=== PATIENT | female | born 1990 | race African-American/Black ===

== ENCOUNTER 2018-06-07 09:53 | Emergency (ER) | payer SELFPAY ==
--- OUTSIDE RECORDS SUMMARY | 2018-06-07 10:01 | XMS REPORT ---
:1990 [facility] [address] [place] [address] Dr. Glass [address] [place] [id number] Care Team Providers Name Role Phone Unavailable Unavailable Unavailable Problems This patient has no known problems. Allergies, Adverse Reactions, Alerts This patient has no known allergies or adverse reactions. Medications This patient has no known medications. Results Test Description Test Time Test Comments Text Results Atomic Results Result Comments CT C-SPINE W/O CONT 2017-04-07 21:20:[address] [id number] IMAGING REPORTPatient Name: Carl WHITEte of Service: [id number]: 26 Sex: F Order #: [id number] Room: QERDOB: 1990 X-Ray Number: [id number] Record Number: [id number] Hospital Number: [id number] Physician: Gwen PRADO Physician: Artis DE JESUS CT exam was performed using one or more of the following dosereduction techniques: Automated exposure control, adjustment of the mAand/or kV according to patient size, or use of iterative reconstructiontechnique.CT head, CT cervical spineHistory: Headache. Neck pain.CT head: There is a moderate-sized mucus retention cyst in the rightmaxillary paranasal sinus. Otherwise, normal.CT cervical spine: There is reversed cervical lordosis. No fracture orsubluxation identified. Alignment, position, vertebral body heights, andintervertebral disc spaces are maintained. No soft tissue abnormalityidentified. There are dental caries.Impression:1. Findings as discussed.Electronically Signed By: Michael Milian M.D., 04/07/2017 9:17 PMLegally authenticated by MAVIS HALL 2017-04-07 21:17:48 CT HEAD W/O CONT 2017-04-07 21:20:00 [address] [place], [place] [id number] IMAGING REPORTPatient Name: Gianluca WHITE of Service: [id number]: 26 Sex: F Order #: [id number] [facility] 1990 X-Ray Number: [id number] Record Number: [id number] Hospital Number: [id number] Physician: Gwen PRADO Physician: Artis DE JESUS CT exam was performed using one or more of the following dosereduction techniques: Automated exposure control, adjustment of the mAand/or kV according to patient size, or use of iterative reconstructiontechnique.CT head, CT cervical spineHistory: Headache. Neck pain.CT head: There is a moderate-sized mucus retention cyst in the rightmaxillary paranasal sinus. Otherwise, normal.CT cervical spine: There is reversed cervical lordosis. No fracture orsubluxation identified. Alignment, position, vertebral body heights, andintervertebral disc spaces are maintained. No soft tissue abnormalityidentified. There are dental caries.Impression:1. Findings as discussed.Electronically Signed By: Michael Milian M.D., 04/07/2017 9:17 PMLegally authenticated by MAVIS HALL 2017-04-07 21:17:48
[2018-06-07] MEDS ORDERED: NA CHLORIDE 0.9% 1,000 ML ONE ×2 (10:16→11:18)
[2018-06-07] MEDS ORDERED: ONDANSETRON 4 MG/2 ML VIAL ONE (10:16)
--- NOTE | 2018-06-07 10:26 | RAD REPORT ---
EXAM DESCRIPTION: CT - Head Brain Wo Cont - 06/07/2018 10:21 am CLINICAL HISTORY: Headache, hypertension COMPARISON: November 2016 TECHNIQUE: Axial 5 mm thick images of the head were obtained without IV contrast. All CT scans are performed using dose optimization technique as appropriate and may include automated exposure control or mA/KV adjustment according to patient size. FINDINGS: No intracranial hemorrhage, mass, edema or shift of mid-line structures. No acute infarcti on changes seen. No abnormal extra-axial fluid collections. Ventricles are normal. Mastoid air cells and visualized portions of the paranasal sinuses are clear. No acute bony findings. No significant change from comparison. IMPRESSION: Negative non-contrast CT head examination.
[2018-06-07 10:33] LABS: Absolute Lymphocytes (CBC) 2.4 K/uL (0.7-4.9); Absolute Monocytes 0.6 K/uL (0.1-1.3); Absolute Neutrophil 5.1 K/uL (1.8-8.0); Basophils % 0.3 % (0-1.3); Eosinophils % 0.1 % (0-4.4); Hematocrit 45.6 % (36.0-45.0); Lymphocytes % 29.1 % (15.3-44.8); MCH 29.8 pg (27.0-35.0); MCV 86.8 fL (80-100); MPV 6.8 fL (7.6-11.3); Monocytes % 7.8 % (3.3-12.3); RBC Red Blood Cell Count 5.26 M/uL (3.86-4.86)
[2018-06-07 10:35] LABS: Urine Blood 2+ (NEG); Urine Glucose NEGATIVE (NEG); Urine Protein 1+ (NEG); Urine Specific Gravity 1.025 (1.005-1.030)
--- NOTE | 2018-06-07 12:47 | ER ---
Nurse's Notes [facility] Name: Lexi Velazquez Age: 27 yrs Sex: Female : 1990 Arrival Date: 06/07/2018 Time: 09:55 Bed 6 Private MD: None, None Diagnosis: Headache;Volume depletion Presentation: 06/07 10:01 Presenting complaint: Patient states: N/V and fatigue that began last night, sharp pain ss to back of head that began when patient woke up this morning. Transition of care: patient was not received from another setting of care. Onset of symptoms was June 06, 2018. Risk Assessment: Do you want to hurt yourself or someone else? Patient reports no desire to harm self or others. Initial Sepsis Screen: Does the patient meet any 2 criteria? No. Patient's initial sepsis screen is negative. Does the patient have a suspected source of infection? No. Patient's initial sepsis screen is negative. Care prior to arrival: None. 10:01 Method Of Arrival: Ambulatory ss 10:01 Acuity: KATHY 3 ss Triage Assessment: 13:03 Pain: Also complains of nausea. iw 13:03 Headache History: The patient has had previous headaches. 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 - Social history:: Smoking status: Patient/guardian denies using tobacco. - Ebola Screening: : Patient denies exposure to infectious person Patient denies travel to an Ebola-affected area in the 21 days before illness onset. Screenin:10 Abuse screen: Denies threats or abuse. Denies injuries from another. Nutritional ss screening: No deficits noted. Tuberculosis screening: Never had TB. Fall Risk None identified. Assessment: 10:05 General: Appears uncomfortable, Behavior is calm, cooperative, Reports feeling ill for ss 12-24 hours, fatigue for 12-24 hours, Denies fever, chills. Pain: Complains of pain in "back of head" Pain currently is 6 out of 10 on a pain scale. Quality of pain is described as sharp, Pain began "when I woke up this morning." Is continuous. Neuro: Level of Consciousness is awake, alert, obeys commands, Oriented to person, place, time, situation, Greenhouse Assistant are equal bilaterally Moves all extremities. Full function Gait is steady, Speech is normal, Facial symmetry appears normal, Pupils are PERRLA, Intact Denies blurred vision dizziness, paresthesias numbness photophobia. Cardiovascular: Capillary refill < 3 seconds is brisk in bilateral fingers. Respiratory: Airway is patent Respiratory effort is even, unlabored, Respiratory pattern is regular, symmetrical, Breath sounds are clear bilaterally. Denies cough, shortness of breath pain with respiration, pain with cough, pain with movement. GI: Reports nausea, vomiting, began last night Patient currently denies abdominal pain, constipation, diarrhea. GI: Abdomen is non-distended, Bowel sounds present X 4 quads. : Denies burning with urination, urinary frequency. EENT: Oral mucosa is moist. Throat is clear. Derm: Skin is intact, is healthy with good turgor, Skin is pink, warm \\T\\ dry. normal. Musculoskeletal: Circulation, motion, and sensation intact. Range of motion: intact in all extremities. 10:19 Reassessment: Pt to CT VIA wheelchair, NS infusing. ss 10:23 Reassessment: Pt back from CT, awaiting results from labs and CT. ss 11:17 Reassessment: Patient appears in no apparent distress at this time. Patient and/or iw family updated on plan of care and expected duration. Pain level reassessed. 2nd liter NS started. 11:39 Reassessment: Patient appears in no apparent distress at this time. Patient and/or ss family updated on plan of care and expected duration. Pain level reassessed. Pt reports headache 2/110 "almost gone". Nausea has reportedly improved as well. Awaiting for NS to finish infusing. Patient states feeling better. Patient states symptoms have improved. 12:19 Reassessment: Patient appears in no apparent distress at this time. Patient and/or ss family updated on plan of care and expected duration. Pain level reassessed. Patient is alert, oriented x 3, equal unlabored respirations, skin warm/dry/pink. Patient denies pain at this time. Vital Signs: 10:03 BP 136 / 71; Pulse 114; Resp 14; Temp 97.4(TE); Pulse Ox 100% on R/A; Weight 89.81 kg; ss Height 5 ft. 9 in. (175.26 cm); Pain 6/10; 10:27 Pulse 103; Resp 17; Pulse Ox 99% on R/A; ss 11:20 BP 119 / 86; Pulse 80; Resp 16; Pulse Ox 98% on R/A; iw 12:18 BP 131 / 86; Pulse 77; Resp 15; Pulse Ox 98% ; Pain 0/10; ss 10:03 Body Mass Index 29.24 (89.81 kg, 175.26 cm) ss Olga Coma Score: 11:16 Eye Response: spontaneous(4). Verbal Response: oriented(5). Motor Response: obeys kb commands(6). Total: 15. ED Course: 09:55 Patient arrived in ED. mr 09:56 None, None is Private Physician. mr 09:57 Francia Plunkett, CARLOS A [facility]. kb 09:57 Marcelo Richards MD is Attending Physician. kb 10:02 Triage completed. ss 10:03 Arm band placed on right wrist. ss 10:10 Patient has correct armband on for positive identification. Bed in low position. Call ss light in reach. 10:10 satellite project site monitor on. Pulse ox on. NIBP on. ss 10:10 Patient maintains SpO2 saturation greater than 95% on room air. ss 10:17 Inserted saline lock: 20 gauge in left antecubital area, using aseptic technique. Blood ss collected. 10:19 CT completed. Patient tolerated procedure well. Patient moved to CT via wheelchair. vr Patient moved back from CT. 10:21 CT Head Brain wo Cont In Process Unspecified. EDMS 10:23 Basic Metabolic Panel Sent. ss 10:23 CBC with Diff Sent. ss 10:27 Keren Chaney, ESTRADA is Primary Nurse. ss 13:02 No provider procedures requiring assistance completed. IV discontinued, intact, iw bleeding controlled, No redness/swelling at site. Pressure dressing applied. Administered Medications: 10:17 Drug: Zofran 4 mg Route: IVP; Site: left antecubital; ss 10:36 Follow up: Response: No adverse reaction; Nausea is decreased ss 10:19 Drug: NS 0.9% 1000 ml Route: IV; Rate: 1000 ml; Site: left antecubital; ss 12:19 Follow up: IV Status: Completed infusion; IV Intake: 1000ml ss 10:41 Drug: TORadol 30 mg Route: IVP; Site: left antecubital; ss 12:19 Follow up: Response: No adverse reaction; Pain is decreased ss 11:16 Drug: NS 0.9% 1000 ml Route: IV; Rate: 1000 ml; Site: left antecubital; iw 13:03 Follow up: IV Status: Completed infusion iw Intake: 12:19 IV: 1000ml; Total: 1000ml. ss Outcome: 12:47 Discharge ordered by . kb 13:02 Discharged to home ambulatory. iw 13:02 Condition: good 13:02 Discharge instructions given to patient, Instructed on discharge instructions, follow up and referral plans. Demonstrated understanding of instructions, follow-up care. 13:03 Patient left the ED. iw Signatures: Dispatcher [employer] EDMS Francia Plunkett, ROBBIEC CAR PACKER-Sara Pierre mr Deepa Guerrero RN RN iw Keren Chaney RN RN ss Davis, Victoria vr Corrections: (The following items were deleted from the chart) 10:23 10:17 Inserted saline lock: 20 gauge in right antecubital area, using aseptic ss technique. Blood collected. ss
--- NOTE | 2018-06-07 12:47 | EDPHYS ---
Physician Documentation [facility] Name: Lexi Velazquez Age: 27 yrs Sex: Female : 1990 Arrival Date: 06/07/2018 Time: 09:55 Bed 6 Private MD: None, None ED Physician Marcelo Richards HPI: 06/07 11:17 This 27 yrs old Black Female presents to ER via Ambulatory with complaints of Headache. kb 11:17 The patient complains of pain to the right side of the back of head. The patient kb describes the headache as constant. Onset: The symptoms/episode began/occurred yesterday. Associated signs and symptoms: Pertinent positives: nausea, vomiting. Severity of symptoms: At its worst the pain was mild, moderate, in the emergency department the pain is unchanged. Headache History: Denies prior headaches. The symptoms are alleviated by nothing. the symptoms are aggravated by nothing. The patient has not experienced similar symptoms in the past. The patient has not recently seen a physician. 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 - Social history:: Smoking status: Patient/guardian denies using tobacco. - Ebola Screening: : Patient denies exposure to infectious person Patient denies travel to an Ebola-affected area in the 21 days before illness onset. ROS: 11:17 Constitutional: Negative for fever, chills, and weight loss, Eyes: Negative for injury, kb pain, redness, and discharge, ENT: Negative for injury, pain, and discharge, Neck: Negative for injury, pain, and swelling, Cardiovascular: Negative for chest pain, palpitations, and edema, Respiratory: Negative for shortness of breath, cough, wheezing, and pleuritic chest pain, : Negative for injury, bleeding, discharge, and swelling, MS/Extremity: Negative for injury and deformity, Skin: Negative for injury, rash, and discoloration. 11:17 Abdomen/GI: Positive for nausea and vomiting, Negative for abdominal pain, diarrhea, constipation, abdominal cramps, abdominal distension, anorexia. 11:17 Neuro: Positive for headache, Negative for altered mental status, dizziness, gait disturbance, hearing loss, loss of consciousness, numbness, seizure activity, speech changes, syncope, near syncope, tingling, tinnitus, tremor, visual changes, weakness. Exam: 11:17 Constitutional: This is a well developed, well nourished patient who is awake, alert, kb and in no acute distress. Head/Face: Normocephalic, atraumatic. Eyes: Pupils equal round and reactive to light, extra-ocular motions intact. Lids and lashes normal. Conjunctiva and sclera are non-icteric and not injected. Cornea within normal limits. Periorbital areas with no swelling, redness, or edema. ENT: Nares patent. No nasal discharge, no septal abnormalities noted. Tympanic membranes are normal and external auditory canals are clear. Oropharynx with no redness, swelling, or masses, exudates, or evidence of obstruction, uvula midline. Mucous membranes moist. Neck: Trachea midline, no thyromegaly or masses palpated, and no cervical lymphadenopathy. Supple, full range of motion without nuchal rigidity, or vertebral point tenderness. No Meningismus. Chest/axilla: Normal chest wall appearance and motion. Nontender with no deformity. No lesions are appreciated. Cardiovascular: Regular rate and rhythm with a normal S1 and S2. No gallops, murmurs, or rubs. Normal PMI, no JVD. No pulse deficits. Respiratory: Lungs have equal breath sounds bilaterally, clear to auscultation and percussion. No rales, rhonchi or wheezes noted. No increased work of breathing, no retractions or nasal flaring. Abdomen/GI: Soft, non-tender, with normal bowel sounds. No distension or tympany. No guarding or rebound. No evidence of tenderness throughout. Skin: Warm, dry with normal turgor. Normal color with no rashes, no lesions, and no evidence of cellulitis. MS/ Extremity: Pulses equal, no cyanosis. Neurovascular intact. Full, normal range of motion. Neuro: Awake and alert, GCS 15, oriented to person, place, time, and situation. Cranial nerves II-XII grossly intact. Motor strength 5/5 in all extremities. Sensory grossly intact. Cerebellar exam normal. Normal gait. Vital Signs: 10:03 BP 136 / 71; Pulse 114; Resp 14; Temp 97.4(TE); Pulse Ox 100% on R/A; Weight 89.81 kg; ss Height 5 ft. 9 in. (175.26 cm); Pain 6/10; 10:27 Pulse 103; Resp 17; Pulse Ox 99% on R/A; ss 11:20 BP 119 / 86; Pulse 80; Resp 16; Pulse Ox 98% on R/A; iw 12:18 BP 131 / 86; Pulse 77; Resp 15; Pulse Ox 98% ; Pain 0/10; ss 10:03 Body Mass Index 29.24 (89.81 kg, 175.26 cm) ss Olga Coma Score: 11:16 Eye Response: spontaneous(4). Verbal Response: oriented(5). Motor Response: obeys kb commands(6). Total: 15. MDM: 09:57 Patient medically screened. kb 11:16 Data reviewed: vital signs, nurses notes. Data interpreted: Pulse oximetry: on room air kb is 99 %. Interpretation: normal. ED course: Pt reports pain is decreased and she is feeling better. 12:46 Counseling: I had a detailed discussion with the patient and/or guardian regarding: the kb historical points, exam findings, and any diagnostic results supporting the discharge/admit diagnosis, lab results, the need for outpatient follow up, a family practitioner, to return to the emergency department if symptoms worsen or persist or if there are any questions or concerns that arise at home. 06/07 10:10 Order name: Basic Metabolic Panel; Complete Time: 11:09 kb 06/07 10:10 Order name: CBC with Diff; Complete Time: 10:41 kb 06/07 10:10 Order name: CT Head Brain wo Cont; Complete Time: 10:29 kb 06/07 10:18 Order name: Urine Dipstick--Ancillary (enter results); Complete Time: 10:41 bd 06/07 10:18 Order name: Urine --Ancillary (enter results); Complete Time: 10:41 bd 06/07 10:10 Order name: Urine Test (obtain specimen); Complete Time: 10:22 kb 06/07 10:10 Order name: IV Saline Lock; Complete Time: 10:22 kb 06/07 10:10 Order name: Labs collected and sent; Complete Time: 10: kb 06/07 10:10 Order name: Urine Dipstick-Ancillary (obtain specimen); Complete Time: 10:22 kb Administered Medications: 10:17 Drug: Zofran 4 mg Route: IVP; Site: left antecubital; ss 10:36 Follow up: Response: No adverse reaction; Nausea is decreased ss 10:19 Drug: NS 0.9% 1000 ml Route: IV; Rate: 1000 ml; Site: left antecubital; ss 12:19 Follow up: IV Status: Completed infusion; IV Intake: 1000ml ss 10:41 Drug: TORadol 30 mg Route: IVP; Site: left antecubital; ss 12:19 Follow up: Response: No adverse reaction; Pain is decreased ss 11:16 Drug: NS 0.9% 1000 ml Route: IV; Rate: 1000 ml; Site: left antecubital; iw 13:03 Follow up: IV Status: Completed infusion iw Disposition: 06/08 06:55 Co-signature as Attending Physician, Marcelo Richards MD I agree with the assessment and tomi plan of care. Disposition: 06/07/18 12:47 Discharged to Home. Impression: Headache, Volume depletion. - Condition is Stable. - Discharge Instructions: Dehydration, Adult, Mrhm-go-Lmdd, General Headache Without Cause, Ubet-zh-Mroa. - Medication Reconciliation Form, Thank You Letter, Antibiotic Education, Prescription Opioid Use, Work release form form. - Follow up: Emergency Department; When: As needed; Reason: Worsening of condition. Follow up: Private Physician; When: 2 - 3 days; Reason: Recheck today's complaints, Continuance of care, Re-evaluation by your physician. Signatures: Dispatcher [employer] Francia Mayorga, NATHAN-Emma EVANS-Marcelo Daniel MD MD cha Williams, Irene, Keren Galindo RN, RN RN ss Corrections: (The following items were deleted from the chart) 06/07 13:03 12:47 06/07/2018 12:47 Discharged to Home. Impression: Headache; Volume depletion. iw Condition is Stable. Forms are Medication Reconciliation Form, Thank You Letter, Antibiotic Education, Prescription Opioid Use. Follow up: Emergency Department; When: As needed; Reason: Worsening of condition. Follow up: Private Physician; When: 2 - 3 days; Reason: Recheck today's complaints, Continuance of care, Re-evaluation by your physician. kb
[2018-06-07 13:20] VITALS: TEMP 97.4
[2018-06-07 13:22] VITALS: O2SAT 98
[2018-06-07 13:23] VITALS: BP 131/86
== END 2018-06-07 13:03 | disposition home or self-care (01) ==
LOC: ER 09:53
DX: E86.9 Volume depletion, unspecified (principal); I10 Essential (primary) hypertension
CPT/HCPCS: 36415; 70450; 80048; 81003; 81025; 85025; 96361; 96374; 96375; 99285; J2405; J7030

== ENCOUNTER 2018-11-16 11:36 | Emergency (ER) | payer SELFPAY ==
--- OUTSIDE RECORDS SUMMARY | 2018-11-16 11:38 | XMS REPORT ---
:1990 [facility] Address [address] [place] [address] Dr. Glass [address] [place] [address] Care Team Providers Name Role Phone Unavailable Unavailable Unavailable Problems This patient has no known problems. Allergies, Adverse Reactions, Alerts This patient has no known allergies or adverse reactions. Medications This patient has no known medications. Results Test Description Test Time Test Comments Text Results Atomic Results Result Comments CT C-SPINE W/O CONT 2017-04-07 21:20:[address] [id number] IMAGING REPORTPatient Name: Carl WHITEte of Service: [id number]: 26 Sex: F Order #: [id number] Room: QERDOB: 1990 X-Ray Number: [id number] Record Number: [id number] Hospital Number: [id number] Physician: Gwen PRADO Physician: Artis DE JESUS [...] 21:17:48 CT HEAD W/O CONT 2017-04-07 21:20:00 [address], [place] [id number] IMAGING REPORTPatient Name: Gianluca WHITE of Service: [id number]: 26 Sex: F Order #: [id number] [facility] 1990 [facility] Number: [id number] Record Number: [id number] Hospital Number: [id number] Physician: Gwen PRADO Physician: Artis DE JESUS [...]
--- NOTE | 2018-11-16 12:11 | EDPHYS ---
Physician Documentation [facility] Name: Lexi Velazquez Age: 28 yrs Sex: Female : 1990 Arrival Date: 11/16/2018 Time: 11:39 Bed 17 Private MD: None, None ED Physician Reece Hay HPI: 11/16 12:20 This 28 yrs old Black Female presents to ER via Ambulatory with complaints of Ear Pain. snw 12:20 The patient presents with pain, that is acute. The complaints affect the right ear. snw Onset: The symptoms/episode began/occurred suddenly, 4 day(s) ago, and became worse and became persistent. Associated signs and symptoms: The patient has no apparent associated signs or symptoms. Severity of symptoms: At their worst the symptoms were moderate severe. The patient has not experienced similar symptoms in the past. It is unknown whether or not the patient has recently seen a physician. was on Lisinopril until she ran out and hasn't gotten another prescription. 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 - Social history:: Smoking status: Patient uses tobacco products, 4 cigarettes per day. - Ebola Screening: : No symptoms or risks identified at this time. ROS: 12:20 Constitutional: Negative for fever, chills, and weight loss, Eyes: Negative for injury, snw pain, redness, and discharge, ENT: Negative for injury and discharge, + dental pain, sore throat, and right ear pain Neck: Negative for injury, pain, and swelling, Cardiovascular: Negative for chest pain, palpitations, and edema, Respiratory: Negative for shortness of breath, cough, wheezing, and pleuritic chest pain, Abdomen/GI: Negative for abdominal pain, nausea, vomiting, diarrhea, and constipation, Back: Negative for injury and pain, : Negative for injury, bleeding, discharge, and swelling, MS/Extremity: Negative for injury and deformity, Skin: Negative for injury, rash, and discoloration, Neuro: Negative for headache, weakness, numbness, tingling, and seizure. Exam: 12:19 Constitutional: This is a well developed, well nourished patient who is awake, alert, snw and in no acute distress. Head/Face: Normocephalic, atraumatic. Eyes: Pupils equal round and reactive to light, extra-ocular motions intact. Lids and lashes normal. Conjunctiva and sclera are non-icteric and not injected. Cornea within normal limits. Periorbital areas with no swelling, redness, or edema. Neck: Trachea midline, no thyromegaly or masses palpated, and no cervical lymphadenopathy. Supple, full range of motion without nuchal rigidity, or vertebral point tenderness. No Meningismus. Chest/axilla: Normal chest wall appearance and motion. Nontender with no deformity. No lesions are appreciated. Cardiovascular: Regular rate and rhythm with a normal S1 and S2. No gallops, murmurs, or rubs. Normal PMI, no JVD. No pulse deficits. Respiratory: Lungs have equal breath sounds bilaterally, clear to auscultation and percussion. No rales, rhonchi or wheezes noted. No increased work of breathing, no retractions or nasal flaring. Abdomen/GI: Soft, non-tender, with normal bowel sounds. No distension or tympany. No guarding or rebound. No evidence of tenderness throughout. Back: No spinal tenderness. No costovertebral tenderness. Full range of motion. Skin: Warm, dry with normal turgor. Normal color with no rashes, no lesions, and no evidence of cellulitis. MS/ Extremity: Pulses equal, no cyanosis. Neurovascular intact. Full, normal range of motion. Neuro: Awake and alert, GCS 15, oriented to person, place, time, and situation. Cranial nerves II-XII grossly intact. Motor strength 5/5 in all extremities. Sensory grossly intact. Cerebellar exam normal. Normal gait. Psych: Awake, alert, with orientation to person, place and time. Behavior, mood, and affect are within normal limits. 12:19 ENT: External ear(s): are unremarkable, Ear canal(s): are normal, TM's: dullness, on the right, Nose: is normal, Mouth: is normal, Posterior pharynx: is normal, Dental exam: dental caries, that is moderate, specifically in the lower right third molar (#32), gum swelling, Voice: is normal. Vital Signs: 11:56 BP 148 / 99; Pulse 74; Resp 18; Temp 99; Pulse Ox 100% ; Weight 102.51 kg; Height 5 ft. ca1 9 in. (175.26 cm); Pain 10/10; 11:56 Body Mass Index 33.37 (102.51 kg, 175.26 cm) ca1 MDM: 12:01 Patient medically screened. snw 12:22 Data reviewed: vital signs, nurses notes. Data interpreted: Pulse oximetry: on room air snw is 100 %. Interpretation: normal. Counseling: I had a detailed discussion with the patient and/or guardian regarding: the historical points, exam findings, and any diagnostic results supporting the discharge/admit diagnosis, the presence of at least one elevated blood pressure reading (>120/80) during this emergency department visit, the need for outpatient follow up, to return to the emergency department if symptoms worsen or persist or if there are any questions or concerns that arise at home. Special discussion: I have referred the patient to see his PCP for further evaluation of high blood pressure. Based on the history and exam findings, there is no indication for further emergent testing or inpatient evaluation. I discussed with the patient/guardian the need to see a dentist for further evaluation of the symptoms. I discussed with the patient/guardian the need to see the primary care provider for further evaluation of the symptoms. Administered Medications: 12:32 Drug: Lisinopril 10 mg Route: PO; bp 12:57 Follow up: Response: Pain is decreased bp 12:32 Drug: Augmentin 875 mg Route: PO; bp 12:57 Follow up: Response: No adverse reaction bp 12:32 Drug: TORadol 60 mg Route: IM; Site: right gluteus; bp 12:57 Follow up: Response: Pain is decreased bp Disposition: 13:30 Co-signature as Attending Physician, Reece Hay MD. rn Disposition: 11/16/18 12:10 Discharged to Home. Impression: Dental caries, unspecified, Essential (primary) hypertension, Otalgia, right ear. - Condition is Stable. - Discharge Instructions: Dental Pain, Hypertension, Earache, Adult, Diet and Dental Disease, Managing Your Hypertension. - Prescriptions for chlorhexidine gluconate 0.12 % Mucous Membrane mouthwash - place 15 milliliter by MUCOUS MEMBRANE route 2 times per day (after meals), swish in mouth for 30 seconds then spit out; 480 milliliter. Amoxicillin 500 mg Oral Capsule - take 1 capsule by ORAL route every 8 hours for 10 days; 30 tablet. Lisinopril 10 mg Oral Tablet - take 1 tablet by ORAL route once daily; 30 tablet. Diclofenac Sodium 75 mg Oral Tablet Sustained Release - take 1 tablet by ORAL route 2 times per day; 30 tablet. - Medication Reconciliation Form, Thank You Letter, Antibiotic Education, Prescription Opioid Use form. - Follow up: Private Physician; When: 2 - 3 days; Reason: Recheck today's complaints, Continuance of care, Re-evaluation by your physician. Follow up: Emergency Department; When: As needed; Reason: Worsening of condition. Signatures: Betzy Menezes, VALIDATION INTERN-C VALIDATION INTERN-Csnw Reece Hay MD MD rn Peltier, Brian, RN RN bp Acob, Patricia RN ESTRADA ca1 Corrections: (The following items were deleted from the chart) 12:11 12:10 11/16/2018 12:10 Discharged to Home. Impression: Dental caries, unspecified; snw Essential (primary) hypertension. Condition is Stable. Forms are Medication Reconciliation Form, Thank You Letter, Antibiotic Education, Prescription Opioid Use. Follow up: Private Physician; When: 2 - 3 days; Reason: Recheck today's complaints, Continuance of care, Re-evaluation by your physician. Follow up: Emergency Department; When: As needed; Reason: Worsening of condition. snw 12:58 12:11 11/16/2018 12:10 Discharged to Home. Impression: Dental caries, unspecified; bp Essential (primary) hypertension; Otalgia, right ear. Condition is Stable. Forms are Medication Reconciliation Form, Thank You Letter, Antibiotic Education, Prescription Opioid Use. Follow up: Private Physician; When: 2 - 3 days; Reason: Recheck today's complaints, Continuance of care, Re-evaluation by your physician. Follow up: Emergency Department; When: As needed; Reason: Worsening of condition. snw
--- NOTE | 2018-11-16 12:11 | ER ---
Nurse's Notes [facility] Name: Lexi Velazquez Age: 28 yrs Sex: Female : 1990 Arrival Date: 11/16/2018 Time: 11:39 Bed 17 Private MD: None, None Diagnosis: Dental caries, unspecified;Essential (primary) hypertension;Otalgia, right ear Presentation: 11/16 11:51 Presenting complaint: Patient states: "I think I have an ear infection which started ca1 the day before yesterday. It is in there right ear. Transition of care: patient was not received from another setting of care. Onset of symptoms was November 14, 2018. Risk Assessment: Do you want to hurt yourself or someone else? Patient reports no desire to harm self or others. Initial Sepsis Screen: Does the patient meet any 2 criteria? No. Patient's initial sepsis screen is negative. Does the patient have a suspected source of infection? Yes: Other: Ear Infection. Care prior to arrival: None. 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 - Social history:: Smoking status: Patient uses tobacco products, 4 cigarettes per day. - Ebola Screening: : No symptoms or risks identified at this time. Screenin:31 Abuse screen: Denies threats or abuse. Denies injuries from another. Nutritional bp screening: No deficits noted. Tuberculosis screening: No symptoms or risk factors identified. Fall Risk None identified. Assessment: 12:00 General: Appears in no apparent distress. comfortable, Behavior is calm, cooperative, bp appropriate for age. Pain: Complains of pain in right ear. Neuro: Level of Consciousness is awake, alert, obeys commands, Oriented to person, place, time, situation, Appropriate for age. Cardiovascular: No deficits noted. Respiratory: Airway is patent Respiratory effort is even, unlabored, Respiratory pattern is regular, symmetrical. GI: No signs and/or symptoms were reported involving the gastrointestinal system. : No signs and/or symptoms were reported regarding the genitourinary system. EENT: Reports pain in right ear. Derm: No signs and/or symptoms reported regarding the dermatologic system. Musculoskeletal: No signs and/or symptoms reported regarding the musculoskeletal system. 12:58 Reassessment: PT D/C HOME AMBULATORY, DX WITH DENTAL CARIES. bp Vital Signs: 11:56 BP 148 / 99; Pulse 74; Resp 18; Temp 99; Pulse Ox 100% ; Weight 102.51 kg; Height 5 ft. ca1 9 in. (175.26 cm); Pain 10/10; 11:56 Body Mass Index 33.37 (102.51 kg, 175.26 cm) ca1 ED Course: 11:39 Patient arrived in ED. dl4 11:39 None, None is Private Physician. dl4 11:40 Betzy Meenzes FNP-C is PHCP. snw 11:40 Reece Hay MD is Attending Physician. snw 11:54 Triage completed. ca1 11:56 Arm band placed on left wrist. ca1 12:28 Sampson Sánchez, ESTRADA is Primary Nurse. bp 12:31 Patient has correct armband on for positive identification. Bed in low position. Call bp light in reach. Side rails up X2. Adult w/ patient. 12:57 No provider procedures requiring assistance completed. Patient did not have IV access bp during this emergency room visit. Administered Medications: 12:32 Drug: Lisinopril 10 mg Route: PO; bp 12:57 Follow up: Response: Pain is decreased bp 12:32 Drug: Augmentin 875 mg Route: PO; bp 12:57 Follow up: Response: No adverse reaction bp 12:32 Drug: TORadol 60 mg Route: IM; Site: right gluteus; bp 12:57 Follow up: Response: Pain is decreased bp Outcome: 12:10 Discharge ordered by . snw 12:57 Discharged to home ambulatory. bp 12:57 Condition: stable 12:57 Discharge instructions given to patient, Instructed on discharge instructions, follow up and referral plans. medication usage, Demonstrated understanding of instructions, follow-up care, medications, Prescriptions given X 4. 12:58 Patient left the ED. bp Signatures: Betzy Menezes FNP-C MOVIE SHOT CAMERA OPERATOR-Csnw Sampson Sánchez, RN RN bp Jorge Fritz dl4 Acob, Patricia, RN RN ca1
[2018-11-16] MEDS ORDERED: LISINOPRIL 10 MG TAB ONE (12:45)
[2018-11-16] MEDS ORDERED: AMOX/K CLAV 875 MG TAB ONE (12:45)
[2018-11-16] MEDS ORDERED: KETOROLAC 30 MG/ML INJ ONE (12:45)
[2018-11-16 13:52] VITALS: BP 148/99; TEMP 99; O2SAT 100
== END 2018-11-16 12:58 | disposition home or self-care (01) ==
LOC: ER 11:36
DX: I10 Essential (primary) hypertension (principal); H92.01 Otalgia, right ear; K02.9 Dental caries, unspecified; F17.210 Nicotine dependence, cigarettes, uncomplicated
CPT/HCPCS: 96372; 99283

== ENCOUNTER 2019-04-24 14:02 | Emergency (ER) | payer SELFPAY ==
--- OUTSIDE RECORDS SUMMARY | 2019-04-24 14:05 | XMS REPORT ---
:1990 Author Organization [facility] Address [address] [place] [address] [address] Care Team Providers Name Role Phone Unavailable Unavailable Unavailable Problems This patient has no known problems. Allergies, Adverse Reactions, Alerts This patient has no known allergies or adverse reactions. Medications This patient has no known medications. Results Test Description Test Time Test Comments Text Results Atomic Results Result Comments CT C-SPINE W/O CONT 2017-04-07 21:20:00 [place] [id number] [place], [place] [address]VILHLHGNRF IMAGING REPORTPatient Name: Gianluca WHITE of Service: [id number]: 26 Sex: F Order #: [id number] Room: QERDOB: 1990 X-Ray Number: [id number] Record Number: [id number] Hospital Number: [id number] Physician: Gwen PRADO Physician: Artis DE JESUS [...] 21:17:48 CT HEAD W/O CONT 2017-04-07 21:20:00 [facility] [place], [place] [address]GFOATZBPHV IMAGING REPORTPatient Name: Gianluca WHITE of Service: [id number]: 26 Sex: F Order #: [id number] [facility] 1990 [facility] Number: [id number] Record Number: [id number] Hospital Number: [id number] Physician: Gwen PRADO Physician: Artis DE JESUS [...]
--- NOTE | 2019-04-24 14:56 | RAD REPORT ---
EXAM DESCRIPTION: RAD - Foot Right 3 View - 04/24/2019 2:34 pm CLINICAL HISTORY: Right foot pain following trauma COMPARISON: None. FINDINGS: No fracture, dislocation or periosteal reaction. No air or foreign body in the soft tissues. IMPRESSION: Negative right foot examination.
--- NOTE | 2019-04-24 15:19 | ER ---
Nurse's Notes [facility] Name: Lexi Velazquez Age: 28 yrs Sex: Female : 1990 Arrival Date: 04/24/2019 Time: 14:05 Bed 19 Private MD: Diagnosis: Right ankle eversion strain Presentation: 04/24 14:06 Presenting complaint: Patient states: i was walking fast when i heard a popped on my R hj foot, it happened an hour ago; pain is 7/10;. Transition of care: patient was not received from another setting of care. Onset of symptoms was April 24, 2019. Risk Assessment: Do you want to hurt yourself or someone else? Patient reports no desire to harm self or others. Initial Sepsis Screen: Does the patient meet any 2 criteria? No. Patient's initial sepsis screen is negative. Does the patient have a suspected source of infection? No. Patient's initial sepsis screen is negative. Care prior to arrival: None. 14:06 Method Of Arrival: Ambulatory 14:06 Acuity: KATHY 4 Triage Assessment: 14:10 General: Appears in no apparent distress. uncomfortable, obese, Behavior is calm, bp cooperative, appropriate for age. Pain: Complains of pain in right ankle. EENT: No deficits noted. Neuro: No deficits noted. Cardiovascular: No deficits noted. Respiratory: No deficits noted. GI: No signs and/or symptoms were reported involving the gastrointestinal system. : No signs and/or symptoms were reported regarding the genitourinary system. Derm: No deficits noted. Musculoskeletal: Circulation, motion, and sensation intact. Range of motion: limited in right ankle. Injury Description: NONE NOTED. 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 - Social history:: Smoking status: Patient/guardian denies using tobacco. - Ebola Screening: : No symptoms or risks identified at this time. Screenin:10 Abuse screen: Denies threats or abuse. Denies injuries from another. Nutritional bp screening: No deficits noted. Tuberculosis screening: No symptoms or risk factors identified. Fall Risk None identified. Assessment: 14:10 General: SEE TRIAGE NOTE. bp 16:04 Reassessment: PT D/C HOME VIA W/C WITH FAMILY, DX WITH ANKLE EVERSION STRAIN. bp Vital Signs: 14:08 BP 134 / 68; Pulse 94; Resp 18; Temp 98.3(O); Pulse Ox 99% on R/A; Weight 104.33 kg; hj Height 5 ft. 9 in. (175.26 cm); Pain 7/10; 16:00 BP 129 / 71; Pulse 87; Resp 16; Temp 98; Pulse Ox 99% ; bp 14:08 Body Mass Index 33.96 (104.33 kg, 175.26 cm) ED Course: 14:05 Patient arrived in ED. mr 14:07 Triage completed. hj 14:08 Arm band placed on left wrist. 14:10 Patient has correct armband on for positive identification. Bed in low position. Call bp light in reach. Side rails up X2. Adult w/ patient. 14:11 Yair Clark MD is Attending Physician. ps1 14:11 Sergei Kirby, ESTRADA is Primary Nurse. mg2 14:35 Foot Right 3 View XRAY In Process Unspecified. EDDC 14:53 Primary Nurse role handed off by Sergei Kirby RN bp 14:53 Sampson Sánchez, RN is Primary Nurse. bp 15:38 Orthoglass splint: SHORT BOOT. 5 16:05 No provider procedures requiring assistance completed. Patient did not have IV access bp during this emergency room visit. Administered Medications: No medications were administered Outcome: 15:19 Discharge ordered by . ps1 16:05 Discharged to home via wheelchair, with family. bp 16:05 Condition: stable 16:05 Discharge instructions given to patient, Instructed on discharge instructions, follow up and referral plans. medication usage, Demonstrated understanding of instructions, follow-up care, medications, splint care, Prescriptions given X 3. 16:07 Patient left the ED. bp Signatures: Dispatcher [employer] [facility] Aaliyah SanchezMark RN RN Sara Juares [facility] Sampson Sánchez, RN RN Yair Clark MD MD ps1 Gardose, Sergei, RN RN mg2
--- NOTE | 2019-04-24 15:19 | EDPHYS ---
Physician Documentation [facility] Name: Lexi Velazquez Age: 28 yrs Sex: Female : 1990 Arrival Date: 04/24/2019 Time: 14:05 Bed 19 Private MD: ED Physician Yair Clark HPI: 04/24 14:11 This 28 yrs old Black Female presents to ER via Ambulatory with complaints of Foot ps1 Injury. 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 . 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 - Social history:: Smoking status: Patient/guardian denies using tobacco. - Ebola Screening: : No symptoms or risks identified at this time. Vital Signs: 14:08 BP 134 / 68; Pulse 94; Resp 18; Temp 98.3(O); Pulse Ox 99% on R/A; Weight 104.33 kg; hj Height 5 ft. 9 in. (175.26 cm); Pain 7/10; 16:00 BP 129 / 71; Pulse 87; Resp 16; Temp 98; Pulse Ox 99% ; bp 14:08 Body Mass Index 33.96 (104.33 kg, 175.26 cm) hj MDM: 14:23 Patient medically screened. ps1 15:20 Data reviewed: vital signs, nurses notes, radiologic studies, and as a result, I will ps1 discharge patient. Counseling: I had a detailed discussion with the patient and/or guardian regarding: the historical points, exam findings, and any diagnostic results supporting the discharge/admit diagnosis, radiology results, the need for outpatient follow up, to return to the emergency department if symptoms worsen or persist or if there are any questions or concerns that arise at home. 04/24 14:11 Order name: Foot Right 3 View XRAY; Complete Time: 15:18 ps1 Administered Medications: No medications were administered Disposition: 04/24/19 15:19 Discharged to Home. Impression: Right ankle eversion strain. - Condition is Stable. - Discharge Instructions: Ankle Sprain. - Prescriptions for Anaprox DS 550 mg Oral Tablet - take 1 tablet by ORAL route every 12 hours As needed; 20 tablet. Robaxin 500 mg Oral Tablet - take 2 tablet by ORAL route every 6 hours As needed; 40 tablet. Medrol (Hu) 4 mg Oral Tablets, Dose Pack - take 1 tablet by ORAL route as directed - follow package instructions; 1 packet. - Medication Reconciliation Form, Thank You Letter, Antibiotic Education, Prescription Opioid Use form. - Follow up: Private Physician; When: As needed; Reason: Further diagnostic work-up, Continuance of care, Re-evaluation by your physician. Follow up: Emergency Department; When: As needed; Reason: Worsening of condition. - Problem is new. - Symptoms are unchanged. Signatures: Dispatcher [employer] EDMS Mark Lozada RN RN hj Sampson Sánchez RN RN bp Yair Clark MD MD ps1 Corrections: (The following items were deleted from the chart) 16:07 15:19 04/24/2019 15:19 Discharged to Home. Impression: Right ankle eversion strain. bp Condition is Stable. Forms are Medication Reconciliation Form, Thank You Letter, Antibiotic Education, Prescription Opioid Use. Follow up: Private Physician; When: As needed; Reason: Further diagnostic work-up, Continuance of care, Re-evaluation by your physician. Follow up: Emergency Department; When: As needed; Reason: Worsening of condition. Problem is new. Symptoms are unchanged. ps1
[2019-04-26 17:30] VITALS: BP 129/71; TEMP 98; O2SAT 99
== END 2019-04-24 16:07 | disposition home or self-care (01) ==
LOC: ER 14:02
DX: S96.911A Strain of unspecified muscle and tendon at ankle and foot level, right foot, initial encounter (principal); X58.XXXA Exposure to other specified factors, initial encounter; Y93.9 Activity, unspecified; Y92.9 Unspecified place or not applicable; I10 Essential (primary) hypertension
CPT/HCPCS: 99283

== ENCOUNTER 2019-09-22 12:57 | Emergency (ER) | payer SELFPAY ==
--- OUTSIDE RECORDS SUMMARY | 2019-09-22 12:59 | XMS REPORT | Summary of Care ---
:1990 Author Organization [facility] - Health Address [address] [place] [address] Care Team Providers Name Role Phone Mikie Ramila FLORP Primary Care Provider Encounter Details Date Type Department Care Team Description 07/10/2019 Orders Only [facility] Doctor Unassigned, No [address] [facility] [place] [address] [address] [place] [address] Allergies No Known Allergiesdocumented as of this encounter (statuses as of 07/10/2019) Medications Medication Sig Dispensed Refills Start Date End Date Status cyclobenzaprine 10 mg Take 1 tablet by 20 tablet 0 12/22/2017 Active tablet mouth 3 (three) times daily. naproxen (NAPROSYN) Take 1 tablet by 30 tablet 0 12/22/2017 Active 500 mg tablet mouth 2 (two) times daily with meals. NUVARING (NUVARING) Insert 1 Each into 1 Each 2 03/03/2018 Active 0.12-0.015 mg/24 hr vagina once every vaginal month. Insert insertIndications: vaginally and Nexplanon removal leave in place for 3 consecutive weeks, then remove for 1 week. lisinopril 10 mg Take 1 tablet by 30 tablet 0 06/02/2018 Active tablet mouth at bedtime. traMADOL 50 mg Take 1 tablet by 20 tablet 0 01/27/2019 Active tabletIndications: mouth every 6 Plantar fasciitis of (six) hours as right foot needed (pain). documented as of this encounter (statuses as of 07/10/2019) Active Problems Problem Noted Date Visit for wound check 03/07/2018 Nexplanon removal 01/14/2018 Overview: Placed 12/2017 removed 02/2018 examination or test, positive result 12/16/2017 Well woman exam 12/15/2017 Over weight 12/15/2017 Encounter for other contraceptive management 01/05/2017 documented as of this encounter (statuses as of 07/10/2019) Resolved Problems Problem Noted Date Resolved Date Routine follow-up 03/13/2013 01/04/2017 Immune to varicella 03/13/2013 01/04/2017 Not immune to rubella 03/13/2013 01/04/2017 Overview: MMR vaccine given 03/13/2013. 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 Female genital symptoms 12/15/2012 01/06/2013 Overview: 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 Abnormal weight gain 12/15/2012 01/27/2013 documented as of this encounter (statuses as of 07/10/2019) Immunizations Name Administration Dates Next Due Influenza Virus Vaccine 08/05/2012 MMR 03/13/2013 Tdap 11/24/2012 documented as of this encounter Social History Tobacco Use Types Packs/Day Years Used Date Former Smoker 12/15/2014 - 11/14/2017 Smokeless Tobacco: Never Used Alcohol Use Drinks/Week oz/Week Comments No 0 Standard drinks or equivalent 0.0 Sex Assigned at Date Recorded Not on file Job Start Date Occupation Industry Not on file Not on file Not on file Travel History Travel Start Travel End No recent travel history available. documented as of this encounter Last Filed Vital Signs Not on filedocumented in this encounter Plan of Treatment Health Maintenance Due Date Last Done Comments VARICELLA VACCINES (1 of 2 - 13+ 2002 2-dose series) PAP SMEAR 05/23/2015 05/23/2012 INFLUENZA VACCINE (#1) 2019 08/05/2012 DTaP,Tdap,and Td Vaccines (2 - Td) 11/24/2022 11/24/2012 PNEUMOCOCCAL 0-64 YEARS COMBINED Aged Out No longer eligible based on SERIES patient's age to complete this topic documented as of this encounter Procedures Procedure Name Priority Date/Time Associated Diagnosis Comments NOTICE OF PRIVACY Routine 07/10/2019 10:01 AM CDT PRACTICES CONSENT/REFUSAL FOR Routine 07/10/2019 10:01 AM CDT DIAGNOSIS AND TREATMENT documented in this encounter Results Not on filedocumented in this encounter Insurance Payer Benefit Plan Subscriber ID Effective Phone Address Type / Group Dates [facility] xxxxxxxxx 2017-[facility] [phone] Medicaid WOMEN nt [address] [place] [address] documented as of this encounter Advance Directives Type Date Recorded 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
--- OUTSIDE RECORDS SUMMARY | 2019-09-22 12:59 | XMS REPORT ---
:1990 [facility] Address [facility] [place] [address] Care Team Providers Name Role Phone Unavailable Unavailable Unavailable Problems This patient has no known problems. Allergies, Adverse Reactions, Alerts This patient has no known allergies or adverse reactions. Medications This patient has no known medications. Results Test Description Test Time Test Comments Text Results Atomic Results Result Comments CT C-SPINE W/O CONT 2017-04-07 21:20:[address] [id number] IMAGING REPORTPatient Name: Gianluca WHITE of Service: [id number]: 26 Sex: F Order #: [id number] Room: ERDOB: 1990 X-Ray Number: [id number] Record Number: [id number] Hospital Number: [id number] Physician: Gwen PRADO Physician: Artis DE JESUS [...] 21:17:48 CT HEAD W/O CONT 2017-04-07 21:20:00 [facility] [place] [id number] IMAGING REPORTPatient Name: Gianluca WHITE of Service: [id number]: 26 Sex: F Order #: [id number] [facility] 1990 X-Ray Number: [id number] Record Number: [id number] Hospital Number: [id number] Physician: Gwen PRADO Physician: Artis DE JESUS [...]
--- OUTSIDE RECORDS SUMMARY | 2019-09-22 12:59 | XMS REPORT | Summary of Care ---
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 Primary Care Provider Reason for Visit Reason Comments Abdominal Pain Auth/Cert Status Reason Specialty Diagnoses / Referred By Referred To Procedures Contact Contact Emergency Medicine Diagnoses ABD PAIN [facility] [address] [place] [address] [place] [address] Encounter Details Date Type Department Care Team Description 07/10/2019 Emergency [facility] Heather Delcid R, Lower abdominal pain ( Primary Dx); Department EMNP Vaginal discharge; [address] [place] [address] [address] [facility] [address] [id number] [place], [place] [id number] Allergies No Known Allergiesdocumented as of this [...] with meals. NUVARING (NUVARING) Insert 1 Each 1 Each 2 03/03/2018 Active 0.12-0.015 mg/24 hr into vagina once vaginal every month. insertIndications: Insert vaginally Nexplanon removal and leave in place for 3 consecutive weeks, then remove for 1 week. lisinopril 10 mg Take 1 tablet by 30 tablet 0 06/02/2018 Active tablet mouth at bedtime. traMADOL 50 mg Take 1 tablet by 20 tablet 0 01/27/2019 Active tabletIndications: mouth every 6 Plantar fasciitis of (six) hours as right foot needed (pain). metroNIDAZOLE 500 mg Take 1 tablet by 14 tablet 0 07/10/2019 07/17/2019 Active tabletIndications: mouth 2 (two) Vaginal discharge times daily for 7 days. documented as of this encounter (statuses as [...] MMR vaccine given 03/13/2013. 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 Female genital symptoms 12/15/2012 01/06/2013 Overview: 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 Abnormal weight gain 12/15/2012 01/27/2013 documented [...] of this encounter Last Filed Vital Signs Vital Sign Reading Time Taken Comments Blood Pressure 123/91 07/10/2019 1:00 PM CDT Pulse 66 07/10/2019 1:00 PM CDT Temperature 37.3 C (99.2 F) 07/10/2019 10:27 AM CDT Respiratory Rate 18 07/10/2019 1:00 PM CDT Oxygen Saturation 98% 07/10/2019 1:00 PM CDT Inhaled Oxygen Concentration - - Weight 102.1 kg (225 lb) 07/10/2019 10:27 AM CDT Height 175.3 cm (5' 9") 07/10/2019 10:27 AM CDT Body Mass Index 33.23 07/10/2019 10:27 AM CDT documented in this encounter Discharge Instructions Heather Plunkett EMNP - 07/10/2019NO LIFE-THREATENING FINDINGS ON TODAY'S EXAM. SPECIAL INSTRUCTIONS: 1. Pelvic rest until results return 2. See attached information 3. Take medicines as prescribed 4. You have been treated with rocephin and azithromycin, which would treat gonorrhea/chlamydia. FOLLOW-UP RECOMMENDATIONS: RECOMMEND FOLLOW-UP WITH A PRIMARY CARE PROVIDER OR SPECIALIST IN 2-5 DAYS, ESPECIALLY IF NO IMPROVEMENT IN SYMPTOMS. TO FOLLOW-UP WITHIN THE [facility], TRY THESE OPTIONS (CLINIC APPOINTMENTS AVAILABLE ON [id number] BASIS): 1. SCHEDULE AN APPOINTMENT ONLINE AT [email or web address] 2. OR CALL THE [facility] AT OR 3. OR CALL YOUR [facility] PHYSICIAN'S OFFICE DIRECTLY IF YOU ARE ALREADY AN ESTABLISHED [facility] PATIENT. OR, YOU MAY FOLLOW-UP WITH A PROVIDER OF YOUR CHOICE, SUCH : 1. A PHYSICIAN OF YOUR CHOICE 2. [facility], . LOCATIONS IN [facility] 3. [facility], [address] [place], [place]; [phone] RETURN TO ER FOR WORSENING OF SYMPTOMS. AttachmentsThe following attachments cannot be sent through Care Everywhere.Abdominal Pain, Adult (Jamaican)Dehydration (Adult) (Jamaican)STI, Suspected (Culture Only), Gonorrhea, Chlamydia (Jamaican)documented in this encounter Plan of Treatment Name Type Priority Associated Diagnoses Date/Time GC & CHLAMYDIA AMPLIFIED LAB STAT Lower abdominal pain 07/10/2019 10:47 AM CDT ASSAY URINE CULTURE LAB STAT Lower abdominal pain 07/10/2019 11:56 AM CDT Name Type Priority Associated Diagnoses Order Schedule GC & CHLAMYDIA AMPLIFIED LAB Routine Lower abdominal pain ONCE for 1 Occurrences ASSAY starting 07/10/2019 until 07/10/2019 URINE CULTURE LAB STAT Lower abdominal pain STAT for 1 Occurrences starting 07/10/2019 until 07/10/2019 Health Maintenance Due Date Last Done Comments VARICELLA VACCINES (1 of 2 - 13+ 2002 2-dose series) PAP SMEAR 05/23/2015 05/23/2012 INFLUENZA VACCINE (#1) 2019 08/05/2012 DTaP,Tdap,and Td Vaccines (2 - Td) 11/24/2022 11/24/2012 PNEUMOCOCCAL 0-64 YEARS COMBINED Aged Out No longer eligible based on SERIES patient's age to complete this topic documented as of this encounter Procedures Procedure Name Priority Date/Time Associated Comments Diagnosis CBC WITH DIFFERENTIAL STAT 07/10/2019 10:53 Lower abdominal Results for this AM CDT pain procedure are in the results section. COMP. METABOLIC PANEL STAT 07/10/2019 10:53 Lower abdominal Results for this (76240) AM CDT pain procedure are in the results section. POCT TEST TAMMY 07/10/2019 10:47 Lower abdominal Results for this AM CDT pain procedure are in the results section. URINALYSIS STAT 07/10/2019 10:47 Lower abdominal Results for this AM CDT pain procedure are in the results section. documented in this encounter Results COMP. METABOLIC PANEL (55127) (07/10/2019 10:53 AM CDT) NA 141 135 - 145 [facility] mmol/L [facility] K 4.0 3.5 - 5.0 [facility] mmol/L [facility] CL 106 98 - 108 mmol/L [facility] CO2 TOTAL 23 23 - 31 mmol/L [facility] AGAP 12 2 - 16 [facility] BUN 10 7 - 23 mg/dL [facility] GLUCOSE 94 70 - 110 mg/dL [facility] CREATININE 0.66 0.50 - 1.04 [facility] mg/dL [facility] TOTAL BILI 0.7 0.1 - 1.1 mg/dL [facility] CALCIUM 9.9 8.6 - 10.6 [facility] mg/dL [facility] T PROTEIN 7.9 6.3 - 8.2 g/dL [facility] ALBUMIN 4.6 3.5 - 5.0 g/dL [facility] ALK PHOS 61 34 - 122 U/L [facility] ALT(SGPT) 29 9 - 51 U/L [facility] AST(SGOT) 47 (H) 13 - 40 U/L [facility] eGFR Calculation 105.9 mL/min/1.73m2 [facility] (Non-) [facility] eGFR Calculation 128.3 mL/min/1.73m2 [facility] () [facility] Specimen Blood - VENOUS Narrative Performed At Association of Glomerular Filtration Rate (GFR) [facility] and Staging of Kidney Disease* + + +- + | GFR (mL/min/1.73 m2)| With Kidney Damage|Without Kidney Damage + + +- + |>90| Stage one| Normal + + +- + |60-89|S tage two| Decreased GFR + + +- + |30-59|S tage three| Stage three + + +- + |15-29|S tage four | Stage four + + +- + |<15 (or dialysis)|Stage five | Stage five + + +- + *Each stage assumes the associated GFR level has been in effect for at least three months.Stages 1 to 5, with or without kidney disease, indicate chronic kidney disease. Notes: Determination of stages one and two (with eGFR >59mL/min/1.73 m2) requires estimation of kidney damage for at least three months as defined by structural or functional abnormalities of the kidney, manifested by either: Pathological abnormalities or Markers of kidney damage (including abnormalities in the composition of the blood or urine or abnormalities in imaging tests). Performing Organization Address City/State/Zipcode Phone Number [facility] CLIA: [id number], [address] [place] [address] CBC WITH DIFFERENTIAL (07/10/2019 10:53 AM CDT) WBC 5.52 4.30 - 11.10 [facility] 10*3/L [facility] RBC 4.65 3.93 - 5.25 [facility] 10*6/L [facility] HGB 13.4 11.6 - 15.0 g/dL [facility] HCT 40.4 35.7 - 45.2 % [facility] MCV 86.9 80.6 - 95.5 fL [facility] MCH 28.8 25.9 - 32.8 pg [facility] MCHC 33.2 31.6 - 35.1 g/dL [facility] RDW-SD 42.6 39.0 - 49.9 fL [facility] RDW-CV 13.5 12.0 - 15.5 % [facility] PLT 311 166 - 358 [facility] 10*3/L [facility] MPV 8.4 (L) 9.5 - 12.9 fL [facility] NRBC/100 WBC 0.0 0.0 - 10.0 /100 [facility] WBCs [facility] NRBC x10^3 <0.01 10*3/L [facility] GRAN MAT (NEUT) % 43.7 % [facility] IMM GRAN % 0.20 % [facility] LYMPH % 46.6 % [facility] MONO % 8.0 % [facility] EOS % 1.1 % [facility] BASO % 0.4 % [facility] GRAN MAT x10^3(ANC) 2.42 1.88 - 7.09 [facility] 10*3/uL [facility]ITAL [facility] IMM GRAN x10^3 <0.03 0.00 - 0.06 [facility] 10*3/uL [facility] LYMPH x10^3 2.57 1.32 - 3.29 [facility] 10*3/uL [facility] MONO x10^3 0.44 0.33 - 0.92 [facility] 10*3/uL [facility] EOS x10^3 0.06 0.03 - 0.39 [facility] 10*3/uL [facility] BASO x10^3 <0.03 0.01 - 0.07 [facility] 10*3/uL [facility] Specimen Blood - VENOUS Performing Organization Address [facility] [place] Phone Number [facility] CLIA: [id number], [address] [place] [address] POCT TEST (07/10/2019 10:47 AM CDT) Pathologist [facility] POCT PREG negative On board controls acceptable present with C Line POCT PREG LOT # [id number] POCT PREG TEST DATE 10-24-2020 Specimen Urine - URINE, CLEAN CATCH URINALYSIS (07/10/2019 10:47 AM CDT) Pathologist [facility] APPEARANCE Cloudy (A) Clear [facility] COLOR Yellow Yellow [facility] PH 5.0 4.8 - 8.0 [facility] SP GRAVITY 1.032 (H) 1.003 - 1.030 [facility] GLU U QUAL Normal Normal [facility] BLOOD 1+ (A) Negative [facility] KETONES 80 mg/dL (A) Negative [facility] PROTEIN 30 mg/dL (A) Negative [facility] UROBILIN 2.0 mg/dL (A) Normal [facility] BILIRUBIN Negative Negative [facility] NITRITE Positive (A) Negative [facility] LEUK RUCHI 25/uL (A) Negative [facility] RBC/HPF 36 (H) 0 - 3 HPF [facility] WBC/HPF 16 (H) 0 - 5 HPF [facility] BACTERIA Many (A) Negative [facility] MUCOUS Marked (A) Negative LPF [facility] SQ EPITH 25 HPF [facility] Specimen Urine - URINE, CLEAN CATCH Performing Organization Address [facility] [place] Phone Number [facility] CLIA: [id number], [address] [place] [address] documented in this encounter Visit Diagnoses Diagnosis Lower abdominal pain - Primary Abdominal pain, other specified site Vaginal discharge Leukorrhea, not specified as infective Dehydration documented in this encounter Administered Medications Medication Order MAR Action Action Date Dose Rate Site azithromycin (ZITHROMAX) tablet Given 07/10/2019 11:23 AM CDT 1,000 mg 1,000 mg 1,000 mg, Oral, ONCE, 1 dose, Wed07/10/19 at 1215, TAMMY, Reason for Anti-Infective: Documented Infection, Documented Infection Site: Pelvic, Duration of Therapy: Other (see Comments) cefTRIAXone (ROCEPHIN) Given 07/10/2019 11:23 AM 250 mg Right Dorsogluteal-IM injection 250 mg CDT 250 mg, Intramuscular, ONCE, 1 dose, Wed07/10/19 at 1215, TAMMY, Reason for Anti-Infective: Documented Infection, Documented Infection Site: Pelvic, Duration of Therapy: Other (see Comments) NaCl 0.9% (NS) bolus infusion New Bag 07/10/2019 10:55 AM CDT 1,000 mL 999 mL/hr 1,000 mL at 999 mL/hr, 1,000 mL, IV Infusion, ONCE, 1 dose, Wed07/10/19 at 1045, TAMMY NaCl 0.9% (NS) bolus infusion New Bag 07/10/2019 11:57 AM CDT 1,000 mL 999 mL/hr 1,000 mL at 999 mL/hr, 1,000 mL, IV Infusion, ONCE, 1 dose, Wed07/10/19 at 1145, TAMMY documented in this encounter Advance Directives Type Date 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
[2019-09-22 15:21] LABS: Urine Blood TRACE (NEG); Urine Glucose NEGATIVE (NEG); Urine Protein NEGATIVE (NEG); Urine pH 7.5 (5.0-7.0)
[2019-09-22] MEDS ORDERED: METOCLOPRAMIDE 10 MG/2mL INJ ONE (15:27)
[2019-09-22] MEDS ORDERED: DIPHENHYDRAMINE 50 MG/ML VIAL ONE (15:28)
[2019-09-22] MEDS ORDERED: NA CHLORIDE 0.9% 1,000 ML ONE (15:28)
[2019-09-22] MEDS ORDERED: KETOROLAC 30 MG/ML INJ ONE (15:28)
[2019-09-22 15:29] LABS: Basophils % 0.9 % (0-1.3); Hematocrit 36.7 % (36.0-45.0); Lymphocytes % 41.6 % (15.3-44.8); MPV 6.6 fL (7.6-11.3); RBC Red Blood Cell Count 4.15 M/uL (3.86-4.86)
--- NOTE | 2019-09-22 16:51 | RAD REPORT ---
EXAM DESCRIPTION: US - Transvaginal Study Probe - 09/22/2019 4:19 pm CLINICAL HISTORY: Left-sided pelvic pain COMPARISON: Ultrasound July 2013 TECHNIQUE: Endovaginal sonography was performed. FINDINGS: Uterus is approximately 8.4 x 5.0 x 6.1 cm. In the anterior mid uterus a 2.4 centimeter ro unded mass isoechoic to slightly hypoechoic to the myometrium. This is most likely intramural fibroid . Endometrium is heterogeneous and thickened to 19 mm. No gestational sac or sac remnant. No discrete endometrial mass or polyp identifiable. Normal size left ovary is identified. Doppler evaluation shows blood flow within the ovarian stroma. No dominant solid or cystic left ovarian or left adnexal finding. Right ovary was obscured by bowel. No right adnexal mass seen. No blood or fluid in the cul de sac. IMPRESSION: Thickened, heterogeneous endometrium without discrete endometrial mass or polyp. No gest ational sac or sac remnant. Approximately 2.4 centimeter rounded mass anterior mid uterus most likely an incidental fibroid. No suspicious left ovarian or left adnexal finding in a patient with history of left pelvic pain. Nonvisualization of the right ovary due to bowel. No right adnexal abnormality.
--- NOTE | 2019-09-22 17:10 | ER ---
Nurse's Notes [facility] Name: Lexi Velazquez Age: 28 yrs Sex: Female : 1990 Arrival Date: 09/22/2019 Time: 12:57 Bed 27 Private MD: Diagnosis: Lower abdominal pain, unspecified;Headache Presentation: 09/22 13:25 Presenting complaint: Patient states: lower abd cramping that began yesterday and aa5 frontal headache x 3 days. Pt denies nausea/vomiting/diarrhea. Transition of care: patient was not received from another setting of care. Onset of symptoms was August 2019. Risk Assessment: Do you want to hurt yourself or someone else? Patient reports no desire to harm self or others. Initial Sepsis Screen: Does the patient meet any 2 criteria? No. Patient's initial sepsis screen is negative. Does the patient have a suspected source of infection? No. Patient's initial sepsis screen is negative. Care prior to arrival: None. 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 - Social history:: Smoking status: Patient/guardian denies using tobacco. - Ebola Screening: : No symptoms or risks identified at this time. Screenin:25 Abuse screen: Denies threats or abuse. Denies injuries from another. Nutritional ca1 screening: No deficits noted. Tuberculosis screening: No symptoms or risk factors identified. Fall Risk None identified. Assessment: 14:25 General: Appears in no apparent distress. comfortable, Behavior is calm, cooperative, ca1 appropriate for age. Pain: Complains of pain in left lower quadrant Pain does not radiate. Pain currently is 5 out of 10 on a pain scale. Quality of pain is described as crampy, Pain began 1 day ago. Is intermittent. Neuro: Level of Consciousness is awake, alert, obeys commands, Oriented to person, place, time, situation, Appropriate for age. Cardiovascular: Heart tones S1 S2 present Capillary refill < 3 seconds Patient's skin is warm and dry. Respiratory: Airway is patent Respiratory effort is even, unlabored, Respiratory pattern is regular, symmetrical, Breath sounds are clear bilaterally. GI: Abdomen is round non-distended, Bowel sounds present X 4 quads. Abd is soft X 4 quads Abdomen is tender to palpation in left lower quadrant. : No deficits noted. No signs and/or symptoms were reported regarding the genitourinary system. EENT: No deficits noted. No signs and/or symptoms were reported regarding the EENT system. Derm: Skin is intact, is healthy with good turgor, Skin is pink, warm \T\ dry. Musculoskeletal: Circulation, motion, and sensation intact. Capillary refill < 3 seconds. 15:37 Reassessment: Patient appears in no apparent distress at this time. Patient is alert, ca1 oriented x 3, equal unlabored respirations, skin warm/dry/pink. 16:30 Reassessment: Patient appears in no apparent distress at this time. Patient is alert, ca1 oriented x 3, equal unlabored respirations, skin warm/dry/pink. 17:22 Reassessment: Patient appears in no apparent distress at this time. Patient states ca1 feeling better. Vital Signs: 13:26 BP 142 / 89; Pulse 80; Resp 16 S; Temp 98.5(O); Pulse Ox 97% on R/A; Weight 97.98 kg aa5 (R); Height 5 ft. 9 in. (175.26 cm) (R); Pain 6/10; 14:51 BP 135 / 87; Pulse 76; Resp 17 S; Pulse Ox 100% on R/A; ca1 16:42 BP 131 / 81; Pulse 79; Resp 17 S; Pulse Ox 98% on R/A; ca1 17:22 BP 129 / 79; Pulse 81; Resp 17 S; Pulse Ox 98% on R/A; ca1 13:26 Body Mass Index 31.90 (97.98 kg, 175.26 cm) aa5 ED Course: 12:57 Patient arrived in ED. am2 13:26 Triage completed. aa5 13:26 Arm band placed on. aa5 14:25 Patient has correct armband on for positive identification. Bed in low position. Call ca1 light in reach. Side rails up X 1. Pulse ox on. NIBP on. Warm blanket given. 14:25 No provider procedures requiring assistance completed. ca1 14:27 Patricia Blank, RN is Primary Nurse. ca1 14:35 Francia Plunkett F[facility]-C [facility]. kb 14:35 Chris Thorne MD is Attending Physician. kb 15:13 Initial lab(s) drawn, by me, sent to lab. Inserted saline lock: 20 gauge in left ca1 antecubital area, using aseptic technique. Blood collected. 17:21 IV discontinued, intact, bleeding controlled, No redness/swelling at site. Pressure ca1 dressing applied. Administered Medications: 15:10 Drug: NS 0.9% 1000 ml Route: IV; Rate: 1000 ml; Site: left antecubital; ca1 16:10 Follow up: IV Status: Completed infusion ca1 15:11 Drug: TORadol - Ketorolac 15 mg Route: IVP; Site: left antecubital; ca1 16:00 Follow up: Response: No adverse reaction; Pain is decreased ca1 15:13 Drug: Reglan 10 mg Route: IVP; Site: left antecubital; ca1 16:00 Follow up: Response: No adverse reaction; Pain is decreased ca1 15:15 Drug: Benadryl 12.5 mg Route: IVP; Site: left antecubital; ca1 17:45 Follow up: Response: No adverse reaction; Pain is decreased ca1 Outcome: 17:10 Discharge ordered by . kb 17:21 Discharged to home ambulatory, with family. ca1 17:21 Condition: stable 17:21 Discharge instructions given to patient, Instructed on discharge instructions, follow up and referral plans. Demonstrated understanding of instructions, follow-up care. 17:23 Patient left the ED. ca1 Signatures: Francia Plunkett FNP-C FNP-Ckb Calderon, Audri, RN RN [id number] Berna Moura am2 Patricia Blank, RN RN ca1 Corrections: (The following items were deleted from the chart) 15:13 14:25 Patient did not have IV access during this emergency room visit. ca1 ca1
--- NOTE | 2019-09-22 17:11 | EDPHYS ---
Physician Documentation [facility] Name: Lexi Velazquez Age: 28 yrs Sex: Female : 1990 Arrival Date: 09/22/2019 Time: 12:57 Bed 27 Private MD: ED Physician Chris Thorne HPI: 09/22 16:49 This 28 yrs old Black Female presents to ER via Ambulatory with complaints of Abdominal kb Pain - lower, Headache. 16:49 The patient presents with abdominal pain in the left lower quadrant. Onset: The kb symptoms/episode began/occurred 3 day(s) ago. The symptoms do not radiate. Associated signs and symptoms: none. The symptoms are described as constant. Modifying factors: The symptoms are alleviated by nothing, the symptoms are aggravated by nothing. Severity of pain: At its worst the pain was moderate in the emergency department the pain is unchanged. The patient has not experienced similar symptoms in the past. The patient has not recently seen a physician. Pt reports left lower abd/pelvic pain and headache for 3 days. 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 - Social history:: Smoking status: Patient/guardian denies using tobacco. - Ebola Screening: : No symptoms or risks identified at this time. ROS: 16:48 Constitutional: Negative for fever, chills, and weight loss, Neck: Negative for injury, kb pain, and swelling, Cardiovascular: Negative for chest pain, palpitations, and edema, Respiratory: Negative for shortness of breath, cough, wheezing, and pleuritic chest pain, Back: Negative for injury and pain, MS/Extremity: Negative for injury and deformity, Skin: Negative for injury, rash, and discoloration. 16:48 Abdomen/GI: Positive for abdominal pain. 16:48 Neuro: Positive for headache. Exam: 16:48 Constitutional: This is a well developed, well nourished patient who is awake, alert, kb and in no acute distress. Head/Face: Normocephalic, atraumatic. Eyes: Pupils equal round and reactive to light, extra-ocular motions intact. Lids and lashes normal. Conjunctiva and sclera are non-icteric and not injected. Cornea within normal limits. Periorbital areas with no swelling, redness, or edema. ENT: Nares patent. No nasal discharge, no septal abnormalities noted. Tympanic membranes are normal and external auditory canals are clear. Oropharynx with no redness, swelling, or masses, exudates, or evidence of obstruction, uvula midline. Mucous membranes moist. Neck: Trachea midline, no thyromegaly or masses palpated, and no cervical lymphadenopathy. Supple, full range of motion without nuchal rigidity, or vertebral point tenderness. No Meningismus. Chest/axilla: Normal chest wall appearance and motion. Nontender with no deformity. No lesions are appreciated. Cardiovascular: Regular rate and rhythm with a normal S1 and S2. No gallops, murmurs, or rubs. Normal PMI, no JVD. No pulse deficits. Respiratory: Lungs have equal breath sounds bilaterally, clear to auscultation and percussion. No rales, rhonchi or wheezes noted. No increased work of breathing, no retractions or nasal flaring. Back: No spinal tenderness. No costovertebral tenderness. Full range of motion. Skin: Warm, dry with normal turgor. Normal color with no rashes, no lesions, and no evidence of cellulitis. MS/ Extremity: Pulses equal, no cyanosis. Neurovascular intact. Full, normal range of motion. Neuro: Awake and alert, GCS 15, oriented to person, place, time, and situation. Cranial nerves II-XII grossly intact. Motor strength 5/5 in all extremities. Sensory grossly intact. Cerebellar exam normal. Normal gait. 16:48 Abdomen/GI: Inspection: abdomen appears normal, Bowel sounds: normal, in all quadrants, Palpation: soft, in all quadrants, mild abdominal tenderness, in the left lower quadrant, left pelvic pain. Vital Signs: 13:26 BP 142 / 89; Pulse 80; Resp 16 S; Temp 98.5(O); Pulse Ox 97% on R/A; Weight 97.98 kg aa5 (R); Height 5 ft. 9 in. (175.26 cm) (R); Pain 6/10; 14:51 BP 135 / 87; Pulse 76; Resp 17 S; Pulse Ox 100% on R/A; ca1 16:42 BP 131 / 81; Pulse 79; Resp 17 S; Pulse Ox 98% on R/A; ca1 17:22 BP 129 / 79; Pulse 81; Resp 17 S; Pulse Ox 98% on R/A; ca1 13:26 Body Mass Index 31.90 (97.98 kg, 175.26 cm) aa5 MDM: 14:35 Patient medically screened. kb 16:47 Data reviewed: vital signs, nurses notes. Data interpreted: Pulse oximetry: on room air kb is 100 %. Interpretation: normal. 17:09 Counseling: I had a detailed discussion with the patient and/or guardian regarding: the kb historical points, exam findings, and any diagnostic results supporting the discharge/admit diagnosis, lab results, radiology results, the need for outpatient follow up, a family practitioner, to return to the emergency department if symptoms worsen or persist or if there are any questions or concerns that arise at home. 09/22 14:28 Order name: Strep snw 09/22 14:28 Order name: Flu snw 09/22 14:56 Order name: Urine Dipstick--Ancillary (enter results) hb 09/22 14:56 Order name: Urine --Ancillary (enter results) hb 09/22 15:05 Order name: Basic Metabolic Panel kb 09/22 15:05 Order name: CBC with Diff kb 09/22 15:02 Order name: US Transvaginal Study (Probe) kb 09/22 15:20 Order name: Group A Streptococcus Rapid Sc; Complete Time: 15:21 EDMS 09/22 15:21 Order name: Influenza Screen (A ; Complete Time: 15:21 EDMS 09/22 15:21 Order name: Urine --Ancillary; Complete Time: 15:23 EDMS 09/22 15:21 Order name: Urine Dipstick-Ancillary; Complete Time: 15:23 EDMS 09/22 15:32 Order name: CBC with Automated Diff; Complete Time: 15:32 EDMS 09/22 15:48 Order name: Basic Metabolic Panel; Complete Time: 15:52 EDMS 09/22 16:54 Order name: US; Complete Time: 17:09 EDMS 09/22 13:40 Order name: Urine Dipstick-Ancillary (obtain specimen); Complete Time: 14:42 kb 09/22 15:05 Order name: IV Saline Lock; Complete Time: 15:12 kb 09/22 15:05 Order name: Labs collected and sent; Complete Time: 15:12 kb Administered Medications: 15:10 Drug: NS 0.9% 1000 ml Route: IV; Rate: 1000 ml; Site: left antecubital; ca1 16:10 Follow up: IV Status: Completed infusion ca1 15:11 Drug: TORadol - Ketorolac 15 mg Route: IVP; Site: left antecubital; ca1 16:00 Follow up: Response: No adverse reaction; Pain is decreased ca1 15:13 Drug: Reglan 10 mg Route: IVP; Site: left antecubital; ca1 16:00 Follow up: Response: No adverse reaction; Pain is decreased ca1 15:15 Drug: Benadryl 12.5 mg Route: IVP; Site: left antecubital; ca1 17:45 Follow up: Response: No adverse reaction; Pain is decreased ca1 Disposition: 09/22/19 17:10 Discharged to Home. Impression: Lower abdominal pain, unspecified, Headache. - Condition is Stable. - Discharge Instructions: Abdominal Pain, Adult, [id number], General Headache Without Cause, [id number]. - Medication Reconciliation Form, Thank You Letter, Antibiotic Education, Prescription Opioid Use, Work release form form. - Follow up: Private Physician; When: 2 - 3 days; Reason: Recheck today's complaints, Continuance of care, Re-evaluation by your physician. Follow up: Emergency Department; When: As needed; Reason: Worsening of condition. Addendum: 09/25/2019 10:17 Co-signature as Attending Physician, Chris Thorne MD I agree with the assessment and k dr plan of care. Signatures: Dispatcher [employer] EDND Francia Plunkett, NATHAN-C NATHAN-Chris Fletcher MD MD [facility] Joann Gleason RN RN aa5 Patricia Blank RN RN ca1 Corrections: (The following items were deleted from the chart) 09/22 17:10 17:10 09/22/2019 17:10 Discharged to Home. Impression: Lower abdominal pain, kb unspecified. Condition is Stable. Forms are Medication Reconciliation Form, Thank You Letter, Antibiotic Education, Prescription Opioid Use. Follow up: Private Physician; When: 2 - 3 days; Reason: Recheck today's complaints, Continuance of care, Re-evaluation by your physician. Follow up: Emergency Department; When: As needed; Reason: Worsening of condition. kb 17:23 17:10 09/22/2019 17:10 Discharged to Home. Impression: Lower abdominal pain, ca1 unspecified; Headache. Condition is Stable. Discharge Instructions: Abdominal Pain, Adult, [id number], General Headache Without Cause, [id number]. Forms are Medication Reconciliation Form, Thank You Letter, Antibiotic Education, Prescription Opioid Use. Follow up: Private Physician; When: 2 - 3 days; Reason: Recheck today's complaints, Continuance of care, Re-evaluation by your physician. Follow up: Emergency Department; When: As needed; Reason: Worsening of condition. kb
[2019-09-22 22:22] VITALS: TEMP 98.5
[2019-09-22 22:25] VITALS: O2SAT 98
[2019-09-22 22:27] VITALS: BP 129/79
== END 2019-09-22 17:23 | disposition home or self-care (01) ==
LOC: ER 12:57
DX: R51 Headache (principal)
CPT/HCPCS: 36415; 76830; 80048; 81003; 81025; 85025; 87070; 87081; 87804; 96361; 96374; 96375; 99284; J1200; J2765; J7030

== ENCOUNTER 2020-03-21 12:59 | Emergency (ER) | payer OTHER ==
--- OUTSIDE RECORDS SUMMARY | 2020-03-21 14:15 | XMS REPORT | Summary of Care ---
:1990 Author Organization [facility] Address [address] [place] [address] Care Team Providers Name Role Phone Susanna Deluna Primary Care Provider Reason for Visit Reason Comments Well Woman Exam Encounter Details Date Type Department Care Team Description 01/08/2020 Office Visit [facility]- Terri Soni Oth er general counseling and advice for contraceptive management (Primary Dx); SOPHIA Harrington Need for influenza vaccination [address] [place], [place] [address] [place], [place] [id number] Allergies No Known Allergiesdocumented as of this encounter (statuses as of 01/09/2020) Medications Medication Sig Dispensed Refills Start Date End Date Status penicillin v potassium Take 500 mg by 0 Active 500 mg mouth 2 (two) tabletIndications: times daily. toothe infection Indications: toothe infection traMADol (ULTRAM) 50 Take 1 tablet by 9 tablet 0 10/05/2019 Active mg tabletIndications: mouth every 8 Acute non intractable (eight) hours as tension-type headache needed for Pain (scale 4-6). proMETHazine 25 mg Take 1 tablet by 12 tablet 0 10/05/2019 Active tabletIndications: mouth every 6 Acute non intractable (six) hours as tension-type headache needed for Nausea and Vomiting (N/V). documented as of this encounter (statuses as of 01/09/2020) Active Problems Problem Noted Date Other general counseling and advice for contraceptive management 01/08/2020 Supervision of high risk in first trimester 08/14/2019 History of miscarriage 08/14/2019 Multiparity 08/14/2019 Nausea and vomiting during prior to 22 weeks gestation 08/14/2019 Cramping affecting , antepartum 08/14/2019 Tooth infection 08/14/2019 Visit for wound check 03/07/2018 Nexplanon removal 01/14/2018 Overview: Placed 12/2017 removed 02/2018 examination or test, positive result 018 Encounter for contraceptive management, unspecified ty pe 12/15/2017 Over weight 12/15/2017 Encounter for other contraceptive management 7 Obesity in 01/27/2013 documented as of this encounter (statuses as of 01/09/2020) Resolved Problems Problem Noted Date Resolved Date Routine follow-up 03/13/2013 01/04/2017 Immune to varicella 03/13/2013 01/04/2017 Not immune to rubella 03/13/2013 01/04/2017 Overview: MMR vaccine given 03/13/2013. ICD10 Diagnosis Term Teacher Assistant Utility Trichomonal vulvovaginitis 03/13/2013 01/04/2017 Normal delivery 01/29/2013 02/13/2013 Other threatened labor, antepartum 01/27/201301/29 Female genital symptoms 01/27/2013 01/27/2013 Overview: ICD10 Diagnosis Term Teacher Assistant Utility Anemia in 01/27/2013 01/04/2017 Need for lomffam-thiho-dfcqkri (MMR) vaccine 01/27/2013 01/29/2013 Spontaneous rupture of membranes 01/27/2013 0 01/29/2013 Female genital symptoms 01/13/2013 01/13/2013 Overview: ICD10 Diagnosis Term Teacher Assistant Utility Female genital symptoms 12/15/2012 01/06/2013 Overview: ICD10 Diagnosis Term Teacher Assistant Utility Abnormal weight gain 12/15/2012 01/27/2013 documented as of this encounter (statuses as of 01/09/2020) Immunizations Name Administration Dates Next Due Influenza Virus Vaccine 08/05/2012 Influenza Virus Vaccine Quad .5 mL IM 6+ MO 01/08/2020 MMR 03/13/2013 Tdap 11/24/2012 documented as of this encounter Social History Tobacco Use Types Packs/Day Years Used Date Current Every Day Smoker Cigarettes 0.25 Sta rted: 12/15/2014 Smokeless Tobacco: Never Used Tobacco Cessation: Ready to Quit: No; Co unseling Given: Yes Comments: 1/4 pack a day Alcohol Use Drinks/Week oz/Week Comments No 0 Standard drinks or equivalent 0.0 Sex Assigned at Date Recorded Not on file Job Start Date Occupation Industry Not on file Not on file Not on file Travel History Travel Start Travel End No recent travel history available. documented as of this encounter Last Filed Vital Signs Vital Sign Reading Time Taken Comments Blood Pressure 122/87 01/08/2020 2:39 PM CDT Pulse 86 01/08/2020 2:39 PM CDT Temperature 36.8 C (98.2 F) 01/08/2020 2:39 PM CDT Respiratory Rate 16 01/08/2020 2:39 PM CDT Oxygen Saturation - - Inhaled Oxygen Concentration - - Weight 103.5 kg (228 lb 3.2 oz) 01/08/2020 2:39 PM CDT Height 175.3 cm (5' 9") 01/08/2020 2:39 PM CDT Body Mass Index 33.7 01/08/2020 2:39 PM CDT documented in this encounter Progress Notes Terri Soni, WHCNP - 01/08/2020 2:15 PM CDT Chief complaint: Chief Complaint Patient presents with Well Woman Exam HPI: the patient is here for control start. She reports she is doing well with no issues or concerns today. She reports she desires nuvaring for control, but reports intercourse on last week. Histories OB History Para Term AB Living 2 1 1 1 1 SAB TAB Ectopic Multiple Live Births 1 0 1 # Outcome Date GA Lbr Jovan/2nd Weight Sex Delivery Anes PTL Lv 2 SAB 2019 1 Term 01/28/13 37w3d 6 lb 12 oz (3.062 kg) F Vag-Spont Y MOOSE Comments: System Generated. Please review and update details. Past Medical History: Diagnosis Date Anemia in 01/27/2013 resolved Hypertension 2016 diagnosed at the ER, not on medication STD (sexually transmitted disease) 2012 Trichomonal vulvovaginitis 03/13/2013 Trichomonal vulvovaginitis 03/13/2013 Family History Problem Relation Age of Onset Heart Maternal Grandmother Diabetes Paternal Grandmother Hypertension Paternal Grandmother No Significant Medical Problems Mother No Significant Medical Problems Father No Significant Medical Problems Sister No Significant Medical Problems Brother No Significant Medical Problems Maternal Grandfather No Significant Medical Problems Paternal Grandfather Arthritis NoFHx Asthma NoFHx defects NoFHx Breast Cancer NoFHx Colon Cancer NoFHx Ovarian Cancer NoFHx Uterine Cancer NoFHx Cancer NoFHx Depression NoFHx Genetic NoFHx High cholesterol NoFHx Mental retardation NoFHx Neurological NoFHx Osteoporosis NoFHx Psychiatry NoFHx Other - see comments NoFHx Family Status Relation Name Status MGMo Alive PGMo Mo Alive Fa Alive Sis Alive Bro Alive MGFa PGFa NoFHx (Not Specified) History reviewed. No pertinent surgical history. Social History Socioeconomic History Marital status: Single Spouse name: Not on file Number of children: Not on file Years of education: Not on file Highest education level: Not on file Occupational History Not on file Social Needs Financial resource strain: Not on file Food insecurity: Worry: Not on file Inability: Not on file Transportation needs: Medical: Not on file Non-medical: Not on file Tobacco Use Smoking status: Current Every Day Smoker Packs/day: 0.25 Types: Cigarettes Start date: 12/15/2014 Smokeless tobacco: Never Used Tobacco comment: 1/4 pack a day Substance and Sexual Activity Alcohol use: No Alcohol/week: 0.0 standard drinks Drug use: No Sexual activity: Yes Partners: Male control/protection: None Comment: last sexual intercourse 01/01/2020 Lifestyle Physical activity: Days per week: Not on file Minutes per session: Not on file Stress: Not on file Relationships Social connections: Talks on phone: Not on file Gets together: Not on file Attends evangelical service: Not on file Active member of club or organization: Not on file Attends meetings of clubs or organizations: Not on file Relationship status: Not on file Intimate partner violence: Fear of current or ex partner: Not on file Emotionally abused: Not on file Physically abused: Not on file Forced sexual activity: Not on file Other Topics Concern Not on file Social History Narrative Pt denies current or past physical, sexual or emotional abuse. Pt states she feels safe at home. Adventist preference: Protestant. No cats in the home. Social History Substance and Sexual Activity Sexual Activity Yes Partners: Male control/protection: None Comment: last sexual intercourse 01/01/2020 Genetic Screen Autism / Mental Retardation: No Irasema Disease: No Congenital Heart Defect: No Cystic Fibrosis: No Down Syndrome: No Familial Dysautonomia: No Hemophilia or other Blood Disorders: No Effie Chorea: No Maternal Metabolic Disorder--specify (eg. Type 1 Diabetes, PKU): No Muscular Dystrophy: No Neural Tube Defect: No Recurrent Loss or a Stillbirth: No Sickle Cell Disease or Trait: No Julien Sachs: No Teratological Substances (specify type & strength/dose) since LMP: No Thalassemia: No Other Inherited Genetic or Chromosomal Disorder (specify): No No Significant History of Genetic Disorders: No Significant History of Genetic Disorders Labs No new labs Radiology No new radiology. Allergies Lexi has No Known Allergies. Medications Lexi has a current medication list which includes the following prescription(s): promethazine, tramadol, and penicillin v potassium. Review of Systems Constitutional: Negative. HENT: Negative. Eyes: Negative. Respiratory: Negative. Breasts: Negative. Cardiovascular: Negative. Gastrointestinal: Negative. Genitourinary: Negative. Musculoskeletal: Negative. Skin: Negative. Neurological: Negative. Psychiatric/Behavioral: Negative. Endocrine: Endocrine negative BP 122/87 (BP Location: Right arm, Patient Position: Sitting, BP CUFF SIZE: Adult Medium) | Pulse 86 | Temp 36.8 C (98.2 F) (Oral) | Resp 16 | Ht 5' 9" (1.753 m) | Wt 228 lb 3.2 oz (103.5 kg)| LMP 01/01/2020 | BMI 33.70 kg/m Pregravid BMI: 30.4 Physical Exam Vitals reviewed. Constitutional: She is oriented to person, place, and time. She appears well- developed and well-nourished. Her body habitus is normal. Cardiovascular: Regular rate and rhythm. No peripheral edema present. Pulmonary/Chest: Normal inspiratory effort. Neuro/Psychiatric: She has a normal mood and affect. She is oriented to person, place, and time. Skin: Skin normal. No lesion, no rash and no ulceration present. Assessment/Plan Return to clinic in 7 months for WWE or sooner as needed Other general counseling and advice for contraceptive management (primary encounter diagnosis) Comment: as ordered Plan: POCT TEST Need for influenza vaccination Comment: as orderd Plan: FLU VACC([id number]), 6+ MONTHS, IM, QUAD (FLUZONE/FLULAVAL/FLUARIX) This visit did not involve counseling and coordination that comprised more than 50% of the visit time SOPHIA Joshi 01/08/2020 4:55 PM . Berlin Samuels RN - 01/08/2020 2:15 PM CDT29 year old presents to the clinic for wwe. 1) Previous BCM: None 2) Desired BCM: undecided 3) LMP: 4) Last [place]: 01/01/2020 5) Last Pap: 08/14/2019 Results: Negative HPV: not on file 6) Tdap: 2012 7) Gardasil: N/a 8) C/O: Pt denies any complaints 9) Patient denies history of physical, emotional, or sexual abuse. Patient states that she currently feels safe at home. BERLIN SAMUELS RN 01/08/2020 2:43 PM documented in this encounter Plan of Treatment Date Type Specialty Care Team Description 01/15/2020 Office Visit [facility] Alberto Soni WHCNP [address], [place] [address] [phone] Health Maintenance Due Date Last Done Comments PNEUMOCOCCAL 0-64 YEARS 01/26/2020 Postpone d from 1995 COMBINED SERIES (1 of 1 - (Alter [place] Guidelines) PPSV23) PAP SMEAR 08/14/2022 08/14/2019, 05/23/2012 DTaP,Tdap,and Td Vaccines (2 11/24/2022 11/24/2012 - Td) INFLUENZA VACCINE Completed 01/08/2020, 08/05/2012 documented as of this encounter Procedures Procedure Name Priority Date/Time Associated Diagnosis Comme nts POCT Routine 01/08/2020 4:48 Other general Results for this TEST PM CDT counseling and advice proced ure are in for contraceptive the result s management section. FLU VACC Routine 01/08/2020 2:45 Need for influenza ([id number]), 6+ PM CDT vaccination MONTHS, IM, QUAD documented in this encounter Results POCT TEST (01/08/2020 4:48 PM CDT) Pathologist Sig nature POCT PREG Negative On board controls acceptable Yes with C Line POCT PREG LOT # POCT PREG TEST DATE Specimen Urine - URINE, CLEAN CATCH documented in this encounter Visit Diagnoses Diagnosis Other general counseling and advice for contraceptive management - Primary Need for influenza vaccination Need for prophylactic vaccination and in oculation against influenza documented in this encounter Insurance Payer Benefit Plan / Subscriber ID Effective Dates Phone Addre ss Type Group TMHP MEDICAID OF xxxxxxxxx 2019-Jose Alberto [phone] [address] Medicaid [place] [id number] [place] [address] documented as of this encounter Advance Directives Type Date 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
--- OUTSIDE RECORDS SUMMARY | 2020-03-21 14:15 | XMS REPORT | Summary of Care ---
:1990 Author Organization [facility] [employer] Address [address] [place] [address] Care Team Providers Name Role Phone Susanna Deluna Primary Care Provider Reason for Visit Reason Comments Well Woman Exam Encounter Details Date Type Department Care Team Description 01/08/2020 Office Visit [facility]- Terri Soni Oth er general counseling and advice for contraceptive management (Primary Dx); SOPHIA Harrington Need for influenza vaccination [address] [place], [place] [address] [place], [place] [address] Allergies No Known Allergiesdocumented as of this [...] MMR vaccine given 03/13/2013. ICD10 Diagnosis Term Funeral Director/Embalmer Utility Trichomonal vulvovaginitis 03/13/2013 01/04/2017 Normal delivery 01/29/2013 02/13/2013 Other threatened labor, antepartum 01/27/201301/29 Female genital symptoms 01/27/2013 01/27/2013 Overview: ICD10 Diagnosis Term Funeral Director/Embalmer Utility Anemia in 01/27/2013 01/04/2017 Need for dxnyups-uaoqd-hfryqgr (MMR) vaccine 01/27/2013 01/29/2013 Spontaneous rupture of membranes 01/27/2013 0 01/29/2013 Female genital symptoms 01/13/2013 01/13/2013 Overview: ICD10 Diagnosis Term Funeral Director/Embalmer Utility Female genital symptoms 12/15/2012 01/06/2013 Overview: ICD10 Diagnosis Term Funeral Director/Embalmer Utility Abnormal weight gain 12/15/2012 01/27/2013 documented [...] file Gets together: Not on file Attends jehovah's witness service: Not on file Active member of [...] Pt states she feels safe at home. Sikh preference: Sikhism. No cats in the home. Social History [...] influenza vaccination Comment: as orderd Plan: FLU VACC([id number]), 6+ MONTHS, IM, QUAD (FLUZONE/FLULAVAL/FLUARIX) This visit did not involve counseling and coordination that comprised more than 50% of the visit time SOPHIA Joshi 01/08/2020 4:55 PM . Berlin Samuels RN - 01/08/2020 2:15 PM CDT29 year old presents to the clinic for wwe. 1) Previous BCM: None 2) Desired BCM: undecided 3) LMP: 4) Last [place]: 01/01/2020 5) Last Pap: 08/14/2019 Results: Negative [...] OB Satellites Alberto Soni WHCNP [address] [place], [place] [address] [phone] Health Maintenance Due Date Last Done Comments PNEUMOCOCCAL 0-64 YEARS 01/26/2020 Postpone d from 1995 COMBINED SERIES (1 of 1 - (Alter [place] Guidelines) PPSV23) PAP SMEAR 08/14/2022 08/14/2019, 05/23/2012 [...] VACC Routine 01/08/2020 2:45 Need for influenza ([id number]), 6+ PM CDT vaccination MONTHS, IM, QUAD [...] Group TMHP MEDICAID OF xxxxxxxxx 2019-Jose Alberto [phone] [address] Medicaid [place] t [id number] [place] [address] documented as of this encounter Advance Directives Type Date Recorded 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
--- OUTSIDE RECORDS SUMMARY | 2020-03-21 14:15 | XMS REPORT ---
:1990 Author Organization [facility] t Address [address] [place] [address] Care Team Providers Name Role Phone Mer Guerrero DO Attending Clinician Emma So Attending Clinician Singer MENSAH Attending Clinician Doctor Unassigned, Name Attending Clinician Unavailable Problems This patient has no known problems. Allergies, Adverse Reactions, Alerts This patient has no known allergies or adverse reactions. Medications This patient has no known medications. Procedures This patient has no known procedures. Encounters Start End Encounter Admission Attending Care Care Encounter Source Date/Time Date/Time Type Type Clinicians Facility Department ID 2020-03-08 2020-03-08 Emergency Cesar [facility] [id number] 07:11:57 07:45:00 Shelby Crowley [id number] [place] 4.2.7.2.686 [place] [id number] 2020-01-17 2020-01-17 [facility] OLI Soni [id number] 13:41:40 13:56:40 ne Visit Terri Carter COUNTER TENDER [id number] [facility] 4.2.7.2.686 MATERNAL [id number] & CHILD [address] [place] [address] 2020-01-15 2020-01-15 Emergency , [facility] [id number] 07:44:24 08:10:00 Yair Crowley [id number] [place] 4.2.7.2.686 [place] [id number] 2020-01-15 2020-01-15 Orders Doctor DESTINY [id number] 00:00:00 00:00:00 Only Unassigned, LIV 350.1.13.10 [place] 4.2.7.2.686 [id number] 2020-01-08 2020-01-08 Office [place], [facility] [id number] 14:09:39 15:17:40 Visit Terri Carter COUNTER TENDER [id number] [facility] [id number] MATERNAL [id number] & CHILD [address] [place] [address] Results Test Description Test Time Test Comments Results Result [facility] e Comments CT C-SPINE W/O 2017-04-07 [facility] 21:20:[address] [id number] IMAGING REPORTPatient Name: Gianluca WHITE of Service: [id number]: 26 Sex: F Order #: [id number] Room: ERDOB: 1990 X-Ray Number: [id number] Record Number: [id number] Hospital Number: [id number] Physician: Gwen PRADO Physician: Artis DE JESUS CT exam was performed using one or more of the following dosereduction techniques: Automated exposure control, adjustment of the mAand/or kV according to patient size, or use of iterative reconstructiontechnique .CT head, CT cervical spineHistory: Headache. Neck pain.CT head: There is a moderate-sized mucus retention cyst in the rightmaxillary paranasal sinus. Otherwise, normal.CT cervical spine: There is reversed cervical lordosis. No fracture orsubluxation identified. Alignment, position, vertebral body heights, andintervertebral disc spaces are maintained. No soft tissue abnormalityidentified. There are dental caries.Impression:1. Findings as discussed.Electronicall y Signed By: Michael Milian M.D., 04/07/2017 9:17 PMLegally authenticated by MAVIS HALL 2017-04-07 21:17:48 CT HEAD W/O CONT 2017-04-07 [facility] 21:20:[address] [id number] IMAGING REPORTPatient Name: Gianluca WHITE of Service: [id number]: 26 Sex: F Order #: [id number] Room: [facility]: 1990 X-Ray Number: [id number] Record Number: [id number] Hospital Number: [id number] Physician: Gwen PRADO Physician: Artis DE JESUS CT exam was performed using one or more of the following dosereduction techniques: Automated exposure control, adjustment of the mAand/or kV according to patient size, or use of iterative reconstructiontechnique .CT head, CT cervical spineHistory: Headache. Neck pain.CT head: There is a moderate-sized mucus retention cyst in the rightmaxillary paranasal sinus. Otherwise, normal.CT cervical spine: There is reversed cervical lordosis. No fracture orsubluxation identified. Alignment, position, vertebral body heights, andintervertebral disc spaces are maintained. No soft tissue abnormalityidentified. There are dental caries.Impression:1. Findings as discussed.Electronicall y Signed By: Michael Milian M.D., 04/07/2017 9:17 PMLegally authenticated by MAVIS HALL 2017-04-07 21:17:48
--- OUTSIDE RECORDS SUMMARY | 2020-03-21 14:16 | XMS REPORT | Summary of Care ---
:1990 Author Organization [facility] - [facility] Address [address] [place] [address] Care Team Providers Name Role Phone Susanna Deluna Primary Care Provider Reason for Visit Reason Comments Shoulder Pain right Auth/Cert Status Reason Specialty Diagnoses / Referred By Referred To Procedures Contact Contact Emergency Medicine Adc Em ergency Dept [address] [place] [address] Fax: Encounter Details Date Type Department Care Team Description 03/08/2020 Emergency ADC-Emergency Shelby Guerrero, Acute p ain of right Department DO shoulder (Primary Dx) [address] [facility] [address] [place] [address] [place], [place] [address] Allergies No Known Allergiesdocumented as of this encounter (statuses as of 03/08/2020) Medications Medication Sig Dispensed Refills Start Date End Date Status penicillin v Take 500 mg by 0 Ac tive potassium 500 mg mouth 2 (two) tabletIndications: times daily. toothe infection Indications: toothe infection traMADol (ULTRAM) 50 Take 1 tablet by 9 tablet 0 10/05/2019 Active mg mouth every 8 tabletIndications: (eight) hours as Acute non needed for Pain intractable (scale 4-6). tension-type headache proMETHazine 25 mg Take 1 tablet by 12 tablet 0 10/05/2019 Active tabletIndications: mouth every 6 Acute non (six) hours as intractable needed for Nausea tension-type and Vomiting headache (N/V). NUVARING (NUVARING) Insert 1 Each into 1 Each 2 01/17/2020 Active 0.12-0.015 mg/24 hr vagina once every vaginal month. Insert insertIndications: vaginally and Other general leave in place for counseling and 3 consecutive advice for weeks, then remove contraceptive for 1 week. management diazePAM (VALIUM) 5 Take 1 tablet by 9 tablet 0 03/08/2020 Active mg mouth 3 (three) tabletIndications: times daily as Acute pain of right needed for Muscle shoulder Spasms for up to 3 days. documented as of this encounter (statuses as of 03/08/2020) Active Problems Problem Noted Date Other general [...] as of this encounter (statuses as of 03/08/2020) Resolved Problems Problem Noted Date Resolved Date Routine follow-up 03/13/2013 01/04/2017 Immune to varicella 03/13/2013 01/04/2017 Not immune to rubella 03/13/2013 01/04/2017 Overview: MMR vaccine given 03/13/2013. ICD10 Diagnosis Term Sack Cleaning Hand Utility Trichomonal vulvovaginitis 03/13/2013 01/04/2017 Normal delivery 01/29/2013 02/13/2013 Other threatened labor, antepartum 01/27/201301/29 Female genital symptoms 01/27/2013 01/27/2013 Overview: ICD10 Diagnosis Term Sack Cleaning Hand Utility Anemia in 01/27/2013 01/04/2017 Need for gmkrlnv-kkykx-vwtoobm (MMR) vaccine 01/27/2013 01/29/2013 Spontaneous rupture of membranes 01/27/2013 0 01/29/2013 Female genital symptoms 01/13/2013 01/13/2013 Overview: ICD10 Diagnosis Term Sack Cleaning Hand Utility Female genital symptoms 12/15/2012 01/06/2013 Overview: ICD10 Diagnosis Term Sack Cleaning Hand Utility Abnormal weight gain 12/15/2012 01/27/2013 documented as of this encounter (statuses as of 03/08/2020) Immunizations Name Administration Dates Next Due Influenza Virus Vaccine 08/05/2012 Influenza Virus Vaccine Quad .5 mL IM 6+ MO 01/08/2020 MMR 03/13/2013 Tdap 11/24/2012 documented as of this encounter Social History Tobacco Use Types Packs/Day Years Used Date Current Every Day Smoker Cigarettes 0.25 Sta rted: 12/15/2014 Smokeless Tobacco: Never Used Comments: 1/4 pack a day Alcohol Use Drinks/Week oz/Week Comments No 0 Standard drinks or equivalent 0.0 Sex Assigned at Date Recorded Not on file Job Start Date Occupation Industry Not on file Not on file Not on file Travel History Travel Start Travel End No recent travel history available. COVID-19 Exposure Response Date Recorded In the last month, have you been in contact with No / Unsure 03/08/2020 7:08 AM CDT someone who was confirmed or suspected to have Coronavirus / COVID-19? documented as of this encounter Last Filed Vital Signs Vital Sign Reading Time Taken Comments Blood Pressure 125/86 03/08/2020 7:09 AM CDT Pulse 76 03/08/2020 7:09 AM CDT Temperature 36.7 C (98.1 F) 03/08/2020 7:09 AM CDT Respiratory Rate 16 03/08/2020 7:09 AM CDT Oxygen Saturation 99% 03/08/2020 7:09 AM CDT Inhaled Oxygen Concentration - - Weight 98.4 kg (217 lb) 03/08/2020 7:09 AM CDT Height 175.3 cm (5' 9") 03/08/2020 7:09 AM CDT Body Mass Index 32.05 03/08/2020 7:09 AM CDT documented in this encounter Discharge Instructions Shelby Obrien DO - 03/08/2020DIAGNOSIS 1. Neck Spasm NO LIFE-THREATENING FINDINGS ON TODAY'S EXAM. PROCEDURES IN THE ER TODAY: None MEDICATIONS ADMINISTERED IN THE ER TODAY: None YOUR PRESCRIPTIONS AND [id number] MEDICATION RECOMMENDATIONS: Valium by mouth every 8 hours as needed for pain. Do not drive while taking this medication. You may use over the counter anti-inflammatories such as Advil or Motrin three times a day with foodas needed for pain. You may use warm compresses, icy hot/gerard verduzco and massage as needed for pain. SPECIAL CARE INSTRUCTIONS: None FOLLOW-UP RECOMMENDATIONS: RECOMMEND FOLLOW-UP WITH A PRIMARY CARE PROVIDER OR SPECIALIST IN 2-5 DAYS, ESPECIALLY IF NO IMPROVEMENT IN SYMPTOMS. TO FOLLOW-UP WITHIN THE [facility], TRY THESE OPTIONS (CLINIC APPOINTMENTS AVAILABLE ON [id number] BASIS): 1. SCHEDULE AN APPOINTMENT ONLINE AT WWW[facility] 2. OR CALL THE [facility] AT OR 3. OR CALL YOUR [facility] PHYSICIAN'S OFFICE DIRECTLY IF YOU ARE ALREADY AN ESTABLISHED [facility] PATIENT. OR, YOU MAY FOLLOW-UP WITH A PROVIDER OF YOUR CHOICE, SUCH : 1. A PHYSICIAN OF YOUR CHOICE 2. [facility], . LOCATIONS IN [facility] 3. [facility], [address] [place] [address]; [phone] RETURN TO ER FOR WORSENING OF SYMPTOMS. AttachmentsThe following attachments cannot be sent through Care Everywhere.Neck Spasm, No Trauma (French)documented in this encounter Plan of Treatment Date Type Specialty Care Team Description 04/10/2020 Nurse Visit OB Satellites Visit, [facility] Health Maintenance Due Date Last Done Comments PNEUMOCOCCAL 0-64 YEARS COMBINED SERIES (1 1995 of 1 - PPSV23) PAP SMEAR 08/14/2022 08/14/2019, 05/23/2012 DTaP,Tdap,and Td Vaccines (2 - Td) 11/24/2022 11/24/2012 INFLUENZA VACCINE Completed 01/08/2020, 08/05/2012 documented as of this encounter Procedures Procedure Name Priority Date/Time Associated Diagnosis Comme nts CONSENT/REFUSAL FOR Routine 03/08/2020 7:03 AM CDT DIAGNOSIS AND TREATMENT documented in this encounter Results Not on filedocumented in this encounter Visit Diagnoses Diagnosis Acute pain of right shoulder - Primary documented in this encounter Insurance Payer Benefit Plan / Subscriber ID Effective Dates Phone Addre ss Type Group [facility] MEDICAID OF xxxxxxxxx 2019-Jose Alberto [phone] [place] t [id number] [place] [address] documented as of this encounter Advance Directives Type Date Recorded Patient Halal Butcher Explanati on Advance Directives and Living Will Power of Ice Cream Machine Operator Name Relationship Healthcare Agent Communication Relationship Telly Mcmahon Mother Primary healthcare agent Eben Velazquez Uncle First [facility] healthcare agent (Mobile) Shereen Apodaca Aunt Second [facility] healthcare [phone] agent (Mobile)
--- OUTSIDE RECORDS SUMMARY | 2020-03-21 14:16 | XMS REPORT | Summary of Care ---
:1990 Author Organization [facility] - Health Address [address] [place] [address] Care Team Providers Name Role Phone Susanna Deluna Primary Care Provider Encounter Details Date Type Department Care Team Description 01/15/2020 Orders Only [facility] Doctor Unassigned, No [address] [facility] [place] [address] [address] [place] [address] Allergies No Known Allergiesdocumented as of this encounter (statuses as of 01/15/2020) Medications Medication Sig Dispensed Refills Start Date [...] as of this encounter (statuses as of 01/15/2020) Active Problems Problem Noted Date Other general [...] as of this encounter (statuses as of 01/15/2020) Resolved Problems Problem Noted Date Resolved Date Routine follow-up 03/13/2013 01/04/2017 Immune to varicella 03/13/2013 01/04/2017 Not immune to rubella 03/13/2013 01/04/2017 Overview: MMR vaccine given 03/13/2013. ICD10 Diagnosis Term Wood Treating Inspector Utility Trichomonal vulvovaginitis 03/13/2013 01/04/2017 Normal delivery 01/29/2013 02/13/2013 Other threatened labor, antepartum 01/27/201301/29 Female genital symptoms 01/27/2013 01/27/2013 Overview: ICD10 Diagnosis Term Wood Treating Inspector Utility Anemia in 01/27/2013 01/04/2017 Need for snsffvq-piryk-gjahsin (MMR) vaccine 01/27/2013 01/29/2013 Spontaneous rupture of membranes 01/27/2013 0 01/29/2013 Female genital symptoms 01/13/2013 01/13/2013 Overview: ICD10 Diagnosis Term Wood Treating Inspector Utility Female genital symptoms 12/15/2012 01/06/2013 Overview: ICD10 Diagnosis Term Wood Treating Inspector Utility Abnormal weight gain 12/15/2012 01/27/2013 documented as of this encounter (statuses as of 01/15/2020) Immunizations Name Administration Dates Next Due Influenza [...] filedocumented in this encounter Plan of Treatment Date Type Specialty Care Team Description 01/15/2020 Nurse Visit OB Satellites Ramila Deluna, DSP ENGINEER [address] [place] [address] [phone] [facility] Health Maintenance Due Date Last Done Comments PNEUMOCOCCAL 0-64 YEARS 01/26/2020 Postpone d from 1995 COMBINED SERIES (1 of 1 - (Alter [place] Guidelines) PPSV23) PAP SMEAR 08/14/2022 08/14/2019, 05/23/2012 DTaP,Tdap,and Td Vaccines (2 11/24/2022 11/24/2012 - Td) INFLUENZA VACCINE Completed 01/08/2020, 08/05/2012 documented as of this encounter Procedures Procedure Name Priority Date/Time Associated Diagnosis Comme nts CONSENT/REFUSAL FOR Routine 01/15/2020 7:38 AM CDT DIAGNOSIS AND TREATMENT documented in this encounter Results Not on filedocumented in this encounter Insurance Payer Benefit Plan / Subscriber ID Effective Dates Phone Addre ss Type Group [facility] MEDICAID OF xxxxxxxxx 2019-Jose Alberto [phone] [place] t [id number] [place] [address] documented as of this encounter Advance Directives Type Date Recorded Patient Water Treatment Operator Explanati on Advance Directives and Living Will Power of Equipment Installation Professional Name Relationship Healthcare Agent Communication Relationship Telly Mcmahon Mother Primary healthcare agent Eben Velazquez Uncle First alternate healthcare agent (Mobile) Shereen Apodaca Aunt Second alternate healthcare [phone] agent (Mobile)
--- OUTSIDE RECORDS SUMMARY | 2020-03-21 14:16 | XMS REPORT | Summary of Care ---
:1990 Author Organization [facility] [employer] Address [address] [place] [address] Care Team Providers Name Role Phone Susanna Deluna Primary Care Provider Reason for Visit Reason Comments CONTROL telehealth Encounter Details Date Type Department Care Team Description 01/17/2020 Telemedicine Visit [facility] [place], Oth er general [place] Terri Carter, counseling and advice [address] [facility] for contraceptive [place], [place] [address] management ( Primary [phone] ST Dx) [phone] [address] [place], [place] [address] Allergies No Known Allergiesdocumented as of this encounter (statuses as of 01/17/2020) Medications Medication Sig Dispensed Refills Start Date End Date Status penicillin v Take 500 mg by 0 Ac tive potassium 500 mg mouth 2 (two) times tabletIndications: daily. Indications: toothe infection toothe infection traMADol (ULTRAM) 50 Take 1 tablet by 9 tablet 0 10/05/2019 Active mg tabletIndications: mouth every 8 Acute non intractable (eight) hours as tension-type headache needed for Pain (scale 4-6). proMETHazine 25 mg Take 1 tablet by 12 tablet 0 10/05/2019 Active tabletIndications: mouth every 6 (six) Acute non intractable hours as needed for tension-type headache Nausea and Vomiting (N/V). NUVARING (NUVARING) Insert 1 Each into 1 Each 2 01/17/2020 Active 0.12-0.015 mg/24 hr vagina once every vaginal month. Insert insertIndications: vaginally and leave Other general in place for 3 counseling and advice consecutive weeks, for contraceptive then remove for 1 management week. documented as of this encounter (statuses as of 01/17/2020) Active Problems Problem Noted Date Other general [...] as of this encounter (statuses as of 01/17/2020) Resolved Problems Problem Noted Date Resolved Date Routine follow-up 03/13/2013 01/04/2017 Immune to varicella 03/13/2013 01/04/2017 Not immune to rubella 03/13/2013 01/04/2017 Overview: MMR vaccine given 03/13/2013. ICD10 Diagnosis Term Aerospace Quality Engineer Utility Trichomonal vulvovaginitis 03/13/2013 01/04/2017 Normal delivery 01/29/2013 02/13/2013 Other threatened labor, antepartum 01/27/201301/29 Female genital symptoms 01/27/2013 01/27/2013 Overview: ICD10 Diagnosis Term Aerospace Quality Engineer Utility Anemia in 01/27/2013 01/04/2017 Need for kircwud-azshb-ljcbjmk (MMR) vaccine 01/27/2013 01/29/2013 Spontaneous rupture of membranes 01/27/2013 0 01/29/2013 Female genital symptoms 01/13/2013 01/13/2013 Overview: ICD10 Diagnosis Term Aerospace Quality Engineer Utility Female genital symptoms 12/15/2012 01/06/2013 Overview: ICD10 Diagnosis Term Aerospace Quality Engineer Utility Abnormal weight gain 12/15/2012 01/27/2013 documented as of this encounter (statuses as of 01/17/2020) Immunizations Name Administration Dates Next Due Influenza [...] Signs Not on filedocumented in this encounter Progress Notes Terri Soni WHCNP - 01/17/2020 12:45 PM CDT TELEHEALTH NOTE Verbal consent obtained from Patient: Lexi Velazquez for telehealth services provided below. Communication with patient was conducted via Telephone. Location of Patient: Workplace Location of Provider: Clinic Date of Service: 01/17/2020 Chief Complaint: control HPI: Lexi Velazquez is a 29 year old female with Past Medical History: Diagnosis Date Anemia in 01/27/2013 resolved Hypertension 2017 diagnosed at the ER, not on medication STD (sexually transmitted disease) 2012 Trichomonal vulvovaginitis 03/13/2013 Trichomonal vulvovaginitis 03/13/2013 The patient visit was conducted via [employer]. She reports her visit is for birthcontrol start. She reports she desires to start nuvaring for control and reports the last time she engaged in intercourse was on 12/30/19. She reports she did have a UPT completed on her last visit, which was negative. She reports she is due for her next menses per her period tracker this 01/20/20. She denies havingany issues or concerns today. MEDICATIONS: Outpatient Medications Marked as Taking for the 01/17/20 encounter (Telemedicine Visit) with Terri Soni WHCNP Medication Sig Dispense Refill NUVARING (NUVARING) 0.12-0.015 mg/24 hr vaginal insert Insert 1 Each into vagina once every month. Insert vaginally and leave in place for 3 consecutive weeks, then remove for 1 week. 1 Each 2 ROS Constitutional: negative Eyes: negative Ears: negative Nose/Sinuses: negative Mouth/Throat: negative Cardiovascular: negative Respiratory: negative Gastrointestinal: negative Genitourinary: negative Musculoskeletal: negative Integumentary: negative Neuro: negative Psych: negative Endocrine: negative Hem/Lymph: negative Allergy/Immunology: negative TELEHEALTH EXAM Constitutional: alert and in no distress Respiratory: breathing comfortably Neuro: answers questions appropriately Psych: normal affect ASSESSMENT/ PLAN Lexi Velazquez is a 29 year old female with PMH as above presenting with: 1. Other general counseling and advice for contraceptive management Comment: desires to start control Plan: NUVARING (NUVARING) 0.12-0.015 mg/24 hr vaginal insert; Insert 1 Each into vagina once every month. Insert vaginally and leave in place for 3 consecutive weeks, then remove for 1 week. Dispense: 1 Each; Refill: 2 Patient advised to start control after her next cycle, she verbalized understanding After visit summary (AVS ) documentation will be available through [employer] for this encounter. A total of 7 minutes was spent on the Telephone with the patient. SOPHIA Joshi documented in this encounter Plan of Treatment Date Type Specialty Care Team Description 04/10/2020 Nurse Visit OB Satellites [facility] Health Maintenance Due Date Last Done Comments PNEUMOCOCCAL 0-64 YEARS 01/26/2020 Postpone d from 1995 COMBINED SERIES (1 of 1 - (Alter [place] Guidelines) PPSV23) PAP SMEAR 08/14/2022 08/14/2019, 05/23/2012 DTaP,Tdap,and Td Vaccines (2 11/24/2022 11/24/2012 - Td) INFLUENZA VACCINE Completed 01/08/2020, 08/05/2012 documented as of this encounter Results Not on filedocumented in this encounter Visit Diagnoses Diagnosis Other general counseling and advice for contraceptive management - Primary documented in this encounter Insurance Payer Benefit Plan / Subscriber ID Effective Dates Phone Addre ss Type Group [facility] MEDICAID OF xxxxxxxxx 2019-Jose Alberto [phone] Medicaid [place] t [id number] [place] [address] documented as of this encounter Advance Directives Type Date Recorded Patient Regional Sales Manager Explanati on Advance Directives and Living Will Power of Skin Peeling Machine Operator Name Relationship Healthcare Agent Communication Relationship Telly Mcmahon Mother Primary healthcare agent Eben eVlazquez Uncle First [facility] healthcare agent (Mobile) Shereen Apodaca Aunt Second alternate healthcare agent (Mobile)
--- OUTSIDE RECORDS SUMMARY | 2020-03-21 14:16 | XMS REPORT | Summary of Care ---
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 syndrome, left [address] [facility] [address] (Primary Dx) [place] [address] [place], [place] [address] Allergies No Known Allergiesdocumented as of this [...] MMR vaccine given 03/13/2013. ICD10 Diagnosis Term Special Police Utility Trichomonal vulvovaginitis 03/13/2013 01/04/2017 Normal delivery 01/29/2013 02/13/2013 Other threatened labor, antepartum 01/27/201301/29 Female genital symptoms 01/27/2013 01/27/2013 Overview: ICD10 Diagnosis Term Special Police Utility Anemia in 01/27/2013 01/04/2017 Need for gwuwyib-jqisg-vlyzzom (MMR) vaccine 01/27/2013 01/29/2013 Spontaneous rupture of membranes 01/27/2013 0 01/29/2013 Female genital symptoms 01/13/2013 01/13/2013 Overview: ICD10 Diagnosis Term Special Police Utility Female genital symptoms 12/15/2012 01/06/2013 Overview: ICD10 Diagnosis Term Special Police Utility Abnormal weight gain 12/15/2012 01/27/2013 documented [...] Sign Reading Time Taken Comments Blood Pressure 124/83 01/15/2020 8:00 AM CDT Pulse 63 01/15/2020 8:00 AM CDT Temperature 36.9 C (98.4 F) 01/15/2020 7:48 AM CDT Respiratory Rate 16 01/15/2020 8:00 AM CDT Oxygen Saturation 100% 01/15/2020 8:00 AM CDT Inhaled Oxygen Concentration - - Weight 99.8 kg (220 lb) 01/15/2020 7:48 AM CDT Height 175.3 cm (5' 9") 01/15/2020 7:48 AM CDT Body Mass Index 32.49 01/15/2020 7:48 AM CDT documented in this encounter Discharge Instructions Yair Mccord DO - 01/15/2020Use wrist brace is much as possible. Use anti-inflammatories for pain control. Be cognizant of extension of the wrist and repetitive activities. AttachmentsThe following attachments cannot be sent through Care Everywhere. 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 [address] [place] [address] [phone] [facility] Health Maintenance Due Date Last Done Comments PNEUMOCOCCAL 0-64 YEARS 01/26/2020 Postpone d from 1995 COMBINED SERIES (1 of 1 - (Alter [place] Guidelines) PPSV23) PAP SMEAR 08/14/2022 08/14/2019, 05/23/2012 DTaP,Tdap,and Td Vaccines (2 11/24/2022 11/24/2012 - Td) INFLUENZA VACCINE Completed 01/08/2020, 08/05/2012 documented as of this encounter Procedures Procedure Name Priority Date/Time Associated Diagnosis Comme nts NOTICE OF PRIVACY Routine 01/15/2020 7:39 AM CDT PRACTICES documented in this encounter Results Not on filedocumented in this encounter Visit Diagnoses Diagnosis Carpal tunnel syndrome, left - Primary Carpal tunnel syndrome documented in this encounter Insurance Payer Benefit Plan / Subscriber ID Effective Dates Phone Addre ss Type Group [facility] MEDICAID OF xxxxxxxxx 2019-Jose Alberto [phone] [address] Medicaid [place] t [id number] [place] [address] documented as of this encounter Advance Directives Type Date Recorded Patient Parachute Taper Explanati on Advance Directives and Living Will Power of Billing Analyst Name Relationship Healthcare Agent Communication Relationship Telly Mcmahon Mother Primary healthcare agent Eben Velazquez Uncle First alternate healthcare agent (Mobile) Shereen Apodaca Aunt Second alternate healthcare agent (Mobile)
[2020-03-21 15:10] LABS: Absolute Lymphocytes (CBC) 2.8 K/uL (0.7-4.9); Basophils % 0.7 % (0-1.3); Hematocrit 38.8 % (36.0-45.0); Lymphocytes % 34.5 % (15.3-44.8); MPV 6.8 fL (7.6-11.3); RBC Red Blood Cell Count 4.37 M/uL (3.86-4.86)
[2020-03-21 15:25] LABS: Urine Blood TRACE (NEG); Urine Glucose NEGATIVE (NEG); Urine Protein NEGATIVE (NEG); Urine Specific Gravity 1.025 (1.005-1.030)
[2020-03-21 15:30] LABS: Potassium 4.1 mmol/L (3.5-5.1)
--- NOTE | 2020-03-21 15:56 | RAD REPORT ---
EXAM DESCRIPTION: US - Transvaginal OB - 03/21/2020 3:43 pm CLINICAL HISTORY: ABD CRAMPING, COMPARISON: Transvaginal OB dated 12/19/2017 TECHNIQUE: Endovaginal sonography performed. FINDINGS: No intrauterine gestational sac or sac remnant identifiable. Endometrial stripe is 11-12 m m with no hematoma or mass identifiable. Endometrium-myometrium interface is normal with no myometria l mass identifiable. Uterus has a retroflexed and retroverted appearance. Both ovaries are identified and normal. No ovarian or adnexal abnormality seen. No fluid in the cul d e sac. IMPRESSION: Negative pelvic ultrasound as detailed. No gestational sac or sac remnant identified within the uterus or in the adnexa.
[2020-03-21 16:29] VITALS: BP 127/86; TEMP 98.1; O2SAT 100
--- NOTE | 2020-03-25 15:56 | EDPHYS ---
Physician Documentation [facility] Name: Lexi Velazquez Age: 29 yrs Sex: Female : 1990 Arrival Date: 03/21/2020 Time: 13:37 Bed 26 Private MD: ED Physician Chris Thorne HPI: 03/21 15:15 This 29 yrs old Black Female presents to ER via Ambulatory with complaints of Abdominal jr8 Pain - . 15:15 The patient presents to the emergency department with abdominal pain, of the lower jr8 abdomen. course: care: none, Leakage of Fluid: none appreciated, Ultrasound: the patient has not had an ultrasound. Previous pregnancies: in previous pregnancies patient has had. Associated signs and symptoms: The patient has no apparent associated signs or symptoms. It is unknown whether or not the patient has had similar symptoms in the past. The patient has not recently seen a physician. 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 - Social history:: Smoking status: Patient/guardian denies using tobacco, Stopped _ months ago 2. ROS: 15:15 Eyes: Negative for injury, pain, redness, and discharge, ENT: Negative for injury, jr8 pain, and discharge, Neck: Negative for injury, pain, and swelling, Cardiovascular: Negative for chest pain, palpitations, and edema, Respiratory: Negative for shortness of breath, cough, wheezing, and pleuritic chest pain, Back: Negative for injury and pain, MS/Extremity: Negative for injury and deformity, Skin: Negative for injury, rash, and discoloration, Neuro: Negative for headache, weakness, numbness, tingling, and seizure. 15:15 Abdomen/GI: Positive for vomiting, abdominal cramps, Negative for diarrhea. Exam: 15:15 Eyes: Pupils equal round and reactive to light, extra-ocular motions intact. Lids and jr8 lashes normal. Conjunctiva and sclera are non-icteric and not injected. Cornea within normal limits. Periorbital areas with no swelling, redness, or edema. ENT: Nares patent. No nasal discharge, no septal abnormalities noted. Tympanic membranes are normal and external auditory canals are clear. Oropharynx with no redness, swelling, or masses, exudates, or evidence of obstruction, uvula midline. Mucous membranes moist. Neck: Trachea midline, no thyromegaly or masses palpated, and no cervical lymphadenopathy. Supple, full range of motion without nuchal rigidity, or vertebral point tenderness. No Meningismus. Cardiovascular: Regular rate and rhythm with a normal S1 and S2. No gallops, murmurs, or rubs. Normal PMI, no JVD. No pulse deficits. Respiratory: Lungs have equal breath sounds bilaterally, clear to auscultation and percussion. No rales, rhonchi or wheezes noted. No increased work of breathing, no retractions or nasal flaring. Abdomen/GI: Soft with normal bowel sounds. No distension or tympany. No guarding or rebound. Mild tenderness present to lower mid abdomen Back: No spinal tenderness. No costovertebral tenderness. Full range of motion. Skin: Warm, dry with normal turgor. Normal color with no rashes, no lesions, and no evidence of cellulitis. MS/ Extremity: Pulses equal, no cyanosis. Neurovascular intact. Full, normal range of motion. Neuro: Awake and alert, GCS 15, oriented to person, place, time, and situation. Cranial nerves II-XII grossly intact. Motor strength 5/5 in all extremities. Sensory grossly intact. Cerebellar exam normal. Normal gait. Vital Signs: 13:38 BP 127 / 86; Pulse 86; Resp 16; Temp 98.1; Pulse Ox 100% on R/A; Weight 97.98 kg; iw Height 5 ft. 9 in. (175.26 cm); Pain 6/10; 13:38 Body Mass Index 31.90 (97.98 kg, 175.26 cm) iw MDM: 14:20 Patient medically screened. jr8 15:49 Data reviewed: vital signs, nurses notes, lab test result(s), radiologic studies, jr8 ultrasound. Data interpreted: Pulse oximetry: on room air is 100 %. Interpretation: normal. Counseling: I had a detailed discussion with the patient and/or guardian regarding: the historical points, exam findings, and any diagnostic results supporting the discharge/admit diagnosis, lab results, radiology results, the need for outpatient follow up, an OB/Gyne specialist, to return to the emergency department if symptoms worsen or persist or if there are any questions or concerns that arise at home. ED course: Discussed with patient that it is too early to tell if is ectopic vs intrauterine. Will need to wait a week or two and have repeat HCG completed. If worse to come back. Otherwise to f/u with OB. 03/21 14:20 Order name: Quantitative Hcg; Complete Time: 15:44 03/21 14:20 Order name: Basic Metabolic Panel; Complete Time: 15:03/21 14:20 Order name: CBC with Diff; Complete Time: 15:03/21 14:53 Order name: US Transvaginal Ob; Complete Time: 16:06 8 03/21 15:01 Order name: Urine Dipstick--Ancillary (enter results); Complete Time: 15:44 bd 03/21 15:01 Order name: Urine --Ancillary (enter results); Complete Time: 15:44 bd 03/21 14:20 Order name: Urine Test (obtain specimen); Complete Time: 15:03/21 14:20 Order name: IV Saline Lock; Complete Time: 15:8 03/21 14:20 Order name: Labs collected and sent; Complete Time: 15: 03/21 14:20 Order name: NPO; Complete Time: 15:03/21 14:20 Order name: Urine Dipstick-Ancillary (obtain specimen); Complete Time: 15: Administered Medications: No medications were administered Disposition: 03/21/20 15:51 Discharged to Home. Impression: Lower abdominal pain, unspecified. - Condition is Stable. - Discharge Instructions: Abdominal Pain During . - Medication Reconciliation Form, Thank You Letter, Antibiotic Education, Prescription Opioid Use form. - Follow up: Private Physician; When: 5 - 6 days; Reason: Recheck today's complaints, Continuance of care, Re-evaluation by your physician. - Problem is new. - Symptoms have improved. Addendum: 03/23/2020 07:54 Co-signature as Attending Physician, Chris Thorne MD I agree with the assessment and k dr plan of care. Signatures: Dispatcher [employer] EDHI Chris Thorne MD MD kdr Deepa Guerrero, RN RN iw Memo Gerber PA PA jr8 Corrections: (The following items were deleted from the chart) 03/21 16:14 15:51 03/21/2020 15:51 Discharged to Home. Impression: Lower abdominal pain, iw unspecified. Condition is Stable. Forms are Medication Reconciliation Form, Thank You Letter, Antibiotic Education, Prescription Opioid Use. Follow up: Private Physician; When: 5 - 6 days; Reason: Recheck today's complaints, Continuance of care, Re-evaluation by your physician. Problem is new. Symptoms have improved. jr8
--- NOTE | 2020-03-25 15:56 | ER ---
Nurse's Notes [facility] Name: Lexi Velazquez Age: 29 yrs Sex: Female : 1990 Arrival Date: 03/21/2020 Time: 13:37 Bed 26 Private MD: Diagnosis: Lower abdominal pain, unspecified Presentation: 03/21 13:38 Chief complaint: Patient states: had two positive home UPT 2 days ago, now is having iw low abd pain, intermittent, sharp, no bleeding, approx 4 weeks along, G3, P2. Coronavirus screen: Proceed with normal triage. Patient denies a cough. Patient denies shortness of breath or difficulty breathing. Patient denies measured and/or subjective temperature greater than 100.4F prior to today's visit. Patient denies travel on a cruise ship or to a country the [facility] currently lists as an affected area. Patient denies contact with known and/or suspected case of COVID-19. Ebola Screen: Patient negative for fever greater than or equal to 101.5 degrees Fahrenheit, and additional compatible Ebola Virus Disease symptoms Patient denies exposure to infectious person. Patient denies travel to an Ebola-affected area in the 21 days before illness onset. No symptoms or risks identified at this time. Initial Sepsis Screen: Does the patient meet any 2 criteria? No. Patient's initial sepsis screen is negative. Does the patient have a suspected source of infection? No. Patient's initial sepsis screen is negative. Risk Assessment: Do you want to hurt yourself or someone else? Patient reports no desire to harm self or others. Onset of symptoms was March 21, 2020. 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 - Social history:: Smoking status: Patient/guardian denies using tobacco, Stopped _ months ago 2. Screenin:56 Abuse screen: Denies threats or abuse. Denies injuries from another. Nutritional iw screening: No deficits noted. Tuberculosis screening: No symptoms or risk factors identified. Fall Risk None identified. Assessment: 15:13 General: Appears in no apparent distress. comfortable, Behavior is calm, cooperative. iw Pain: Complains of pain in right lower quadrant and left lower quadrant. Neuro: Level of Consciousness is awake, alert, obeys commands, Oriented to person, place, time, situation, Moves all extremities. Full function. Respiratory: Respiratory effort is even, unlabored, Respiratory pattern is regular, symmetrical. GI: Reports lower abdominal pain. : Denies vaginal bleeding. Vital Signs: 13:38 BP 127 / 86; Pulse 86; Resp 16; Temp 98.1; Pulse Ox 100% on R/A; Weight 97.98 kg; iw Height 5 ft. 9 in. (175.26 cm); Pain 6/10; 13:38 Body Mass Index 31.90 (97.98 kg, 175.26 cm) iw ED Course: 13:37 Patient arrived in ED. iw 13:39 Triage completed. iw 13:40 Arm band placed on. iw 14:19 Memo Gerber PA is PHCP. jrNinoska 14:19 Chris Thorne MD is Attending Physician. jr8 15:06 Deepa Guerrero, RN is Primary Nurse. iw 15:09 Initial lab(s) drawn, by sc, sent to lab. Inserted saline lock: 20 gauge in left iw antecubital area, using aseptic technique. Blood collected. 15:15 Patient has correct armband on for positive identification. iw 15:43 Transvaginal Ob In Process Unspecified. EDMS 16:13 No provider procedures requiring assistance completed. IV discontinued, intact, iw bleeding controlled, No redness/swelling at site. Pressure dressing applied. Administered Medications: No medications were administered Outcome: 15:51 Discharge ordered by . jr8 16:13 Discharged to home ambulatory. iw 16:13 Condition: good 16:13 Discharge instructions given to patient, Instructed on discharge instructions, follow up and referral plans. Demonstrated understanding of instructions, follow-up care. 16:14 Patient left the ED. iw Signatures: Dispatcher [employer] EDMS Deepa Guerrero, RN RN iw Memo Gerber, RHIANNA PA jr8
== END 2020-03-21 16:14 | disposition home or self-care (01) ==
LOC: ER 12:59
DX: O26.891 Other specified pregnancy related conditions, first trimester (principal); Z3A.01 Less than 8 weeks gestation of pregnancy
CPT/HCPCS: 36415; 76817; 80048; 81003; 81025; 84702; 85025; 99283

== ENCOUNTER 2024-09-16 10:01 | Emergency (ER) | payer OTHER ==
--- OUTSIDE RECORDS SUMMARY | 2024-09-16 10:10 | XMS REPORT | Continuity of Care Document ---
Author Name Unknown Address [address] [place] [address] [facility] Address [address] [place] [address] Support Name Relationship Address Phone T[place] [address] Cindy Eben Uncle [place], [place] Shereen Apodaca Aunt [address] [place] [address] BURAK WHITE Personal Relationship [address] [place] [address] LACHO MCMAHON Emergency Contact [address] [place] [address] Nalini Apodaca Emergency Contact [address] [place] [address] Pako Berger Jr Emergency Contact [address] [place] [address] N, G Personal Relationship . . , [id number] Unavailable BO CLOUD Personal Relationship [address] [place] [address] BO CLOUD Personal Relationship [address] [place] [address] UNKNOWN, UNKNOWN OTHERRELATIONSHIP Unknown UNK Personal Relationship Unknown LACHO MCMAHON SIGNIFICANT OTHER [address] [place] [id number] S[employer]EM[employer] Personal Relationship Unknown [facility] Personal [place] [address] CULEBRA SocialDefender Personal Relationship Unknown [id number] CU[facility] [place] [address] Care Team Providers Care Wallpaper Printer Name Role Phone Matthew WANG Daily Edita Primary Care Phy sician Daily Castro Attending Clinician Unavail able Daily Castro Attending Clinician Unavailab Gorge Thorpe Attending Clinician Unavailable Isabela Li Attending Clinician Unavailable OFELIA ST Attending Clinician Unavailable OFELIA ST Attending Clinician Unavailable Ofelia Daniels Attending Clinician [phone] Doctor Unassigned, [place] Attending Clinician U JACKIE Jane Attending Clinician Unavailable Reggie Wright Attending Clinician Unavailable Nathalia Hwang Attending Clinician Unavailable Linda Rodriguez Attending Clinician Unavailab Aric Sheriff Attending Clinician UnavailAric Hammonds Attending Clinician UnavaAlexa Coppola Attending Clinician Unavailable Jarret Sena Attending Clinician Unavailable Arlette Grant Attending Clinician Unavaila Amanda Kelly Attending Clinician Unava Pako Ann Attending Clinician Unavailable Melissa SOTO Attending Clinician Unavailable Melissa Schaefer Attending Clinician [phone] Doctor Unassigned, [place] Attending Clinician U Michael Clemons Attending Clinician Unavailable Kendall Olivares Attending Clinician Unavailable Loki Walker DO Attending Clinician [phone] Shelby Guerrero DO Attending Clinician [phone] SHANE SONI Attending Clinician Unavail able Shane So Attending Clinician + 1, [facility] Attending Clinician UnavailRobi Interiano MD Attending Clinician [phone] Lab/Pedi, [facility] Attending Clinician Unavaila Ramila Cohen Attending Clinician Julio EVANS Shivani Attending Clinician [phone] Castro Cardona MD Attending Clinician [phone] Tasia Clayton MD Attending Clinician [phone] Singer MENSAH Yair Attending Clinician [phone] Heather Reese Attending Clinician [phone] TASIA CLAYTON Admitting Clinician Unavailable Isabela Li Admitting Clinician Unavailable Physician, No Primary or Family Admitting Clinic trell Unavailable JACKIE CASTRO Admitting Clinician Unavailable Tasia Clayton MD Admitting Clinician [phone] Payers Payer Name Policy Type Policy Number Effective Date Expirati on Date Source [place]ICA[place] [id number] 2019 00:00:00 Problems Condition Name Condition Details Condition Category Status Onset Date Resolution Date Last Treatment Date Treating Clinician Comments Source Elevated blood pressure reading without diagnosis of hypertensi on Elevated blood pressure reading without diagnosis of hypertensi on Disease Active 2020-0 7-21 00:00: 00 [facility] Hyperemesi s gravidarum Hyperemesi s gravidarum Disease Active 2020-0 6-17 00:00: 00 [facility] Trichomona l vulvovagin itis Trichomona l vulvovagin itis Disease Active 20200 6-16 00:00: 00 Overview: Formattin g of this note might be different from the original. HIGINIO -neg [facility] UTI in UTI in Disease Active 20200 6-15 00:00: 00 Overview: Formattin g of this note might be different from the original. Higinio at next visit [facility] Supervisio n of high-risk Supervisio n of high-risk Disease Active 20200 6-12 00:00: 00 [facility] with history of with history of Disease Active 2020-0 6-12 00:00: 00 [facility] History of hypertensi on History of hypertensi on Disease Active 2020-0 6-12 00:00: 00 [facility] Tobacco use in Tobacco use in Disease Active 6-12 00:00: 00 Overview: Formattin g of this note might be different from the original. 1/2pk/day [facility] History of miscarriag e History of miscarriag e Disease Active 2018-10 0-21 00:00: 00 [facility] Multiparit y Multiparit y Disease Active 2018-10 021 00:00: 00 [facility] Tooth infection Tooth infection Disease Active 2018-10 0 00:00: 00 [facility] Nexplanon removal Nexplanon removal Disease Active 3-23 00:00: 00 Overview: Placed 12/2017 removed 02/2018 [facility] Well woman exam Well woman exam Disease Active 12-15 00:00: 00 [facility] Encounter for other contracept clarice management Encounter for other contracept clarice management Disease Active 3-14 00:00: 00 [facility] Obesity in Obesity in Disease Active 4-05 00:00: 00 [facility] [id number] Primary hypertensi on Problem [facility] [id number] Gastroesop hageal reflux disease without esophagiti s Problem [facility] [id number] Vitamin D deficiency Problem [facility] [id number] Periodic headache syndrome, not intractabl e [facility] [id number] Depression with anxiety Problem [facility] Other general counseling and advice for contracept clarice management Other general counseling and advice for contracept clarice management Disease Resolve d 3-16 00:00: 00 2020-04-05 00:00:00 2020-04-05 10:50:48 [facility] Supervisio n of high risk in first trimester Supervisio n of high risk in first trimester Disease Resolve d 2018-10 0 00:00: 00 2020-04-05 00:00:00 2020-04-05 10:50:27 [facility] Nausea and vomiting during prior to 22 weeks gestation Nausea and vomiting during prior to 22 weeks gestation Disease Resolve d 2018-10 0 00:00: 00 2020-04-05 00:00:00 2020-04-05 10:50:52 [facility] Cramping affecting , antepartum Cramping affecting , antepartum Disease Resolve d 2018-1 0-21 00:00: 00 2020-04-05 00:00:00 2020-04-05 10:51:00 [facility] Visit for wound check Visit for wound check Disease Resolve d 2017-0 5-14 00:00: 00 2020-04-05 00:00:00 2020-04-05 10:51:03 [facility] Nexplanon removal Nexplanon removal Disease Resolve d 0 3-23 00:00: 00 2020-04-05 00:00:00 2020-04-05 10:50:50 Overview: Placed 12/2017 removed 02/2018 [facility] examinatio n or test, positive result examinatio n or test, positive result Disease Resolve d 0 2-22 00:00: 00 2020-04-05 00:00:00 2020-04-05 10:50:34 [facility] Over weight Over weight Disease Resolve d 0 2-21 00:00: 00 2020-04-05 00:00:00 2020-04-05 10:50:46 [facility] Encounter for contracept clarice management , unspecifie d type Encounter for contracept clarice management , unspecifie d type Disease Resolve d 0 2-21 00:00: 00 2020-04-05 00:00:00 2020-04-05 10:50:56 [facility] Encounter for other contracept clarice management Encounter for other contracept clarice management Disease Resolve d 0 3-14 00:00: 00 2020-04-05 00:00:00 2020-04-05 10:50:55 [facility] Routine follow-up Routine follow-up Disease Resolve d 5-20 00:00: 00 2017-01-04 00:00:00 2017-01-04 17:43:50 [facility] Immune to varicella Immune to varicella Disease Resolve d 5-20 00:00: 00 2017-01-04 00:00:00 2017-01-04 17:43:51 [facility] Not immune to rubella Not immune to rubella Disease Resolve d 03-13 00:00: 00 2017-01-04 00:00:00 2022-05-10 00:24:36 [facility] Trichomona l vulvovagin itis Trichomona l vulvovagin itis Disease Resolve d 03-13 00:00: 00 2017-01-04 00:00:00 2017-01-04 17:43:48 [facility] Anemia in Anemia in Disease Resolve d 01-27 00:00: 00 2017-01-04 00:00:00 2017-01-04 17:43:50 [facility] Normal delivery Normal delivery Disease Resolve d 01-29 00:00: 00 2013-02-13 00:00:00 2013-02-13 10:14:48 [facility] Other threatened labor, antepartum Other threatened labor, antepartum Disease Resolve d 01-27 00:00: 00 2013-01-29 00:00:00 [facility] Need for measles-mu mps-rubell a (MMR) vaccine Need for measles-mu mps-rubell a (MMR) vaccine Disease Resolve d 01-27 00:00: 00 2013-01-29 00:00:00 [facility] Spontaneou s rupture of membranes Spontaneou s rupture of membranes Disease Resolve d 01-27 00:00: 00 2013-01-29 00:00:00 [facility] Female genital symptoms Female genital symptoms Disease Resolve d 01-27 00:00: 00 2013-01-27 00:00:00 2022-05-10 00:23:52 [facility] Abnormal weight gain Abnormal weight gain Disease Resolve d 2-21 00:00: 00 2013-01-27 00:00:00 2013-01-27 23:31:14 [facility] Female genital symptoms Female genital symptoms Disease Resolve d 01-13 00:00: 00 2013-01-13 00:00:00 2022-05-10 00:23:37 [facility] Female genital symptoms Female genital symptoms Disease Resolve d 12-15 00:00: 00 2013-01-06 00:00:00 2022-05-10 00:23:02 [facility] Allergies, Adverse Reactions, Alerts Allergy Name Allergy Type Status Severity Reaction(s) Onset Date Inactive Date Treating Clinician Comments Source erythrom ycin base Allergy to substanc e Active 2022-10 0 12:31: [facility] erythrom ycin base Allergy to substanc e Active 2022-10 0 11:31: 39 [facility] erythrom ycin base DA Active U 2022-10 0 00:00: 00 [facility] No Known Allergie s DA Active U 2019-10 00:00: 00 [facility] No Known Allergie s DA Active U 2019-10 00:00: 00 [facility] NO KNOWN ALLERGIE S Drug Class Active [facility] azithrom ycin azithrom ycin Active Unknown [facility] Social History Social Habit Start Date Stop Date Quantity Comments Source ASSERTION 2020-03-06 00:00:00 [facility] Exposure to SARS-CoV-2 (event) 2022-03-12 00:00:00 2022-03-22 15:31:00 Not sure [facility] Alcohol intake 2021-02-19 00:00:00 2021-02-19 00:00:00 0 /d [facility] Alcoholic beverage intake 2021-02-19 00:00:00 2021-02-19 00:00:00 0 /d [facility] Tobacco use and exposure 2020-01-08 00:00:00 2020-01-08 00:00:00 Smokeless tobacco non-user [facility] Cigarettes smoked current (pack per day) - Reported 2020-01-08 00:00:00 2020-01-08 00:00:00 [facility] Tobacco Comment 2020-01-08 00:00:00 2020-01-08 00:00:00 1/4 pack a day [facility] Cigarette pack-years 2020-01-08 00:00:00 2020-01-08 00:00:00 [facility] History of Social function 2020-01-08 00:00:00 2020-01-08 00:00:00 [facility] Sex Assigned At 1990 00:00:00 1990 00:00:[address] [facility] Smoking Status Start Date Stop Date Source Unknown if ever smoked [facility] Smoker [facility] Current Smoker 2023-06-01 00:00:00 [facility] Former smoker 2019-07-10 00:00:00 2019-07-10 00:00:00 [facility] Medications Ordered Medication Name Filled Medication Name Start Date Stop Date Current Medication? Ordering Clinician Indication Dosage Frequency Signature (SIG) Comments Components Source ketorolac (TORADOL) injection 30 mg 07-21 21:00: 00 07-21 20:17 :00 No 30mg 30 mg, Slow IV Push, ONCE, 1 dose, On Wed07/21/24 at 1600, Routine [facility] acetaminoph en (TYLENOL) tablet 1,000 mg 07-21 19:15: 00 07-21 18:49 :00 No 1000mg 1,000 mg, Oral, ONCE NOW, 1 dose, On Wed07/21/24 at 1415, Routine [facility] dexamethaso ne sod phos PF injection 10 mg 07-21 18:30: 00 07-21 18:49 :00 No 10mg 10 mg, Slow IV Push, ONCE, 1 dose, On Wed07/21/24 at 1330, 1 mL [facility] butalbital- acetaminoph en-caff 50-325-40 mg tablet 07-21 00:00: 00 Yes [id number] 1{tbl} Take 1 tablet by mouth every 6 (six) hours as needed for Pain (scale 7-10). [facility] Ibuprofen 800 MG Ibuprofen 800 MG 807 00:00: 00 No TID Ibuprofen 800 MG ibuprofen (IBU) tablet 600 mg 05-20 15:30: 00 05-20 15:48 :00 No 600mg 600 mg, Oral, ONCE, 1 dose, On 05/20/24 at 1030, TAMMY [facility] ibuprofen 800 mg tablet 05-20 00:00: 00 Yes [id number] 800mg Take 1 tablet by mouth every 6 (six) hours as needed for Pain (scale 4-6). [facility] Furosemide 20 MG Furosemide 20 MG 03-01 00:00: 00 No QD Furosemide 20 MG SUMAtriptan Succinate 50 MG SUMAtriptan Succinate 50 MG 01-04 00:00: 00 No BID SUMAtripta n Succinate 50 MG Dexamethaso ne (Decadron) 4mg per mL Dexamethaso ne (Decadron) 4mg per mL 01-04 00:00: 00 No 4mg [facility] Diphenhydra mine (benadryl) Diphenhydra mine (benadryl) 01-04 00:00: 00 No 50mg [facility] Toradol (ketorolac tromethamin e) Toradol (ketorolac tromethamin e) 01-04 00:00: 00 No 60mg [facility] amLODIPine 5 mg tablet 03-24 04:47: 05 Yes 5mg Take 5 mg by mouth daily. [facility] escitalopra m oxalate 20 mg tablet 03-24 04:47: 05 Yes 20mg Take 20 mg by mouth daily. [facility] ketorolac (TORADOL) injection 15 mg 03-22 22:15: 00 03-22 21:20 :00 No 15mg 15 mg, Slow IV Push, ONCE, 1 dose, On 03/22/22 at 1715, TAMMY
Fa culty member approving Restricted medication : Melissa SOTO [facility] metoclopram lisa HCl (REGLAN) injection 10 mg 03-22 22:15: 00 03-22 21:20 :00 No 10mg 10 mg, Slow IV Push, ONCE, 1 dose, On 03/22/22 at 1715, TAMMY [facility] diphenhydrA MINE (BENADRYL) injection 25 mg 03-22 22:15: 00 03-22 21:21 :00 No 25mg 25 mg, Slow IV Push, ONCE, 1 dose, On 03/22/22 at 1715, STAT [facility] NaCl 0.9% (NS) bolus infusion 1,000 mL 03-22 22:15: 00 03-22 21:45 :00 No 1000mL at 999 mL/hr, 1,000 mL, IV Infusion, ONCE, 1 dose, On 03/22/22 at 1715, STAT [facility] amLODIPine 5 mg tablet 03-22 15:37: 19 Yes 5mg Take 5 mg by mouth daily. [facility] escitalopra m oxalate 20 mg tablet 03-22 15:37: 19 Yes 20mg Take 20 mg by mouth daily. [facility] doxylamine- pyridoxine, vit B6, (DICLEGIS) 10-10 mg per tablet 05-15 00:00: 00 03-22 00:00 :00 No [id number] 2{tbl} Take 2 tablets by mouth at bedtime. [facility] proMETHazin e 25 mg tablet 04-24 00:00: 00 03-22 00:00 :00 No [id number] 25mg Take 1 tablet by mouth every 6 (six) hours as needed for Nausea and Vomiting (N/V). [facility] amoxicillin 500 mg capsule 04-24 00:00: 00 05-05 04:59 :00 No [id number] 500mg Take 1 capsule by mouth 3 (three) times daily for 10 days. [facility] maalox:diph enhydrAMINE :lidocaine 2 % viscous 1:1:1 (FIRST-MOUT HWASH BLM) oral suspension 15 mL 04-14 02:30: 00 04-14 01:26 :00 No 15mL 15 mL, Oral, ONCE, 1 dose, 04/13/20 at 2130, Routine [facility] NaCl 0.9% (NS) bolus infusion 1,000 mL 04-14 02:15: 00 04-14 03:30 :00 No 1000mL at 999 mL/hr, 1,000 mL, IV Infusion, ONCE, 1 dose, 04/13/20 at 211, [facility] ondansetron (ZOFRAN (PF)) injection 8 mg 04-14 01:45: 00 04-14 00:36 :00 No 8mg 8 mg, Slow IV Push, ONCE, 1 dose, 04/13/20 at 204, [facility] NaCl 0.9% (NS) bolus infusion 1,000 mL 04-14 00:45: 00 04-14 01:26 :00 No 1000mL at 999 mL/hr, 1,000 mL, IV Infusion, ONCE, 1 dose, 04/13/20 at 1945, [facility] ondansetron (ZOFRAN ODT) 4 mg disintegrat ing tablet 04-13 00:00: 00 03-22 00:00 :00 No [id number] 4mg Take 1 tablet by mouth every 8 (eight) hours as needed for Nausea and Vomiting (N/V). [facility] proMETHazin e (PHENERGAN) 25 mg suppository 04-13 00:00: 00 03-22 00:00 :00 No [id number] 25mg Insert 1 Suppositor y into rectum every 6 (six) hours as needed for Nausea and Vomiting (N/V). [facility] penicillin v potassium 500 mg tablet 04-11 14:07: 52 04-11 00:00 :00 No 500mg Take 500 mg by mouth 2 (two) times daily. Indication s: toothe infection [facility] penicillin v potassium 500 mg tablet 04-11 11:48: 04 Yes 500mg Take 500 mg by mouth 2 (two) times daily. Indication s: toothe infection [facility] D5W-LR IV infusion 1,000 mL 04-11 07:30: 00 04-11 06:35 :00 No 1000mL at 999 mL/hr, IV Infusion, ONCE, 1 dose, [facility] 04/11/20 at 0230, Routine [facility] proMETHazin e (PHENERGAN) injection 12.5 mg 04-11 06:18: 20 Yes 12.5mg 12.5 mg, Intramuscu lar, Q4HPRN, Starting [facility] 04/11/20 at 0118, Until Discontinu ed, Routine, Nausea and Vomiting (N/V) [facility] cefTRIAXone (ROCEPHIN) 1,000 mg in NaCl 0.9% (NS) 50 mL MINI-BAG 04-11 05:45: 00 04-11 05:22 :00 No 1000mg 1,000 mg, IV Piggyback, ONCE, 1 dose, [facility] 04/11/20 at 0045, 50 mL
Reas on for Anti-Infec tive: Documented Infection< br>Documen rick Infection Site: Urine
D uration of Therapy: Other (see Comments) [facility] metoclopram lisa HCl (REGLAN) injection 10 mg 04-11 05:30: 00 04-11 04:35 :00 No 10mg 10 mg, Slow IV Push, ONCE, 1 dose, [facility] 04/11/20 at 0030, TAMMY [facility] NaCl 0.9% (NS) bolus infusion 1,000 mL 04-11 05:30: 00 04-11 04:21 :00 No 1000mL at 999 mL/hr, 1,000 mL, IV Infusion, ONCE, 1 dose, [facility] 04/11/20 at 0030, STAT [facility] metoclopram lisa HCl (REGLAN) injection 10 mg 04-11 03:30: 00 04-11 02:34 :00 No 10mg 10 mg, Slow IV Push, ONCE, 1 dose, [facility] 04/10/20 at 2230, TAMMY [facility] NaCl 0.9% (NS) bolus infusion 1,000 mL 04-11 03:30: 00 04-11 04:20 :00 No 1000mL at 999 mL/hr, 1,000 mL, IV Infusion, ONCE, 1 dose, Wed04/10/20 at 2230, STAT [facility] proMETHazin e 25 mg tablet 04-11 00:00: 04-24 00:00 :00 No [id number] 25mg Take 1 tablet by mouth every 6 (six) hours as needed for Nausea and Vomiting (N/V). [facility] metroNIDAZO LE 500 mg tablet 04-09 00:00: 04-10 04:59 :00 No [id number] 2000mg Take 4 tablets by mouth once now for 1 dose. [facility] ampicillin 500 mg capsule 04-08 00:00: 04-19 04:59 :00 No [id number] 500mg Take 1 capsule by mouth 4 (four) times daily for 10 days. [facility] PNV 67-iron ps-folate no.1-dha (VITAFOL ULTRA) 29 mg iron- 1 mg-200 mg Cap 04-05 00:00: 03-22 00:00 :00 No [id number] 1{each} Take 1 Each by mouth daily. [facility] nicotine 14 mg/24 hr patch 04-05 00:00: 00 03-22 00:00 :00 No [id number] 1{patch } Apply 1 Patch to area(s) every 24 (twenty-fo ur) hours. [facility] diazePAM (VALIUM) 5 mg tablet 03-08 00:00: 03-12 04:59 :00 No [id number] 5mg Take 1 tablet by mouth 3 (three) times daily as needed for Muscle Spasms for up to 3 days. [facility] NUVARING (NUVARING) 0.12-0.015 mg/24 hr vaginal insert 3 00:00: 04-11 00:00 :00 No [id number] 1{each} Insert 1 Each into vagina once every month. Insert vaginally and leave in place for 3 consecutiv e weeks, then remove for 1 week. [facility] penicillin v potassium 500 mg tablet 01-07 19:40: 57 Yes 500mg Take 500 mg by mouth 2 (two) times daily. Indication s: toothe infection [facility] traMADol (ULTRAM) 50 mg tablet 2018-10 00:00: 00 04-11 00:00 :00 No [id number] 50mg Take 1 tablet by mouth every 8 (eight) hours as needed for Pain (scale 4-6). [facility] proMETHazin e 25 mg tablet 2018-10 00:00: 00 04-11 00:00 :00 No [id number] 25mg Take 1 tablet by mouth every 6 (six) hours as needed for Nausea and Vomiting (N/V). [facility] cefTRIAXone (ROCEPHIN) injection 250 mg 07-10 17:15: 00 07-10 16:23 :00 No 250mg 250 mg, Intramuscu lar, ONCE, 1 dose, Wed07/10/19 at 1215, TAMMY
Re ason for Anti-Infec tive: Documented Infection< br>Documen rick Infection Site: Pelvic
Duration of Therapy: Other (see Comments) [facility] azithromyci n (ZITHROMAX) tablet 1,000 mg 07-10 17:15: 00 07-10 16:23 :00 No 1000mg 1,000 mg, Oral, ONCE, 1 dose, 07/10/19 at 1215, TAMMY
Re ason for Anti-Infec tive: Documented Infection< br>Documen rick Infection Site: Pelvic
Duration of Therapy: Other (see Comments) [facility] NaCl 0.9% (NS) bolus infusion 1,000 mL 07-10 16:45: 00 07-10 18:30 :00 No 1000mL at 999 mL/hr, 1,000 mL, IV Infusion, ONCE, 1 dose, Wed07/10/19 at 1145, TAMMY [facility] NaCl 0.9% (NS) bolus infusion 1,000 mL 07-10 15:45: 00 07-10 17:58 :00 No 1000mL at 999 mL/hr, 1,000 mL, IV Infusion, ONCE, 1 dose, 07/10/19 at 1045, TAMMY [facility] metroNIDAZO LE 500 mg tablet 07-10 00:00: 00 07-18 04:59 :00 No [id number] 500mg Take 1 tablet by mouth 2 (two) times daily for 7 days. [facility] traMADOL 50 mg tablet 01-27 00:00: 00 Yes [id number] 50mg Take 1 tablet by mouth every 6 (six) hours as needed (pain). [facility] lisinopril 10 mg tablet 06-02 00:00: 00 Yes 10mg Take 1 tablet by mouth at bedtime. [facility] NUVARING (NUVARING) 0.12-0.015 mg/24 hr vaginal insert 03-03 00:00: 00 Yes [id number] 1{each} Insert 1 Each into vagina once every month. Insert vaginally and leave in place for 3 consecutiv e weeks, then remove for 1 week. [facility] cyclobenzap rine 10 mg tablet 12-22 00:00: 00 Yes 10mg Take 1 tablet by mouth 3 (three) times daily. [facility] naproxen (NAPROSYN) 500 mg tablet 12-22 00:00: 00 Yes 500mg Take 1 tablet by mouth 2 (two) times daily with meals. [facility] Immunizations Ordered Immunization Name Filled Immunization Name Date Status Comments Source Influ.Inj (CS) FluaRIX 0.5 {6m and older} Influ.Inj (CS) FluaRIX 0.5 {6m and older} 2021-12-03 14:29:00 Completed [facility] Influ.Inj (CS) FluaRIX 0.5 {6m and older} Influ.Inj (CS) FluaRIX 0.5 {6m and older} 2021-12-03 14:29:00 Completed [facility] Influ.Inj (CS) FluaRIX 0.5 {6m and older} Influ.Inj (CS) FluaRIX 0.5 {6m and older} 2021-12-03 14:29:00 Completed [facility] Influ.Inj (CS) FluaRIX 0.5 {6m and older} Influ.Inj (CS) FluaRIX 0.5 {6m and older} 2021-12-03 14:29:00 Completed [facility] Influ.Inj (CS) FluaRIX 0.5 {6m and older} Influ.Inj (CS) FluaRIX 0.5 {6m and older} 2021-12-03 14:29:00 Completed [facility] Influ.Inj (CS) FluaRIX 0.5 {6m and older} Influ.Inj (CS) FluaRIX 0.5 {6m and older} 2021-12-03 14:29:00 Completed [facility] Influ.Inj (CS) FluaRIX 0.5 {6m and older} Influ.Inj (CS) FluaRIX 0.5 {6m and older} 2021-12-03 14:29:00 Completed [facility] Influ.Inj (CS) FluaRIX 0.5 {6m and older} Influ.Inj (CS) FluaRIX 0.5 {6m and older} 2021-12-03 14:29:00 Completed [facility] Influ.Inj (CS) FluaRIX 0.5 {6m and older} Influ.Inj (CS) FluaRIX 0.5 {6m and older} 2021-12-03 14:29:00 Completed [facility] Influ.Inj (CS) FluaRIX 0.5 {6m and older} Influ.Inj (CS) FluaRIX 0.5 {6m and older} 2021-12-03 14:29:00 Completed [facility] Influ.Inj (CS) FluaRIX 0.5 {6m and older} Influ.Inj (CS) FluaRIX 0.5 {6m and older} 2021-12-03 14:29:00 Completed [facility] Influ.Inj (CS) FluaRIX 0.5 {6m and older} Influ.Inj (CS) FluaRIX 0.5 {6m and older} 2021-12-03 14:29:00 Completed [facility] Influ.Inj (CS) FluaRIX 0.5 {6m and older} Influ.Inj (CS) FluaRIX 0.5 {6m and older} 2021-12-03 14:29:00 Completed [facility] Influ.Inj (CS) FluaRIX 0.5 {6m and older} Influ.Inj (CS) FluaRIX 0.5 {6m and older} 2021-12-03 14:29:00 Completed [facility] Influ.Inj (CS) FluaRIX 0.5 {6m and older} Influ.Inj (CS) FluaRIX 0.5 {6m and older} 2021-12-03 14:29:00 Completed [facility] Influ.Inj (CS) FluaRIX 0.5 {6m and older} Influ.Inj (CS) FluaRIX 0.5 {6m and older} 2021-12-03 14:29:00 Completed [facility] Influ.Inj (CS) FluaRIX 0.5 {6m and older} Influ.Inj (CS) FluaRIX 0.5 {6m and older} 2021-12-03 14:29:00 Completed [facility] Influ.Inj (CS) FluaRIX 0.5 {6m and older} Influ.Inj (CS) FluaRIX 0.5 {6m and older} 2021-12-03 14:29:00 Completed [facility] Influ.Inj (CS) FluaRIX 0.5 {6m and older} Influ.Inj (CS) FluaRIX 0.5 {6m and older} 2021-12-03 14:29:00 Completed [facility] Influ.Inj (CS) FluaRIX 0.5 {6m and older} Influ.Inj (CS) FluaRIX 0.5 {6m and older} 2021-12-03 14:29:00 Completed [facility] Influ.Inj (CS) FluaRIX 0.5 {6m and older} Influ.Inj (CS) FluaRIX 0.5 {6m and older} 2021-12-03 14:29:00 Completed [facility] Influ.Inj (CS) FluaRIX 0.5 {6m and older} Influ.Inj (CS) FluaRIX 0.5 {6m and older} 2021-12-03 14:29:00 Completed [facility] Influ.Inj (CS) FluaRIX 0.5 {6m and older} Influ.Inj (CS) FluaRIX 0.5 {6m and older} 2021-12-03 14:29:00 Completed [facility] Influ.Inj (CS) FluaRIX 0.5 {6m and older} Influ.Inj (CS) FluaRIX 0.5 {6m and older} 2021-12-03 14:29:00 Completed [facility] Influ.Inj (CS) FluaRIX 0.5 {6m and older} Influ.Inj (CS) FluaRIX 0.5 {6m and older} 2021-12-03 14:29:00 Completed [facility] Influ.Inj (CS) FluaRIX 0.5 {6m and older} Influ.Inj (CS) FluaRIX 0.5 {6m and older} 2021-12-03 14:29:00 Completed [facility] Influenza Virus Vaccine Quad .5 mL IM 6+ MO 2020-01-08 00:00:00 Completed [facility] Influenza Virus Vaccine Quad .5 mL IM 6+ MO 2020-01-08 00:00:00 Completed [facility] Influenza Virus Vaccine Quad .5 mL IM 6+ MO 2020-01-08 00:00:00 Completed [facility] Influenza Virus Vaccine Quad .5 mL IM 6+ MO 2020-01-08 00:00:00 Completed [facility] Influenza Virus Vaccine Quad .5 mL IM 6+ MO 2020-01-08 00:00:00 Completed [facility] Influenza Virus Vaccine Quad .5 mL IM 6+ MO 2020-01-08 00:00:00 Completed [facility] Influenza Virus Vaccine Quad .5 mL IM 6+ MO 2020-01-08 00:00:00 Completed [facility] Influenza Virus Vaccine Quad .5 mL IM 6+ MO 2020-01-08 00:00:00 Completed [facility] Influenza Virus Vaccine Quad .5 mL IM 6+ MO 2020-01-08 00:00:00 Completed [facility] Influenza Virus Vaccine Quad .5 mL IM 6+ MO 2020-01-08 00:00:00 Completed [facility] Influenza Virus Vaccine Quad .5 mL IM 6+ MO 2020-01-08 00:00:00 Completed [facility] Influenza Virus Vaccine Quad .5 mL IM 6+ MO 2020-01-08 00:00:00 Completed [facility] Influenza Virus Vaccine Quad .5 mL IM 6+ MO 2020-01-08 00:00:00 Completed [facility] Influenza Virus Vaccine Quad .5 mL IM 6+ MO 2020-01-08 00:00:00 Completed [facility] Influenza Virus Vaccine Quad .5 mL IM 6+ MO 2020-01-08 00:00:00 Completed [facility] Influenza Virus Vaccine Quad .5 mL IM 6+ MO 2020-01-08 00:00:00 Completed [facility] Influenza Virus Vaccine Quad .5 mL IM 6+ MO 2020-01-08 00:00:00 Completed [facility] Influenza Virus Vaccine Quad .5 mL IM 6+ MO 2020-01-08 00:00:00 Completed [facility] Influenza Virus Vaccine Quad .5 mL IM 6+ MO 2020-01-08 00:00:00 Completed [facility] Influenza Virus Vaccine Quad .5 mL IM 6+ MO 2020-01-08 00:00:00 Completed [facility] Influenza Virus Vaccine Quad .5 mL IM 6+ MO 2020-01-08 00:00:00 Completed [facility] Influenza Virus Vaccine Quad .5 mL IM 6+ MO 2020-01-08 00:00:00 Completed [facility] Influenza Virus Vaccine Quad .5 mL IM 6+ MO 2020-01-08 00:00:00 Completed [facility] Influenza Virus Vaccine Quad .5 mL IM 6+ MO 2020-01-08 00:00:00 Completed [facility] Influenza Virus Vaccine Quad .5 mL IM 6+ MO 2020-01-08 00:00:00 Completed [facility] Influenza Virus Vaccine Quad .5 mL IM 6+ MO 2020-01-08 00:00:00 Completed [facility] Influenza Virus Vaccine Quad .5 mL IM 6+ MO 2020-01-08 00:00:00 Completed [facility] Influenza Virus Vaccine Quad .5 mL IM 6+ MO (FLUZONE/FLULAVAL/ FLUARIX) 2020-01-08 00:00:00 Completed [facility] MMR 2013-03-13 00:00:00 Completed [facility] MMR 2013-03-13 00:00:00 Completed [facility] MMR 2013-03-13 00:00:00 Completed [facility] MMR 2013-03-13 00:00:00 Completed [facility] MMR 2013-03-13 00:00:00 Completed [facility] MMR 2013-03-13 00:00:00 Completed [facility] MMR 2013-03-13 00:00:00 Completed [facility] MMR 2013-03-13 00:00:00 Completed [facility] MMR 2013-03-13 00:00:00 Completed [facility] MMR 2013-03-13 00:00:00 Completed [facility] MMR 2013-03-13 00:00:00 Completed [facility] MMR 2013-03-13 00:00:00 Completed [facility] MMR 2013-03-13 00:00:00 Completed [facility] MMR 2013-03-13 00:00:00 Completed [facility] MMR 2013-03-13 00:00:00 Completed [facility] MMR 2013-03-13 00:00:00 Completed [facility] MMR 2013-03-13 00:00:00 Completed [facility] MMR 2013-03-13 00:00:00 Completed [facility] MMR 2013-03-13 00:00:00 Completed [facility] MMR 2013-03-13 00:00:00 Completed [facility] MMR 2013-03-13 00:00:00 Completed [facility] MMR 2013-03-13 00:00:00 Completed [facility] MMR 2013-03-13 00:00:00 Completed [facility] MMR 2013-03-13 00:00:00 Completed [facility] MMR 2013-03-13 00:00:00 Completed [facility] MMR 2013-03-13 00:00:00 Completed [facility] MMR 2013-03-13 00:00:00 Completed [facility] MMR 2013-03-13 00:00:00 Completed [facility] MMR 2013-03-13 00:00:00 Completed [facility] MMR 2013-03-13 00:00:00 Completed [facility] Tdap 2012-11-24 00:00:00 Completed [facility] Tdap 2012-11-24 00:00:00 Completed [facility] Tdap 2012-11-24 00:00:00 Completed [facility] Tdap 2012-11-24 00:00:00 Completed [facility] Tdap 2012-11-24 00:00:00 Completed [facility] Tdap 2012-11-24 00:00:00 Completed [facility] Tdap 2012-11-24 00:00:00 Completed [facility] Tdap 2012-11-24 00:00:00 Completed [facility] Tdap 2012-11-24 00:00:00 Completed [facility] Tdap 2012-11-24 00:00:00 Completed [facility] Tdap 2012-11-24 00:00:00 Completed [facility] Tdap 2012-11-24 00:00:00 Completed [facility] Tdap 2012-11-24 00:00:00 Completed [facility] TDAP 2012-11-24 00:00:00 Completed [facility] TDAP 2012-11-24 00:00:00 Completed [facility] TDAP 2012-11-24 00:00:00 Completed [facility] TDAP 2012-11-24 00:00:00 Completed [facility] TDAP 2012-11-24 00:00:00 Completed [facility] TDAP 2012-11-24 00:00:00 Completed [facility] TDAP 2012-11-24 00:00:00 Completed [facility] TDAP 2012-11-24 00:00:00 Completed [facility] TDAP 2012-11-24 00:00:00 Completed [facility] TDAP 2012-11-24 00:00:00 Completed [facility] TDAP 2012-11-24 00:00:00 Completed [facility] TDAP 2012-11-24 00:00:00 Completed [facility] TDAP 2012-11-24 00:00:00 Completed [facility] TDAP 2012-11-24 00:00:00 Completed [facility] TDAP 2012-11-24 00:00:00 Completed [facility] TDAP 2012-11-24 00:00:00 Completed [facility] TDAP 2012-11-24 00:00:00 Completed Influenza Virus Vaccine 2012-08-05 00:00:00 Completed [facility] Influenza Virus Vaccine 2012-08-05 00:00:00 Completed [facility] Influenza Virus Vaccine 2012-08-05 00:00:00 Completed [facility] Influenza Virus Vaccine 2012-08-05 00:00:00 Completed [facility] Influenza Virus Vaccine 2012-08-05 00:00:00 Completed [facility] Influenza Virus Vaccine 2012-08-05 00:00:00 Completed [facility] Influenza Virus Vaccine 2012-08-05 00:00:00 Completed [facility] Influenza Virus Vaccine 2012-08-05 00:00:00 Completed [facility] Influenza Virus Vaccine 2012-08-05 00:00:00 Completed [facility] Influenza Virus Vaccine 2012-08-05 00:00:00 Completed [facility] Influenza Virus Vaccine 2012-08-05 00:00:00 Completed [facility] Influenza Virus Vaccine 2012-08-05 00:00:00 Completed [facility] Influenza Virus Vaccine 2012-08-05 00:00:00 Completed [facility] Influenza Virus Vaccine 2012-08-05 00:00:00 Completed [facility] Influenza Virus Vaccine 2012-08-05 00:00:00 Completed [facility] Influenza Virus Vaccine 2012-08-05 00:00:00 Completed [facility] Influenza Virus Vaccine 2012-08-05 00:00:00 Completed [facility] Influenza Virus Vaccine 2012-08-05 00:00:00 Completed [facility] Influenza Virus Vaccine 2012-08-05 00:00:00 Completed [facility] Influenza Virus Vaccine 2012-08-05 00:00:00 Completed [facility] Influenza Virus Vaccine 2012-08-05 00:00:00 Completed [facility] Influenza Virus Vaccine 2012-08-05 00:00:00 Completed [facility] Influenza Virus Vaccine 2012-08-05 00:00:00 Completed [facility] Influenza Virus Vaccine 2012-08-05 00:00:00 Completed [facility] Influenza Virus Vaccine 2012-08-05 00:00:00 Completed [facility] Influenza Virus Vaccine 2012-08-05 00:00:00 Completed [facility] Influenza Virus Vaccine 2012-08-05 00:00:00 Completed [facility] Influenza Virus Vaccine 2012-08-05 00:00:00 Completed [facility] Influenza Virus Vaccine 2012-08-05 00:00:00 Completed [facility] Influenza Virus Vaccine 2012-08-05 00:00:00 Completed [facility] Influenza Virus Vaccine Unknown Completed [facility] TDAP Unknown Completed [facility] MMR Unknown Completed [facility] Influenza Virus Vaccine Quad .5 mL IM 6+ MO (FLUZONE/FLULAVAL/ FLUARIX) Unknown Completed [facility] Influenza Virus Vaccine Unknown Completed [facility] TDAP Unknown Completed [facility] MMR Unknown Completed [facility] Influenza Virus Vaccine Quad .5 mL IM 6+ MO (FLUZONE/FLULAVAL/ FLUARIX) Unknown Completed [facility] Influ.Inj (CS) FluaRIX 0.5 {6m and older} Influ.Inj (CS) FluaRIX 0.5 {6m and older} Unknown [facility] FluaRIX 0.5 {6m and older} Influ.Inj (CS) FluaRIX 0.5 {6m and older} Unknown [facility] Influ[facility]Inj (CS) FluaRIX 0.5 {6m and older} Influ.Inj (CS) FluaRIX 0.5 {6m and older} Unknown [facility] Influ[facility]Inj (CS) FluaRIX 0.5 {6m and older} Influ.Inj (CS) FluaRIX 0.5 {6m and older} Unknown [facility] Influ[facility]Inj (CS) FluaRIX 0.5 {6m and older} Influ.Inj (CS) FluaRIX 0.5 {6m and older} Unknown [facility] Influ[facility]Inj (CS) FluaRIX 0.5 {6m and older} Influ.Inj (CS) FluaRIX 0.5 {6m and older} Unknown [facility] Influ[facility]Inj (CS) FluaRIX 0.5 {6m and older} Influ.Inj (CS) FluaRIX 0.5 {6m and older} Unknown [facility] Influ[facility]Inj (CS) FluaRIX 0.5 {6m and older} Influ.Inj (CS) FluaRIX 0.5 {6m and older} Unknown Completed [facility] Influ.Inj (CS) FluaRIX 0.5 {6m and older} Influ.Inj (CS) FluaRIX 0.5 {6m and older} Unknown [facility] Influ[facility]) FluaRIX 0.5 {6m and older} Influ.Inj (CS) FluaRIX 0.5 {6m and older} Unknown Completed [facility] Influ.Inj (CS) FluaRIX 0.5 {6m and older} Influ.Inj (CS) FluaRIX 0.5 {6m and older} Unknown Completed [facility] Vital Signs Vital Name Observation Time Observation Value Comments Kuldip redd Systolic blood pressure 2024-07-21 21:00:00 130 mm[Hg] [facility] Diastolic blood pressure 2024-07-21 21:00:00 80 mm[Hg] [facility] Heart rate 2024-07-21 21:00:00 92 /min [facility] Body temperature 2024-07-21 21:00:00 36.78 [place] [facility] Respiratory rate 2024-07-21 21:00:00 12 /min [facility] Oxygen saturation in Arterial blood by Pulse oximetry 2024-07-21 21:00:00 100 /min [facility] Body height 2024-07-21 18:23:00 175.3 cm [facility] Body weight 2024-07-21 18:23:00 118.842 kg [facility] BMI 2024-07-21 18:23:00 38.69 kg/m2 [facility] weight 2024-05-31 14:45:00 265.6 [lb_av] [facility] height 2024-05-31 14:45:00 69 [in_i] [facility] bmi 2024-05-31 14:45:00 39.22 kg/m2 [facility] temperature 2024-05-31 14:45:00 98.1 [degF[facility] 2024-05-31 14:45:00 19 /min [facility] heart rate 2024-05-31 14:45:00 93 /min [facility] Systolic blood pressure 2024-05-20 15:49:28 131 mm[Hg] [facility] Diastolic blood pressure 2024-05-20 15:49:28 87 mm[Hg] [facility] Heart rate 2024-05-20 15:49:28 83 /[facility] 2024-05-20 15:49:28 37.39 [place] [facility] Respiratory rate 2024-05-20 15:49:28 18 /min [facility] Oxygen saturation in Arterial blood by Pulse oximetry 2024-05-20 15:49:28 98 /min [facility] Body height 2024-05-20 15:23:00 175.3 cm [facility] Body weight 2024-05-20 15:23:00 91.627 kg [facility] BMI 2024-05-20 15:23:00 29.83 kg/m2 [facility] weight 2024-05-10 16:45:00 259.6 [lb_av] [facility] height 2024-05-10 16:45:00 69 [in_i] [facility] bmi 2024-05-10 16:45:00 38.33 kg[facility] 2024-[facility]-10 16:45:00 97.6 [degF] [facility] respiratory rate 2024-05-10 16:45:00 19 /min [facility] heart rate 2024-05-10 16:45:00 90 /min [facility] weight 2024-03-08 15:15:00 258.4 [lb_av] [facility] height 2024-03-08 15:15:00 69 [in_i] [facility] bmi 2024-03-08 15:15:00 38.15 kg/m2 [facility] 2024-03-08 15:15:00 98.0 [degF] [facility] respiratory rate 2024-03-08 15:15:00 20 /min [facility] heart rate 2024-03-08 15:15:00 77 /min [facility] weight 2024-03-01 09:15:00 254.2 [lb_av] [facility] height 2024-03-01 09:15:00 69 [in_i] [facility] bmi 2024-03-01 09:15:00 37.53 kg/m2 [facility] 2024-03-01 09:15:00 97.8 [degF] [facility] respiratory rate 2024-03-01 09:15:00 21 /min [facility] heart rate 2024-03-01 09:15:00 93 /min [facility] weight 2024-01-05 13:45:00 240.0 [lb_av] [facility] height 2024-01-05 13:45:00 69 [in_i] [facility] bmi 2024-01-05 13:45:00 35.44 kg/m2 [facility] temperature 2024-01-05 13:45:00 98.7 [degF] [facility] respiratory rate 2024-01-05 13:45:00 18 /min [facility] heart rate 2024-01-05 13:45:00 86 /min [facility] weight 2023-12-14 09:30:00 229 [lb_av] [facility] height 2023-12-14 09:30:00 69 [in_i] [facility] bmi 2023-12-14 09:30:00 33.81 kg/m2 [facility] temperature 2023-12-14 09:30:00 97.6 [degF] [facility] respiratory rate 2023-12-14 09:30:00 18 /min [facility] heart rate 2023-12-14 09:30:00 72 /min [facility] weight 2023-12-10 10:15:00 231.0 [lb_av] [facility] height 2023-12-10 10:15:00 69 [in_i] [facility] bmi 2023-12-10 10:15:00 34.11 kg/m2 [facility] temperature 2023-12-10 10:15:00 97.3 [degF] [facility] respiratory rate 2023-12-10 10:15:00 18 /min [facility] heart rate 2023-12-10 10:15:00 81 /min [facility] weight 2023-09-15 11:30:00 210.8 [lb_av] [facility] height 2023-09-15 11:30:00 69 [in_i] [facility] bmi 2023-09-15 11:30:00 31.13 kg/m2 [facility] temperature 2023-09-15 11:30:00 96.1 [degF] [facility] respiratory rate 2023-09-15 11:30:00 20 /min [facility] heart rate 2023-09-15 11:30:00 69 /min [facility] WEIGHT 2023-08-17 12:29:00 98.587975 kg HEIGHT 2023-08-17 12:29:00 175.26 cm weight 2023-06-29 16:15:00 230 [lb_av] [facility] height 2023-06-29 16:15:00 69 [in_i] [facility] bmi 2023-06-29 16:15:00 33.96 kg/m2 [facility] 2023-06-29 16:15:00 98.3 [degF] [facility] respiratory rate 2023-06-29 16:15:00 20 /min [facility] heart rate 2023-06-29 16:15:00 97 /min [facility] weight 2023-06-01 08:15:00 220.0 [lb_av] [facility] height 2023-06-01 08:15:00 69 [in_i] [facility] bmi 2023-06-01 08:15:00 32.48 kg/m2 [facility] 2023-06-01 08:15:00 96.0 [degF] [facility] respiratory rate 2023-06-01 08:15:00 18 /min [facility] heart rate 2023-06-01 08:15:00 80 /min [facility] blood pressure systolic 2023-06-01 08:15:00 122 mm[Hg] [facility] blood pressure diastolic 2023-06-01 08:15:00 87 mm[Hg] [facility] heart rate 2023-05-20 13:30:00 66 /[facility] systolic 2023-05-20 13:30:00 133 mm[Hg] [facility] blood pressure diastolic 2023-05-20 13:30:00 75 mm[Hg] [facility] weight 2023-05-12 08:15:00 219.2 [lb_av] [facility] height 2023-05-12 08:15:00 69 [in_i] [facility] bmi 2023-05-12 08:15:00 32.37 kg/m2 [facility] 2023-05-12 08:15:00 97.1 [degF] [facility] respiratory rate 2023-05-12 08:15:00 19 /min [facility] heart rate 2023-05-12 08:15:00 78 /min [facility] blood pressure systolic 2023-05-12 08:15:00 134 mm[Hg] [facility] blood pressure diastolic 2023-05-12 08:15:00 85 mm[Hg] [facility] weight 2023-04-08 10:45:00 217.8 [lb_av] [facility] height 2023-04-08 10:45:00 69 [in_i] [facility] bmi 2023-04-08 10:45:00 32.16 kg/m2 [facility] temperature 2023-04-08 10:45:00 98.4 [degF] [facility] respiratory rate 2023-04-08 10:45:00 18 /min [facility] heart rate 2023-04-08 10:45:00 89 /min [facility] blood pressure systolic 2023-04-08 10:45:00 132 mm[Hg] [facility] blood pressure diastolic 2023-04-08 10:45:00 75 mm[Hg] [facility] weight 2023-03-23 11:30:00 218.6 [lb_av] [facility] height 2023-03-23 11:30:00 69 [in_i] [facility] bmi 2023-03-23 11:30:00 32.28 kg/m2 [facility] 2023-03-23 11:30:00 98.1 [degF] [facility] respiratory rate 2023-03-23 11:30:00 18 /min [facility] heart rate 2023-03-23 11:30:00 79 /min [facility] blood pressure systolic 2023-03-23 11:30:00 133 mm[Hg] [facility] blood pressure diastolic 2023-03-23 11:30:00 91 mm[Hg] [facility] weight 2023-03-17 15:00:00 218.2 [lb_av] [facility] height 2023-03-17 15:00:00 69 [in_i] [facility] bmi 2023-03-17 15:00:00 32.22 kg/m2 [facility] 2023-03-17 15:00:00 98.2 [degF] [facility] respiratory rate 2023-03-17 15:00:00 18 /min [facility] heart rate 2023-03-17 15:00:00 98 /min [facility] blood pressure systolic 2023-03-17 15:00:00 133 mm[Hg] [facility] blood pressure diastolic 2023-03-17 15:00:00 85 mm[Hg] [facility] weight 2023-02-09 17:00:00 216.8 [lb_av] [facility] height 2023-02-09 17:00:00 69 [in_i] [facility] bmi 2023-02-09 17:00:00 32.01 kg/m2 [facility] temperature 2023-02-09 17:00:00 97.5 [degF] [facility] respiratory rate 2023-02-09 17:00:00 18 /min [facility] heart rate 2023-02-09 17:00:00 88 /min [facility] blood pressure systolic 2023-02-09 17:00:00 127 mm[Hg] [facility] blood pressure diastolic 2023-02-09 17:00:00 86 mm[Hg] [facility] weight 2023-01-19 17:00:00 215.8 [lb_av] [facility] height 2023-01-19 17:00:00 69 [in_i] [facility] bmi 2023-01-19 17:00:00 31.86 kg/m2 [facility] respiratory rate 2023-01-19 17:00:00 19 /min [facility] heart rate 2023-01-19 17:00:00 71 /min [facility] blood pressure systolic 2023-01-19 17:00:00 134 mm[Hg] [facility] blood pressure diastolic 2023-01-19 17:00:00 84 mm[Hg] [facility] weight 2023-01-11 16:00:00 215.6 [lb_av] [facility] height 2023-01-11 16:00:00 69 [in_i] [facility] bmi 2023-01-11 16:00:00 31.84 kg/m2 [facility] temperature 2023-01-11 16:00:00 97.1 [degF] [facility] respiratory rate 2023-01-11 16:00:00 18 /min [facility] heart rate 2023-01-11 16:00:00 76 /min [facility] blood pressure systolic 2023-01-11 16:00:00 130 mm[Hg] [facility] blood pressure diastolic 2023-01-11 16:00:00 85 mm[Hg] [facility] weight 2022-11-19 08:15:00 218.2 [lb_av] [facility] height 2022-11-19 08:15:00 69 [in_i] [facility] bmi 2022-11-19 08:15:00 32.22 kg/m2 [facility]-19 08:15:00 97.2 [degF] [facility] respiratory rate 2022-11-19 08:15:00 18 /min [facility] heart rate 2022-11-19 08:15:00 74 /min [facility] blood pressure systolic 2022-11-19 08:15:00 108 mm[Hg] [facility] blood pressure diastolic 2022-11-19 08:15:00 74 mm[Hg] [facility] weight 2022-09-28 12:15:00 219 [lb_av] [facility] height 2022-09-28 12:15:00 69 [in_i] [facility] bmi 2022-09-28 12:15:00 32.34 kg/m2 [facility] 2022-09-28 12:15:00 98.9 [degF] [facility] respiratory rate 2022-09-28 12:15:00 18 /min [facility] heart rate 2022-09-28 12:15:00 71 /min [facility] blood pressure systolic 2022-09-28 12:15:00 133 mm[Hg] [facility] blood pressure diastolic 2022-09-28 12:15:00 89 mm[Hg] [facility] weight 2022-08-26 10:45:00 215.2 [lb_av] [facility] height 2022-08-26 10:45:00 69 [in_i] [facility] bmi 2022-08-26 10:45:00 31.78 kg/m2 [facility] 2022-08-26 10:45:00 98.3 [degF] [facility] respiratory rate 2022-08-26 10:45:00 18 /min [facility] heart rate 2022-08-26 10:45:00 82 /[facility] blood pressure systolic 2022-08-26 10:45:00 132 mm[Hg] [facility] blood pressure diastolic 2022-08-26 10:45:00 84 mm[Hg] [facility] weight 2022-07-27 15:45:00 214.0 [lb_av] [facility] height 2022-07-27 15:45:00 69 [in_i] [facility] 2022-07-27 15:45:00 31.6 kg/m2 [facility] respiratory rate 2022-07-27 15:45:00 18 /min [facility] heart rate 2022-07-27 15:45:00 91 /min [facility] blood pressure systolic 2022-07-27 15:45:00 129 mm[Hg] [facility] blood pressure diastolic 2022-07-27 15:45:00 90 mm[Hg] [facility] Systolic blood pressure 2022-03-22 20:34:00 130 mm[Hg] [facility] Diastolic blood pressure 2022-03-22 20:34:00 94 mm[Hg] [facility] Heart rate 2022-03-22 20:34:00 80 /min [facility] Body temperature 2022-03-22 20:34:00 37.22 [place] [facility] Respiratory rate 2022-03-22 20:34:00 16 /min [facility] Body height 2022-03-22 20:34:00 175.3 cm [facility] Body weight 2022-03-22 20:34:00 91.853 kg [facility] BMI 2022-03-22 20:34:00 29.90 kg/m2 [facility] Oxygen saturation in Arterial blood by Pulse oximetry 2022-03-22 20:34:00 94 /min [facility] Systolic blood pressure 2020-07-14 15:10:00 141 mm[Hg] [facility] Diastolic blood pressure 2020-07-14 15:10:00 101 mm[Hg] [facility] Heart rate 2020-07-14 15:10:00 94 /min [facility] Body temperature 2020-07-14 15:10:00 36.94 [place] [facility] Respiratory rate 2020-07-14 15:10:00 20 /min [facility] Body weight 2020-07-14 15:10:00 104.327 kg Univ [facility] BMI 2020-07-14 15:10:00 33.97 kg/m2 [facility] Oxygen saturation in Arterial blood by Pulse oximetry 2020-07-14 15:10:00 98 /min [facility] Systolic blood pressure 2020-07-14 15:10:00 141 mm[Hg] [facility] Diastolic blood pressure 2020-07-14 15:10:00 101 mm[Hg] [facility] Heart rate 2020-07-14 15:10:00 94 /min [facility] Body temperature 2020-07-14 15:10:00 36.94 [place] [facility] Respiratory rate 2020-07-14 15:10:00 20 /min [facility] Body weight 2020-07-14 15:10:00 104.327 kg [facility] BMI 2020-07-14 15:10:00 33.97 kg/m2 [facility] Oxygen saturation in Arterial blood by Pulse oximetry 2020-07-14 15:10:00 98 /min [facility] Systolic blood pressure 2020-05-14 21:20:00 132 mm[Hg] [facility] Diastolic blood pressure 2020-05-14 21:20:00 76 mm[Hg] [facility] Heart rate 2020-05-14 21:20:00 87 /min [facility] Body temperature 2020-05-14 21:20:00 37.17 [place] [facility] Respiratory rate 2020-05-14 21:19:00 16 /min [facility] Body height 2020-05-14 21:19:00 175.3 cm [facility] Body weight 2020-05-14 21:19:00 99.61 kg [facility] BMI 2020-05-14 21:19:00 32.43 kg/m2 [facility] Systolic blood pressure 2020-04-14 02:07:00 120 mm[Hg] [facility] Diastolic blood pressure 2020-04-14 02:07:00 55 mm[Hg] [facility] Heart rate 2020-04-14 02:07:00 66 /min [facility] Respiratory rate 2020-04-14 02:07:00 16 /min [facility] Oxygen saturation in Arterial blood by Pulse oximetry 2020-04-14 02:07:00 99 /min [facility] Body weight 2020-04-13 23:40:00 97.977 kg Univ [facility] BMI 2020-04-13 23:40:00 31.90 kg/m2 [facility] Systolic blood pressure 2020-04-11 06:15:00 115 mm[Hg] [facility] Diastolic blood pressure 2020-04-11 06:15:00 57 mm[Hg] [facility] Heart rate 2020-04-11 06:15:00 63 /min [facility] Body temperature 2020-04-11 06:15:00 36.89 [place] [facility] Respiratory rate 2020-04-11 06:15:00 17 /min [facility] Oxygen saturation in Arterial blood by Pulse oximetry 2020-04-11 06:15:00 100 /min [facility] Body height 2020-04-11 02:21:00 175.3 cm [facility] Body weight 2020-04-11 02:21:00 97.977 kg [facility] BMI 2020-04-11 02:21:00 31.90 kg/m2 [facility] Systolic blood pressure 2020-04-05 15:08:00 139 mm[Hg] [facility] Diastolic blood pressure 2020-04-05 15:08:00 89 mm[Hg] [facility] Heart rate 2020-04-05 15:08:00 68 /min [facility] Body temperature 2020-04-05 15:08:00 37.06 [place] [facility] Respiratory rate 2020-04-05 15:08:00 16 /min [facility] Body height 2020-04-05 15:08:00 175.3 cm [facility] Body weight 2020-04-05 15:08:00 97.977 kg [facility] BMI 2020-04-05 15:08:00 31.90 kg/m2 [facility] Systolic blood pressure 2020-03-08 12:09:00 125 mm[Hg] [facility] Diastolic blood pressure 2020-03-08 12:09:00 86 mm[Hg] [facility] Heart rate 2020-03-08 12:09:00 76 /min [facility] Body temperature 2020-03-08 12:09:00 36.72 [place] [facility] Respiratory rate 2020-03-08 12:09:00 16 /min [facility] Body height 2020-03-08 12:09:00 175.3 cm [facility] Body weight 2020-03-08 12:09:00 98.431 kg [facility] BMI 2020-03-08 12:09:00 32.05 kg/m2 [facility] Oxygen saturation in Arterial blood by Pulse oximetry 2020-03-08 12:09:00 99 /min [facility] Systolic blood pressure 2020-01-15 13:00:00 124 mm[Hg] [facility] Diastolic blood pressure 2020-01-15 13:00:00 83 mm[Hg] [facility] Heart rate 2020-01-15 13:00:00 63 /min [facility] Respiratory rate 2020-01-15 13:00:00 16 /min [facility] Oxygen saturation in Arterial blood by Pulse oximetry 2020-01-15 13:00:00 100 /min [facility] Body temperature 2020-01-15 12:48:00 36.89 [place] [facility] Body height 2020-01-15 12:48:00 175.3 cm [facility] Body weight 2020-01-15 12:48:00 99.791 kg [facility] BMI 2020-01-15 12:48:00 32.49 kg/m2 [facility] Systolic blood pressure 2020-01-08 19:39:00 122 mm[Hg] [facility] Diastolic blood pressure 2020-01-08 19:39:00 87 mm[Hg] [facility] Heart rate 2020-01-08 19:39:00 86 /min [facility] Body temperature 2020-01-08 19:39:00 36.78 [place] [facility] Respiratory rate 2020-01-08 19:39:00 16 /min [facility] Body height 2020-01-08 19:39:00 175.3 cm [facility] Body weight 2020-01-08 19:39:00 103.511 kg [facility] BMI 2020-01-08 19:39:00 33.70 kg/m2 [facility] Systolic blood pressure 2019-07-10 18:00:00 123 mm[Hg] [facility] Diastolic blood pressure 2019-07-10 18:00:00 91 mm[Hg] [facility] Heart rate 2019-07-10 18:00:00 66 /min [facility] Respiratory rate 2019-07-10 18:00:00 18 /min [facility] Oxygen saturation in Arterial blood by Pulse oximetry 2019-07-10 18:00:00 98 /min [facility] Body temperature 2019-07-10 15:27:00 37.33 [place] [facility] Body height 2019-07-10 15:27:00 175.3 cm [facility] Body weight 2019-07-10 15:27:00 102.059 kg [facility] BMI 2019-07-10 15:27:00 33.23 kg/m2 [facility] Procedures Procedure Date / Time Performed Performing Clinician Source EKG-12 LEAD 2024-07-21 21:24:[address] [facility] TROPONIN I 2024-07-21 18:41:[address] [facility] BASIC METABOLIC PANEL (NA, K, CL, CO2, GLUCOSE, BUN, CREATININE, CA) 2024-07-21 18:41:[address] [facility] CBC WITH DIFF 2024-07-21 18:41:[address] [facility] N-TERMINAL PRO-BNP 2024-07-21 18:41:[address] [facility] XR KNEE <3 VW LEFT 2024-05-20 15:52:00 Jackie Castro [facility] CT Stone Protocol 2023-12-09 08:20:00 [facility] US Gallbladder RUQ 2023-12-09 07:41:00 [facility] Urine Culture 2023-12-09 00:00:00 [facility] A Streptococcus Screen (TWILA) 2023-07-07 00:00:00 [facility] XR Foot Rt 3 View STANDARD 2023-06-30 13:23:00 [facility] XR Foot Rt 3 View STANDARD 2023-06-30 13:23:00 [facility] CT Brain WO Con 2023-03-25 08:09:00 [facility] XR Chest 1 View Portable 2023-01-18 14:04:00 [facility] XR Wrist 3 Rt View STANDARD 2022-11-09 08:35:00 [facility] XR Wrist 3 Rt View STANDARD 2022-11-09 08:35:00 [facility] EKG 12 Lead in Emergency Room 2022-05-12 16:14:[address] [facility] ([place] CT Brain WO Con 2022-05-12 16:08:00 [facility] POCT TEST 2022-03-22 21:25:00 Melissa Soto [facility] COMP. METABOLIC PANEL (18980) 2022-03-22 21:20:00 Melissa Soto [facility] CBC WITH DIFF 2022-03-22 21:19:00 Melissa Soto [facility] URINALYSIS 2022-03-22 21:19[facility]00 [facility] OF PRIVACY PRACTICES 2022-03-22 20:21:37 Doctor Unassigned, [place] [facility] CONSENT/REFUSAL FOR DIAGNOSIS AND TREATMENT 2022-03-22 20:21:15 Doctor Unassigned, [place] [facility] XR Foot Lt 3 View STANDARD 2022-02-24 12:14:[address] [facility] ([place] US Gallbladder RUQ 2022-01-20 10:54:00 [facility] EKG 12 Lead in Emergency Room 2021-09-30 09:56:[address] [facility] ([place] XR Chest 1 View Portable 2021-09-30 09:35:[address] [facility] ([place] [id number] 2020-11-06 00:00:00 [id number] [facility] NOTICE OF PRIVACY PRACTICES 2020-07-14 15:02:37 Doctor Unassigned, [place] [facility] CONSENT/REFUSAL FOR DIAGNOSIS AND TREATMENT 2020-07-14 15:02:23 Doctor Unassigned, [place] [facility] AUTHORIZATION FOR RELEASE OF PHI 2020-06-17 05:01:00 Doctor Unassigned, [place] [facility] POCT URINALYSIS 2020-05-14 00:00:00 Shane Soni [facility] BASIC METABOLIC PANEL (NA, K, CL, CO2, GLUCOSE, BUN, CREATININE, CA) 2020-04-14 00:33:00 Shivani Kim [facility] CBC WITH DIFFERENTIAL 2020-04-14 00:33:00 Ping Kim [facility] URINALYSIS 2020-04-14 00:33:00 Shivani Kim [facility] CONSENT/REFUSAL FOR DIAGNOSIS AND TREATMENT 2020-04-13 23:34:06 Doctor Unassigned, [place] [facility] COVID-19 (ID NOW RAPID TESTING) 2020-04-11 04:54:00 Castro Cardona [facility] LIPASE 2020-04-11 02:34:00 Castro Cardona [facility] HEPATIC FUNCTION PANEL (56357) (ALB,T.PRO,BILI T,BU/BC,ALT,AST,ALK PHOS) 2020-04-11 02:34:00 Castro Cardona [facility] BASIC METABOLIC PANEL (NA, K, CL, CO2, GLUCOSE, BUN, CREATININE, CA) 2020-04-11 02:34:00 Castro Cardona [facility] TOTAL BETA HCG ASSAY 2020-04-11 02:34:00 Wyatt Cardona [facility] CBC WITH DIFFERENTIAL 2020-04-11 02:34:00 Ryan Cardona [facility] URINALYSIS 2020-04-11 02:34:00 Castro Cardona [facility] POCT TEST 2020-04-05 15:02:00 Cisco Soni [facility] POCT URINALYSIS W/O SPECIFIC GRAVITY 2020-04-05 15:02:00 Shane Soni [facility] REPORT OF 2020-04-05 05:01:00 Doctor Silvano tavarez, [place] [facility] CONSENT/REFUSAL FOR DIAGNOSIS AND TREATMENT 2020-03-08 12:03:46 Doctor Unassigned, [place] [facility] NOTICE OF PRIVACY PRACTICES 2020-01-15 12:39:02 Doctor Unassigned, [place] [facility] CONSENT/REFUSAL FOR DIAGNOSIS AND TREATMENT 2020-01-15 12:38:32 Doctor Unassigned, [place] [facility] POCT TEST 2020-01-08 21:48:00 Cisco Soni [facility] FLU VACC ([id number]), 6+ MONTHS, IM, QUAD 2020-01-08 19:45:23 Shane Soni [facility] COMP. METABOLIC PANEL ([id number]) 2019-07-10 15:53:00 Heather Delcid [facility] CBC WITH DIFFERENTIAL 2019-07-10 15:53:00 Fernando Delcid [facility] URINALYSIS 2019-07-10 15:47:00 Heather Delcid [facility] POCT TEST 2019-07-10 15:47:00 Heather Delcid [facility] NOTICE OF PRIVACY PRACTICES 2019-07-10 15:01:57 Doctor Unassigned, [place] [facility] CONSENT/REFUSAL FOR DIAGNOSIS AND TREATMENT 2019-07-10 15:01:43 Doctor Unassigned, [place] [facility] Encounters Start Date/Time End Date/Time Encounter Type Admission Type Attending [facility] Care Department Encounter ID Source 2024-05-24 08:00:00 Inpatient Daily Bui [facility] [id number] [facility] 2023-12-10 08:36:01 Outpatient Daily Castro [facility] [id number] [facility] 2023-08-16 00:00:00 Inpatient Gorge Clay [facility] [id number] [facility] 2023-05-20 14:06:00 Outpatient Daily Castro [facility] HPNT [id number] [facility] 2023-05-13 10:06:00 Outpatient Daily Castro [facility] HPNT [id number] [facility] 2023-04-19 09:12:01 Outpatient Daily Castro [facility] HPNT [id number] [facility] 2023-01-12 16:04:01 Outpatient HP[facility] HPNT [id number] [facility] 2023-01-11 17:13:00 Outpatient [facility] HPNT [id number] [facility] 2022-07-27 16:00:03 Outpatient HP[facility] HPNT [id number] [facility] 2021-08-22 18:28:20 Emergency [facility] [id number] [facility] 2021-08-22 01:59:42 Emergency [facility] [id number] [facility] 2021-08-22 01:34:56 Outpatient X [facility] LETICIA [id number] [facility] 2021-08-22 01:34:08 Emergency [facility] [id number] [facility] 2021-08-21 21:05:56 Emergency [facility] [id number] [facility] 2021-08-21 15:28:23 Emergency [facility] [id number] [facility] 2021-01-20 12:16:59 Inpatient Isae[facility] [id number] [facility] 2020-11-06 14:28:00 Inpatient Isabela Li [facility] RANJIT [id number] [facility] 2020-11-05 11:22:00 Inpatient Isabela LiWH RANJIT [id number] [facility] 2020-10-19 14:16:00 Inpatient Isabela Li [facility] RANJIT [id number] [facility] 2020-10-03 10:50:00 Inpatient Isabela LiWH RANJIT [id number] [facility] 2020-09-02 14:00:00 Inpatient Isabela Lucas [facility] RADI [id number] [facility] 2024-07-21 13:25:00 2024-07-21 16:40:00 Emergency OFELIA HAILE [facility]ICCA [facility] ERT [id number] [facility] 2024-07-21 13:25:00 2024-07-21 16:40:[address] [facility] [id number] [facility] 2024-05-24 00:00:00 2024-06-24 18:19:12 Patient Secure Msg Doctor Unassigned, [place] Doctor Unassigned, [place] [facility] [id number] [facility] 2024-06-20 00:00:00 2024-06-20 00:00:00 (TEL) HPNT HPNT [id number] [facility] oi 2024-06-01 00:00:00 2024-06-01 00:00:00 Outpatient Daily Castro [facility] [id number] [facility] 2024-05-31 00:00:00 2024-05-31 00:00:00 Office Visit, Est Pt., Level 3 [facility] HPNT [id number] [facility] 2024-05-22 00:00:00 2024-05-22 00:00:00 (TEL) HPNT HPNT [id number] [facility] 2024-05-20 10:24:00 2024-05-20 13:06:00 Emergency X JACKIE CASTRO [facility] ERT [id number] [facility] 2024-05-20 10:24:00 2024-05-20 13:06:00 Emergency RiverJackie [facility] [id number] [facility] 2024-05-20 00:00:00 2024-05-20 00:00:00 Outpatient Daily Castro [facility] [id number] [facility] 2024-05-11 00:00:00 2024-05-11 00:00:00 (TEL) HPNT HPNT [id number] [facility] 2024-05-10 00:00:00 2024-05-10 00:00:00 Office Visit, Est Pt., Level 3 HPNT HPNT [id number] [facility] 2024-03-16 00:00:00 2024-03-16 00:00:00 (TEL) HPNT HPNT [id number] [facility] 2024-03-15 00:00:00 2024-03-15 00:00:00 (TEL) HPNT HPNT [id number] [facility] 2024-03-08 00:00:00 2024-03-08 00:00:00 Preventive Care Est Pt. Age 18-39 HPNT HPNT [id number] [facility] 2024-03-02 00:00:00 2024-03-02 00:00:00 (TEL) HPNT HPNT [id number] [facility] 2024-03-01 00:00:00 2024-03-01 00:00:00 Office Visit, Est Pt., Level 3 HPNT HPNT [id number] [facility] 2024-01-10 00:00:00 2024-01-10 00:00:00 (TEL) HPNT HPNT [id number] [facility] 2024-01-06 00:00:00 2024-01-06 00:00:00 (TEL) HPNT HPNT [id number] [facility] 2024-01-05 00:00:00 2024-01-05 00:00:00 Office Visit, Est Pt., Level 3 HPNT HPNT [id number] [facility] 2023-12-14 00:00:00 2023-12-14 00:00:00 Office Visit, Est Pt., Level 3 HPNT HPNT [id number] [facility] 2023-12-10 00:00:00 2023-12-10 00:00:00 Office Visit, Est Pt., Level 3 HPNT HPNT [id number] [facility] 2023-12-09 07:02:00 2023-12-09 10:10:00 Emergency ER Reggie Wright [facility] [id number] [facility] 2023-09-15 00:00:00 2023-09-15 00:00:00 Office Visit, Est Pt., Level 4 HPNT HPNT [id number] [facility] 2023-08-19 10:28:00 2023-08-19 15:00:00 Outpatient Gorge Clay [facility] [id number] [facility] 2023-08-17 11:55:00 2023-08-17 11:56:00 Outpatient Gorge Clay [facility] [id number] [facility] 2023-08-04 00:00:00 2023-08-04 00:00:00 (TEL) HPNT HPNT [id number] [facility] 2023-07-07 10:22:00 2023-07-07 12:20:00 Emergency ER Nathalia Hwang [facility] [id number] [facility] 2023-06-30 13:13:00 2023-06-30 14:22:00 Emergency ER Linda Rodriguez [facility] [id number] [facility] 2023-06-30 13:13:00 2023-06-30 14:22:[address] [facility] [id number] [facility] 2023-06-30 00:00:00 2023-06-30 00:00:00 (TEL) HPNT HPNT [id number] [facility] 2023-06-29 00:00:00 2023-06-29 00:00:00 Office Visit, Est Pt., Level 3 HPNT HPNT [id number] [facility] 2023-06-08 09:53:00 2023-06-08 11:34:00 Emergency ER Linda Rodriguez [facility] [id number] [facility] 2023-06-08 09:53:00 2023-06-08 11:34:[address] [facility] [id number] [facility] 2023-06-02 00:00:00 2023-06-02 00:00:00 (TEL) HPNT HPNT [id number] [facility] 2023-06-01 00:00:00 2023-06-01 00:00:00 Office Visit, Est Pt., Level 4 HPNT HPNT [id number] [facility] 2023-05-20 00:00:00 2023-05-20 00:00:00 (DAC) Dental Acute Care [facility] HPNT [id number] [facility] 2023-05-13 00:00:00 2023-05-13 00:00:00 (TEL) HPNT HPNT [id number] [facility] 2023-05-12 00:00:00 2023-05-12 00:00:00 Office Visit, Est Pt., Level 4 HPNT HPNT [id number] [facility] 2023-04-19 00:00:00 2023-04-19 00:00:00 (TEL) HPNT HPNT [id number] [facility] 2023-04-16 00:00:00 2023-04-16 00:00:00 (TEL) HPNT HPNT [id number] [facility] 2023-04-08 00:00:00 2023-04-08 00:00:00 Office Visit, Est Pt., Level 3 HPNT HPNT [id number] [facility] 2023-03-25 07:49:00 2023-03-25 09:53:00 Emergency ER Aric Blount [facility] [id number] [facility] [facility]-25 07:49:00 2023-03-25 09:53:[address] [facility] [id number] [id number] [facility] 2023-03-25 00:00:00 2023-03-25 00:00:00 (TEL) HPNT HPNT [id number] [facility] 2023-03-24 00:00:00 2023-03-24 00:00:00 (TEL) HPNT HPNT [id number] [facility] 2023-03-23 00:00:00 2023-03-23 00:00:00 Office Visit, Est Pt., Level 4 HPNT HPNT [id number] [facility] 2023-03-23 00:00:00 2023-03-23 00:00:00 (TEL) HPNT HPNT [id number] [facility] 2023-03-17 00:00:00 2023-03-17 00:00:00 Office Visit, Est Pt., Level 3 HPNT HPNT [id number] [facility] 2023-02-09 00:00:00 2023-02-09 00:00:00 Office Visit, Est Pt., Level 4 HPNT HPNT [id number] [facility] 2023-01-20 00:00:00 2023-01-20 00:00:00 (TEL) HPNT HPNT [id number] [facility] 2023-01-19 00:00:00 2023-01-19 00:00:00 Office Visit, Est Pt., Level 4 HPNT HPNT [id number] [facility] 2023-01-18 12:45:00 2023-01-18 14:30:00 Emergency ER Reggie Wright [facility] [id number] [facility] 2023-01-18 12:45:00 2023-01-18 14:30:[address] [facility] [id number] [id number] [facility] 2023-01-11 00:00:00 2023-01-11 00:00:00 Office Visit, Est Pt., Level 4 HPNT HPNT [id number] [facility] 2022-11-19 00:00:00 2022-11-19 00:00:00 Office Visit, Est Pt., Level 3 HPNT HPNT [id number] [facility] 2022-11-17 08:30:00 2022-11-17 08:59:00 Emergency ER Aric Valle [facility] [id number] [facility] 2022-11-17 08:30:00 2022-11-17 08:59:[address] [facility] [id number] [id number] [facility] 2022-11-12 00:00:00 2022-11-12 00:00:00 (TEL) HPNT HPNT [id number] [facility] 2022-11-09 08:26:00 2022-11-09 09:28:00 Emergency ER Jorge AAlexa [facility] [id number] [facility] 2022-11-09 08:26:00 2022-11-09 09:28:[address] [facility] [id number] [id number] [facility] 2022-11-01 15:46:00 2022-11-01 16:17:00 Emergency ER Jarret Sena [facility] [id number] [facility] 2022-11-01 15:46:00 2022-11-01 16:17:[address] [facility] [id number] c[id number] [facility] 2022-09-28 00:00:00 2022-09-28 00:00:00 Office Visit, Est Pt., Level 3 HPNT HPNT [id number] [facility] 2022-09-28 00:00:00 2022-09-28 00:00:00 (TEL) HPNT HPNT [id number] [facility] 2022-08-26 00:00:00 2022-08-26 00:00:00 Office Visit, Est Pt., Level 3 HPNT HPNT [id number] [facility] 2022-08-07 08:19:00 2022-08-07 08:20:00 Outpatient Arlette Vasques [facility] [id number] [facility] 2022-07-30 00:00:00 2022-07-30 00:00:00 (TEL) HPNT HPNT [id number] [facility] 2022-07-27 00:00:00 2022-07-27 00:00:00 Office Visit, Est Pt., Level 3 HPNT HPNT [id number] [facility] 2022-07-20 12:01:00 2022-07-20 14:43:00 Emergency ER Reggie Wright [facility] [id number] [facility] Reggie 2022-05-12 14:18:00 2022-05-12 18:11:00 Emergency ER Pako Avendaño [facility] [id number] [facility] Reggie 2022-05-12 14:18:00 2022-05-12 18:11:00 Departed Emergency [id number] [facility] [id number] [facility] ([place] 2022-03-22 15:37:00 2022-03-22 16:47:00 Emergency X CHARLES Melissa [facility] ERT [id number] [facility] 2022-03-22 15:37:00 2022-03-22 16:47:00 Emergency Charles Melissa Sawyerge [facility] 1.2.840.114 350.1.13.10 4.2.7.2.686 [id number] [facility] 2022-03-22 00:00:00 2022-03-22 00:00:00 Orders Only Doctor Unassigned, [place] [facility] 1.2.840.114 350.1.13.10 4.2.7.2.686 [id number] [facility] 2022-02-24 11:52:00 2022-02-24 14:02:00 Emergency ER Michael Centeno [facility] [id number]22-02-24 11:52:00 2022-02-24 14:02:00 Outpatient [facility] [id number] [facility] 2022-02-24 11:52:00 2022-02-24 14:02:00 Departed Emergency [id number] [facility] [id number] [facility] 2022-01-20 10:09:00 2022-01-20 12:41:00 Emergency ER Kendall Olivares [facility] [id number] [facility] 2022-01-20 10:09:00 2022-01-20 12:41:00 Departed Emergency [id number] [facility] [id number] [facility] 2021-09-30 08:49:00 2021-09-30 10:30:00 Departed Emergency [id number] [facility] [id number] [facility] 2021-09-30 08:49:00 2021-09-30 10:30:00 Emergency ER Kendall Olivares [facility] [id number] [facility] 2021-01-14 00:00:00 2021-01-14 00:00:00 Patient Outreach Loki Walker [facility] 1.2.840.114 350.1.13.10 4.2.7.2.686 [id number] [facility] 2021-01-14 00:00:00 2021-01-14 00:00:00 Patient Outreach Loki Walker [facility] 1.2.840.114 350.1.13.10 4.2.7.2.686 [id number] 2020-07-14 10:11:00 2020-07-14 10:39:00 Emergency Shelby Guerrero [facility] 1.2.840.114 350.1.13.10 4.2.7.2.686 [id number] [id number] [facility] 2020-07-14 10:11:00 2020-07-14 10:39:00 Emergency Shelby Guerrero [facility] 1.2.840.114 350.1.13.10 4.2.7.2.686 [id number] [id number] 2020-07-14 00:00:00 2020-07-14 00:00:00 Orders Only Doctor Unassigned, [place] [facility] 1.2.840.114 350.1.13.10 4.2.7.2.686 [id number] [id number] [facility] 2020-07-14 00:00:00 2020-07-14 00:00:00 Orders Only Doctor Unassigned, [place] [facility] 1.2.840.114 350.1.13.10 4.2.7.2.686 [id number] [id number] 2020-07-10 10:45:00 2020-07-10 10:45:00 Outpatient R [facility] [id number] [facility] 2020-06-17 00:00:00 2020-06-17 00:00:00 Orders Only Doctor Unassigned, [place] [facility] 1.2.840.114 350.1.13.10 4.2.7.2.686 [id number] [id number] [facility] 2020-06-17 00:00:00 2020-06-17 00:00:00 Orders Only Doctor Unassigned, [place] [facility] 1.2.840.114 350.1.13.10 4.2.7.2.686 [id number] 2020-06-11 10:30:00 2020-06-11 10:30:00 Outpatient R SHANE SONI [facility] [id number] [facility] 2020-05-21 00:00:00 2020-05-21 00:00:00 Abstract Shane Soni [facility] FIXED CAPITAL CLERK [facility] & [facility] 1.2.840.114 350.1.13.10 4.2.7.2.686 [id number] [facility] 2020-05-21 00:00:00 2020-05-21 00:00:00 Abstract Shane Soni [facility] FIXED CAPITAL CLERK [facility] MATERNAL & CHILD [facility] 1.2.840.114 350.1.13.10 4.2.7.2.686 [id number] 2020-05-20 09:12:59 2020-05-20 09:57:59 Hostel Manager Visit 1, Isael[facility] Robi Bermeo [facility] FIXED CAPITAL CLERK [facility] 1.2.840.114 350.1.13.10 4.2.7.2.686 [id number] [facility] 2020-05-20 09:39:58 2020-05-20 09:54:40 Hostel Manager [facility] 1.2.840.114 350.1.13.10 4.2.7.2.686 [id number] 2020-05-20 09:39:58 2020-05-20 09:54:40 Hostel Manager Visit Lab/Pedi, [facility] Robi Bermeo [facility] FIXED CAPITAL CLERK [facility] 1.2.840.114 350.1.13.10 4.2.7.2.686 [id number] [facility] 2020-05-20 09:00:00 2020-05-20 09:00:00 Outpatient P [facility] [id number] [facility] 2020-05-15 00:00:00 2020-05-15 00:00:00 Telephone DelunaRamila [facility] FIXED CAPITAL CLERK [facility]ILD [facility] 1.2.840.114 350.1.13.10 4.2.7.2.686 [id number] [facility] 2020-05-14 15:57:18 2020-05-14 16:44:32 Routine Visit Shane Soni [facility] FIXED CAPITAL CLERK [facility] 1.2.840.114 350.1.13.10 4.2.7.2.686 [id number] [facility] 2020-05-14 16:00:00 2020-05-14 16:00:00 Outpatient R SHANE SONI [facility] [id number] [facility] 2020-05-13 00:00:00 2020-05-13 00:00:00 Telephone Shane Soni [facility] FIXED CAPITAL CLERK [facility] 1.2840.114 350.1.13.10 4.2.7.2.686 [id number] [facility] 2020-05-03 08:00:00 2020-05-03 08:00:00 Outpatient R SHANE SONI [facility] [id number] [facility] 2020-04-24 00:00:00 2020-04-24 00:00:00 Telephone Ramila Deluna [facility] FIXED CAPITAL CLERK [facility] 1.2840.114 350.1.13.10 4.2.7.2.686 [id number] [facility] 2020-04-16 00:00:00 2020-04-16 00:00:00 Telephone Ramila Deluna [facility] FIXED CAPITAL CLERK [facility] 1.2.840.114 350.1.13.10 4.2.7.2.686 [id number] [facility] 2020-04-13 18:55:48 2020-04-13 22:32:00 Emergency Shivani Kim [facility] 1.2.840.114 350.1.13.10 4.2.7.2.686 [id number] [facility] 2020-04-13 00:00:00 2020-04-13 00:00:00 Orders Only Doctor Unassigned, [place] [facility] 1.2.840.114 350.1.13.10 4.2.7.2.686 [id number] [facility] 2020-04-10 21:15:51 2020-04-11 05:45:00 Emergency Castro Cardona Vivian L [facility] 1.2.840.114 350.1.13.10 4.2.7.2.686 [id number] [facility] 2020-04-10 08:30:00 2020-04-10 08:30:00 Outpatient R [facility] [id number] [facility] 2020-04-09 00:00:00 2020-04-09 00:00:00 Telephone Shane Soni [facility] FIXED CAPITAL CLERK [facility]ERNAL [facility] CHILD [facility] 1.2.840.114 350.1.13.10 4.2.7.2.686 [id number] [facility] 2020-04-08 00:00:00 2020-04-08 00:00:00 Telephone Shane Soni [facility] FIXED CAPITAL CLERK [facility]ERNAL [facility] CHILD [facility] 1.2.840.114 350.1.13.10 4.2.7.2.686 [id number] [facility] 2020-04-05 09:44:12 2020-04-05 11:20:26 Initial Visit Shane Soni [facility] FIXED CAPITAL CLERK [facility]ILD [facility] 1.2.840.114 350.1.13.10 4.2.7.2.686 [id number] [facility] 2020-04-05 10:00:00 2020-04-05 10:00:00 Outpatient R SHANE SONI [facility] [id number] [facility] 2020-04-05 00:00:00 2020-04-05 00:00:00 Orders Only Doctor Unassigned, [place] [facility] 1.2.840.114 350.1.13.10 4.2.7.2.686 [id number] [facility] 2020-03-31 00:00:00 2020-03-31 00:00:00 Refill Shane Soni [facility] FIXED CAPITAL CLERK [facility]NAL [facility] CHILD [facility] 1.2.840.114 350.1.13.10 4.2.7.2.686 [id number] [facility] 2020-03-08 07:11:57 2020-03-08 07:45:00 Emergency Shelby Guerrero [facility] 1.2.840.114 350.1.13.10 4.2.7.2.686 [id number] [facility] 2020-01-17 13:41:40 2020-01-17 13:56:40 Telemedici ne Visit Shane Soni [facility] FIXED CAPITAL CLERK [facility] 1.2.840.114 350.1.13.10 4.2.7.2.686 [id number] [facility] 2020-01-17 12:45:00 2020-01-17 12:45:00 Outpatient R SHANE SONI [facility] [id number] [facility] 2020-01-15 15:15:00 2020-01-15 15:15:00 Outpatient R SHANE SONI [facility] [id number] [facility] 2020-01-15 07:44:24 2020-01-15 08:10:00 Emergency Yair Clark [facility] 1.2840.114 350.1.13.10 4.2.7.2.686 [id number] [facility] 2020-01-15 00:00:00 2020-01-15 00:00:00 Orders Only Doctor Unassigned, [place] [facility] 1.2840.114 350.1.13.10 4.2.7.2.686 [id number] [facility] 2020-01-08 14:09:39 2020-01-08 15:17:40 Office Visit Shane Soni [facility] FIXED CAPITAL CLERK [facility]ER[facility] 1.284.114 350.1.13.10 4.2.7.2.686 [id number] [facility] 2020-01-08 14:15:00 2020-01-08 14:15:00 Outpatient R SHANE SONI [facility] [id number] [facility] 2019-07-10 10:26:01 2019-07-10 13:35:00 Emergency Heather Delcid [facility] 1.2840.114 350.1.13.10 4.2.7.2.686 [id number] [facility] 2019-07-10 00:00:00 2019-07-10 00:00:00 Orders Only Doctor Unassigned, [place] [facility] 1.284.114 350.1.13.10 4.2.7.2.686 [id number] [facility] Results Test Description Test Time Test Comments Results Result Co mments Source [facility] [id number] 19:37:15* Test Item Value Reference Range Interpretation Comme nts TROPONIN I (test code = 6408663198) 0.003 ng/mL <=0.034 NOLAN (test code = NOLAN) Reference (Normal) Range (defined by the 99th percentile reference limit): <= 0.034 ng/mL Note: Cardiac troponin begins to rise 3-4 hours after the onset of ischemia. Repeat in 4-6 hours if the sample was drawn within 3-4 hours of the onset of the symptom and found normal. Diagnosis of myocardial injury is made with acute changes in cTn concentrations with at least one serial sample above the 99th percentile upper reference limit (URL), taken together with the patient's clinical presentation. Biotin has been reported to cause a negative bias, interpret results relative to patient's use of biotin. Lab Interpretation (test code = 68452-9) Normal [facility] METABOLIC PANEL (NA, K, CL, CO2, GLUCOSE, BUN, CREATININE, CA)2024-07-21 19:27:32* Test Item Value Reference Range Interpretation Comme nts NA (test code = 8908319228) 136 mmol/L 135-145 K (test code = 4393428556) 3.7 mmol/L 3.5-5.0 CL (test code = 1981036748) 104 mmol/L 98-108 CO2 TOTAL (test code = 4279162896) 26 mmol/L 23-31 AGAP (test code = 6759136810) 6 2-16 BUN (test code = 2970641215) 10 mg/dL 7-23 GLUCOSE (test code = 2715839275) 80 mg/dL 70-110 CREATININE (test code = 2160-0) 0.72 mg/dL 0.50-1.04 CALCIUM (test code = 2035430975) 9.3 mg/dL 8.6-10.6 eGFR (test code = 34923-0) 112.7 mL/min/1.73m2 CKD-EPI eGFR (20 21). Assuming creatinine has been stable day-to-day for at least three months, the eGFR indicates Category G1 (>= 90 mL/min/1.73 m2) [facility] WITH [id number] 19:23:32* Test Item Value Reference Range Interpretation Comme nts WBC (test code = 6690-2) 6.36 4.30-11.10 RBC (test code = 789-8) 4.22 3.93-5.25 HGB (test code = 718-7) 12.4 g/dL 11.6-15.0 HCT (test code = 4544-3) 37.4 % 35.7-45.2 MCV (test code = 787-2) 88.6 fL 80.6-95.5 MCH (test code = 785-6) 29.4 pg 25.9-32.8 MCHC (test code = 786-4) 33.2 g/dL 31.6-35.1 RDW-SD (test code = 94040-4) 41.7 fL 39.0-49.9 RDW-CV (test code = 788-0) 12.9 % 12.0-15.5 PLT (test code = 777-3) 355 166-358 MPV (test code = 30106-0) 8.3 fL 9.5-12.9 L NRBC/100 WBC (test code = 2262569204) 0.0 0.0-10.0 NRBC x10^3 (test code = 0492672977) See_Comment [Automated messa ge] The system which generated this result transmitted reference range: 10*3/?L. The reference range was not used to interpret this result as normal/abnormal. GRAN MAT (NEUT) % (test code = 770-8) 50.7 % IMM GRAN % (test code = 3523266281) 0.30 % LYMPH % (test code = 736-9) 42.1 % MONO % (test code = 5905-5) 6.1 % EOS % (test code = 713-8) 0.5 % BASO % (test code = 706-2) 0.3 % GRAN MAT x10^3(ANC) (test code = 4564583018) 3.22 10*3/uL 1.88-7.09 IMM GRAN x10^3 (test code = 8099472658) 0.00-0.06 LYMPH x10^3 (test code = 731-0) 2.68 10*3/uL 1.32-3.29 MONO x10^3 (test code = 742-7) 0.39 10*3/uL 0.33-0.92 EOS x10^3 (test code = 711-2) 0.03 10*3/uL 0.03-0.39 BASO x10^3 (test code = 704-7) 0.01-0.07 Lab Interpretation (test code = 30891-1) Abnormal [facility]EE <3 VW [id number] 16:53:48ORDERING PHYSICIAN: JACKIE CASTRO CLINICAL HISTORY:left knee pain x 6 days; hurts w/ bending and standing; possible grissom'scyst TECHNIQUE:Radiographs of left knee, 2 views. COMPARISON:None. FINDINGS:Normal joint spaces and osseous alignment. No evidence of acute fracture.Soft tissues are unremarkable.[facility], [id number] 13:29:00* Test Item Value Reference Range Interpretation Comme nts O:ESCOL (test code = ESCOL) Escherichia coli Amikacin (test code = N-AN) <=8 S Ampicillin (test code = N-AM) >16 R Ampicillin/Sulbactam (test code = N-LEONOR) 16/8 I Aztreonam (test code = N-NARESH) <=2 S Cefazolin (Urine) (test code = N-CZU) S Cefepime (test code = N-FEP) <=1 S Ceftazidime (test code = N-CAZ) <=2 S Ceftriaxone (test code = N-CLAM SORTER) <=1 S Ciprofloxacin (test code = N-CIP) <=0.25 S Gentamicin (test code = N-GM) <=2 S Levofloxacin (test code = N-LVX) <=0.5 S Meropenem (test code = N-MEM) <=0.5 S Nitrofurantoin (test code = N-FM) <=16 S Piperacillin/Tazobactam (test code = N-TZP) <=2/4 S Tetracycline (test code = N-TE) <=2 S Tobramycin (test code = N-NN) <=2 S Trimethoprim/Sulfamethoxazol e (test code = N-SXT) <=0.5/9.5 S Culture, Urine (test code = URC) QUANTITATION: Culture, Urine (test code = URC1.1) >100,000 cfu/mL CPT Modifier: 59IH - Strep [id number] 00:00:00* Test Item Value Reference Range Interpretation Comme nts Strep A (test code = 25912-9) POS [id number] 08:37:00* Test Item Value Reference Range Interpretation Comme nts Chemistry (test code = NA-T) 139 mmol/L 136-145 N Chemistry (test code = K-T) 4.0 mmol/L 3.5-5.1 N Chemistry (test code = CL-T) 108 mmol/L 98-107 H Chemistry (test code = CO2-T) 26 mmol/L 22-29 N Chemistry (test code = ANGP) 9 mmol/L 10-20 L Chemistry (test code = BUN) 10 mg/dL 7.0-18.7 N Chemistry (test code = CREATT) 0.77 mg/dL 0.6-1.1 N Chemistry (test code = EGFRCR) 104 Reference Range for Estimated GFR: Greater than 90 mL/min/1.73 l2Hacljgai eGFR is based on the CKD-EPI 2020 equation thatdoes not use a race coefficient. Chemistry (test code = GLU-T) 67 mg/dL 70-105 L Chemistry (test code = CA-T) 8.9 mg/dL 7.8-10.44 N Chemistry (test code = TBILI-T) 0.5 mg/dL 0.2-1.2 N Chemistry (test code = TP) 7.1 g/dL 6.0-8.3 N Chemistry (test code = ALB) 4.2 g/dL 3.5-5.0 N Chemistry (test code = GLOB) 2.9 g/dL 2.4-3.5 N Chemistry (test code = AG) 1.4 g/dL 1.2-2.2 N Chemistry (test code = ALP) 50 U/L 40-110 N Chemistry (test code = AST) 11 U/L 5-34 N Chemistry (test code = ALT) 17 U/L 8-55 N [id number] 08:37:00* Test Item Value Reference Range Interpretation Comme nts Chemistry (test code = LIP) Less than 4 U/L 8-78 L Chemistry - [id number] 08:23:00* Test Item Value Reference Range Interpretation Comme nts Chemistry - Specials (test code = BHCGST) Negative NEGATIVE Method of s ensitivity- Indeterminant: results should be repeated after 48-72 hrs Positive: results may be detected as early as 1 day after the first missed menses. [id number] 08:04:00* Test Item Value Reference Range Interpretation Comme nts Hematology (test code = WBCT) 6.0 10x3/uL 4.8-10.8 N Hematology (test code = RBCT) 4.35 mill/uL 4.20-5.40 N Hematology (test code = HGBT) 12.9 g/dL 12.0-16.0 N Hematology (test code = HCTT) 39.6 % 36.0-47.0 N Hematology (test code = MCV) 91.0 fl 78.0-98.0 N Hematology (test code = MCH) 29.7 pg 27.0-31.0 N Hematology (test code = MCHC) 32.6 g/dL 32.0-36.0 N Hematology (test code = RDW) 13.0 % 11.5-14.5 N Hematology (test code = PLTT) 305 10x3/uL 130-400 N Hematology (test code = MPV) 8.3 fL 7.4-10.4 N Hematology (test code = %NEUT) 51.2 % 42.0-75.0 N Hematology (test code = %LYMPH) 40.6 % 21.0-51.0 N Hematology (test code = %MONO) 6.8 % 0.0-10.0 N Hematology (test code = %EOS) 1.0 % 0.0-10.0 N Hematology (test code = %BASO) 0.2 % 0.0-1.0 N Hematology (test code = %IG) 0.2 % 0-5 N Hematology (test code = %NRBC) 0.0 % 0.0-0.0 N Hematology (test code = NEUT#) 3.1 thou/uL 1.40-6.50 N Hematology (test code = LYMPH#XN) 2.5 10x3/uL 1.20-3.40 N Hematology (test code = MONO#) 0.4 thou/uL 0.11-0.59 N Hematology (test code = EOS#) 0.1 thou/uL 0.0-0.7 N Hematology (test code = BASO#) 0.0 thou/uL 0.0-0.2 N Hematology (test code = IG#) 0.01 10x3/uL 0.00-0.50 N Hematology (test code = NRBC#) 0.0 10x3/uL None Seen N [id number] 08:00:00* Test Item Value Reference Range Interpretation Comme nts Urinalysis (test code = UACLR) Light-Yellow Yellow Urinalysis (test code = UACLY) Clear Clear Urinalysis (test code = SPGR) 1.023 1.002-1.036 N Urinalysis (test code = SHASHANK) 6.5 5.0-9.0 N Urinalysis (test code = UALEU) 25 Avani/uL Negative A Urinalysis (test code = UANIT) 2+ Negative A Urinalysis (test code = PROUADIP) 30 mg/dL Neg-Trace A Urinalysis (test code = GLUCU) Normal mg/dL Negative Urinalysis (test code = KETU) Negative mg/dL Negative Urinalysis (test code = UAUROB) Normal mg/dL Less than 2 Urinalysis (test code = UABIL) Negative Negative Urinalysis (test code = UABLD) 2+ Negative A Urinalysis (test code = UARBC) 21-50 HPF 0-3 A Urinalysis (test code = UAWBC) 11-20 HPF 0-3 A Urinalysis (test code = UASQUAM) 4-6 HPF 0-3 Urinalysis (test code = UABAC) 4+ HPF None Seen A Urinalysis (test code = UAYEASTBU) 1+ HPF None Seen A Urinalysis (test code = UAHYAL) 0-3 LPF 0-3 Indications to order a Urinalysis: Pelvic or flank painUrine Source: Urine Clean [id number] 08:00:00* Test Item Value Reference Range Interpretation Comme nts Urinalysis (test code = UACRFLXYES) Yes A Indications to order a Urinalysis: Pelvic or flank painUrine Source: Urine Clean CatchLymphocytes/100 leukocytes in Blood by Automated [id number] 07:51:00* Test Item Value Reference Range Interpretation Comme nts Lymphocytes % (test code = 736-9) 40.6 % 21.0-51.0 [facility]/100 [id number] 07:51:00* Test Item Value Reference Range Interpretation Comme [facility] Monocytes % (test code = 5905-5) 6.8 % 0.0-10.0 [facility] eosinophils[facility]100 [id number] 07:51:00* Test Item Value Reference Range Interpretation Comme [facility] Eosinophils % (test code = 713-8) 1.0 % 0.0-10.0 [facility] basophils/100 [id number] 07:51:00* Test Item Value Reference Range Interpretation Comme [facility] Basophils % (test code = 706-2) 0.2 % 0.0-1.0 [facility] granulocyte count as percentage of total [id number] 07:51:00* Test Item Value Reference Range Interpretation Comme [facility] [facility] Granulocyte % (Auto ) (test code = 70787-1) 0.2 % 0-5 [facility] neutrophils automated count (number/volume) 2023-12-09 07:51:00* Test Item Value Reference Range Interpretation Comme [facility] Neutrophils # (test code = 751-8) 3.1 thou/uL 1.40-6.50 [facility] monocytes automated count (number/volume) 2023-12-09 07:51:00* Test Item Value Reference Range Interpretation Comme [facility] Monocytes # (test code = 742-7) 0.4 thou/uL 0.11-0.59 [facility] eosinophils automated count (count/volume) 2023-12-09 07:51:00* Test Item Value Reference Range Interpretation Comme [facility] Eosinophils # (test code = 711-2) 0.1 thou/uL 0.0-0.7 [facility] (count/volume) 2023-12-09 07:51:00* Test Item Value Reference Range Interpretation Comme [facility] Basophils # (test code = 704-7) 0.0 thou/uL 0.0-0.2 [facility] or plasma sodium measurement (moles/volume) 2023-12-09 07:51:00* Test Item Value Reference Range Interpretation Comme [facility] Sodium Level (test code = 2951-2) 139 mmol/L 136-145 [facility] or plasma potassium measurement (moles/volume) 2023-12-09 07:51:00* Test Item Value Reference Range Interpretation Comme nts Potassium Level (test code = 2823-3) 4.0 mmol/L 3.5-5.1 [facility] or plasma chloride measurement (moles/volume) 2023-12-09 07:51:00* Test Item Value Reference Range Interpretation Comme [facility] Chloride Level (test code = 2075-0) 108 mmol/L 98-107 [facility] or plasma carbon dioxide, total measurement (moles/volume)2023-12-09 07:51:00* Test Item Value Reference Range Interpretation Comme [facility] Carbon Dioxide Level (test c ode = 8-9) 26 mmol/L 22-29 [facility] or plasma anion [id number] 07:51:00* Test Item Value Reference Range Interpretation Comme [facility] Anion Gap (test code = 55986-0) 9 mmol/L 10-20 [facility] urea nitrogen measurement (mass/volume)2023-12-09 07:51:00* Test Item Value Reference Range Interpretation Comme [facility] Blood Urea Nitrogen (test co de = 3094-0) 10 mg/dL 7.0-18.7 [facility] or plasma creatinine measurement (mass/volume) 2023-12-09 07:51:00* Test Item Value Reference Range Interpretation Comme nts Creatinine (test code = 2160-0) 0.77 mg/dL 0.6-1.1 [facility] CenterGlomerular filtration rate/1.73 sq M.predicted [Volume Rate/Area] in Serum, Plasma [id number] 07:51:00* Test Item Value Reference Range Interpretation Comme nts Estimated GFR (CKD-EPI 2020) (test code = 19785-1) 104 [facility] CenterGlucose [Mass/volume] in Serum or Wfcrtp0854-68-79 07:51:00* Test Item Value Reference Range Interpretation Comme [facility] Glucose Level (test code = 2345-7) 67 mg/dL 70-105 [facility] or plasma calcium measurement (mass/volume) 2023-12-09 07:51:00* Test Item Value Reference Range Interpretation Comme nts Calcium Level (test code = 95367-9) 8.9 mg/dL 7.8-10.44 [facility] or plasma total bilirubin measurement (mass/volume)2023-12-09 07:51:00* Test Item Value Reference Range Interpretation Comme nts Total Bilirubin (test code = 1975-2) 0.5 mg/dL 0.2-1.2 [facility] or plasma protein measurement (mass/volume) 2023-12-09 07:51:00* Test Item Value Reference Range Interpretation Comme [facility] Serum Total Protein (test co de = 2885-2) 7.1 g/dL 6.0-8.3 [facility] or plasma albumin measurement by bromocresol green (BCG) dye binding method ([id number] 07:51:00* Test Item Value Reference Range Interpretation Comme nts Albumin (test code = 63675-3) 4.2 g/dL 3.5-5.0 [facility] CenterGlobulin [Mass/volume] in Serum by calculation 2023-12-09 07:51:00* Test Item Value Reference Range Interpretation Comme nts Globulin (test code = 10722-8) 2.9 g/dL 2.4-3.5 [facility] CenterAlbumin/Globulin [Mass Ratio] in Serum or Plasma 2023-12-09 07:51:00* Test Item Value Reference Range Interpretation Comme nts Albumin/Globulin Ratio (test code = 1759-0) 1.4 g/dL 1.2-2.2 [facility] [Enzymatic activity/volume] in Serum or Ostcjp6667-90-32 07:51:00* Test Item Value Reference Range Interpretation Comme nts Alkaline Phosphatase (test c ode = 6768-6) 50 U/L 40-110 [facility] or plasma aspartate aminotransferase measurement (enzymatic activity/volume)2023-12-09 07:51:00* Test Item Value Reference Range Interpretation Comme nts Aspartate Amino Transf (AST/ SGOT) (test code = 1920-8) 11 U/L 5-34 [facility] or plasma alanine aminotransferase measurement without P-5'-P (enzymatic dgbzuq3711-79-20 07:51:00* Test Item Value Reference Range Interpretation Comme [facility] Alanine Aminotransferase (AL T/SGPT) (test code = 1744-2) 17 U/L 8-55 [facility] or plasma lipase measurement (enzymatic activity/volume)2023-12-09 07:51:00* Test Item Value Reference Range Interpretation Comme [facility] Lipase (test code = 3040-3) Less than 4 U/L 8-78 [facility] human chorionic gonadotropin detection for lpezwseri0111-47-60 07:51:00* Test Item Value Reference Range Interpretation Comme [facility] Serum Test, Qualit ative (test code = 2118-8) Negative NEGATIVE [facility] CenterLeukocytes [#/volume] in Blood by Automated count 2023-12-09 07:51:00* Test Item Value Reference Range Interpretation Comme [facility] White Blood Count (test code = 6690-2) 6.0 10x3/uL 4.8-10.8 [facility] erythrocytes automated count (number/volume) 2023-12-09 07:51:00* Test Item Value Reference Range Interpretation Comme [facility] Red Blood Count (test code = 789-8) 4.35 mill/uL 4.20-5.40 [facility] hemoglobin measurement (mass/volume)2023-12-09 07:51:00* Test Item Value Reference Range Interpretation Comme [facility] Hemoglobin (test code = 718-7) 12.9 g/dL 12.0-16.0 [facility] CenterHematocrit, whole pyrta0096-43-34 07:51:00* Test Item Value Reference Range Interpretation Comme [facility] Hematocrit (test code = 46118-2) 39.6 % 36.0-47.0 [facility] mean corpuscular volume 2023-12-09 07:51:00* Test Item Value Reference Range Interpretation Comme [facility] Mean Corpuscular Volume (jesika t code = 787-2) 91.0 fl 78.0-98.0 [facility] mean corpuscular hemoglobin (mass per erythrocyte)2023-12-09 07:51:00* Test Item Value Reference Range Interpretation Comme [facility] Mean Corpuscular Hemoglobin (test code = 785-6) 29.7 pg 27.0-31.0 [facility] mean corpuscular hemoglobin concentration measurement (mass/zdl4543-02-57 07:51:00* Test Item Value Reference Range Interpretation Comme [facility] Mean Corpuscular Hemoglobin Concent (test code = 786-4) 32.6 g/dL 32.0-36.0 [facility] width ratio 2023-12-09 07:51:00* Test Item Value Reference Range Interpretation Comme [facility] Red Cell Distribution Width (test code = 788-0) 13.0 % 11.5-14.5 [facility] platelet count (count/volume) 2023-12-09 07:51:00* Test Item Value Reference Range Interpretation Comme [facility] Platelet Count (test code = 777-3) 305 10x3/uL 130-400 [facility] platelet mean svpeql2462-05-95 07:51:00* Test Item Value Reference Range Interpretation Comme [facility] Mean Platelet Volume (test c ode = 34085-9) 8.3 fL 7.4-10.4 [facility] neutrophils/100 vntzdxbsea8702-92-44 07:51:00* Test Item Value Reference Range Interpretation Comme [facility] Neutrophils % (test code = 770-8) 51.2 % 42.0-75.0 [facility] CenterColor of Urine by Sdso7713-98-87 07:23:00* Test Item Value Reference Range Interpretation Comme [facility] Urine Color (test code = 11322-0) Light-Yellow Yellow [facility] clarity by refractometry squwryvjc9918-13-50 07:23:00* Test Item Value Reference Range Interpretation Comme [facility] Urine Clarity (test code = 35179-1) Clear Clear [facility] CenterSpecific gravity of Urine by Test vgecw8614-97-92 07:23:00* Test Item Value Reference Range Interpretation Comme [facility] Urine Specific [place] (test code = 5811-5) 1.023 1.002-1.036 [facility] pH measurement by automated test prgpx0989-35-87 07:23:00* Test Item Value Reference Range Interpretation Comme [facility] Urine pH (test code = 86661-6) 6.5 5.0-9.0 [facility] leukocyte esterase detection by automated test hepls7514-09-85 07:23:00* Test Item Value Reference Range Interpretation Comme [facility] Urine Leukocyte Esterase (te st code = 57180-5) 25 Avani/uL Negative [facility] [Presence] in Urine by Test vaqrw9726-59-38 07:23:00* Test Item Value Reference Range Interpretation Comme [facility] Urine Nitrite (test code = 5802-4) 2+ Negative [facility] protein measurement by automated test strip (mass/volume)2023-12-09 07:23:00* Test Item Value Reference Range Interpretation Comme [facility] Urine Protein (test code = 50531-0) 30 mg/dL Neg-Trace [facility] glucose measurement by test strip (mass/volume) 2023-12-09 07:23:00* Test Item Value Reference Range Interpretation Comme [facility] Urine Glucose (UA) (test cod e = 5792-7) Normal mg/dL Negative [facility] ketones measurement by automated test strip (mass/volume)2023-12-09 07:23:00* Test Item Value Reference Range Interpretation Comme [facility] Urine Ketones (test code = 59741-3) Negative mg/dL Negative [facility] urobilinogen measurement (units/volume) by test myfqt5544-21-86 07:23:00* Test Item Value Reference Range Interpretation Comme [facility] Urine Urobilinogen (test cod e = 74154-9) Normal mg/dL Less than 2 [facility] total bilirubin detection by automated test xtzse6799-48-65 07:23:00* Test Item Value Reference Range Interpretation Comme [facility] Urine Bilirubin (test code = 32057-9) Negative Negative [facility] hemoglobin detection by automated test strip 2023-12-09 07:23:00* Test Item Value Reference Range Interpretation Comme [facility] Urine Blood (test code = 41776-5) 2+ Negative [facility] erythrocytes detection by automated method 2023-12-09 07:23:00* Test Item Value Reference Range Interpretation Comme [facility] Urine RBC (test code = 58705-0) 21-50 HPF 0-3 [facility] leukocytes detection by automated method 2023-12-09 07:23:00* Test Item Value Reference Range Interpretation Comme [facility] Urine WBC (test code = 67684-1) 11-20 HPF 0-3 [facility] cells.squamous [#/area] in Urine sediment by Automated dzqqw9566-28-08 07:23:00* Test Item Value Reference Range Interpretation Comme [facility] Urine Squamous Epithelial Ce lls (test code = 05181-6) 4-6 HPF 0-3 [facility] bacteria detection by automated uikowr6219-40-53 07:23:00* Test Item Value Reference Range Interpretation Comme [facility] Urine Bacteria (test code = 29743-3) 4+ HPF None [facility] Urine by Automated [id number] 07:23:00* Test Item Value Reference Range Interpretation Comme [facility] Urine Yeast (Budding) (test code = 80900-2) 1+ HPF None [facility]en [facility] CenterDo Not [id number] 07:23:00* Test Item Value Reference Range Interpretation Comme nts Urine Culture Reflexed (test code = LOINC) Yes [facility] ntkgq8027-52-12 07:23:00* Test Item Value Reference Range Interpretation Comme [facility] Urine Culture (test code = Urine Culture) Escherichia coli [facility] SURGICAL PATHOLOGY, LEVEL [id number] 12:38:00 [facility] [address] [place] [address] Laboratory Printed: 08/23/[address] [place] [address] DAEMPathology Page: 1 Patient: BURAK WHITE Birthdate: 1990 Age/Sex: 32/F Spec#: [id number]: Gorge Colunga MD Specimen Date: 08/19/23 Received Date: 08/20/23 Specimen: TONSILS, JENIFER PATHOLOGIC DIAGNOSIS Right tonsil, tonsillectomy: Reactive follicular hyperplasia.Left tonsil, tonsillectomy: Reactive follicular hyperplasia. Comment: Sections of both tonsils are examined microscopically and demonstrate a mixedpopulation of cells with prominent reactive follicles. There is no dysplasia of theoverlying mucosa and there is no malignancy. Pathologist:Timothy Shelton MD Entered by:08/23/23 - 1220 LAB.YGP------ ------ PROCEDURES: 37739/2 GROSS DESCRIPTION A. TONSILS, BILATERAL RIGHT TAGGED The specimen is received in 10% formalin, and is labeled with the patient's information and"tonsils, right tagged." The specimen consists of two tonsils, one of which is tagged witha suture. The tagged (right) tonsil measures 3.3 x 2.4 x 1.8 cm in greatest dimensions.The external surface has velvety mucosa. On sectioning, it has normal-appearing crypts andhomogeneous parenchyma throughout. No focal lesions are noted. It is marked with blackink. The left tonsil measures 3.2 x 2.0 x 1.0 cm in greatest dimensions. It has similarfeaturesto the right. [employer] Mover sections are submitted in one cassette (right marked with ink). Dictated by: Bethany Martinez Entered by: 08/20/23 - 1256 LAB.YGP Patient: BURAK WHITE Re08/19/23[place] [facility] [place] [id number] CONTINUED ON NEXT PAGE Dis: Sta: DEP SDC ----- ------- [facility] [address] [place] [address] Laboratory Printed: 08/23/23 [address] [facility] DAEMPathology Page: 2 Patient: BURAK WHITE [id number] (Continued) GROSS DESCRIPTION (Continued) MICROSCOPIC DESCRIPTION A microscopic examination was performed to arrive at the diagnostic conclusion reported. Signed ____(Electronically Signed) Timothy Shelton MD 08/23/23 Patient: BURAK WHITE Re08/19/23[place] [facility] [facility] [place] [id number] END OF REPORT Dis: Sta: DEP [facility] [place] Oimmiprnor7798-12-19 12:38:00* Test Item Value Reference Range Interpretation Comme nts Hematology (test code = HCTT) 38.2 % 34.9-44.5 N Culture, Strep Group A [id number] 15:00:00* Test Item Value Reference Range Interpretation Comme nts Culture, Strep Group A Rflx (test code = STRPACULT) STRPCULT Culture, Strep Group A Rflx (test code = STRPACULT1) N Molecular Testing [id number] 12:20:00* Test Item Value Reference Range Interpretation Comme nts Molecular Testing MM (test code = [id number]) Not Detected NotDetected Performance of t he Cepheid SARS-CoV-2 has only beenestablished in nasopharyngeal swab specimens. This testcannot rule out diseases caused by other bacterial or viralpathogens.Cepheid has been provided an FDA EUA that will be effectiveuntil the declaration that circumstances exist justifyingthe authorization of the emergency use of in vitrodiagnostic tests for detection and/or diagnosis ofCOVID-19 is terminated under Section 564(b)(2) of the Act orthe EUA is revoked under Section 564(g) of the Act. Molecular Testing MM (test code = CEPHFLUA) Not Detected NotDetected Molecular Testing MM (test code = CEPHFLUB) Not Detected NotDetected HResident in Congregate Care Setting: UnknownEmployed in Healthcare: UnknownFirst Test: UnknownHospitalized: UnknownICU: UnknownDate of Symptom Onset: [id number]: UnknownReason for Testing: PUI-SymptomaticSource: Nasopharyngeal SwabSymptomatic as defined by CDC: UnknownStrep Group A Screen 2023-07-07 11:51:00* Test Item Value Reference Range Interpretation Comme nts Strep Group A Screen (test c ode = STRP) STRPANEG1 Strep Group A Screen (test c ode = STRP1) N Strep Group A Screen (test c ode = STRP1) STRPTH THROAT HSARS-CoV-2 (COVID-19) RNA [Presence] in Respiratory specimen by FOX with probe [id number] 11:28:00* Test Item Value Reference Range Interpretation Comme nts SARS-CoV-2 Rapid RNA (RT-PCR)(LAB) (test code = 77139-6) Not Detected NotDetected [facility] CenterUrinalysis2022-09-26 12:59:00* Test Item Value Reference Range Interpretation Comme nts Urinalysis (test code = UACLR) Light-Yellow Yellow Urinalysis (test code = UACLY) Clear Clear Urinalysis (test code = SPGR) 1.023 1.002-1.036 N Urinalysis (test code = SHASHANK) 6.5 5.0-9.0 N Urinalysis (test code = UALEU) Negative Avani/uL Negative Urinalysis (test code = UANIT) Negative Negative Urinalysis (test code = PROUADIP) Negative mg/dL Neg-Trace Urinalysis (test code = GLUCU) Normal mg/dL Negative Urinalysis (test code = KETU) Negative mg/dL Negative Urinalysis (test code = UAUROB) Normal mg/dL Less than 2 Urinalysis (test code = UABIL) Negative Negative Urinalysis (test code = UABLD) Negative Negative Urine Source: Urine Clean LlxtuTjzowvvlkl6512-88-30 12:59:00* Test Item Value Reference Range Interpretation Comme nts Urinalysis (test code = BHCGUT) Negative Negative Method of sensit ivity- INDETERMINANT: results should be repeated after 48-72 hrs POSITIVE: results may be detected as early as 1 day after the first missed period A dilute urine specimen may not contain representativelevels of hCG.If is still suspected, a first morning urinespecimen OR a random blood specimen should be obtainedfrom the patient 48-72 hours later and re-tested. Urinalysis (test code = PREGUSG) 1.023 1.002-1.036 N HCG ur [id number] 12:20:00* Test Item Value Reference Range Interpretation Comme [facility] Urine Test (test c ode = 2106-3) Negative Negative [facility] gravity of Urine by Refractometry automated 2022-07-20 12:20:00* Test Item Value Reference Range Interpretation Comme [facility] Urine Specific [place] (test code = 65266-4) 1.023 1.002-1.036 [facility] CenterColor of Urine by [id number] 12:20:00* Test Item Value Reference Range Interpretation Comme [facility] Urine Color (test code = 12579-0) Light-Yellow Yellow [facility] clarity by refractometry tqmqbslpk8582-26-59 12:20:00* Test Item Value Reference Range Interpretation Comme [facility] Urine Clarity (test code = 07811-0) Clear Clear [facility] pH measurement by automated test jiolf0653-25-19 12:20:00* Test Item Value Reference Range Interpretation Comme [facility] Urine pH (test code = 76833-2) 6.5 5.0-9.0 [facility] leukocyte esterase detection by automated test dgzxa0605-16-99 12:20:00* Test Item Value Reference Range Interpretation Comme [facility] Urine Leukocyte Esterase (test code = 83947-4) Negative Avani/uL Negative [facility] CenterNitrite [Presence] in Urine by Test [id number] 12:20:00* Test Item Value Reference Range Interpretation Comme [facility] Urine Nitrite (test code = 5802-4) Negative Negative [facility] protein measurement by automated test strip (mass/volume)2022-07-20 12:20:00* Test Item Value Reference Range Interpretation Comme [facility] Urine Protein (test code = 59477-4) Negative mg/dL Neg-Trace [facility] CenterGlucose [Moles/volume] in Urine by Test strip 2022-07-20 12:20:00* Test Item Value Reference Range Interpretation Comme [facility] Urine Glucose (UA) (test cod e = 59085-3) Normal mg/dL Negative [facility] ketones measurement by automated test strip (mass/volume)2022-07-20 12:20:00* Test Item Value Reference Range Interpretation Comme [facility] Urine Ketones (test code = 45120-3) Negative mg/dL Negative [facility] urobilinogen measurement (units/volume) by test [id number] 12:20:00* Test Item Value Reference Range Interpretation Comme [facility] Urine Urobilinogen (test cod e = 71459-7) Normal mg/dL Less than 2 [facility] total bilirubin detection by automated test [id number] 12:20:00* Test Item Value Reference Range Interpretation Comme [facility] Urine Bilirubin (test code = 62118-5) Negative Negative [facility] hemoglobin detection by automated test strip 2022-07-20 12:20:00* Test Item Value Reference Range Interpretation Comme [facility] Urine Blood (test code = 82657-4) Negative Negative [facility] [id number] 20:45:00* Test Item Value Reference Range Interpretation Comme [facility] Molecular Testing MM (test code = [id number]) Not Detected NotDetected Performance of t polo Cepheid SARS-CoV-2 has only beenestablished in nasopharyngeal swab specimens. This testcannot rule out diseases caused by other bacterial or viralpathogens.Cepheid has been provided an FDA EUA that will be effectiveuntil the declaration that circumstances exist justifyingthe authorization of the emergency use of in vitrodiagnostic tests for detection and/or diagnosis ofCOVID-19 is terminated under Section 564(b)(2) of the Act orthe EUA is revoked under Section 564(g) of the Act. Molecular Testing MM (test code = CEPHFLUA) Not Detected NotDetected Molecular Testing MM (test code = CEPHFLUB) Not Detected NotDetected [facility] Setting: YesEmployed in Healthcare: NoFirst Test: UnknownHospitalized: NoICU: NoDate of Symptom Onset: [id number]: UnknownReason for Testing: PUI -SymptomaticSource:Nasopharyngeal SwabSymptomatic as defined by CDC: TpaNooclrodt7058-61-44 16:59:00* Test Item Value Reference Range Interpretation Comme nts Chemistry (test code = NA-T) 138 mmol/L 136-145 N Chemistry (test code = K-T) 3.9 mmol/L 3.5-5.1 N Chemistry (test code = CL) 104 mmol/L 98-107 N Chemistry (test code = CO2) 26 mmol/L 22-29 N Chemistry (test code = ANGP) 12 mmol/L 10-20 N Chemistry (test code = BUN) 7 mg/dL 7.0-18.7 N Chemistry (test code = CREATT) 0.78 mg/dL 0.6-1.1 N Chemistry (test code = EGFRCR) 103 Reference Range for Estimated GFR: Greater than 90 mL/min/1.73 e0Nfegohua eGFR is based on the CKD-EPI 2020 equation thatdoes not use a race coefficient. Chemistry (test code = GLU-T) 94 mg/dL 70-105 N Chemistry (test code = CA) 9.7 mg/dL 7.8-10.44 N Chemistry (test code = TBILI-T) 0.3 mg/dL 0.2-1.2 N Chemistry (test code = TP) 7.7 g/dL 6.0-8.3 N Chemistry (test code = ALB) 4.4 g/dL 3.5-5.0 N Chemistry (test code = GLOB) 3.3 g/dL 2.4-3.5 N Chemistry (test code = AG) 1.3 g/dL 1.2-2.2 N Chemistry (test code = ALP) 50 U/L 40-110 N Chemistry (test code = AST) 17 U/L 5-34 N Chemistry (test code = ALT) 19 U/L 8-55 N Ieniiykrv9498-05-91 16:59:00* Test Item Value Reference Range Interpretation Comme nts Chemistry (test code = LIP) 9 U/L 8-78 N Chemistry - Fladmwtg0576-59-69 16:54:00* Test Item Value Reference Range Interpretation Comme [facility] Chemistry - Specials (test code = BHCGST) Negative NEGATIVE Method of s ensitivity- Indeterminant: results should be repeated after 48-72 hrs Positive: results may be detected as early as 1 day after the first missed menses. Njerzpsxtn0077-12-01 16:45:00* Test Item Value Reference Range Interpretation Comme nts Hematology (test code = WBCT) 6.9 thou/uL 4.8-10.8 N Hematology (test code = RBCT) 4.39 mill/uL 4.20-5.40 N Hematology (test code = HGBT) 13.3 g/dL 12.0-16.0 N Hematology (test code = HCTT) 41.2 % 36.0-47.0 N Hematology (test code = MCV) 93.9 fL 78.0-98.0 N Hematology (test code = MCH) 30.2 pg 27.0-31.0 N Hematology (test code = MCHC) 32.1 g/dL 32.0-36.0 N Hematology (test code = RDW) 11.6 % 11.5-14.5 N Hematology (test code = PLTT) 362 thou/uL 130-400 N Hematology (test code = MPV) 5.9 fL 7.4-10.4 L Hematology (test code = %NEUT) 52.4 % 42.0-75.0 N Hematology (test code = %LYMPH) 37.9 % 21.0-51.0 N Hematology (test code = %MONO) 5.8 % 0.0-10.0 N Hematology (test code = %EOS) 2.8 % 0.0-10.0 N Hematology (test code = %BASO) 1.0 % 0.0-1.0 N Hematology (test code = NEUT#) 3.6 thou/uL 1.40-6.50 N Hematology (test code = LYMPH#) 2.6 thou/uL 1.20-3.40 N Hematology (test code = MONO#) 0.4 thou/uL 0.11-0.59 N Hematology (test code = EOS#) 0.2 thou/uL 0.0-0.7 N Hematology (test code = BASO#) 0.1 thou/uL 0.0-0.2 N [id number] 16:35:00* Test Item Value Reference Range Interpretation Comme nts Urinalysis (test code = UACLR) Yellow Yellow Urinalysis (test code = UACLY) Clear Clear Urinalysis (test code = SPGR) 1.033 1.002-1.036 N Urinalysis (test code = SHASHANK) 6.5 5.0-9.0 N Urinalysis (test code = UALEU) Negative Avani/uL Negative Urinalysis (test code = UANIT) Negative Negative Urinalysis (test code = PROUADIP) 10 mg/dL Neg-Trace Urinalysis (test code = GLUCU) Normal mg/dL Negative Urinalysis (test code = KETU) Negative mg/dL Negative Urinalysis (test code = UAUROB) 2.0 mg/dL Less than 2 A Urinalysis (test code = UABIL) Negative Negative Urinalysis (test code = UABLD) Trace Negative A Urinalysis (test code = UARBC) 4-6 HPF 0-3 A Urinalysis (test code = UAWBC) 0-3 HPF 0-3 Urinalysis (test code = UASQUAM) 0-3 HPF 0-3 Urinalysis (test code = UABAC) 1+ HPF None Seen A Urine Source: Urine Clean CatchSerum or plasma sodium measurement (moles/volume) 2022-05-12 16:26:00* Test Item Value Reference Range Interpretation Comme nts Sodium Level (test code = 2951-2) 138 mmol/L 136-145 [facility])Serum or plasma potassium measurement (moles/volume)2022-05-12 16:26:00* Test Item Value Reference Range Interpretation Comme nts Potassium Level (test code = 2823-3) 3.9 mmol/L 3.5-5.1 [facility])Serum or plasma chloride measurement (moles/volume)2022-05-12 16:26:00* Test Item Value Reference Range Interpretation Comme nts Chloride Level (test code = 2075-0) 104 mmol/L 98-107 [facility])Serum or plasma carbon dioxide, total measurement (moles/volume)2022-05-12 16:26:00* Test Item Value Reference Range Interpretation Comme nts Carbon Dioxide Level (test c ode = 2028-06) 26 mmol/L 22-29 [facility])Serum or plasma anion [id number] 16:26:00* Test Item Value Reference Range Interpretation Comme [facility] Anion Gap (test code = 42803-9) 12 mmol/L 10-20 [facility])Serum or plasma urea nitrogen measurement (mass/volume)2022-05-12 16:26:00* Test Item Value Reference Range Interpretation Comme [facility] Blood Urea Nitrogen (test co de = 3094-0) 7 mg/dL 7.0-18.7 [facility])Serum or plasma creatinine measurement (mass/volume)2022-05-12 16:26:00* Test Item Value Reference Range Interpretation Comme [facility] Creatinine (test code = 2160-0) 0.78 mg/dL 0.6-1.1 [facility])Glomerular filtration rate/1.73 sq M.predicted [Volume Rate/Area] in Serum, Plasma [id number] 16:26:00* Test Item Value Reference Range Interpretation Comme [facility] Estimated GFR (CKD-EPI 2020) (test code = 79093-3) 103 [facility])Glucose [Mass/volume] in Serum or Plasma 2022-05-12 16:26:00* Test Item Value Reference Range Interpretation Comme [facility] Glucose Level (test code = 2345-7) 94 mg/dL 70-105 [facility])Serum or plasma calcium measurement (mass/volume)2022-05-12 16:26:00* Test Item Value Reference Range Interpretation Comme [facility] Calcium Level (test code = 93066-1) 9.7 mg/dL 7.8-10.44 [facility])Serum or plasma total bilirubin measurement (mass/volume)2022-05-12 16:26:00* Test Item Value Reference Range Interpretation Comme [facility] Total Bilirubin (test code = 1975-2) 0.3 mg/dL 0.2-1.2 [facility])Serum or plasma protein measurement (mass/volume)2022-05-12 16:26:00* Test Item Value Reference Range Interpretation Comme [facility] Serum Total Protein (test co de = 2885-2) 7.7 g/dL 6.0-8.3 [facility])Serum or plasma albumin measurement by bromocresol green (BCG) dye binding method ([id number] 16:26:00* Test Item Value Reference Range Interpretation Comme [facility] Albumin (test code = 80566-0) 4.4 g/dL 3.5-5.0 [facility])Globulin [Mass/volume] in Serum by calculation 2022-05-12 16:26:00* Test Item Value Reference Range Interpretation Comme [facility] Globulin (test code = 93936-6) 3.3 g/dL 2.4-3.5 [facility])Albumin/Globulin [Mass Ratio] in Serum or Uycjkq1270-40-93 16:26:00* Test Item Value Reference Range Interpretation Comme [facility] Albumin/Globulin Ratio (test code = 1759-0) 1.3 g/dL 1.2-2.2 [facility])Alkaline phosphatase [Enzymatic activity/volume] in Serum or Dfldzq9689-26-05 16:26:00* Test Item Value Reference Range Interpretation Comme [facility] Alkaline Phosphatase (test c ode = 6768-6) 50 U/L 40-110 [facility])Serum or plasma aspartate aminotransferase measurement (enzymatic activity/volume)2022-05-12 16:26:00* Test Item Value Reference Range Interpretation Comme [facility] Aspartate Amino Transf (AST/ SGOT) (test code = 1920-8) 17 U/L 5-34 [facility])Serum or plasma alanine aminotransferase measurement without P-5'-P (enzymatic [id number] 16:26:00* Test Item Value Reference Range Interpretation Comme [facility] Alanine Aminotransferase (AL T/SGPT) (test code = 1744-2) 19 U/L 8-55 [facility])Serum or plasma lipase measurement (enzymatic activity/volume)2022-05-12 16:26:00* Test Item Value Reference Range Interpretation Comme nts Lipase (test code = 3040-3) 9 U/L 8-78 [facility])Serum human chorionic gonadotropin detection for opkcddjee8096-91-29 16:26:00* Test Item Value Reference Range Interpretation Comme [facility] Serum Test, Qualit ative (test code = 2118-8) Negative NEGATIVE [facility])Leukocytes [#/volume] in Blood by Automated [id number] 16:26:00* Test Item Value Reference Range Interpretation Comme [facility] White Blood Count (test code = 6690-2) 6.9 thou/uL 4.8-10.8 [facility])Blood erythrocytes automated count (number/volume)2022-05-12 16:26:00* Test Item Value Reference Range Interpretation Comme [facility] Red Blood Count (test code = 789-8) 4.39 mill/uL 4.20-5.40 [facility])Blood hemoglobin measurement (mass/volume) 2022-05-12 16:26:00* Test Item Value Reference Range Interpretation Comme [facility] Hemoglobin (test code = 718-7) 13.3 g/dL 12.0-16.0 [facility])Automated erythrocyte mean corpuscular volume 2022-05-12 16:26:00* Test Item Value Reference Range Interpretation Comme [facility] Mean Corpuscular Volume (jesika t code = 787-2) 93.9 fL 78.0-98.0 [facility])Automated erythrocyte mean corpuscular hemoglobin (mass per erythrocyte)2022-05-12 16:26:00* Test Item Value Reference Range Interpretation Comme [facility] Mean Corpuscular Hemoglobin (test code = 785-6) 30.2 pg 27.0-31.0 [facility])Automated erythrocyte mean corpuscular hemoglobin concentration measurement (mass/[id number] 16:26:00* Test Item Value Reference Range Interpretation Comme [facility] Mean Corpuscular Hemoglobin Concent (test code = 786-4) 32.1 g/dL 32.0-36.0 [facility])Automated erythrocyte distribution width ratio 2022-05-12 16:26:00* Test Item Value Reference Range Interpretation Comme nts Red Cell Distribution Width (test code = 788-0) 11.6 % 11.5-14.5 [facility])Automated blood platelet count (count/volume) 2022-05-12 16:26:00* Test Item Value Reference Range Interpretation Comme nts Platelet Count (test code = 777-3) 362 thou/uL 130-400 [facility])Automated blood platelet mean [id number] 16:26:00* Test Item Value Reference Range Interpretation Comme nts Mean Platelet Volume (test c ode = 50695-3) 5.9 fL 7.4-10.4 [facility])Automated blood neutrophils/100 leukocytes 2022-05-12 16:26:00* Test Item Value Reference Range Interpretation Comme nts Neutrophils % (test code = 770-8) 52.4 % 42.0-75.0 [facility])Lymphocytes/100 leukocytes in Blood by Automated [id number] 16:26:00* Test Item Value Reference Range Interpretation Comme nts Lymphocytes % (test code = 736-9) 37.9 % 21.0-51.0 [facility])Automated blood monocytes/100 leukocytes 2022-05-12 16:26:00* Test Item Value Reference Range Interpretation Comme nts Monocytes % (test code = 5905-5) 5.8 % 0.0-10.0 [facility])Automated blood eosinophils/100 leukocytes 2022-05-12 16:26:00* Test Item Value Reference Range Interpretation Comme nts Eosinophils % (test code = 713-8) 2.8 % 0.0-10.0 [facility])Automated blood basophils/100 leukocytes 2022-05-12 16:26:00* Test Item Value Reference Range Interpretation Comme nts Basophils % (test code = 706-2) 1.0 % 0.0-1.0 [facility])Blood neutrophils automated count (number/volume)2022-05-12 16:26:00* Test Item Value Reference Range Interpretation Comme nts Neutrophils # (test code = 751-8) 3.6 thou/uL 1.40-6.50 [facility]Lymphocytes [#/volume] in Blood by Automated [id number] 16:26:00* Test Item Value Reference Range Interpretation Comme nts Lymphocytes # (test code = 731-0) 2.6 thou/uL 1.20-3.40 [facility]Blood monocytes automated count (number/volume)2022-05-12 16:26:00* Test Item Value Reference Range Interpretation Comme nts Monocytes # (test code = 742-7) 0.4 thou/uL 0.11-0.59 [facility]Blood eosinophils automated count (count/volume)2022-05-12 16:26:00* Test Item Value Reference Range Interpretation Comme nts Eosinophils # (test code = 711-2) 0.2 thou/uL 0.0-0.7 [facility]Automated blood basophil count (count/volume) 2022-05-12 16:26:00* Test Item Value Reference Range Interpretation Comme nts Basophils # (test code = 704-7) 0.1 thou/uL 0.0-0.2 [facility]Color of Urine by [id number] 16:17:00* Test Item Value Reference Range Interpretation Comme nts Urine Color (test code = 88867-8) Yellow Yellow [facility]Urine clarity by refractometry automated 2022-05-12 16:17:00* Test Item Value Reference Range Interpretation Comme nts Urine Clarity (test code = 24903-5) Clear Clear [facility]Specific gravity of Urine by Test strip 2022-05-12 16:17:00* Test Item Value Reference Range Interpretation Comme nts Urine Specific [place] (test code = 5811-5) 1.033 1.002-1.036 [facility])Urine pH measurement by automated test strip 2022-05-12 16:17:00* Test Item Value Reference Range Interpretation Comme nts Urine pH (test code = 60467-8) 6.5 5.0-9.0 [facility]Urine leukocyte esterase detection by automated test uhmdf2343-20-62 16:17:00* Test Item Value Reference Range Interpretation Comme nts Urine Leukocyte Esterase (test code = 24301-7) Negative Avani/uL Negative [facility]Nitrite [Presence] in Urine by Test strip 2022-05-12 16:17:00* Test Item Value Reference Range Interpretation Comme nts Urine Nitrite (test code = 5802-4) Negative Negative [facility]Urine protein measurement by automated test strip (mass/volume)2022-05-12 16:17:00* Test Item Value Reference Range Interpretation Comme nts Urine Protein (test code = 43125-8) 10 mg/dL Neg-Trace [facility]Glucose [Moles/volume] in Urine by Test strip 2022-05-12 16:17:00* Test Item Value Reference Range Interpretation Comme nts Urine Glucose (UA) (test cod e = 33905-2) Normal mg/dL Negative [facility]Urine ketones measurement by automated test strip (mass/volume)2022-05-12 16:17:00* Test Item Value Reference Range Interpretation Comme nts Urine Ketones (test code = 86593-1) Negative mg/dL Negative [facility]Urine urobilinogen measurement (units/volume) by test [id number] 16:17:00* Test Item Value Reference Range Interpretation Comme nts Urine Urobilinogen (test cod e = 94251-7) 2.0 mg/dL Less than 2 [facility]Urine total bilirubin detection by automated test mjwxx3414-03-34 16:17:00* Test Item Value Reference Range Interpretation Comme nts Urine Bilirubin (test code = 38427-2) Negative Negative [facility])Urine hemoglobin detection by automated test ytdfn5144-16-41 16:17:00* Test Item Value Reference Range Interpretation Comme nts Urine Blood (test code = 14514-5) Trace Negative [facility])Urine erythrocytes detection by automated olqzvr7918-50-48 16:17:00* Test Item Value Reference Range Interpretation Comme nts Urine RBC (test code = 41883-4) 4-6 HPF [facility])Urine leukocytes detection by automated method 2022-05-12 16:17:00* Test Item Value Reference Range Interpretation Comme nts Urine WBC (test code = 24496-2) 0-3 HPF [facility])Epithelial cells.squamous [#/area] in Urine sediment by Automated gpkcu2995-57-55 16:17:00* Test Item Value Reference Range Interpretation Comme nts Urine Squamous Epithelial Ce lls (test code = 90540-4) 0-3 HPF [facility])Urine bacteria detection by automated method 2022-05-12 16:17:00* Test Item Value Reference Range Interpretation Comme nts Urine Bacteria (test code = 89860-4) 1+ HPF None Seen [facility])COMP. METABOLIC PANEL (29572)2022-03-22 21:38:46* Test Item Value Reference Range Interpretation Comme nts NA (test code = 5713088817) 138 mmol/L 135-145 K (test code = 6425010714) 4.2 mmol/L 3.5-5.0 CL (test code = 4071921595) 104 mmol/L 98-108 CO2 TOTAL (test code = 0967120189) 22 mmol/L 23-31 L AGAP (test code = 1302847755) 2-16 BUN (test code = 6908158600) 9 mg/dL 7-23 GLUCOSE (test code = 7924434741) 104 mg/dL 70-110 CREATININE (test code = 3455802143) 0.68 mg/dL 0.50-1.04 TOTAL BILI (test code = 2025494521) 0.7 mg/dL 0.1-1.1 CALCIUM (test code = 0959031665) 9.7 mg/dL 8.6-10.6 T PROTEIN (test code = 2047901175) 7.8 g/dL 6.3-8.2 ALBUMIN (test code = 7394797005) 4.7 g/dL 3.5-5.0 ALK PHOS (test code = 3459769937) 54 U/L 34-122 ALTv (test code = 1742-6) 16 U/L 5-35 AST(SGOT) (test code = 3951897443) 23 U/L 13-40 eGFR (test code = 1649391165) mL/min/1.73m2 NOLAN (test code = NOLAN) Association of Glomerular Filtration Rate (GFR) and Staging of Kidney Disease* + --+ --+ ------+| GFR (mL/min/1.73 m2) ?| With Kidney Damage ?| ?Without Kidney Damage+ --------+ --------+ +| ?>90 ?| ?Stage one ?| ? Normal ?+ ---+ ---+ -------+| ?60-89 ?| ?Stage two ?| ? Decreased GFR ? + --+ --+ ------+| ?30-59 ?| ?Stage three ?| ? Stage three ? + --+ --+ ------+| ?15-29 ?| ?Stage four ? | ? Stage four ?+ ---+ ---+ -------+| ?<15 (or dialysis) ? ?| ?Stage five ? | ? Stage five ?+ ---+ ---+ -------+ *Each stage assumes the associated GFR level has been in effect for at least three months. ?Stages 1 to 5, with or without kidney disease, indicate chronic kidney disease. Notes: Determination of stages one and two (with eGFR >59mL/min/1.73 m2) requires estimation of kidney damage for at least three months as defined by structural or functional abnormalities of the kidney, manifested by either:Pathological abnormalities or Markers of kidney damage (including abnormalities in the composition of the blood or urine or abnormalities in imaging tests). Lab Interpretation (test code = 81311-6) Abnormal [facility] WITH [id number] 21:27:09* Test Item Value Reference Range Interpretation Comme nts WBC (test code = 6690-2) See_Comment [Automated messa ge] The system which generated this result transmitted reference range: 4.30 - 11.10 10*3/?L. The reference range was not used to interpret this result as normal/abnormal. RBC (test code = 789-8) See_Comment [Automated messa ge] The system which generated this result transmitted reference range: 3.93 - 5.25 10*6/?L. The reference range was not used to interpret this result as normal/abnormal. HGB (test code = 718-7) 13.9 g/dL 11.6-15.0 HCT (test code = 4544-3) 41.9 % 35.7-45.2 MCV (test code = 787-2) 87.8 fL 80.6-95.5 MCH (test code = 785-6) 29.1 pg 25.9-32.8 MCHC (test code = 786-4) 33.2 g/dL 31.6-35.1 RDW-SD (test code = 57391-9) 43.1 fL 39.0-49.9 RDW-CV (test code = 788-0) 13.2 % 12.0-15.5 PLT (test code = 777-3) See_Comment [Automated messa ge] The system which generated this result transmitted reference range: 166 - 358 10*3/?L. The reference range was not used to interpret this result as normal/abnormal. MPV (test code = 21937-4) 8.2 fL 9.5-12.9 L NRBC/100 WBC (test code = 8103570718) See_Comment [Automated [employer]] The system which generated this result transmitted reference range: 0.0 - 10.0 /100 WBCs. The reference range was not used to interpret this result as normal/abnormal. NRBC x10^3 (test code = 0328819942) <0.01 See_Comment [Automated messa ge] The system which generated this result transmitted reference range: 10*3/?L. The reference range was not used to interpret this result as normal/abnormal. GRAN MAT (NEUT) % (test code = 770-8) 62.1 % IMM GRAN % (test code = 7983576159) 0.30 % LYMPH % (test code = 736-9) 31.3 % MONO % (test code = 5905-5) 5.4 % EOS % (test code = 713-8) 0.6 % BASO % (test code = 706-2) 0.3 % GRAN MAT x10^3(ANC) (test code = 2285309051) 4.42 10*3/uL 1.88-7.09 IMM GRAN x10^3 (test code = 8934801766) <0.03 0.00-0.06 LYMPH x10^3 (test code = 731-0) 2.22 10*3/uL 1.32-3.29 MONO x10^3 (test code = 742-7) 0.38 10*3/uL 0.33-0.92 EOS x10^3 (test code = 711-2) 0.04 10*3/uL 0.03-0.39 BASO x10^3 (test code = 704-7) <0.03 0.01-0.07 Lab Interpretation (test code = 62475-4) [id number] 21:25:00* Test Item Value Reference Range Interpretation Comme nts POCT PREG (test code = 1605) negative On board controls acceptable with C Line (test code = 3574) present POCT PREG LOT # (test code = 3575) [id number] POCT PREG TEST DATE ( test code = 3576) Lab Interpretation (test cod e = 92659-8) [facility] 12:18:00* Test Item Value Reference Range Interpretation Comme nts Hematology (test code = WBCT) 5.4 thou/uL 4.8-10.8 N Hematology (test code = RBCT) 4.38 mill/uL 4.20-5.40 N Hematology (test code = HGBT) 13.8 g/dL 12.0-16.0 N Hematology (test code = HCTT) 41.1 % 36.0-47.0 N Hematology (test code = MCV) 93.8 fL 78.0-98.0 N Hematology (test code = MCH) 31.4 pg 27.0-31.0 H Hematology (test code = MCHC) 33.5 g/dL 32.0-36.0 N Hematology (test code = RDW) 12.2 % 11.5-14.5 N Hematology (test code = PLTT) 314 thou/uL 130-400 N Hematology (test code = MPV) 5.8 fL 7.4-10.4 L Hematology (test code = NE) 45 % 42-75 N Hematology (test code = LY) 49 % 21-51 N Hematology (test code = MO) 6 % 0-10 N Hematology (test code = MC) Normal Lkeieodly0039-02-58 11:55:00* Test Item Value Reference Range Interpretation Comme nts Chemistry (test code = NA-T) 138 mmol/L 136-145 N Chemistry (test code = K-T) 4.5 mmol/L 3.5-5.1 N Chemistry (test code = CL) 105 mmol/L 98-107 N Chemistry (test code = CO2) 26 mmol/L 22-29 N Chemistry (test code = ANGP) 12 mmol/L 10-20 N Chemistry (test code = BUN) 8 mg/dL 7.0-18.7 N Chemistry (test code = CREATT) 0.77 mg/dL 0.6-1.1 N Chemistry (test code = EGFRMDRD) Greater than 90 Reference Range for Estimated GFR: Greater than 90 mL/min/1.73 m2NOTE:The MDRD equation has not been validated for use with theelderly (over 70 years of age), women, patientswith serious comorbid condition or persons with extremes ofbody size, muscle mass, or nutritional status. Chemistry (test code = GLU-T) 79 mg/dL 70-105 N Chemistry (test code = CA) 9.3 mg/dL 7.8-10.44 N Chemistry (test code = TBILI-T) 0.5 mg/dL 0.2-1.2 N Chemistry (test code = TP) 7.4 g/dL 6.0-8.3 N Chemistry (test code = ALB) 4.3 g/dL 3.5-5.0 N Chemistry (test code = GLOB) 3.1 g/dL 2.4-3.5 N Chemistry (test code = AG) 1.4 g/dL 1.2-2.2 N Chemistry (test code = ALP) 51 U/L 40-110 N Chemistry (test code = AST) 15 U/L 5-34 N Chemistry (test code = ALT) 13 U/L 8-55 N Dikclzfbg7613-97-93 11:55:00* Test Item Value Reference Range Interpretation Comme [facility] Chemistry (test code = LIP) 7 U/L 8-78 L Serum or plasma sodium measurement (moles/volume)2022-01-20 11:25:00* Test Item Value Reference Range Interpretation Comme [facility] Sodium Level (test code = 2951-2) 138 mmol/L 136-145 [facility]Serum or plasma potassium measurement (moles/volume)2022-01-20 11:25:00* Test Item Value Reference Range Interpretation Comme [facility] Potassium Level (test code = 2823-3) 4.5 mmol/L 3.5-5.1 [facility]Serum or plasma chloride measurement (moles/volume)2022-01-20 11:25:00* Test Item Value Reference Range Interpretation Comme [facility] Chloride Level (test code = 2075-0) 105 mmol/L 98-107 [facility]Serum or plasma carbon dioxide, total measurement (moles/volume)2022-01-20 11:25:00* Test Item Value Reference Range Interpretation Comme [facility] Carbon Dioxide Level (test c ode = 8-9) 26 mmol/L 22-29 [facility]Serum or plasma anion [id number] 11:25:00* Test Item Value Reference Range Interpretation Comme [facility] Anion Gap (test code = 51294-9) 12 mmol/L 10-20 [facility]Serum or plasma urea nitrogen measurement (mass/volume)2022-01-20 11:25:00* Test Item Value Reference Range Interpretation Comme [facility] Blood Urea Nitrogen (test co de = 3094-0) 8 mg/dL 7.0-18.7 [facility]Serum or plasma creatinine measurement (mass/volume)2022-01-20 11:25:00* Test Item Value Reference Range Interpretation Comme [facility] Creatinine (test code = 2160-0) 0.77 mg/dL 0.6-1.1 [facility])Glucose [Mass/volume] in Serum or Plasma 2022-01-20 11:25:00* Test Item Value Reference Range Interpretation Comme [facility] Glucose Level (test code = 2345-7) 79 mg/dL 70-105 [facility])Serum or plasma calcium measurement (mass/volume)2022-01-20 11:25:00* Test Item Value Reference Range Interpretation Comme [facility] Calcium Level (test code = 55656-1) 9.3 mg/dL 7.8-10.44 [facility])Serum or plasma total bilirubin measurement (mass/volume)2022-01-20 11:25:00* Test Item Value Reference Range Interpretation Comme [facility] Total Bilirubin (test code = 1975-2) 0.5 mg/dL 0.2-1.2 [facility])Serum or plasma protein measurement (mass/volume)2022-01-20 11:25:00* Test Item Value Reference Range Interpretation Comme [facility] Serum Total Protein (test co de = 2885-2) 7.4 g/dL 6.0-8.3 [facility])Serum or plasma albumin measurement by bromocresol green (BCG) dye binding method ([id number] 11:25:00* Test Item Value Reference Range Interpretation Comme [facility] Albumin (test code = 77735-0) 4.3 g/dL 3.5-5.0 [facility])Globulin [Mass/volume] in Serum by calculation 2022-01-20 11:25:00* Test Item Value Reference Range Interpretation Comme [facility] Globulin (test code = 16436-5) 3.1 g/dL 2.4-3.5 [facility])Albumin/Globulin [Mass Ratio] in Serum or Hroahm0895-97-51 11:25:00* Test Item Value Reference Range Interpretation Comme [facility] Albumin/Globulin Ratio (test code = 1759-0) 1.4 g/dL 1.2-2.2 [facility])Alkaline phosphatase [Enzymatic activity/volume] in Serum or Oajwhh9450-13-01 11:25:00* Test Item Value Reference Range Interpretation Comme nts Alkaline Phosphatase (test c ode = 6768-6) 51 U/L 40-110 [facility])Serum or plasma aspartate aminotransferase measurement (enzymatic activity/volume)2022-01-20 11:25:00* Test Item Value Reference Range Interpretation Comme nts Aspartate Amino Transf (AST/ SGOT) (test code = 1920-8) 15 U/L 5-34 [facility])Serum or plasma alanine aminotransferase measurement without P-5'-P (enzymatic vsjrle0140-44-25 11:25:00* Test Item Value Reference Range Interpretation Comme nts Alanine Aminotransferase (AL T/SGPT) (test code = 1744-2) 13 U/L 8-55 [facility])Serum or plasma lipase measurement (enzymatic activity/volume)2022-01-20 11:25:00* Test Item Value Reference Range Interpretation Comme nts Lipase (test code = 3040-3) 7 U/L 8-78 [facility])Leukocytes [#/volume] in Blood by Automated [id number] 11:25:00* Test Item Value Reference Range Interpretation Comme nts White Blood Count (test code = 6690-2) 5.4 thou/uL 4.8-10.8 [facility])Blood erythrocytes automated count (number/volume)2022-01-20 11:25:00* Test Item Value Reference Range Interpretation Comme [facility] Red Blood Count (test code = 789-8) 4.38 mill/uL 4.20-5.40 [facility])Blood hemoglobin measurement (mass/volume) 2022-01-20 11:25:00* Test Item Value Reference Range Interpretation Comme [facility] Hemoglobin (test code = 718-7) 13.8 g/dL 12.0-16.0 [facility])Automated erythrocyte mean corpuscular volume 2022-01-20 11:25:00* Test Item Value Reference Range Interpretation Comme nts Mean Corpuscular Volume (jesika t code = 787-2) 93.8 fL 78.0-98.0 [facility])Automated erythrocyte mean corpuscular hemoglobin (mass per erythrocyte)2022-01-20 11:25:00* Test Item Value Reference Range Interpretation Comme nts Mean Corpuscular Hemoglobin (test code = 785-6) 31.4 pg 27.0-31.0 [facility])Automated erythrocyte mean corpuscular hemoglobin concentration measurement (mass/[id number] 11:25:00* Test Item Value Reference Range Interpretation Comme [facility] Mean Corpuscular Hemoglobin Concent (test code = 786-4) 33.5 g/dL 32.0-36.0 [facility])Automated erythrocyte distribution width ratio 2022-01-20 11:25:00* Test Item Value Reference Range Interpretation Comme [facility] Red Cell Distribution Width (test code = 788-0) 12.2 % 11.5-14.5 [facility])Automated blood platelet count (count/volume) 2022-01-20 11:25:00* Test Item Value Reference Range Interpretation Comme [facility] Platelet Count (test code = 777-3) 314 thou/uL 130-400 [facility])Automated blood platelet mean [id number] 11:25:00* Test Item Value Reference Range Interpretation Comme nts Mean Platelet Volume (test c ode = 67740-9) 5.8 fL 7.4-10.4 [facility])Lymphocytes [#/volume] in Blood by Automated [id number] 11:25:00* Test Item Value Reference Range Interpretation Comme nts Lymphocytes # (test code = 731-0) Not Performed [facility])Manual blood segmented neutrophils/100 didnpzduft7143-93-94 11:25:00* Test Item Value Reference Range Interpretation Comme nts Neutrophils % (Manual) (test code = 769-0) 45 % 42-75 [facility]Manual blood lymphocytes/100 leukocytes 2022-01-20 11:25:00* Test Item Value Reference Range Interpretation Comme nts Lymphocytes % (Manual) (test code = 737-7) 49 % 21-51 [facility]Manual blood monocytes/100 leukocytes 2022-01-20 11:25:00* Test Item Value Reference Range Interpretation Comme nts Monocytes % (Manual) (test c ode = 744-3) 6 % 0-10 [facility]RBC [id number] 11:25:00* Test Item Value Reference Range Interpretation Comme nts Red Cell Morphology Comment (test code = 6742-1) Normal [facility])[id number] 10:54:00* Test Item Value Reference Range Interpretation Comme nts Urinalysis (test code = UACLR) Light-Yellow Yellow Urinalysis (test code = UACLY) Clear Clear Urinalysis (test code = SPGR) 1.023 1.002-1.036 N Urinalysis (test code = SHASHANK) 7.0 5.0-9.0 N Urinalysis (test code = UALEU) Negative Avani/uL Negative Urinalysis (test code = UANIT) Negative Negative Urinalysis (test code = PROUADIP) Negative mg/dL Neg-Trace Urinalysis (test code = GLUCU) Normal mg/dL Negative Urinalysis (test code = KETU) Negative mg/dL Negative Urinalysis (test code = UAUROB) Normal mg/dL Less than 2 Urinalysis (test code = UABIL) Negative Negative Urinalysis (test code = UABLD) Negative Negative Urine Source: Urine Clean BfeufAcdxrngmdv7605-04-84 10:54:00* Test Item Value Reference Range Interpretation Comme nts Urinalysis (test code = BHCGUT) Negative Negative Method of sensit ivity- INDETERMINANT: results should be repeated after 48-72 hrs POSITIVE: results may be detected as early as 1 day after the first missed period A dilute urine specimen may not contain representativelevels of hCG.If is still suspected, a first morning urinespecimen OR a random blood specimen should be obtainedfrom the patient 48-72 hours later and re-tested. Urinalysis (test code = PREGUSG) 1.023 1.002-1.036 N HCG ur [id number] 10:30:00* Test Item Value Reference Range Interpretation Comme [facility] Urine Test (test c ode = 2106-3) Negative Negative [facility] [facility] [place])Specific gravity of Urine by Refractometry [id number] 10:30:00* Test Item Value Reference Range Interpretation Comme [facility] Urine Specific [place] (test code = 00704-0) 1.023 1.002-1.036 [facility] [place])Color of Urine by [id number] 10:30:00* Test Item Value Reference Range Interpretation Comme [facility] Urine Color (test code = 36845-6) Light-Yellow Yellow [facility] [place])Urine clarity by refractometry automated 2022-01-20 10:30:00* Test Item Value Reference Range Interpretation Comme [facility] Urine Clarity (test code = 08996-6) Clear Clear [facility] [place])Urine pH measurement by automated test strip 2022-01-20 10:30:00* Test Item Value Reference Range Interpretation Comme [facility] Urine pH (test code = 12640-2) 7.0 5.0-9.0 [facility] [place] ([place])Urine leukocyte esterase detection by automated test [id number] 10:30:00* Test Item Value Reference Range Interpretation Comme [facility] Urine Leukocyte Esterase (test code = 32075-2) Negative Avani/uL Negative [facility] [place] ([place])Nitrite [Presence] in Urine by Test strip 2022-01-20 10:30:00* Test Item Value Reference Range Interpretation Comme nts Urine Nitrite (test code = 5802-4) Negative Negative [facility]Urine protein measurement by automated test strip (mass/volume)2022-01-20 10:30:00* Test Item Value Reference Range Interpretation Comme nts Urine Protein (test code = 24683-1) Negative mg/dL Neg-Trace [facility])Glucose [Moles/volume] in Urine by Test strip 2022-01-20 10:30:00* Test Item Value Reference Range Interpretation Comme nts Urine Glucose (UA) (test cod e = 74610-6) Normal mg/dL Negative [facility]Urine ketones measurement by automated test strip (mass/volume)2022-01-20 10:30:00* Test Item Value Reference Range Interpretation Comme [facility] Urine Ketones (test code = 74357-0) Negative mg/dL Negative [facility]Urine urobilinogen measurement (units/volume) by test [id number] 10:30:00* Test Item Value Reference Range Interpretation Comme [facility] Urine Urobilinogen (test cod e = 88751-3) Normal mg/dL Less than [address] [facility]Urine total bilirubin detection by automated test [id number] 10:30:00* Test Item Value Reference Range Interpretation Comme [facility] Urine Bilirubin (test code = 89382-1) Negative Negative [facility])Urine hemoglobin detection by automated test [id number] 10:30:00* Test Item Value Reference Range Interpretation Comme nts Urine Blood (test code = 28353-9) Negative Negative [facility])Molecular Testing [id number] 12:21:00* Test Item Value Reference Range Interpretation Comme nts Molecular Testing MM (test code = [id number]) Not Detected NotDetected Performance of t polo Cepheid SARS-CoV-2 has only beenestablished in nasopharyngeal swab specimens. This testcannot rule out diseases caused by other bacterial or viralpathogens.Cepheid has been provided an FDA EUA that will be effectiveuntil the declaration that circumstances exist justifyingthe authorization of the emergency use of in vitrodiagnostic tests for detection and/or diagnosis ofCOVID-19 is terminated under Section 564(b)(2) of the Act orthe EUA is revoked under Section 564(g) of the Act. Molecular Testing MM (test code = CEPHFLUA) Not Detected NotDetected Molecular Testing MM (test code = CEPHFLUB) Not Detected NotDetected CANCELLED MM40 AND REFER MM83 BURAK WHITE FORCOVID AND FLU RESULT. PER [facility] Setting: NoEmployed in Healthcare: UnknownFirst Test: NoHospitalized: NoICU: No: UnknownReason for Testing: Discharge DispositionSource: Nasopharyngeal SwabSymptomatic as defined by CDC: UnknownFALLOPIAN TUBE,[id number] 18:40:00* Test Item Value Reference Range Interpretation Comme nts FALLOPIAN TUBE,STERILIZATION (test code = FALLST) RUN DATE: 01/29/21 [facility] PAGE [facility] RUN TIME: 1912 Specimen Inquiry RUN USER: INTERFACE PATIENT: BURAK WHITE LOC: [facility] U #: [id number] AGE/SX: 30/F ROOM: RE01/22/21REG DR: Isabela Li MD : 89 BED: DIS: STATUS: [facility] TLOC: SPEC #: [id number] RECD: 01/22/21 STATUS: KRUNAL BAILON #: [id number] ALBINA: 01/22/21- SUBM DR: Isabela Li MD ENTERED: 01/22/21 SP TYPE: [facility] JAYY DR: ORDERED: LEVEL II SURGIC CODES: [id number] - FALLOPIAN TUBE PROCEDURES: LEVEL II SURGIC (Incomplete) TISSUES: FALLOPIAN TUBE, NOS - BILATERAL FALLOPIAN TUBES CLINICAL HISTORY 30 year old, desires sterilization (wpd) FINAL DIAGNOSIS Designated "bilateral fallopian tubes", bilateral salpingectomy: - fallopian tubes (2) with complete surgical transection, no pathologic alterations CPT: 48139 pkg/wpd GROSS DESCRIPTION ANATOMIC SOURCE OF TISSUE (per Requisition): Bilateral fallopian tubes The specimen is received in a formalin-filled container, labeled with the patient's name and designated "bilateral fallopian tubes". The specimen consists of two mccarthy-pink fallopian tube segments with fimbriae measuring 6.0 x 0.7 cm and 7.0 x 0.6 cm. Sectioning reveals pinpoint lumens. Truck Dock Material Mover sections are submitted in A1 and A2. ella/brook 01/22/21 MICROSCOPIC DESCRIPTION The specimen consists of two fallopian tubes. Each has a completely transected lumen with no pathologic alterations. pkg/wpd Signed Naya Bhatia 01/28/21 1840 END OF REPORT COVID 19 Asymptomatic IH [id number] 20:15:00* Test Item Value Reference Range Interpretation Comme nts COVID 19 Asymptomatic IH AG (test code = COVNONPUIAG) NEGATIVE NEGATIVE This test has be en authorized only for the detection ofproteins from SARS-CoV-2, not for any other viruses orpathogens. Negative results should be treated as presumptive andconfirmed with a molecular assay, if necessary for patientmanagement. Negative results do not rule out COVID-19 andshould not be used as the sole basis for treatment orpatient management decisions, including infection controldecisions. Negative results should be considered in thecontext of a patient's recent exposures, history and thepresence of clinical signs and symptoms consistent withCOVID-19. This test has not been FDA cleared or approved; the test hasbeen authorized by FDA under an Emergency Use Authorization(EUA) for use by laboratories certified under the CLIA thatmeet the requirements to perform moderate, high or waivedcomplexity tests. This test is authorized for use at thePoint of Care (POC), i.e., in patient care settingsoperating under a CLIA Certificate of Waiver, Certificate ofCompliance, or Certificate of Accreditation. This test is only authorized for the duration of thedeclaration that circumstances exist justifying theauthorization of emergency use of in vitro diagnostic testsfor detection and/or diagnosis of COVID-19 under Jvghdrl475(b)(1) of the Act, 21 U.S.C. 360bbb-3(b)(1), unless theauthorization is terminated or revoked sooner. CHEMISTRY 7 [id number] 16:31:00* Test Item Value Reference Range Interpretation Comme nts SODIUM (test code = NA) 138 mEq/L 135-145 N POTASSIUM (test code = K) 4.2 mEq/L 3.5-5.0 N CHLORIDE (test code = CL) 102 mEq/L 100-115 N CARBON DIOXIDE (test code = CO2) 26 mEq/L 22-31 N ANION GAP (test code = GAP) 13.90 10-20 N GLUCOSE (test code = GLU) 80 mg/dL 65-110 N BLOOD UREA NITROGEN (test co de = BUN) 9 mg/dL 7-18 N GLOMERULAR FILTRATION RATE ( test code = GFR) 94 ml/min >60 N CREATININE (test code = CREAT) 0.8 mg/dL 0.5-1.0 N CALCIUM (test code = CA) 9.3 mg/dL 8.4-10.2 N CBC W/AUTO [id number] 16:17:00* Test Item Value Reference Range Interpretation Comme nts WHITE BLOOD CELL (test code = WBC) 6.8 K/mm3 6.5-12.3 N RED BLOOD CELL (test code = RBC) 4.95 M/mm3 3.51-4.69 H HEMOGLOBIN (test code = HGB) 12.6 g/dL 10.1-13.8 N HEMATOCRIT (test code = HCT) 41.4 % 32.5-41.8 N MEAN CELL VOLUME (test code = MCV) 83.6 fL 84.6-96.6 L MEAN CELL HGB (test code = MCH) 25.5 pg 27.3-33.9 L MEAN CELL HGB CONCETRATION ( test code = MCHC) 30.4 gm/dL 32.0-34.2 L RED CELL DISTRIBUTION WIDTH (test code = RDW) 18.6 % 12.2-16.3 H PLATELET COUNT (test code = PLT) 393 K/mm3 134-363 H MEAN PLATELET VOLUME (test c ode = MPV) 8.7 fL 9.2-12.7 L NEUTROPHIL % (test code = NT%) 49.4 % 57.9-77.3 L LYMPHOCYTE % (test code = LY%) 44.4 % 14.5-29.7 H MONOCYTE % (test code = MO%) 4.9 % 3.6-10.2 N EOSINOPHIL % (test code = EO%) 0.9 % 0.0-3.0 N BASOPHIL % (test code = BA%) 0.3 % 0.1-0.9 N NEUTROPHIL # (test code = NT#) 3.4 K/mm3 LYMPHOCYTE # (test code = LY#) 3.0 K/mm3 MONOCYTE # (test code = MO#) 0.3 K/mm3 EOSINOPHIL # (test code = EO#) 0.06 K/mm3 BASOPHIL # (test code = BA#) 0.0 K/mm3 RBC MORPHOLOGY REQUIRED (jesika t code = RBCM) NORMAL NORMAL PLATELET MORPHOLOGY REQUIRED (test code = PLTMR) NORMAL NORMAL UR HCG [id number] 13:51:00* Test Item Value Reference Range Interpretation Comme nts UR HCG QUAL (test code = HCGQLU) NEGATIVE 1. Very dilute u rine specimens, as indicated by a lowspecific gravity, may not contain client relations representative levels ofhCG. 2. False negative results may occur when the levels of hCGare below the sensitivity level of the test. If is still suspected, a first morningurine specimen should be collected 48 hours later andtested. [id number] 19:13:00* Test Item Value Reference Range Interpretation Comme nts TROPONIN-I (test code = TROPI) <0.017 ng/mL <0.056 N [id number] 13:27:00* Test Item Value Reference Range Interpretation Comme nts TROPONIN-I (test code = TROPI) <0.017 ng/mL <0.056 N CBC W/AUTO [id number] 09:16:00* Test Item Value Reference Range Interpretation Comme nts WHITE BLOOD CELL (test code = WBC) 10.0 K/mm3 6.6-12.1 N RED BLOOD CELL (test code = RBC) 3.61 M/mm3 3.45-5.01 N HEMOGLOBIN (test code = HGB) 9.1 g/dL 10.7-13.9 L HEMATOCRIT (test code = HCT) 30.0 % 32.1-42.1 L MEAN CELL VOLUME (test code = MCV) 83 fL 84.1-94.8 L MEAN CELL HGB (test code = MCH) 25.2 pg 27-35 L MEAN CELL HGB CONCETRATION ( test code = MCHC) 30.3 gm/dL 32.2-34.1 L RED CELL DISTRIBUTION WIDTH (test code = RDW) 16.8 % 12.4-16.5 H PLATELET COUNT (test code = PLT) 271 K/mm3 133-385 N MEAN PLATELET VOLUME (test c ode = MPV) 10.3 fl 9.1-12.7 N NEUTROPHIL % (test code = NT%) 65.0 % 56.5-79.4 N LYMPHOCYTE % (test code = LY%) 26.2 % 14.3-34.3 N MONOCYTE % (test code = MO%) 8.1 % 5.1-10.4 N EOSINOPHIL % (test code = EO%) 0.2 % 0.1-3.0 N BASOPHIL % (test code = BA%) 0.1 % 0.1-1.0 N NEUTROPHIL # (test code = NT#) 6.5 K/mm3 LYMPHOCYTE # (test code = LY#) 2.6 K/mm3 MONOCYTE # (test code = MO#) 0.8 K/mm3 EOSINOPHIL # (test code = EO#) 0.02 K/mm3 BASOPHIL # (test code = BA#) 0.0 K/mm3 RBC MORPHOLOGY REQUIRED (jesika t code = RBCM) NORMAL NORMAL PLATELET MORPHOLOGY REQUIRED (test code = PLTMR) NORMAL NORMAL COMPREHENSIVE METABOLIC [id number] 04:59:00* Test Item Value Reference Range Interpretation Comme nts SODIUM (test code = NA) 135 mEq/L 135-145 N POTASSIUM (test code = K) 4.2 mEq/L 3.5-5.0 N CHLORIDE (test code = CL) 103 mEq/L 100-115 N CARBON DIOXIDE (test code = CO2) 23 mEq/L 22-31 N ANION GAP (test code = GAP) 13.40 10-20 N GLUCOSE (test code = GLU) 77 mg/dL 65-110 N BLOOD UREA NITROGEN (test co de = BUN) 7 mg/dL 7-18 N GLOMERULAR FILTRATION RATE ( test code = GFR) 94 ml/min >60 N CREATININE (test code = CREAT) 0.8 mg/dL 0.5-1.0 N TOTAL PROTEIN (test code = PROT) 6.1 gm/dL 6.3-8.2 L ALBUMIN (test code = ALB) 2.5 gm/dL 3.4-4.8 L CALCIUM (test code = CA) 8.6 mg/dL 8.4-10.2 N BILIRUBIN TOTAL (test code = BILT) 0.3 mg/dL 0.2-1.0 N SGOT/AST (test code = AST) 18 units/L 15-37 N SGPT/ALT (test code = ALT) 20 units/L 12-78 N ALKALINE PHOSPHATASE TOTAL ( test code = ALKP) 108 units/L 46-116 N [id number] 04:59:00* Test Item Value Reference Range Interpretation Comme nts TROPONIN-I (test code = TROPI) <0.017 ng/mL <0.056 N B-TYPE NATRIURETIC [id number] 04:54:00* Test Item Value Reference Range Interpretation Comme nts B-TYPE NATRIURETIC PEPTIDE ( test code = BNP) 44.44 pg/mL 0-100 N CBC W/AUTO [id number] 04:24:00* Test Item Value Reference Range Interpretation Comme nts WHITE BLOOD CELL (test code = WBC) 12.1 K/mm3 6.6-12.1 RED BLOOD CELL (test code = RBC) 3.85 M/mm3 3.45-5.01 N HEMOGLOBIN (test code = HGB) 9.8 g/dL 10.7-13.9 L HEMATOCRIT (test code = HCT) 31.7 % 32.1-42.1 L MEAN CELL VOLUME (test code = MCV) 82 fL 84.1-94.8 L MEAN CELL HGB (test code = MCH) 25.5 pg 27-35 L MEAN CELL HGB CONCETRATION ( test code = MCHC) 30.9 gm/dL 32.2-34.1 L RED CELL DISTRIBUTION WIDTH (test code = RDW) 16.9 % 12.4-16.5 H PLATELET COUNT (test code = PLT) 279 K/mm3 133-385 N MEAN PLATELET VOLUME (test c ode = MPV) 10.1 fl 9.1-12.7 N NEUTROPHIL % (test code = NT%) 69.1 % 56.5-79.4 N LYMPHOCYTE % (test code = LY%) 21.8 % 14.3-34.3 N MONOCYTE % (test code = MO%) 8.5 % 5.1-10.4 N EOSINOPHIL % (test code = EO%) 0.1 % 0.1-3.0 N BASOPHIL % (test code = BA%) 0.1 % 0.1-1.0 N NEUTROPHIL # (test code = NT#) 8.3 K/mm3 LYMPHOCYTE # (test code = LY#) 2.6 K/mm3 MONOCYTE # (test code = MO#) 1.0 K/mm3 EOSINOPHIL # (test code = EO#) 0.01 K/mm3 BASOPHIL # (test code = BA#) 0.0 K/mm3 RBC MORPHOLOGY REQUIRED (jesika t code = RBCM) NORMAL NORMAL PLATELET MORPHOLOGY REQUIRED (test code = PLTMR) NORMAL NORMAL AG HEPATITIS B [id number] 20:44:00* Test Item Value Reference Range Interpretation Comme nts AG HEPATITIS B SURFACE (test code = HBSAG) NONREACTIVE NONREACTIVE IS CONSENT FORM SIGNED FOR HIV TESTING? YAB HEPATITIS C [id number] 20:44:00* Test Item Value Reference Range Interpretation Comme nts AB HEPATITIS C (test code = HCVAB) NONREACTIVE NONREACTIVE SIGNAL TO CUTOFF (test code = CUTOFF) <0.02 <0.80 N IS CONSENT FORM SIGNED FOR HIV TESTING? YAB [id number] 20:44:00* Test Item Value Reference Range Interpretation Comme nts AB TREPONEMA (test code = TREPAB) NONREACTIVE NONREACTIVE IS CONSENT FORM SIGNED FOR HIV TESTING? YAB HIV 1 20:44:00* Test Item Value Reference Range Interpretation Comme nts AB HIV 1 2 (test code = [id number]) NONREACTIVE NONREACTIVE Done by [employer] HIV Ag/Ab Combo Screen IS CONSENT FORM SIGNED FOR HIV TESTING? YAG HEPATITIS B [id number] 19:59:00* Test Item Value Reference Range Interpretation Comme nts AG HEPATITIS B SURFACE (test code = HBSAG) NONREACTIVE NONREACTIVE IS CONSENT FORM SIGNED FOR HIV TESTING? YAB HEPATITIS C [id number] 19:59:00* Test Item Value Reference Range Interpretation Comme nts AB HEPATITIS C (test code = HCVAB) NONREACTIVE SIGNAL TO CUTOFF (test code = CUTOFF) <0.80 IS CONSENT FORM SIGNED FOR HIV TESTING? YAB [id number] 19:59:00* Test Item Value Reference Range Interpretation Comme nts AB TREPONEMA (test code = TREPAB) NONREACTIVE NONREACTIVE IS CONSENT FORM SIGNED FOR HIV TESTING? YAB HIV 1 19:59:00* Test Item Value Reference Range Interpretation Comme nts AB HIV 1 2 (test code = GYS62XC) NONREACTIVE IS CONSENT FORM SIGNED FOR HIV TESTING? YCOVID 19 Asymptomatic IH [id number] 16:09:00* Test Item Value Reference Range Interpretation Comme nts COVID 19 Asymptomatic IH AG (test code = COVNONPUIAG) NEGATIVE NEGATIVE This test has be en authorized only for the detection ofproteins from SARS-CoV-2, not for any other viruses orpathogens. Negative results should be treated as presumptive andconfirmed with a molecular assay, if necessary for patientmanagement. Negative results do not rule out COVID-19 andshould not be used as the sole basis for treatment orpatient management decisions, including infection controldecisions. Negative results should be considered in thecontext of a patient's recent exposures, history and thepresence of clinical signs and symptoms consistent withCOVID-19. This test has not been FDA cleared or approved; the test hasbeen authorized by FDA under an Emergency Use Authorization(EUA) for use by laboratories certified under the CLIA thatmeet the requirements to perform moderate, high or waivedcomplexity tests. This test is authorized for use at thePoint of Care (POC), i.e., in patient care settingsoperating under a CLIA Certificate of Waiver, Certificate ofCompliance, or Certificate of Accreditation. This test is only authorized for the duration of thedeclaration that circumstances exist justifying theauthorization of emergency use of in vitro diagnostic testsfor detection and/or diagnosis of COVID-19 under Fkfavcv239(b)(1) of the Act, 21 U.S.C. 360bbb-3(b)(1), unless theauthorization is terminated or revoked sooner. CBC W/AUTO [id number] 15:21:00* Test Item Value Reference Range Interpretation Comme nts WHITE BLOOD CELL (test code = WBC) 7.6 K/mm3 6.6-12.1 N RED BLOOD CELL (test code = RBC) 3.79 M/mm3 3.45-5.01 N HEMOGLOBIN (test code = HGB) 9.7 g/dL 10.7-13.9 L HEMATOCRIT (test code = HCT) 31.2 % 32.1-42.1 L MEAN CELL VOLUME (test code = MCV) 82 fL 84.1-94.8 L MEAN CELL HGB (test code = MCH) 25.6 pg 27-35 L MEAN CELL HGB CONCETRATION ( test code = MCHC) 31.1 gm/dL 32.2-34.1 L RED CELL DISTRIBUTION WIDTH (test code = RDW) 16.8 % 12.4-16.5 H PLATELET COUNT (test code = PLT) 283 K/mm3 133-385 N MEAN PLATELET VOLUME (test c ode = MPV) 10.0 fl 9.1-12.7 N NEUTROPHIL % (test code = NT%) 64.0 % 56.5-79.4 N LYMPHOCYTE % (test code = LY%) 29.2 % 14.3-34.3 N MONOCYTE % (test code = MO%) 5.7 % 5.1-10.4 N EOSINOPHIL % (test code = EO%) 0.1 % 0.1-3.0 N BASOPHIL % (test code = BA%) 0.1 % 0.1-1.0 N NEUTROPHIL # (test code = NT#) 4.8 K/mm3 LYMPHOCYTE # (test code = LY#) 2.2 K/mm3 MONOCYTE # (test code = MO#) 0.4 K/mm3 EOSINOPHIL # (test code = EO#) 0.01 K/mm3 BASOPHIL # (test code = BA#) 0.0 K/mm3 RBC MORPHOLOGY REQUIRED (jesika t code = RBCM) NORMAL NORMAL PLATELET MORPHOLOGY REQUIRED (test code = PLTMR) NORMAL NORMAL UR PROTEIN/CREATININE [id number] 15:20:00* Test Item Value Reference Range Interpretation Comme nts UR PROTEIN RANDOM (test code = PROTU) 79.6 mg/dL UR CREATININE RANDOM (test code = CREATU) 205.5 mg/dL PROTEIN/CREATININE RATIO (te st code = P/CRATIO) 380.0 mg/gcrea <200 H COMPREHENSIVE METABOLIC [id number] 15:18:00* Test Item Value Reference Range Interpretation Comme nts SODIUM (test code = NA) 134 mEq/L 135-145 L POTASSIUM (test code = K) 3.9 mEq/L 3.5-5.0 N CHLORIDE (test code = CL) 102 mEq/L 100-115 N CARBON DIOXIDE (test code = CO2) 21 mEq/L 22-31 L ANION GAP (test code = GAP) 14.70 10-20 N GLUCOSE (test code = GLU) 121 mg/dL 65-110 H BLOOD UREA NITROGEN (test co de = BUN) 6 mg/dL 7-18 L GLOMERULAR FILTRATION RATE ( test code = GFR) 110 ml/min >60 N CREATININE (test code = CREAT) 0.7 mg/dL 0.5-1.0 N TOTAL PROTEIN (test code = PROT) 6.4 gm/dL 6.3-8.2 N ALBUMIN (test code = ALB) 2.7 gm/dL 3.4-4.8 L CALCIUM (test code = CA) 8.3 mg/dL 8.4-10.2 L BILIRUBIN TOTAL (test code = BILT) 0.2 mg/dL 0.2-1.0 N SGOT/AST (test code = AST) 16 units/L 15-37 N SGPT/ALT (test code = ALT) 20 units/L 12-78 N ALKALINE PHOSPHATASE TOTAL ( test code = ALKP) 116 units/L 46-116 N COMPREHENSIVE METABOLIC [id number] 12:28:00* Test Item Value Reference Range Interpretation Comme nts SODIUM (test code = NA) 135 mEq/L 135-145 N POTASSIUM (test code = K) 4.1 mEq/L 3.5-5.0 N CHLORIDE (test code = CL) 103 mEq/L 100-115 N CARBON DIOXIDE (test code = CO2) 21 mEq/L 22-31 L ANION GAP (test code = GAP) 14.90 10-20 N GLUCOSE (test code = GLU) 105 mg/dL 65-110 N BLOOD UREA NITROGEN (test co de = BUN) 5 mg/dL 7-18 L GLOMERULAR FILTRATION RATE ( test code = GFR) 94 ml/min >60 N CREATININE (test code = CREAT) 0.8 mg/dL 0.5-1.0 N TOTAL PROTEIN (test code = PROT) 6.5 gm/dL 6.3-8.2 N ALBUMIN (test code = ALB) 2.7 gm/dL 3.4-4.8 L CALCIUM (test code = CA) 8.0 mg/dL 8.4-10.2 L BILIRUBIN TOTAL (test code = BILT) 0.2 mg/dL 0.2-1.0 N SGOT/AST (test code = AST) 17 units/L 15-37 N SGPT/ALT (test code = ALT) 19 units/L 12-78 N ALKALINE PHOSPHATASE TOTAL ( test code = ALKP) 117 units/L 46-116 H UR PROTEIN/CREATININE [id number] 12:22:00* Test Item Value Reference Range Interpretation Comme nts UR PROTEIN RANDOM (test code = PROTU) 102.4 mg/dL UR CREATININE RANDOM (test code = CREATU) 207.3 mg/dL PROTEIN/CREATININE RATIO (te st code = P/CRATIO) 490.0 mg/gcrea <200 H CBC W/AUTO [id number] 12:07:00* Test Item Value Reference Range Interpretation Comme nts WHITE BLOOD CELL (test code = WBC) 7.4 K/mm3 6.6-12.1 N RED BLOOD CELL (test code = RBC) 3.90 M/mm3 3.45-5.01 N HEMOGLOBIN (test code = HGB) 9.9 g/dL 10.7-13.9 L HEMATOCRIT (test code = HCT) 32.1 % 32.1-42.1 N MEAN CELL VOLUME (test code = MCV) 82 fL 84.1-94.8 L MEAN CELL HGB (test code = MCH) 25.4 pg 27-35 L MEAN CELL HGB CONCETRATION ( test code = MCHC) 30.8 gm/dL 32.2-34.1 L RED CELL DISTRIBUTION WIDTH (test code = RDW) 16.9 % 12.4-16.5 H PLATELET COUNT (test code = PLT) 296 K/mm3 133-385 N MEAN PLATELET VOLUME (test c ode = MPV) 10.1 fl 9.1-12.7 N NEUTROPHIL % (test code = NT%) 61.7 % 56.5-79.4 N LYMPHOCYTE % (test code = LY%) 30.6 % 14.3-34.3 N MONOCYTE % (test code = MO%) 6.8 % 5.1-10.4 N EOSINOPHIL % (test code = EO%) 0.3 % 0.1-3.0 N BASOPHIL % (test code = BA%) 0.1 % 0.1-1.0 N NEUTROPHIL # (test code = NT#) 4.5 K/mm3 LYMPHOCYTE # (test code = LY#) 2.3 K/mm3 MONOCYTE # (test code = MO#) 0.5 K/mm3 EOSINOPHIL # (test code = EO#) 0.02 K/mm3 BASOPHIL # (test code = BA#) 0.0 K/mm3 RBC MORPHOLOGY REQUIRED (jesika t code = RBCM) NORMAL NORMAL PLATELET MORPHOLOGY REQUIRED (test code = PLTMR) NORMAL NORMAL - US RETRO [id number] 17:59:00 [facility] 1990 Sex: F Patient Name: BURAK WHITE Unit No: [id number] EXAMS: CPT CODE: [id number] RETRO LTD 89754 PROCEDURE: RENAL ULTRASOUND INDICATION: Hematuria, low back pain COMPARISON: None. TECHNIQUE: Sonographic evaluation of the kidneys and urinary bladder was performed with color and spectral doppler. FINDINGS: IVC is patent. Proximal aorta is normal caliber. Aortic bifurcation is not visualized.. KIDNEYS: The right kidney measures 12.0 x 5.3 x 6.1 cm. Normal contour and parenchymal echogenicity. There is no hydronephrosis, nephrolithiasis, mass lesion or perinephric collection. The left kidney measures 11.6 x 5.9 x 4.9 cm. Normal contour and parenchymal echogenicity. There is no hydronephrosis, mass lesion or perinephric collection. Possible 9 mm stone. BLADDER: Both ureteral jets are visualized. Volume measures 55.8 mL. IMPRESSION: 1. Nonobstructing left nephrolithiasis. 2. No hydronephrosis bilaterally. No right nephrolithiasis. SL: BM-H at 1759 Reported and signed by: Sampson Canas MD CC: Isabela Li MD; Ron Newell III, MD Technologist: Trice Haddad RDMS Probe: Trnscrbd D/ (1759) [email or web address] Orig Print D/T: S: 10/19/2020 (180) [facility] NAME: MAGALI WHITEEVANGELIST Polo Radiology Department PHYS: Ron De Anda III, MD [address] : 1990 AGE: 29 SEX: F [place] [address] LOC: TrinidadRANJIT PHONE #: [phone] EXAM DATE: 10/19/2020 STATUS: REG ER FAX #: [phone] RAD NO: Page 1 Signed Report Patient Name: BURAK WHITE Unit No: [id number] EXAMS: CPT CODE: [id number] RETRO LTD 17829 (Continued) [facility] NAME: BURAK WHITE [facility] Radiology Department PHYS: Ron De Anda III, MD [address] : 1990 AGE: 29 SEX: F [place] [address] LOC: Kika.RANJIT PHONE #: [phone] EXAM DATE: 10/19/2020 STATUS: REG ER FAX #: [phone] RAD NO: Page 2 Signed ReportURINALYSIS [id number] 16:16:00* Test Item Value Reference Range Interpretation Comme nts UA COLOR (test code = COLU) YELLOW YELLOW UA APPEARANCE (test code = APPU) CLEAR CLEAR UA GLUCOSE DIPSTICK (test co de = DGLUU) NEGATIVE NEGATIVE UA BILIRUBIN DIPSTICK (test code = BILU) NEGATIVE NEGATIVE UA KETONE DIPSTICK (test cod e = KETU) 2+ NEGATIVE UA SPECIFIC GRAVITY (test co de = SGU) 1.025 1.001-1.035 N UA BLOOD DIPSTICK (test code = CLARISSA) 2+ NEGATIVE A UA PH DIPSTICK (test code = SHASHANK) 6.5 5-9 UA PROTEIN DIPSTICK (test co de = PROU) 1+ NEGATIVE UA UROBILINIOGEN DIPSTICK (t est code = URO) 0.2 EU/dL <=1.0 UA NITRITE DIPSTICK (test co de = ANT) NEGATIVE NEGATIVE UA LEUKOCYTE ESTERASE DIPSTI CK (test code = LEUU) NEG NEGATIVE UA WBC (test code = WBCU) 0-2 #/hpf NONE SEEN UA RBC (test code = RBCU) 20-30 #/hpf NONE SEEN A UA EPITHELIAL CELLS (test co de = EPIU) FEW #/hpf NONE SEEN UA BACTERIA (test code = BACU) FEW #/hpf NONE SEEN A URINE SAMPLE: CLEAN CATCHUR PROTEIN/CREATININE [id number] 16:16:00* Test Item Value Reference Range Interpretation Comme nts UR PROTEIN RANDOM (test code = PROTU) 67.0 mg/dL UR CREATININE RANDOM (test code = CREATU) 223.0 mg/dL PROTEIN/CREATININE RATIO (te st code = P/CRATIO) 300.0 mg/gcrea <200 H URINE SAMPLE: CLEAN CATCHURIC [id number] 16:09:00* Test Item Value Reference Range Interpretation Comme nts URIC ACID (test code = URIC) 5.3 mg/dL 2.6-6.0 N URINALYSIS [id number] 16:08:00* Test Item Value Reference Range Interpretation Comme nts UA COLOR (test code = COLU) YELLOW UA APPEARANCE (test code = APPU) CLEAR UA GLUCOSE DIPSTICK (test code = DGLUU) NEGATIV E UA BILIRUBIN DIPSTICK (test code = BILU) NEGATIVE UA KETONE DIPSTICK (test code = KETU) NEGATIVE UA SPECIFIC GRAVITY (test code = SGU) 1.001-1.0 35 UA BLOOD DIPSTICK (test code = CLARISSA) NEGATIVE UA PH DIPSTICK (test code = SHASHANK) 5-9 UA PROTEIN DIPSTICK (test code = PROU) NEGATIVE UA UROBILINIOGEN DIPSTICK (t est code = URO) mg/dL NEG UA NITRITE DIPSTICK (test code = ANT) NEGATIVE UA LEUKOCYTE ESTERASE DIPSTI CK (test code = LEUU) NEG UA WBC (test code = WBCU) #/hpf NONE SEEN UA EPITHELIAL CELLS (test code = EPIU) #/HPF RARE-FEW URINE SAMPLE: CLEAN CATCHUR PROTEIN/CREATININE [id number] 16:08:00* Test Item Value Reference Range Interpretation Comme nts UR PROTEIN RANDOM (test code = PROTU) 67.0 mg/dL UR CREATININE RANDOM (test code = CREATU) 223.0 mg/dL PROTEIN/CREATININE RATIO (te st code = P/CRATIO) 300.0 mg/gcrea <200 H URINE SAMPLE: CLEAN CATCHCOMPREHENSIVE METABOLIC [id number] 15:14:00* Test Item Value Reference Range Interpretation Comme nts SODIUM (test code = NA) 138 mEq/L 135-145 N POTASSIUM (test code = K) 4.4 mEq/L 3.5-5.0 N CHLORIDE (test code = CL) 104 mEq/L 100-115 N CARBON DIOXIDE (test code = CO2) 23 mEq/L 22-31 N ANION GAP (test code = GAP) 15.70 10-20 N GLUCOSE (test code = GLU) 69 mg/dL 65-110 N BLOOD UREA NITROGEN (test co de = BUN) 6 mg/dL 7-18 L GLOMERULAR FILTRATION RATE ( test code = GFR) 131 ml/min >60 N CREATININE (test code = CREAT) 0.6 mg/dL 0.5-1.0 N TOTAL PROTEIN (test code = PROT) 6.9 gm/dL 6.3-8.2 N ALBUMIN (test code = ALB) 2.9 gm/dL 3.4-4.8 L CALCIUM (test code = CA) 8.7 mg/dL 8.4-10.2 N BILIRUBIN TOTAL (test code = BILT) 0.3 mg/dL 0.2-1.0 N SGOT/AST (test code = AST) 30 units/L 15-37 N SGPT/ALT (test code = ALT) 19 units/L 12-78 N ALKALINE PHOSPHATASE TOTAL ( test code = ALKP) 112 units/L 46-116 N [id number] 15:14:00* Test Item Value Reference Range Interpretation Comme nts AMYLASE (test code = STEPHANIE) 64 units/L 30-110 N [id number] 15:14:00* Test Item Value Reference Range Interpretation Comme nts LIPASE (test code = LIP) 60 units/L 73-393 L CBC W/AUTO [id number] 14:55:00* Test Item Value Reference Range Interpretation Comme nts WHITE BLOOD CELL (test code = WBC) 7.9 K/mm3 6.6-12.1 N RED BLOOD CELL (test code = RBC) 3.99 M/mm3 3.45-5.01 N HEMOGLOBIN (test code = HGB) 10.4 g/dL 10.7-13.9 L HEMATOCRIT (test code = HCT) 33.1 % 32.1-42.1 N MEAN CELL VOLUME (test code = MCV) 83 fL 84.1-94.8 L MEAN CELL HGB (test code = MCH) 26.1 pg 27-35 L MEAN CELL HGB CONCETRATION ( test code = MCHC) 31.4 gm/dL 32.2-34.1 L RED CELL DISTRIBUTION WIDTH (test code = RDW) 16.0 % 12.4-16.5 N PLATELET COUNT (test code = PLT) 302 K/mm3 133-385 N MEAN PLATELET VOLUME (test c ode = MPV) 9.7 fl 9.1-12.7 N NEUTROPHIL % (test code = NT%) 65.0 % 56.5-79.4 N LYMPHOCYTE % (test code = LY%) 27.2 % 14.3-34.3 N MONOCYTE % (test code = MO%) 6.9 % 5.1-10.4 N EOSINOPHIL % (test code = EO%) 0.0 % 0.1-3.0 L BASOPHIL % (test code = BA%) 0.1 % 0.1-1.0 N NEUTROPHIL # (test code = NT#) 5.1 K/mm3 LYMPHOCYTE # (test code = LY#) 2.1 K/mm3 MONOCYTE # (test code = MO#) 0.5 K/mm3 EOSINOPHIL # (test code = EO#) 0 K/mm3 BASOPHIL # (test code = BA#) 0.0 K/mm3 RBC MORPHOLOGY REQUIRED (jesika t code = RBCM) NORMAL NORMAL PLATELET MORPHOLOGY REQUIRED (test code = PLTMR) NORMAL NORMAL - US PREG AFTER [id number] 15:29:00 [facility] 1990 Sex: F Patient Name: BURAK WHITE Unit No: [id number] EXAMS: CPT CODE: [id number] US PREG AFTER 1ST TRI [address] [facility] [address], [place] [address] OBSTETRICAL ULTRASOUND REPORT Pat. Name: BURAK WHITE Pat. No: [id number] Study Date: 09/02/2020 2:17pm , Age: 01 1990, 29 Pregnancies: 2, Para 1 LMP: Unknown GA by US: 29w3d GA Selected: 28w5d (From Known E) JOSE: 11/20/2020 ReferringMD: ISABELA LI End User Support Specialist: Mckenna Costa RDMS CPT4: [id number] Admitting MD: ISABELA LI Hist/Ind: ANATOMY SCAN 1 MEASUREMENTS AGE GROWTH EVALUATION Measurement GA Range Srce %for GA Ratios ----- ---- ------- BPD 7.6 cm 30w5d (80y5y-96y3u) Hadl BPD81% FL/BPD 0.72 (0.71 - 0.87) HC 28.3 cm 30w5d (72y7r-53z0z) Hadl HC 80% FL/AC 0.22 (0.20 - 0.24) APD 7.9 cm APD HC/AC 1.14 (0.99 - 1.18) TAD 7.9 cm TAD CI 0.79 (0.70 - 0.86) AC 24.8 cm 29w0d (26w6d- 31w1d) Hadl AC 56% FL 5.5 cm 28w5d (03b6a-55c1q) Hadl FL 49% HL 5.0 cm 29w2d (74b1x-05z5t) Bashir HL 59% GA for sonogram 29w3d (20x1g-66n3z) Weight Estimate: based on (BPD,HC,AC,FL) Hadlock Weight: 1374 gm (9385-6973) Hadlo : 3lbs, 0oz Normal: 1264 gm (856-1824) Brenne Wt% 58% for 28.7 wks Cervical Length: 3.5 cm Heart Rate: 156 bpm Amniotic Fluid Index: 15.9cm (09.3- 23.0) Q1: 4.5cm Q2: 4.7cm Q3: 3.2cm Q4: 3.5cm CLINICAL SUMMARY Type of Gestation: Vuong Intrauterine in vertex presentation. size is appropriate for gestational age. growth: Consistent with normal growth motion and organs seen: heart motion seen body and limb movements seen Four chamber heart observed Left ventricular outflow tract (LVOT) seen Right ventricular outflow tract (RVOT) seen Regular cardiac rhythm observed Normal intracranial anatomy seen [facility] NAME:BURAK WHITE Radiology Department PHYS: Isabela Bear MD [address] : 1990 AGE: 29 SEX: F [place] [address] LOC: Kika.RAD PHONE #: [phone] EXAM DATE: 09/02/2020 STATUS: REG CLI FAX #: [phone] RAD NO: Page 1 Signed Report (CONTINUED) Patient Name: BURAK WHITE Unit No: [id number] EXAMS: CPT CODE: [id number] US PREG AFTER [id number] (Continued) face and nasal bone seen Umbilical cord insertion in fetus seen stomach, Renal Fossa, Bladder and Spine seen Three vessel umbilical cord noted All four extremities observed Echogenic intracardiac focus seen in the left ventricle abnormalities observed: None seen at this exam Placental location: Anterior Placental maturity : Grade 1 There is no evidence of placenta previa. Amniotic fluid volume is normal. Uterus and adnexa: No significant abnormality is seen. Thank you for allowing us to participate in the care of this patient. Steve Silva M.D Electronic Signature 09/02/2020 03:29pm at 1529 Reported and signed by: Steve Silva MD CC: Isabela Li MD Technologist: Mckenna Costa RDMS Probe: Trnscrbd D/ (1529) [email or web address] Orig Print D/T: S: 09/02/2020 (1529) [facility] NAME: CINDYBURAK Cuellar Radiology Department PHYS: Isabela Bear MD [address] : 1990 AGE: 29 SEX: F [place], [place] [address] LOC: Kkia.RAD PHONE #: [phone] EXAM DATE: 09/02/2020 STATUS: REG CLI FAX #: [phone] RAD NO: Page 2 Signed Report Patient Name: BURAK WHITE Unit No: [id number] EXAMS: CPT CODE: [id number] US PREG AFTER 1ST TRI [address] (Continued) [facility] NAME: BURAK WHITE Radiology Department PHYS: SANTINO. Isabela Li MD [address] : 1990 AGE: 29 SEX: F [place], [place] [address] LOC: F.RAD PHONE #: [phone] EXAM DATE: 09/02/2020 STATUS: REG CLI FAX #: [phone] RAD NO: Page 3 Signed ReportPOCT URINALYSIS W SPECIFIC [id number] 21:21:00* Test Item Value Reference Range Interpretation Comme nts POCT U SP GRAV (test code = 3255) . 1.005-1.025 POCT PH U (test code = 3254) . 5-8 POCT U LEUK EST (test code = 3263) . Negative - N egative POCT U NIT (test code = 3262) . Negative - Negati ve POCT U PROT (test code = 3259) TRACE Negative - Negat clarice POCT U GLU (test code = 3256) 2+ Negative - Negati ve POCT U KETONE (test code = 3258) . Negative - Neg ative POCT U UROBILI (test code = 3260) . 0.2-1 POCT U BILI (test code = 3261) . Negative - Negat clarice POCT U BLD (test code = 3257) . Negative - Negati ve POCT U COLOR (test code = 3266) POCT U APPEAR (test code = 3267) [facility] [id number] 01:17:00* Test Item Value Reference Range Interpretation Comme nts APPEARANCE (test code = 7885854294) Hazy Clear A COLOR (test code = 5421103453) Tyesha Yellow A PH (test code = 0650834600) 4.8-8.0 SP GRAVITY (test code = 8719825215) 1.003-1.030 GLU U QUAL (test code = 6399808122) Normal Normal BLOOD (test code = 7554520511) Negative Negative INTERFERENCE FRO M ASCORBIC ACID MAY CAUSE FALSE NEGATIVE RESULT KETONES (test code = 2153627739) 80 mg/dL Negative A PROTEIN (test code = 2887-8) 30 mg/dL Negative A UROBILIN (test code = 0079786546) 4.0 mg/dL Normal A BILIRUBIN (test code = 6147770472) Negative Negative NITRITE (test code = 6577395336) Negative Negative LEUK RUCHI (test code = 2257292709) 75/uL Negative A RBC/HPF (test code = 0848308551) See_Comment H [Automated messa ge] The system which generated this result transmitted reference range: 0 - 3 HPF. The reference range was not used to interpret this result as normal/abnormal. WBC/HPF (test code = 8023130203) See_Comment [Automated messa ge] The system which generated this result transmitted reference range: 0 - 5 HPF. The reference range was not used to interpret this result as normal/abnormal. BACTERIA (test code = 1092914387) Few Negative A MUCOUS (test code = 5065566315) Marked Negative LPF A SQ EPITH (test code = 0250467939) HPF HYAL CAST (test code = 2069859155) See_Comment H [Automated messa ge] The system which generated this result transmitted reference range: <=2 LPF. The reference range was not used to interpret this result as normal/abnormal. Lab Interpretation (test code = 56575-4) Abnormal [facility] Metabolic Panel (NA, K, CL, CO2, GLUCOSE, BUN, CREATININE, CA)2020-04-14 01:06:00* Test Item Value Reference Range Interpretation Comme nts NA (test code = 7749847646) 136 mmol/L 135-145 K (test code = 9384863219) 3.6 mmol/L 3.5-5 CL (test code = 1316715913) 102 mmol/L 98-108 CO2 TOTAL (test code = 0057363867) 22 mmol/L 23-31 L AGAP (test code = 9854984453) 2-16 BUN (test code = 8858748896) 6 mg/dL 7-23 L GLUCOSE (test code = 1525613856) 101 mg/dL 70-110 CREATININE (test code = 5947392090) 0.63 mg/dL 0.5-1.04 CALCIUM (test code = 7860309040) 10.0 mg/dL 8.6-10.6 eGFR Calculation (Non-) (test code = 8603034189) mL/min/1.73m2 eGFR Calculation () (test code = 6470686801) mL/min/1.73m2 NOLAN (test code = NOLAN) Association of Glomerular Filtration Rate (GFR) and Staging of Kidney Disease* + --+ --+ ------+| GFR (mL/min/1.73 m2) ?| With Kidney Damage ?| ?Without Kidney Damage+ --------+ --------+ +| ?>90 ?| ?Stage one ?| ? Normal ?+ ---+ ---+ -------+| ?60-89 ?| ?Stage two ?| ? Decreased GFR ? + --+ --+ ------+| ?30-59 ?| ?Stage three ?| ? Stage three ? + --+ --+ ------+| ?15-29 ?| ?Stage four ? | ? Stage four ?+ ---+ ---+ -------+| ?<15 (or dialysis) ? ?| ?Stage five ? | ? Stage five ?+ ---+ ---+ -------+ *Each stage assumes the associated GFR level has been in effect for at least three months. ?Stages 1 to 5, with or without kidney disease, indicate chronic kidney disease. Notes: Determination of stages one and two (with eGFR >59mL/min/1.73 m2) requires estimation of kidney damage for at least three months as defined by structural or functional abnormalities of the kidney, manifested by either:Pathological abnormalities or Markers of kidney damage (including abnormalities in the composition of the blood or urine or abnormalities in imaging tests). Lab Interpretation (test code = 20600-6) Abnormal [facility] WITH [id number] 00:50:00* Test Item Value Reference Range Interpretation Comme nts WBC (test code = 6690-2) See_Comment [Automated [employer]] The system which generated this result transmitted reference range: 4.30 - 11.10 10*3/?L. The reference range was not used to interpret this result as normal/abnormal. RBC (test code = 789-8) See_Comment [Automated [employer]] The system which generated this result transmitted reference range: 3.93 - 5.25 10*6/?L. The reference range was not used to interpret this result as normal/abnormal. HGB (test code = 718-7) 14.3 g/dL 11.6-15 HCT (test code = 4544-3) 41.7 % 35.7-45.2 MCV (test code = 787-2) 86.2 fL 80.6-95.5 MCH (test code = 785-6) 29.5 pg 25.9-32.8 MCHC (test code = 786-4) 34.3 g/dL 31.6-35.1 RDW-SD (test code = 98524-0) 41.8 fL 39-49.9 RDW-CV (test code = 788-0) 13.2 % 12-15.5 PLT (test code = 777-3) See_Comment H [Automated [employer]] The system which generated this result transmitted reference range: 166 - 358 10*3/?L. The reference range was not used to interpret this result as normal/abnormal. MPV (test code = 82532-6) 8.4 fL 9.5-12.9 L NRBC/100 WBC (test code = 0186442044) See_Comment [Automated [employer]] The system which generated this result transmitted reference range: 0.0 - 10.0 /100 WBCs. The reference range was not used to interpret this result as normal/abnormal. NRBC x10^3 (test code = 3118602498) <0.01 See_Comment [Automated [employer]] The system which generated this result transmitted reference range: 10*3/?L. The reference range was not used to interpret this result as normal/abnormal. GRAN MAT (NEUT) % (test code = 770-8) 66.3 % IMM GRAN % (test code = 1496951765) 0.50 % LYMPH % (test code = 736-9) 25.3 % MONO % (test code = 5905-5) 7.6 % EOS % (test code = 713-8) 0.1 % BASO % (test code = 706-2) 0.2 % GRAN MAT x10^3(ANC) (test code = 1917714585) 6.37 10*3/uL 1.88-7.09 IMM GRAN x10^3 (test code = 1298849184) 0.05 10*3/uL 0-0.06 LYMPH x10^3 (test code = 731-0) 2.43 10*3/uL 1.32-3.29 MONO x10^3 (test code = 742-7) 0.73 10*3/uL 0.33-0.92 EOS x10^3 (test code = 711-2) <0.03 0.03-0.39 L BASO x10^3 (test code = 704-7) <0.03 0.01-0.07 Lab Interpretation (test code = 40037-8) [facility] NOW RAPID TESTING)2020-04-11 05:19:00* Test Item Value Reference Range Interpretation Comme nts SARS-CoV-2 Rapid ID NOW (test code = 15565-2) Not Detected Not Detected NOLAN (test code = NOLAN) ID NOW COVID-19 As say is an isothermal nucleic acid amplification test intended for the qualitative detection of nucleic acid from SARS-CoV-2 viral RNA in nasopharyngeal (SPOT BILLING CLERK) specimens. It is used under Emergency Use Authorization (EUA) by FDA. The limit of detection (LOD) of the assay is 125 Genome Equivalents/mL. A positive result is indicative of the presence of SARS-CoV-2 RNA. ?Clinical correlation with patient history and other diagnostic information is necessary to determine patient infection status. A negative (Not Detected) result does not preclude SARS-CoV-2 infection. In patients with clinical symptoms and other tests that are consistent with SARS-CoV-2 infection, negative results should be treated as presumptive negative and a new specimen should be tested with alternative PCR molecular test. Invalid: Please collect a new specimen for repeat patient testing if clinically indicated. Lab Interpretation (test code = 00183-2) Normal [facility] BETA HCG [id number] 04:08:00* Test Item Value Reference Range Interpretation Comme nts BETA HCG (test code = 4591107358) See_Comment [Automated [employer]] The system which generated this result transmitted reference range: Non- female and male patients: <5 mIU/mL. The reference range was not used to interpret this result as normal/abnormal. NOLAN (test code = NOLAN) Gestational Age ?Range (mIU/mL) 1-10 ?Weeks ?33-70592131-80 Weeks ?70272-27044572-86 Weeks ?1412-60705804-18 Weeks ?6406-607335 Biotin has been reported to cause a negative bias, interpret results relative to patient's use of biotin. [facility]inalysis2020-06-18 03:55:00* Test Item Value Reference Range Interpretation Comme nts APPEARANCE (test code = 8921347174) Hazy Clear A COLOR (test code = 4324759565) Yellow Yellow PH (test code = 4183658595) 4.8-8.0 SP GRAVITY (test code = 4473188141) 1.003-1.030 GLU U QUAL (test code = 0411277192) Normal Normal BLOOD (test code = 2636925907) Negative Negative INTERFERENCE FRO M ASCORBIC ACID MAY CAUSE FALSE NEGATIVE RESULT KETONES (test code = 1940124019) 80 mg/dL Negative A PROTEIN (test code = 2887-8) 30 mg/dL Negative A UROBILIN (test code = 2044247117) 2.0 mg/dL Normal A BILIRUBIN (test code = 0126376657) Negative Negative NITRITE (test code = 0715968544) Negative Negative LEUK RUCHI (test code = 2744160737) 25/uL Negative A RBC/HPF (test code = 6739688683) See_Comment H [Automated [employer]] The system which generated this result transmitted reference range: 0 - 3 HPF. The reference range was not used to interpret this result as normal/abnormal. WBC/HPF (test code = 4661333161) See_Comment [Automated [employer]] The system which generated this result transmitted reference range: 0 - 5 HPF. The reference range was not used to interpret this result as normal/abnormal. BACTERIA (test code = 5325873905) Moderate Negative A MUCOUS (test code = 5223127283) Marked Negative LPF A SQ EPITH (test code = 7454574560) HPF HYAL CAST (test code = 8022516632) See_Comment [Automated [employer]] The system which generated this result transmitted reference range: <=2 LPF. The reference range was not used to interpret this result as normal/abnormal. Lab Interpretation (test code = 89928-5) Abnormal [facility] Metabolic Panel (NA, K, CL, CO2, GLUCOSE, BUN, CREATININE, CA)2020-04-11 03:25:00* Test Item Value Reference Range Interpretation Comme nts NA (test code = 7353468859) 135 mmol/L 135-145 K (test code = 6216609591) 3.6 mmol/L 3.5-5 CL (test code = 2145351805) 104 mmol/L 98-108 CO2 TOTAL (test code = 8103159279) 20 mmol/L 23-31 L AGAP (test code = 2467305263) 2-16 BUN (test code = 9971783324) 6 mg/dL 7-23 L GLUCOSE (test code = 8164321191) 108 mg/dL 70-110 CREATININE (test code = 4527221825) 0.63 mg/dL 0.5-1.04 CALCIUM (test code = 8451720960) 9.7 mg/dL 8.6-10.6 eGFR Calculation (Non-) (test code = 3597143623) mL/min/1.73m2 eGFR Calculation () (test code = 9738764801) mL/min/1.73m2 NOLAN (test code = NOLAN) Association of Glomerular Filtration Rate (GFR) and Staging of Kidney Disease* + --+ --+ ------+| GFR (mL/min/1.73 m2) ?| With Kidney Damage ?| ?Without Kidney Damage+ --------+ --------+ +| ?>90 ?| ?Stage one ?| ? Normal ?+ ---+ ---+ -------+| ?60-89 ?| ?Stage two ?| ? Decreased GFR ? + --+ --+ ------+| ?30-59 ?| ?Stage three ?| ? Stage three ? + --+ --+ ------+| ?15-29 ?| ?Stage four ? | ? Stage four ?+ ---+ ---+ -------+| ?<15 (or dialysis) ? ?| ?Stage five ? | ? Stage five ?+ ---+ ---+ -------+ *Each stage assumes the associated GFR level has been in effect for at least three months. ?Stages 1 to 5, with or without kidney disease, indicate chronic kidney disease. Notes: Determination of stages one and two (with eGFR >59mL/min/1.73 m2) requires estimation of kidney damage for at least three months as defined by structural or functional abnormalities of the kidney, manifested by either:Pathological abnormalities or Markers of kidney damage (including abnormalities in the composition of the blood or urine or abnormalities in imaging tests). Lab Interpretation (test code = 13044-4) [facility] (ALB, T.PRO, BILI T, BU/BC, ALT, AST, ALK PHOS)2020-04-11 03:25:00* Test Item Value Reference Range Interpretation Comme nts TOTAL BILI (test code = 9447168103) 0.5 mg/dL 0.1-1.1 BILI UNCON (test code = 4800896362) 0.6 mg/dL 0.1-1.1 BILI CONJ (test code = 8000043891) 0.0 mg/dL 0-0.3 T PROTEIN (test code = 4662850025) 8.5 g/dL 6.3-8.2 H ALBUMIN (test code = 0094335172) 4.7 g/dL 3.5-5 ALK PHOS (test code = 8245676790) 58 U/L 34-122 ALTv (test code = 1742-6) 18 U/L 5-35 AST(SGOT) (test code = 7934578958) 23 U/L 13-40 Lab Interpretation (test cod e = 07425-0) [facility]normal [facility] [id number] 03:25:00* Test Item Value Reference Range Interpretation Comme nts LIPASE (test code = 9689195403) 70 U/L 0-220 Lab Interpretation (test cod e = 39972-6) Normal [facility] WITH [id number] 02:59:00* Test Item Value Reference Range Interpretation Comme nts WBC (test code = 6690-2) See_Comment [Automated messa ge] The system which generated this result transmitted reference range: 4.30 - 11.10 10*3/?L. The reference range was not used to interpret this result as normal/abnormal. RBC (test code = 789-8) See_Comment [Automated messa ge] The system which generated this result transmitted reference range: 3.93 - 5.25 10*6/?L. The reference range was not used to interpret this result as normal/abnormal. HGB (test code = 718-7) 13.6 g/dL 11.6-15 HCT (test code = 4544-3) 40.0 % 35.7-45.2 MCV (test code = 787-2) 86.2 fL 80.6-95.5 MCH (test code = 785-6) 29.3 pg 25.9-32.8 MCHC (test code = 786-4) 34.0 g/dL 31.6-35.1 RDW-SD (test code = 13147-9) 42.3 fL 39-49.9 RDW-CV (test code = 788-0) 13.5 % 12-15.5 PLT (test code = 777-3) See_Comment H [Automated messa ge] The system which generated this result transmitted reference range: 166 - 358 10*3/?L. The reference range was not used to interpret this result as normal/abnormal. MPV (test code = 24903-1) 8.5 fL 9.5-12.9 L NRBC/100 WBC (test code = 0876808673) See_Comment [Automated Achieved.co ssage] The system which generated this result transmitted reference range: 0.0 - 10.0 /100 WBCs. The reference range was not used to interpret this result as normal/abnormal. NRBC x10^3 (test code = 8094574987) <0.01 See_Comment [Automated messa ge] The system which generated this result transmitted reference range: 10*3/?L. The reference range was not used to interpret this result as normal/abnormal. GRAN MAT (NEUT) % (test code = 770-8) 58.0 % IMM GRAN % (test code = 4599512654) 0.40 % LYMPH % (test code = 736-9) 33.1 % MONO % (test code = 5905-5) 7.8 % EOS % (test code = 713-8) 0.4 % BASO % (test code = 706-2) 0.3 % GRAN MAT x10^3(ANC) (test code = 0667567508) 4.38 10*3/uL 1.88-7.09 IMM GRAN x10^3 (test code = 6469033309) 0.03 10*3/uL 0-0.06 LYMPH x10^3 (test code = 731-0) 2.50 10*3/uL 1.32-3.29 MONO x10^3 (test code = 742-7) 0.59 10*3/uL 0.33-0.92 EOS x10^3 (test code = 711-2) 0.03 10*3/uL 0.03-0.39 BASO x10^3 (test code = 704-7) <0.03 0.01-0.07 Lab Interpretation (test code = 13115-4) Abnormal [facility] [id number] 15:02:00* Test Item Value Reference Range Interpretation Comme nts POCT PREG (test code = 1605) Positive On board controls acceptable with C Line (test code = 3574) Yes POCT PREG LOT # (test code = 3575) POCT PREG TEST DATE ( test code = 3576) [facility] URINALYSIS W/O SPECIFIC [id number] 15:02:00* Test Item Value Reference Range Interpretation Comme nts POCT PH U (test code = 3254) 7 mg/dl 5-8 POCT U LEUK EST (test code = 3263) Trace Negative - Negative POCT U NIT (test code = 3262) Neg Negative - Negati ve POCT U PROT (test code = 3259) Trace Negative - Negat clarice POCT U GLU (test code = 3256) Neg Negative - Negati ve POCT U KETONE (test code = 3258) None Negative - Neg ative POCT U BLD (test code = 3257) Neg Negative - Negati ve [facility] [id number] 21:48:00* Test Item Value Reference Range Interpretation Comme nts POCT PREG (test code = 1605) Negative On board controls acceptable with C Line (test code = 3574) Yes POCT PREG LOT # (test code = 3575) POCT PREG TEST DATE ( test code = 3576) [facility]PO[facility] [id number] 21:48:00* Test Item Value Reference Range Interpretation Comme nts POCT PREG (test code = 1605) Negative On board controls acceptable with C Line (test code = 3574) Yes POCT PREG LOT # (test code = 3575) POCT PREG TEST DATE ( test code = 3576) [facility]IS2019-09-16 16:34:00* Test Item Value Reference Range Interpretation Comme nts APPEARANCE (test code = 6535861024) Cloudy Clear A COLOR (test code = 0848261769) Yellow Yellow PH (test code = 2610117256) 4.8-8.0 SP GRAVITY (test code = 9232725466) 1.003-1.030 H GLU U QUAL (test code = 3769905226) Normal Normal BLOOD (test code = 3803822927) 1+ Negative A KETONES (test code = 7257918561) 80 mg/dL Negative A PROTEIN (test code = 2887-8) 30 mg/dL Negative A UROBILIN (test code = 9339799033) 2.0 mg/dL Normal A BILIRUBIN (test code = 9691030298) Negative Negative NITRITE (test code = 7596604876) Positive Negative A LEUK RUCHI (test code = 2727746002) 25/uL Negative A RBC/HPF (test code = 4858897189) See_Comment H [Automated messa ge] The system which generated this result transmitted reference range: 0 - 3 HPF. The reference range was not used to interpret this result as normal/abnormal. WBC/HPF (test code = 8383290003) See_Comment H [Automated messa ge] The system which generated this result transmitted reference range: 0 - 5 HPF. The reference range was not used to interpret this result as normal/abnormal. BACTERIA (test code = 2615778727) Many Negative A MUCOUS (test code = 9494694561) Marked Negative LPF A SQ EPITH (test code = 4572900684) HPF Lab Interpretation (test code = 81022-6) Abnormal [facility]COMP. METABOLIC PANEL (52786)2019-07-10 16:23:00* Test Item Value Reference Range Interpretation Comme nts NA (test code = 3337681711) 141 mmol/L 135-145 K (test code = 2466115005) 4.0 mmol/L 3.5-5 CL (test code = 9440166978) 106 mmol/L 98-108 CO2 TOTAL (test code = 9796225316) 23 mmol/L 23-31 AGAP (test code = 5838755240) 2-16 BUN (test code = 5022038511) 10 mg/dL 7-23 GLUCOSE (test code = 7566849093) 94 mg/dL 70-110 CREATININE (test code = 3303145184) 0.66 mg/dL 0.5-1.04 TOTAL BILI (test code = 5628015754) 0.7 mg/dL 0.1-1.1 CALCIUM (test code = 0180813081) 9.9 mg/dL 8.6-10.6 T PROTEIN (test code = 3947144215) 7.9 g/dL 6.3-8.2 ALBUMIN (test code = 4075816279) 4.6 g/dL 3.5-5 ALK PHOS (test code = 2243054120) 61 U/L 34-122 ALT(SGPT) (test code = 1764888776) 29 U/L 9-51 AST(SGOT) (test code = 9992253605) 47 U/L 13-40 H eGFR Calculation (Non-) (test code = 6206153687) mL/min/1.73m2 eGFR Calculation () (test code = 3342484785) mL/min/1.73m2 NOLAN (test code = NOLAN) Association of Glomerular Filtration Rate (GFR) and Staging of Kidney Disease*+ + + +| GFR (mL/min/1.73 m2)?| With Kidney Damage?|?Without Kidney Damage+ --------+ --------+ +|?>90?|?S tage one?|? Normal?+ ---------+ ---------+ +|?60-89? |?Stage two?|? Decreased GFR? + --+ --+ ------+|?30-59?|?Stage three?|? Stage three? + --+ --+ ------+|?15-29?|?Stage four? |? Stage four??+ --------+ --------+ +|?<15 (or dialysis)?|?Stage five? |? Stage five?+ -------+ -------+ +*Each stage assumes the associated GFR level has been in effect for at least three months.?Stages 1 to 5, with or without kidney disease, indicate chronic kidney disease.Notes: Determination of stages one and two (with eGFR >59mL/min/1.73 m2) requires estimation of kidney damage for at least three months as defined by structural or functional abnormalities of the kidney, manifested by either:Pathological abnormalities or Markers of kidney damage (including abnormalities in the composition of the blood or urine or abnormalities in imaging tests). Lab Interpretation (test code = 02101-3) Abnormal [facility] WITH [id number] 16:10:00* Test Item Value Reference Range Interpretation Comme nts WBC (test code = 6690-2) See_Comment [Automated Afrimarket] The system which generated this result transmitted reference range: 4.30 - 11.10 10*3/?L. The reference range was not used to interpret this result as normal/abnormal. RBC (test code = 789-8) See_Comment [Automated Afrimarket] The system which generated this result transmitted reference range: 3.93 - 5.25 10*6/?L. The reference range was not used to interpret this result as normal/abnormal. HGB (test code = 718-7) 13.4 g/dL 11.6-15 HCT (test code = 4544-3) 40.4 % 35.7-45.2 MCV (test code = 787-2) 86.9 fL 80.6-95.5 MCH (test code = 785-6) 28.8 pg 25.9-32.8 MCHC (test code = 786-4) 33.2 g/dL 31.6-35.1 RDW-SD (test code = 74514-8) 42.6 fL 39-49.9 RDW-CV (test code = 788-0) 13.5 % 12-15.5 PLT (test code = 777-3) See_Comment [Automated Afrimarket] The system which generated this result transmitted reference range: 166 - 358 10*3/?L. The reference range was not used to interpret this result as normal/abnormal. MPV (test code = 18579-7) 8.4 fL 9.5-12.9 L NRBC/100 WBC (test code = 6481063321) See_Comment [Automated me ssage] The system which generated this result transmitted reference range: 0.0 - 10.0 /100 WBCs. The reference range was not used to interpret this result as normal/abnormal. NRBC x10^3 (test code = 5118104257) <0.01 See_Comment [Automated messa ge] The system which generated this result transmitted reference range: 10*3/?L. The reference range was not used to interpret this result as normal/abnormal. GRAN MAT (NEUT) % (test code = 770-8) 43.7 % IMM GRAN % (test code = 4077668151) 0.20 % LYMPH % (test code = 736-9) 46.6 % MONO % (test code = 5905-5) 8.0 % EOS % (test code = 713-8) 1.1 % BASO % (test code = 706-2) 0.4 % GRAN MAT x10^3(ANC) (test code = 1620315923) 2.42 10*3/uL 1.88-7.09 IMM GRAN x10^3 (test code = 5796599402) <0.03 0-0.06 LYMPH x10^3 (test code = 731-0) 2.57 10*3/uL 1.32-3.29 MONO x10^3 (test code = 742-7) 0.44 10*3/uL 0.33-0.92 EOS x10^3 (test code = 711-2) 0.06 10*3/uL 0.03-0.39 BASO x10^3 (test code = 704-7) <0.03 0.01-0.07 Lab Interpretation (test code = 68217-9) Abnormal [facility] [id number] 15:47:00* Test Item Value Reference Range Interpretation Comme nts POCT PREG (test code = 1605) negative On board controls acceptable with C Line (test code = 3574) present POCT PREG LOT # (test code = 3575) [id number] POCT PREG TEST DATE ( test code = 3576) 10-24-2020 Lab Interpretation (test cod e = 72444-7) [facility]SPINE W/O [id number] 21:20:00[place] [id number] IMAGING REPORTPatient Name: Gianluca WHITE of Service: [id number]: 26 Sex: F Order #: [id number] [facility] 1990 [facility] Number: [id number] Record Number: [id number] Hospital Number: [id number]: Gwen PRADO Physician: Artis DE JESUS CT exam was performed using one or more ofthe following dosereduction techniques: Automated exposure control, adjustment [...] soft tissue abnormalityidentified. There are dental caries.Impression:1. Fi ndings as discussed.Electronically Signed By: Michael Milian M.D., 04/07/2017 9:17 PMLegally authenticated by MAVIS HALL 2017-04-07 21:17:48CT HEAD W/O [id number] 21:20:[address] [id number] IMAGING REPORTPatient Name: Gainluca WHITE of Service: [id number]: 27 Sex: F Order #: 200 [facility] 1990 [facility] Number: [id number] Record Number: [id number] Hospital Number: [id number]: Gwen PRADO Physician: Artis DE JESUS CT exam was performed using one or more ofthe following dosereduction techniques: Automated exposure control, adjustment [...] 9:17 PMLegally authenticated by MAVIS HALL 2017-04-07 21:17:48Use Depression F/U PHQ-9 TemplateUse Depression F/U PHQ-9 TemplateCT Stone Protocol [facility] BR[facility]ANName: BURAK WHITEALEX : 1990 [facility]: [facility]ITE [facility] [address] Phys: [place] [address] : 1990 Age: 33 SEX:F [phone] Exam Date: 12/09/23 Status: REG ER Acct: [id number] Loc: ERS Pt Unit #: [id number] Report #: [id number] CC: ED TEMP PROVIDER Yadi Richard PA-C PULSECHECKSJX:[id number] CAT SCAN REPORT Report Status: Signed Order # Category/Exam [id number] CT/CT Stone Protocol ([id number]): . Results CT Stone Protocol 12/09/2023 9:11 AM HISTORY: Right-sided abdominal pain for one day. Pain extends to the back. Increased urinary frequency. COMPARISON: None. Technique: Multiple contiguous axial CT images areobtained through the abdomen and pelvis without IV contrast. Coronal reformats are provided. FINDING S: This examination is limited for the evaluation of solid organs and vascular structures due to the lack of intravenous contrast. Lower Chest: Lung bases are clear. Liver: Grossly normal non-enhanced CT appearance. Gallbladder: Within normal limits for CT imaging. Pancreas: Grossly normal nonenhanced CT appearance. Spleen: Grossly normal nonenhanced CT appearance. Adrenals: Grossly normal nonenhanced CT appearance. Kidneys and ureters: Punctate nonobstructing calculus interpolar region left kidney with a few punctate nonobstructing right renal calculi. Findings best seen on coronal imaging. No hydronephrosis or ureteral calculus. Urinary bladder: Urinary bladder has a normal CT appearance. Reproductive Organs: 2.6 cm hypodense cystic lesion left ovary likely due to small ovarian cyst. Lymph Nodes: Limited assessment without IV contrast, no definite enlarged lymph nodes seen by CT size criteria. Bowel: Small to moderate amount retained fecal material seen throughout the colon. Appendix: The appendix is normal in caliber. Peritoneum: No free fluid, free air, or fluid collection. Retroperitoneum: within normal limits. Vessels: Abdominal aorta is normal in caliber.. Abdominal Wall: within normal limits. Bones: No lytic or sclerotic osseous lesions. IMPRESSION: 1. A punctate nonobstructing bilateral renal calculi. No ureteral calculus or evidence of hydronephrosis. 2. Left ovarian cyst. Reported By: Gerardo Chatterjee MD Electronically Signed Date/Time: 12/09/23922 Technologist: YUAN Dictated Date/Time: 12/09/23 0919 Transcribed Date/Time: Gallbladder RUQ [facility] : 1990 [facility] Pt Name: BURAK WHITE [address] Phys: [place] [address] : 1990 Age: 33 SEX:F [phone] Exam Date: 12/09/23 Status: REG ER Acct: [id number] Loc: ERS Pt Unit #: [id number] Report #: [id number] CC: Yadi Richard PA-C PULSECHECKSJX:[id number] ULTRASOUND REPORT Report Status: Signed Order # Category/Exam [id number] ULT/US Gallbladder RUQ ([id number]): . Results EXAM: Right upper quadrant ultrasound PROVIDED CLINICAL HISTORY: Pain COMPARISON: 12/31/2021 FINDINGS: Pancreas is obscured. Visualized IVC appears normal. Liver demonstrates no mass or intrahepatic biliary ductal dilatation. Common duct is nondilated. Gallbladder demonstrates no stones, wall thickening or pericholecysticfluid. Right kidney demonstrates no hydronephrosis or mass. IMPRESSION: Unremarkable right upper quadrant ultrasound with limitations as above. Reported By: Brandon Viera MD Electronically Signed Date/Time: 12/09/23909 Technologist: Dictated Date/Time: 12/09/23908 Transcribed Date/Time:XR Foot Rt 3 View [facility]AK WHITE : 1990 [facility] Pt Name: BURAK WHITEBRE [address] Phys: Linda Rodriguez [place] [address] : 1990 Age: 32 SEX:F [phone] Exam Date: 06/30/23 Status: REG ER Acct: [id number] Loc: ERS Pt Unit #: [id number] Report #: [id number]: Linda Rodriguez SPOT BILLING CLERK PULSECHECKSJX:[id number] IMAGING SERVICES REPORT Report Status: Signed Order # Category/Exam [id number] RAD/XR Foot Rt 3 View STANDARD ([id number]): . Results EXAM: XR FootRt 3 View STANDARD PROVIDED CLINICAL HISTORY: Injury COMPARISON: None FINDINGS: There is a minimally displaced intra-articular fracture involving the medial base of the small toe distal phalanx. No additional fracture is evident. Alignment appears anatomic. Joint spaces appear preserved. IMPRESSION: Small toe distal phalangeal fracture. Reported By: Brandon Viera MD Electronically Signed Date/Time: 06/30/23 1341 Technologist: RAMYA Dictated Date/Time: 06/30/23 1339 Transcribed Date/Time:Use Depression F/U PHQ-9 TemplateUse Depression F/U PHQ-9 TemplateUse Depression F/U PHQ-9 TemplateUse Depression F/U PHQ-[address] Brain WO Con[facility]AK WHITE : 1990 [facility] Pt Name: BURAK WHITE [address] Phys: [place] [address] : 1990 Age: 32 SEX:F [phone] Exam Date: 03/25/23 Status: REG ER Acct: [id number] Loc: ERS Pt Unit #: [id number] Report #: [id number] CC:ED TEMP PROVIDER Alexander Madden MD CAT SCAN REPORT Report Status: Signed Order # Category/Exam [id number] CT/CT Brain WO Con ([id number]): . Results CT BRAIN WITHOUT CONTRAST: HISTORY: Headache COMPARISON: 05/12/2022 FINDINGS: No evidence of acute infarct, hemorrhage, midline shift or abnormal extra-axial fluid collections is seen. The ventricular size is appropriate and the basilar cisterns are patent. The bony calvarium is intact. The mastoid air cells are well aerated. There is a mucous retention cyst versus polyp inthe right maxillary sinus. IMPRESSION: No CT evidence of acute intracranial process. Reported By: Stef Lowery MD Electronically Signed Date/Time: 03/25/23825 Technologist: GEOVANNI Dictated Date/Time: 03/25/23 08 Transcribed Date/Time:XR Chest 1 View Portable [facility] BURAK WHITE : 1990 [facility] Pt Name: BURAK WHITE [address] Phys: [place] [address] : 1990 Age: 32 SEX:F [phone] Exam Date: 01/18/23 Status: REG ER Acct: [id number] Loc: ERS Pt Unit #: [id number] Report #: [id number]: Ilene Gibbs PA-C IMAGING SERVICES REPORT Report Status: Signed Order # Category/Exam [id number] RAD/XR Chest 1 View Portable ([id number]): . Results Portable chest: HISTORY: Shortness of breath COMPARISON: 09/30/2021 FINDINGS: Lung agosto are clear. Heart and mediastinum appear unremarkable.Vascularity is normal. Visualized osseous structures unremarkable. IMPRESSION: No acute finding Reported By: Toño Laurent MDElectronically Signed Date/Time: 01/18/231417 Technologist: ALDAN Dictated Date/Time: 01/18/231417 Transcribed Date/Time:XR Wrist 3 Rt View STANDARD [facility]: BURAK WHITE : 1990 [facility] Pt Name: BURAK WHITE [address] Phys: [place] [address] : 1990 Age: 31 SEX:F [phone] Exam Date: 01/16/23 Status: REG ER Acct: [id number] Loc: ERS Pt Unit #: [id number] Report #: [id number] CC: Alexa Jules NP IMAGING SERVICES REPORT Report Status: Signed Order # Category/Exam [id number] RAD/XR Wrist 3 Rt View STANDARD ([id number]): . Results XR Wrist 3 Rt View STANDARD TIME OF EXAM: 11/09/2022 8:35 AM REASON FOR EXAM: Right wrist pain radiating to the right shoulder. COMPARISON: None FINDINGS: No acute fracture or dislocation in the right wrist. Joint spaces are maintained. IMPRESSION: 1. No acute osseous abnormality in the right wrist. Reported By: Eric Sheets ectronically Signed: 11/09/2022 8:44 AM Reported By: Eric Reid MD Electronically Signed Date/Time: 11/09/2244 Technologist: Dictated Date/Time: 11/09/22 0843 Transcribed Date/Time:US Breast Limited Lt [facility] : 1990 Sex: F Pt Name: BURAK WHITE [address] [facility]. Phys: [place] [address] : 1990 Age: 31 SEX:F [phone] Exam Date: 08/07/22 Status: REG CLI Acct: [id number] Loc: BICULT Pt Unit #: [id number] Report #: [id number] CC: Arlette Grant MD ULTRASOUND REPORT Report Status: Signed Order # Category/Exam [id number] ULT/US Breast Limited Lt ([id number]): . Results US Breast Limited Lt HISTORY: Palpable abnormality left breast 3:00 position. COMPARISON: Mammogram study done today. FINDINGS: Real-time imaging the area concern does not show any cystic or solid mass. No suspicious findings on mammogram. IMPRESSION: BI-RADS Category 2-benign findings. Reported By: hSayla Tovar MD Electronically Signed Date/Time: 08/07/2242 Technologist: TOMMIE Dictated Date/Time: 842 Transcribed Date/Time:MAMMO Bilat Diag DDI+THERESE [facility] BR[facility]ANName: BURAK WHITE : 1990 Sex: F Pt Name: BURAK WHITE [address] Phys: Arlette [place], [id number] : 1990 Age: 31 SEX:F [phone] Exam Date: 08/07/22 Status: REG CLI Acct: [id number] Loc: BICULT Pt Unit #: [id number] Report #: [id number] CC: Arlette Grant MD MAMMOGRAPHY REPORT Report Status: Signed Order # Category/Exam [id number] MMO/MAMMO Bilat Diag DDI+THERESE ([id number]): . Results 2 Bilateral MAMMO Bilat Diag DDI+THERESE. CLINICAL HISTORY: Patient is 31 years old and is seen for diagnostic exam and palpable abnormality in the left breast. The patient has no family history of breast cancer. The patient has no personal history of cancer. VIEWS: The views performed were: bilateral craniocaudal with tomosynthesis; bilateral mediolateral oblique with tomosynthesis; and bilateral mediolateral with tomosynthesis. FILMS COMPARED: The present examination has been compared to a prior imaging study performed at [facility] on 08/07/2022. This study has been interpreted with the assistance of computer- aided detection. MAMMOGRAM FINDINGS: There are scattered fibroglandular densities. Ultrasound of the palpable finding was negative. There are no suspicious masses,suspicious calcifications, or new areas of architectural distortion. IMPRESSION: THERE IS NO MAMMOGRAPHIC EVIDENCE OF MALIGNANCY. A ROUTINE FOLLOW-UP MAMMOGRAM AT AGE 39 IS RECOMMENDED. THE RESULTS OF THIS EXAM WERE SENT TO THE PATIENT. ACR BI-RADS Category 2 - Benign finding MAMMOGRAPHY NOTE: 1. Anegative mammogram report should not delay a biopsy if a dominant of clinically suspicious mass ispresent. 2. Approximately 10% to 15% of breast cancers are not detected by mammography. 3. Adenosisand dense breasts may obscure an underlying neoplasm. Reported by: SHAYLA TOVAR MD Electonically Signed: [id number] Reported By: Shayla Tovar MD Electronically Signed Date/Time: 08/07/22 0848 Technologist: Dictated Date/Time: 08/07/22 Transcribed Date/Time: 08/07/22MOI Red DDI+THERESE [facility] BURAK WHITEBRE : 1990 Sex: F Pt Name: JOE WHITECHRISTIANMelissa OMARI [address] [facility] Phys: Arlette [place], [id number] : 1990 Age: 31 SEX:F [phone] Exam Date: 08/07/22 Status: REG CLI Acct: [id number] Loc: BICULT Pt Unit #: [id number] Report #: [id number] CC: Arlette Grant MD MAMMOGRAPHY REPORT Report Status: Signed Order # Category/Exam [id number] MMO/MAMMO Bilat Diag DDI+THERESE ([id number]): . Results 2 Bilateral MAMMO Bilat Diag DDI+THERESE. CLINICAL HISTORY: Patient is 31 years old and is seen for diagnostic exam and palpable abnormality in the left breast. The patient has no family history of breast cancer. The patient has no personal history of cancer. VIEWS: The views performed were: bilateral craniocaudal with tomosynthesis; bilateral mediolateral oblique with tomosynthesis; and bilateral mediolateral with tomosynthesis. FILMS COMPARED: The present examination has been compared to a prior imaging study performed at [facility] on 08/07/2022. This study has been interpreted with the assistance of computer- aided detection. MAMMOGRAM FINDINGS: There are scattered fibroglandular densities. Ultrasound of the palpable finding was negative. There are no suspicious masses, suspicious calcifications, or new areas of architectural distortion. IMPRESSION: THERE IS NO MAMMOGRAPHIC EVIDENCE OF MALIGNANCY. A ROUTINE FOLLOW-UP MAMMOGRAM AT AGE 39 IS RECOMMENDED. THE RESULTSOF THIS EXAM WERE SENT TO THE PATIENT. ACR BI-RADS Category 2 - Benign finding MAMMOGRAPHY NOTE: 1.A negative mammogram report should not delay a biopsy if a dominant of clinically suspicious mass is present. 2. Approximately 10% to 15% of breast cancers are not detected by mammography. 3. Adenosis and dense breasts may obscure an underlying neoplasm. Reported by: SHAYLA TOVAR MD Electonically Signed: [id number] Reported By: Shayla Tovar MD Electronically Signed Date/Time: 08/07/22 0848 Technologist: Dictated Date/Time: 08/07/22 Transcribed Date/Time: 08/07/22Use Depression F/U PHQ-9 TemplateUse Depression F/U PHQ-9 TemplateCT Brain WO Con [facility] BRYBerlinme: BURAK WHITE : 1990 [facility] Name: BURAK WHITE [address] Phys: Ilene Gibbs PA-C [place] [phone] : 1990 Age: 31 SEX:F [phone] Exam Date: 05/12/22 Status: REG ER Acct: [id number] Loc: ERS Pt Unit #: [id number] Report #: [id number] CC: ED TEMP PROVIDER Ilene Gibbs PA-C CAT SCAN REPORT Order # Category/Exam [id number] CT/CT Brain WO Con ([id number]): . Results Head CT without contrast 05/12/2022: COMPARISON: None available HISTORY: Right-sided headache with lightheadedness TECHNIQUE: Axial CT imaging at 2.5 mm intervals from vertex through skull base without contrast. FINDINGS: The visualized paranasal sinuses and mastoid air cells are wellaerated. There is no displaced calvarial fracture. No intracranial hemorrhage, midline shift, mass e ffect, or ventricular enlargement is noted. IMPRESSION: No acute findings. Reported By: Remi Luque MD Electronically Signed Date/Time: 05/12/221713 Technologist: KAUSHIK Dictated Date/Time: 05/12/221712 Transcribed Date/Time: XR Foot Lt 3 View STANDARD [facility] : 1990 [facility] Pt Name: BURAK WHITE [address] Phys: Alexa Jules NP [place] [phone] : 1990 Age: 31 SEX:F [phone] Exam Date: 02/24/22 Status: REG ER Acct: [id number] Loc: ERS Pt Unit #: [id number] Report #: [id number] CC: Alexa Jules NP IMAGING SERVICES REPORT Order # Category/Exam [id number] RAD/XR Foot Lt 3 View STANDARD ([id number]): . Results 3 views of the left foot: 02/24/2022. COMPARISON: None HISTORY: Painful left wick tender to palpation. FINDINGS: The bones are well formed and well mineralized. No worrisome soft tissue abnormalities are seen. IMPRESSION:No acute findings in the foot. Reported By: Cyrus Morales Electronically Signed Date/Time: 02/24/22 1252 Technologist: Dictated Date/Time: 02/24/22 1252 Transcribed Date/Time:[facility] RUQ [facility] : 1990 [facility] Pt Name: BURAK WHITE [employer] Phys: Rufino Ferguson MD *r [place] [phone] : 1990 Age: 31 SEX:F [phone] Exam Date: 01/20/22 Status: REG ER Acct: [id number] Loc: [facility] Pt Unit #: [id number] Report #: [id number] CC: Josr Ferguson *r ULTRASOUND REPORT Order # Category/Exam [id number] ULT/US Gallbladder RUQ ([id number]): . Results US Gallbladder RUQ: 01/20/2022 10:54 AM CLINICAL HISTORY: Epigastric abdominal pain. STUDY: Limited right upper quadrant ultrasound of abdomen. COMPARISON: None. FINDINGS: Liver: Size: Normal. Echogenicity: Normal. Contour: Smooth. Mass: None. Bile ducts: No intrahepatic or extrahepatic biliary dilatation. Common bile duct measures 5 mm. Gallbladder: Normal. Pancreas: Head, body, and tail appear normal. Right kidney: No pelvicalyceal dilatation. Right kidney measuring 10.3 cm in length. IMPRESSION: Unremarkable exam. Reported By: Simón Dillon MD Electronically Signed Date/Time: 01/20/22 1116 Technologist: Dictated Date/Time: 01/20/22 1116 Transcribed Date/Time:XR Chest 1 View Portable [facility] BR[facility]ANName: BURAK WHITE : 1990 [facility] Pt Name: BURAK WHITE Whats[employer] Phys: [place] [address] : 1990 Age: 30 SEX:F [phone] Exam Date: 09/30/21 Status: REG ER Acct: [id number] Loc: ERS Pt Unit #: [id number] Report #: [id number] CC: Jose Acosta MD IMAGING SERVICES REPORT Order # Category/Exam [id number] RAD/XR Chest 1 View Portable ([id number]): . Results XR Chest 1 View Portable HISTORY: Cough, congestion, headache and epigastric pain COMPARISON: None FINDINGS: The heart size is normal. The lungs are well expanded without focal areas of consolidation, pneumothorax or pleural effusions. IMPRESSION: No radiographic evidence of acute cardiopulmonary process. Reported By: Stef Lowery MD Electronically Signed Date/Time: 09/30/21 1005 Technologist: GREGG Dictated Date/Time: 09/30/21 1004 Transcribed Date/Time: Notes Date/Time Note Provider Source 2024-07-21 16:02:00 Pt given printed and verbal discharge instructions regarding tension headache, and chest pain unspecified.1 Prescription sent to pharmacy .Pt verbalized understanding of instructions, pt awake alert oriented, resp reg unlabored, skin w/d, color appropriate for race, moves all ext well,pt encouraged to follow up with pcp. Advised to seek medical attention for new/prolonged/worsening of symptoms. No adverse reaction to meds given in ER noted upon discharge. Awake, alert oriented, resp reg unlabored, skin w/d, pt leaving amb with steady gait, in no apparent distress, accompanied by adult Cindy Veronica RN [facility] 2024-07-21 13:22:11 CC: patient presents to the ER with complaints of a headache that began at 0400, states she took ibuprofen without relief. Patient also states she started having sharp, intermittent chest pain around 0700 this morning. Awake, alert, oriented, resp reg unlabored, skin warm and dry, color appropriate for race, moves all ext without difficulty, amb without assistance. Appears in no distress. Mamie Sanchez RN [facility] 2024-07-21 13:20:17 Called from lobby, no answer. [facility] 2024-05-20 12:56:00 Pt given printed and verbal discharge instructions regarding grissom's cyst, unruptured, left, encouraged hydration. Prescriptions provided. Discussed ibuprofen and to take with food to avoid GI distress. Pt verbalized understanding of instructions, pt awake alert oriented, resp reg unlabored, skin w/d, color appropriate for race, moves all ext well,pt encouraged to follow up with pcp. Advised to seek medical attention for new/prolonged/worsening of symptoms. No adverse reaction to meds given in ER noted upon discharge. Awake, alert oriented, resp reg unlabored, skin w/d, pt leaving amb with steady gait, in no apparent distress, accompanied by her significant other. Georgia Sandoval RN [facility] 2024-05-20 10:22:13 Patient states: "Last Wednesday I think I may have stepped wrong but it's gradually getting worse" Reports pain in left knee. Mariaelena Cross RN [facility] 2023-08-20 05:55:00 [facility] Name: [address] : 1990, Age: 32, Sex: [place] [id number] Unit #: [id number], Status: [facility] [phone] [place] [facility] [place]ictated by: Gorge Colunga MD Admission Date: Report #: [id number] Discharge Date: 08/19/23 CC: [facility] Gorge Sharif MD OPERATIVE NOTE Report Status: Signed DATE OF PROCEDURE: 08/19/2023 PREOPERATIVE DIAGNOSES: Chronic tonsillitis, obstructive tonsillar hypertrophy, and sleep apnea. POSTOPERATIVE DIAGNOSES: Chronic tonsillitis, obstructive tonsillar hypertrophy, and sleep apnea. PROCEDURE PERFORMED: Tonsillectomy over 12 years of age. DESCRIPTION OF PROCEDURE: After consent was obtained, the patient was identified, brought to the operating room, and placed on the operating table in the supine position. General endotracheal anesthesia and intravenous access was obtained and we proceeded with positioning the patient for oropharyngeal surgery. Oropharyngeal exposure was obtained with a Yasmany-Noe mouth gag after a head drape was placed and secured with a towel clip. The Yasmany-Noe mouth gag was then suspended from the Luu tray and palatal elevation was achieved with a red rubber catheter. The right tonsil was addressed first. We used a curved Allis to grasp the tonsil and retract it medially as an anterior pillar incision was made with a #12 blade. The retrotonsillar fascial plane was then established and blunt dissection was performed with the suction cautery. Blood vessels were anticipated, identified, and cauterized as they were encountered. Ultimately, dissection was carried to the posterior tonsillar pillar mucosa which was incised hemostatically, as well as the base of tongue connection. The tonsil was then passed off as a specimen and bleeding points within the tonsillar bed were cauterized under direct visualization. We subsequently turned our attention to the contralateral side, where using a similar technique, a near identical procedure was performed. Again, the tonsil was grasped and retracted medially with a curved Allis as an anterior pillar incision was made with a #12 blade. The retrotonsillar fascial plane was established and while the anterior pillar was retracted medially, the hemostatic blunt dissection of the tonsil with a suction cautery was performed with blood vessels anticipated, identified, and cauterized as they were encountered. Again, dissection continued to the base of tongue and posterior tonsillar pillar mucosa which was incised in a hemostatic fashion. The tonsillar beds were then carefully inspected and bleeding points were identified and cauterized with a suction cautery. After this portion of the procedure, hemostasis was completely obtained. The patient's oral cavity was copiously irrigated with iced saline and subsequently suctioned. We then used the red rubber catheter to suction the gastric contents and the patient was subsequently aroused, awakened, and extubated without difficulty and transported to the recovery room in stable condition. There were no complications. FINDINGS: The patient had a markedly vascular and inflamed tonsil. They were quite large, touching in the midline. Job ID: [id number] Dictated by: Gorge Colunga MD <Electronically signed by Gorge Colunga MD> 10/04/23 0901 Dictated Date/Time: 08/19/23 1251 Transcribed Date/Time: 08/19/23 7871 Tube Skiver: Gorge Fisher STLSJH 2021-01-22 14:08:00 [id number] [place] [address] PATIENT NAME: BURAK WHITE ADMIT DATE: 01/22/21 ACCOUNT NO: [id number] ROOM NO: AGE: 30 SEX: F ADMITTING PHYSICIAN: ATTENDING PHYSICIAN: Isabela Li MD OPERATION DATE: 01/22/2021 PREOPERATIVE DIAGNOSIS: Multiparous, desires permanent sterilization. POSTOPERATIVE DIAGNOSIS: Multiparous, desires permanent sterilization. PROCEDURES: Laparoscopic bilateral salpingectomy. SURGEON: Isabela Li MD CONICAL MIXER: Clarisa Li MD Note: My assistant gm of content & delivery provided essential services throughout the procedure, including optimal placment of laparoscopic trocars. ANESTHESIA: General. ESTIMATED BLOOD LOSS: 10 mL. INTRAVENOUS FLUIDS: 400 mL. URINE OUTPUT: 30 mL. COMPLICATIONS: None. PATHOLOGY: Bilateral tubes. COUNTS: Sponge, lap, needle count correct x2. PROCEDURE IN DETAIL: After the risks, benefits, and alternatives have been explained to the patient with risks including infection, bleeding, trauma to surrounding tissue, possible need to convert to laparotomy. The patient's questions were answered, informed consent was obtained. She was then brought back to the operating room, prepped and draped in the dorsal lithotomy position in the [facility]. Exam under anesthesia revealed a retroverted uterus, mobile. A sponge on a stick was placed in the patient's vagina and a red rubber catheter was placed in the patient's bladder liberating 30 mL of clear urine. We then turned our attention to the patient's abdomen after changing my gloves. I entered infraumbilically with the 11 blade in a horizontal fashion making a 1 cm incision. I then placed the Pelon trocar and insufflated to 15 mmHg of CO2 and then placed the patient in Trendelenburg positioning and surveyed the abdominopelvic viscera noting normal liver edge, normal gallbladder, normal appendix and normal uterus as well as normal fallopian tubes and normal right ovary, the left ovary had a functional cyst. I then placed a 5-mm port in the left lower quadrant under direct visualization and then another 5-mm port in the PATIENT NAME: BURAK WHITE Q right lower quadrant under direct visualization and with the Harmonic scalpel and with my assistant gm of content & delivery holding the right fallopian tube up, I came across the mesovarian salpinx at the fallopian tube with Harmonic scalpel and taking care to stay away from the ovary and then amputated the left fallopian tube in an identical fashion. We sent both tubes off to pathology for normal processing. We reinspected our surgical sites, noting excellent hemostasis. We then removed all instruments after removing the gas. I closed the infraumbilical fascia port site with 0 Vicryl in a running stitch with 0 Vicryl and a UR-6 needle. I then closed the skin with a 3-0 Monocryl in a running subcuticular stitch at all port sites. I removed the sponge on a stick from the patient's vagina and a red rubber catheter. The patient is stable to recovery. Dictated By: Isabela Li MD WT: OP:JOSEPH/SANTINO. Conf#: [id number]/DID#: [id number] Authenticated and Edited by Isabela Li MD On 01/28/21 7:40:22 PM at 1943 PATIENT NAME: BURAK WHITE [facility] 2021-01-22 14:03:00 [facility] ([facility]) Full Op Note REPORT#:[id number] REPORT STATUS: Signed DATE:01/22/21 TIME: 1403 PATIENT: BURAK WHITE UNIT #: [id number] ROOM/BED: : 89 AGE: 30 SEX: F ATTEND: Isabela Li MD ADM AUTHOR: Isabela Li MD * ALL edits or amendments must be made on the electronic/computer document * Operative Report Start date: 01/22/21 Start time: 1402 Pre-procedure diagnosis: MPDPS Post-procedure diagnosis: Same Procedures performed: L/S Bilateral salpingectomy Technique/Procedure: See dictation Primary Surgeon: Isabela Li Cloth Colorer(s): Clarisa Li Anesthesia: general anesthesia Operative findings: See dictation Complications: none Estimated blood loss in ml's: 10 Specimens removed/altered: Bilateral fallopian tubes Implant(s): none Fluids: 400 Urine output: 30 Approach: laparoscopic Disposition: plan to D/C home Counts: Sponge count: correct Instrument count: correct Needle count: correct Wound class: clean Dictation number: [id number] at 1408 RPT #:[id number] END OF REPORT [facility] 2021-01-22 14:00:00 [facility] ([facility]) Discharge Summary REPORT#:[id number] REPORT STATUS: Signed DATE:01/22/21 TIME: 1400 PATIENT: BURAK WHITE UNIT #: [id number] ROOM/BED: : 89 AGE: 30 SEX: F ATTEND: Isabela Li MD ADM AUTHOR: Isabela Li MD * ALL edits or amendments must be made on the electronic/computer document * PCP PCP Discharge to: home General Information Free Text A P: 30 y/o s/p L/S bilateral salpingectomy. Date of admission: Observation Start Date: Date of admission: 01/22/21 Discharge date: 01/22/21 Admission diagnosis: MPDPS Discharge diagnosis: MPDPS Hospital course: See notes Med Rec PCP PCP: PCP: Isabela Li MD Med Rec Discharge meds: Start taking the following new medications: IBUPROFEN (MOTRIN) 600 MG TAB 600 MILLIGRAM ORAL EVERY 6 HOURS NEEDED. as needed for pain Qty = 60 Refills = 1 HYDROcodone/APAP (NORCO 5/325) 1 TAB TAB 1 TABLET ORAL EVERY 6 HOURS NEEDED. as needed for Pain Qty = 20 No Refills Objective VS/I O Last Documented: Result Date Time Pulse Ox 96 01/22 1009 B/P 124/72 01/22 1009 Temp 97.7 01/22 1009 Pulse 84 01/22 1009 Resp 18 01/22 1009 PATIENT WEIGHT: Weight (lb): 223 Weight (oz): 5.25 Weight (kg): 101.300 General appearance: alert, awake, oriented, no acute distress, pleasant, conversational, mental status normal, no respiratory distress Head/Eyes: normocephalic ENT: normal sinus Neck: full range of motion Cardiovascular: regular rate rhythm Respiratory: no distress, no tenderness, aerating well, symmetric expansion GI: soft, non-tender, no guarding, no rebound Extremities: moves all, no edema-all extremities, normal capillary refill, normal range of motion Musculoskeletal: full range of motion, normal inspection Neuro/WOOD MACHINE CARVER: alert, oriented X 3, normal speech Skin: dry, no rash Wound/incision: Location: Three port sites Site Condition: dressing clean dry, dressing intact Psychiatry: normal affect, normal judgment/insight, normal mood Discharge Instructions PCP PCP: PCP: Isabela Li MD )( Discharge to: Home/Self Care Discharge Instructions Additional Discharge Routines: Attending Follow-Up )( Diet: Regular Prescriptions: e-prescribe Rx drug database reviewed: yes Follow-up Appointments Attending Physician: Attending Physician: Isabela Li MD Attending physician follow up timeframe: In 1-2 weeks Special instructions: Infection/bleeding precautions Quality: Gen Med Crit Care Current Medications Current medication review: I attest that the foregoing medication list in the medical record is true, accurate, and complete to the best of my knowledge. at 1402 [facility] #:[id number] END OF REPORT [facility] 2021-01-22 09:26:00 [facility] ([facility]) History Physical - Adult REPORT#:[id number] REPORT STATUS: Signed DATE:01/22/21 TIME: 925 PATIENT: BURAK WHITE UNIT #: [id number] ROOM/BED: : 89 AGE: 30 SEX: F ATTEND: Isabela Li MD ADM AUTHOR: Isabela Li MD * ALL edits or amendments must be made on the electronic/computer document * History of Present Illness HPI Chief complaint: Multiparous, desires permanent sterilization HPI: 30 y/o s/p TSVD, presents for L/S bilateral salpingectomy. She had presented earlier this week for pre-op, and we had reviewed the risks/alternates /benefits to surgery, with risks including infection/bleeding/trauma to surrounding tissue, as well as possible need to convert to laparotomy. We again reviewed these today, and pt's questions have been answered. She desires to proceed with surgery. History Past medical history: Denies: Alcoholism/subst abuse. Past surgical history: Denies: Abdominal surgery. Family history: Denies: Anemia. Alcohol use: Denies EtOH use Drug use: Denies recreational drugs Smoking status: Smoking status for patients 13 years old or older: Never Smoker Medication/Allergy-Vaccine Hx Allergies: Coded Allergies: No Known Allergies (10/03/20) Review of Systems Constitutional: Denies: chills, fatigue, fever, generalized weakness, lethargy, malaise, recent wt loss, other. Skin: Denies: abrasion, bruising, contusion, diaphoresis, ecchymosis, itching, laceration, rash, swelling, other. Allergy/Immun: Denies: allergic reaction, anaphylaxis, hives, itching, rhinorrhea, sneezing, other. Eyes: Denies: redness, discharge, visual loss/blurred, itching, diplopia, eye pain, photophobia, swelling, other. ENT: Denies: ear drainage, ear ringing, earache, hearing loss, mouth pain, nasal congestion, nose bleeding, sinus problem, sore throat, throat pain, throat swelling, tongue pain, tongue swelling, toothache, voice change, other. Respiratory: Denies: CALLAHAN (dyspnea on exertion), hemoptysis, non productive cough, parox nocturnal dyspnea, pleurisy, pleuritic pain, pneumonia, productive cough (sputum ), SOB, wheezing, other. Cardiovascular: Denies: chest pain, CALLAHAN (dyspnea on exertion), edema, orthopnea, palpitations, parox nocturnal dyspnea, other. GI: Denies: abdominal pain, anorexia, constipation, diarrhea, dysphagia, GERD, hematemesis, hematochezia, hiatal hernia, melena, nausea, rectal pain, vomiting, other. : Denies: dysuria, flank pain, frequency, hematuria, nocturia, pelvic pain, , urgency, urinary retention, vaginal bleeding, vaginal discharge, other. Musculoskeletal: Arthritis: Denies: left upper, left lower, right upper, right lower, bilateral. Heme: Denies: adenopathy, bleeding, bruising, petechiae, other. Endocrine: Denies: cold intolerance, heat intolerance, polydipsia, polyphagia, polyuria, weight gain, weight loss, other. Neuro: Denies: bladder dysfunction, bowel dysfunction, change in LOC, confusion, dizziness, focal weakness, gait problem, headache, lightheaded, numbness, seizure, slurred speech, spinning sensation, syncope, unable to speak, vision change, weakness, other. Psych: Denies: agitation, anxiety, auditory hallucination, change in mental status, confusion, delusional, depression, homicidal ideation, hostile, insomnia, stress , suicidal ideation, visual hallucination, other. Physical Exam VS/I O PATIENT WEIGHT: Weight (lb): 223 Weight (oz): 5.25 Weight (kg): 101.300 General appearance: alert, awake, oriented, no acute distress, pleasant, conversational, mental status normal, no respiratory distress Head/Eyes: atraumatic, normocephalic ENT: moist mucosal membranes Neck: full range of motion Cardiovascular: regular rate rhythm Respiratory: no distress, no tenderness, aerating well, symmetric expansion Abdomen/GI: soft, non-tender, no guarding, no rebound, no distention Genitourinary: deferred Extremities: moves all Musculoskeletal: full range of motion Neuro/WOOD MACHINE CARVER: alert, oriented X 3, normal speech Skin: dry, no rash Psychiatry: normal affect, normal judgment/insight, normal mood Diagnosis, Assessment Plan Additional comments: 30 y/o s/p TSVD, presents for L/S bilateral salpingectomy. 1) We have reviewed the risks/alternatives/benefits of surgery, and pt desires to proceed. She understands that once the tubes are removed, she will never be able to have the procedure reversed. We also reviewed the post-op course, as well as precautions that she needs to take, and that she is to call me if she has any concerns at all, including any fevers, increased pain, increased bleeding, or any other concerns. at 0952 RPT #:[id number] END OF REPORT [facility] 2020-11-08 08:50:00 [facility] ([facility]) OB Disch REPORT#:[id number] REPORT STATUS: Signed DATE:11/08/20 TIME: 0850 PATIENT: BURAK WHITE UNIT #: [id number] ROOM/BED: [address] : 89 AGE: 29 SEX: F ATTEND: Isabela Li MD ADM AUTHOR: Isabela Li MD * ALL edits or amendments must be made on the electronic/computer document * Subjective Subjective Admission EGA: Weeks: 38 Days: 0 Comments: Pt notes doing well. Chest pain resolved with pepcid. No other issues. Objective General VS: Vital Signs Date Temp Pulse Resp B/P B/P Mean Pulse Ox FiO2 11/07 98.4-98.6 74-79 18-20 115-149/60-89 Last Documented: Result Date Time B/P 149/89 11/07 2341 Temp 98.4 11/07 234 Pulse 79 11/07 2342 Resp 18 11/07 2341 B/P Mean 104.0 11/07 0205 PATIENT WEIGHT: Weight (lb): Weight (oz): Weight (kg): Physical Exam Cardiac: normal rhythm Lungs: clear to auscultation Neuro: Exam: alert, oriented x3, normal speech Abdomen: post gravid, soft, no abnormal tenderness, no guarding, no rebound tenderness, normoactive bowel sounds Incision site: none Uterus: involution appropriate, non-tender Fundus: firm, below the umbilicus, non-tender CVA tenderness: none Lower extremities: Edema: none Discharge Summary General Free Text A P: 29 y/o s/p induction at term, PPD#2 1) PPD#2: AVSS 2) Labile BPs, stable. No PIH symptoms. 3) Intermittent CP: Resolved with pepcid. 4) Normal lochia, FF<Umb. Thong pain with PO pain meds. 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 ( Attempted to send this in, but not in hospital EMR formulary.) 6) Baby to undergo circumcision this am, then pt to be discharged. F?u with me in 4 weeks to discuss control. Date of admission: Date of admission: 11/06/20 Hospital course: induction of labor Procedures: spontaneous vaginal deliv Discharge condition: stable Discharge to: Home/Self Care Discharge diagnosis: full-term uncomp delivery, perineal laceration Baby A: Vaginal delivery: spontaneous status: live born Gender: male 1 minute: 8 5 minutes: 9 Anomalies: None Vaginal packing at delivery: No Discharge Instructions Diet: Regular Additional discharge routines: Attending Follow-Up Discharge meds: Continue taking these medications: PNV WITH FE FUMARATE/FA () 1 EACH TAB 1 TABLET ORAL DAILY. Start taking the following new medications: DOCUSATE SODIUM (COLACE) 100 MG CAP 100 MILLIGRAM ORAL TWICE DAILY. Qty = 60 No Refills IBUPROFEN (MOTRIN) 600 MG TAB 600 MILLIGRAM ORAL EVERY 6 HOURS NEEDED. as needed for pain Qty = 60 Refills = 1 FAMOTIDINE (PEPCID) 20 MG TAB 20 MILLIGRAM ORAL TWICE DAILY. Qty = 60 No Refills ACETAMINOPHEN/CODEINE (TYLENOL WITH CODEINE #3 300/30 MG) 300 MG-30 MG TAB 2 TABLET ORAL EVERY 6 HOURS NEEDED. as needed for Pain Qty = 20 No Refills Add'l Follow-up Appointments Attending Physician: Attending Physician: Isabela Li MD Attending physician follow up timeframe: In 4-5 weeks Special instructions: Infection/bleeding precautions. at 0853 [facility] #:[id number] END OF REPORT [facility] 2020-11-07 10:57:00 [facility] ([facility]) OB-EYELET PUNCH OPERATOR Progress Note REPORT#:[id number] REPORT STATUS: Signed DATE:11/07/20 TIME: 1057 PATIENT: BURAK WHITE UNIT #: [id number] ROOM/BED: [address] : 89 AGE: 29 SEX: F ATTEND: Isabela Li MD ADM AUTHOR: Isabela Li MD * ALL edits or amendments must be made on the electronic/computer document * Subjective Comments: Pt notes doing well this am, feeling good. Baby was brought to the NICU for hypoglycemia, but pt notes that the sugar levels are reportedly staibizing. Pt notes no pain, no bleeding. Notes voiding without difficulty. Objective General VS/I O: Last Documented: Result Date Time B/P 114/77 11/07 0730 Temp 98.6 11/07 0730 Pulse 79 11/07 0730 Resp 20 11/07 0730 B/P Mean 104.0 11/07 0205 Vital Signs Date Temp Pulse Resp B/P B/P Mean Pulse Ox FiO2 11/06-11/07 98.4-98.7 63-134 18-20 114-162/76-10 95.0-125.0 4 24 hour I O ending at 0700: 11/07 0700 11/06 1900 Intake Total 500.00 700 Output Total 250.00 Balance 250.00 700 Intake, Other 500.00 700 Output, Other 250.00 PATIENT WEIGHT: Weight (lb): Weight (oz): Weight (kg): Physical Exam General Appearance: alert, awake, no acute distress, conversant, face symmetrical, MS normal, oriented HEENT: moist mucosal membranes, normocephalic Neck; full range of motion, supple Cardiovascular: regular rate and rhythm Respiratory: no distress, no tenderness, aerating well, symmetric expansion Abdomen: non-tender, soft, no CVA tenderness, no distention, no guarding Genitourinary: no bladder distention, no flank pain, no bradley Extremities: no calf tnederness, no edema Neuro/WOOD MACHINE CARVER: alert, oriented x 3, normal speech Skin: dry, no rash Psychiatry: normal affect, normal judgment/insight, normal mood Uterus: normal Fundus: below umbilicus, non-tender, firm Diagnosis, Assessment Plan Free Text A P: 29 y/o s/p term vaginal delivery, indcution secondary to elevated BPs and decel noted in the MAC 1) PPD#1: AVSS 2) Hopsitalist was called overnight to eval pt for CP -first set of troponins neg. Pt did not report any chest pain or concerns to me this am, and notes that she has been feeling well. CP was likely due to gas. 3) Labile BPs: Will cont to monitor these. 4) Normal lochia. Voiding without difficulty. FF<Umb. Breast. 5) Cont post- care. at 1101 RPT #:[id number] END OF REPORT [facility] 2020-11-07 05:09:00 [id number] [facility] [address], [place] [address] PATIENT NAME: BURAK WHITE ADMIT DATE: 11/06/20 ACCOUNT NO: [id number] ROOM NO: 4420 AGE: 29 SEX: F ADMITTING PHYSICIAN: Isabela Li MD ATTENDING PHYSICIAN: Isabela Li MD Order: [id number] Test Reason : CHEST PAIN Test Date/Time Stamp: WedNov 07 2020 05:09:54 Blood Pressure : / mmHG Vent. Rate : 065 BPM Atrial Rate : 065 BPM P-R Int : 130 ms QRS Dur : 068 ms QT Int : 376 ms P-R-T Axes : 022 043 032 degrees QTc Int : 391 ms Normal sinus rhythm with sinus arrhythmia Normal ECG No previous ECGs available Confirmed by STEPHANIE MODI MD ([id number]) on 11/07/2020 12:21:12 PM Referred By: DOES_NOT KNOW Confirmed by:STEPHANIE MODI MD at 1221 PATIENT NAME: BURAK WHITE [facility] 2020-11-07 03:37:00 [facility] ([facility]) Clinical Note REPORT#:[id number] REPORT STATUS: Signed DATE:11/07/20 TIME: 336 PATIENT: BURAK WHITE UNIT #: [id number] ROOM/BED: [address] : 89 AGE: 29 SEX: F ATTEND: Isabela Li MD ADM AUTHOR: Ilene Cuba MD * ALL edits or amendments must be made on the electronic/computer document * Clinical Note Note: hospitalist asked to see patient with CP. Dr Li asking if she needs any tests or if can wait until am. Pt states she is feeling CP--initially just after delivery. It seems positional- -more when she lies flat or is in her left side. Currently as she is lying on her rt side she does not feel the pain. The CP is substernal and a little to the left. She denies SOB. Denies palpitaitons. She has had this CP in the past, at home, while . She can't say what she was doing or what brought it on. She also has a head ache that is frontal/bilateral/sort of throbbing. That has been there since she just woke up. This , she had elevated BPs and this is why she was induced (per pt) PMH neg PSHx neg Meds Pepcid, T#3 (for kidney stone) Pt is calm, NAD. 148/88, sat 99% RA, p 75, 36.6 RR 18 heart RRR flow murmur lungs CTAB abd soft, NT A/P CP , no SOB--seems to be positional which would seem to be more likely with gas or muscular, but given the elev BP--will check heart labs and EKG at 0343 RPT #:[id number] END OF REPORT [facility] 2020-11-07 03:37:00 [facility] ([facility]) Clinical Note REPORT#:[id number] REPORT STATUS: Signed DATE:11/07/20 TIME: 336 PATIENT: BRUAK WHITE UNIT #: [id number] ROOM/BED: [address] : 89 AGE: 29 SEX: F ATTEND: Isabela Li MD ADM AUTHOR: Ilene Cuba MD * ALL edits or amendments must be made on the electronic/computer document * See Addendum Clinical Note Note: hospitalist asked to see patient with CP. Dr Li asking if she needs any tests or if can wait until am. Pt states she is feeling CP--initially just after delivery. It seems positional- -more when she lies flat or is in her left side. Currently as she is lying on her rt side she does not feel the pain. The CP is substernal and a little to the left. She denies SOB. Denies palpitaitons. She has had this CP in the past, at home, while . She can't say what she was doing or what brought it on. She also has a head ache that is frontal/bilateral/sort of throbbing. That has been there since she just woke up. This , she had elevated BPs and this is why she was induced (per pt) PMH neg PSHx neg Meds Pepcid, T#3 (for kidney stone) Pt is calm, NAD. 148/88, sat 99% RA, p 75, 36.6 RR 18 heart RRR flow murmur lungs CTAB abd soft, NT A/P CP , no SOB--seems to be positional which would seem to be more likely with gas or muscular, but given the elev BP--will check heart labs and EKG at 0343 Addendum 1: 11/07/20 0615 by Ilene Cuba MD Laboratory Tests: 11/07 11/07 11/06 11/06 0403 0403 1524 1508 Chemistry Sodium (135 - 145 mEq/L) 135 Potassium (3.5 - 5.0 mEq/L) 4.2 Chloride (100 - 115 mEq/L) 103 Carbon Dioxide (22 - 31 mEq/L) 23 Anion Gap (10 - 20) 13.40 BUN (7 - 18 mg/dL) 7 Creatinine (0.5 - 1.0 mg/dL) 0.8 Glomerular Filtr Rate (>60 ml/min) 94 Glucose (65 - 110 mg/dL) 77 Calcium (8.4 - 10.2 mg/dL) 8.6 Total Bilirubin (0.2 - 1.0 mg/dL) 0.3 AST (15 - 37 units/L) 18 ALT (12 - 78 units/L) 20 Total Alk Phosphatase (46 - 116 units/L) 108 Troponin I (<0.056 ng/mL) <0.017 B-Natriuretic Peptide (0 - 100 pg/mL) 44.44 Total Protein (6.3 - 8.2 gm/dL) 6.1 L Albumin (3.4 - 4.8 gm/dL) 2.5 L Hematology WBC (6.6 - 12.1 K/mm3) 12.1 RBC (3.45 - 5.01 M/mm3) 3.85 Hgb (10.7 - 13.9 g/dL) 9.8 L Hct (32.1 - 42.1 %) 31.7 L MCV (84.1 - 94.8 fL) 82 L MCH (27 - 35 pg) 25.5 L MCHC (32.2 - 34.1 gm/dL) 30.9 L RDW (12.4 - 16.5 %) 16.9 H Plt Count (133 - 385 K/mm3) 279 MPV (9.1 - 12.7 fl) 10.1 Neut % (Auto) (56.5 - 79.4 %) 69.1 Lymph % (Auto) (14.3 - 34.3 %) 21.8 Morrison % (Auto) (5.1 - 10.4 %) 8.5 Eos % (Auto) (0.1 - 3.0 %) 0.1 Baso % (Auto) (0.1 - 1.0 %) 0.1 Neut # (Auto) (K/mm3) 8.3 Lymph # (Auto) (K/mm3) 2.6 Morrison # (Auto) (K/mm3) 1.0 Eos # (Auto) (K/mm3) 0.01 Baso # (Auto) (K/mm3) 0.0 Serology Treponema pallidum Ab (NONREACTIVE) NONREACTIVE Hep Bs Antigen (NONREACTIVE) NONREACTIVE Hepatitis C Antibody (NONREACTIVE) NONREACTIVE Hep C Ab Signal/Cutoff (<0.80) <0.02 HIV 1 2 Antibody (NONREACTIVE) NONREACTIVE SARS-CoV-2 Ag (Rapid) (NEGATIVE) NEGATIVE 11/06 1447 Chemistry Sodium (135 - 145 mEq/L) 134 L Potassium (3.5 - 5.0 mEq/L) 3.9 Chloride (100 - 115 mEq/L) 102 Carbon Dioxide (22 - 31 mEq/L) 21 L Anion Gap (10 - 20) 14.70 BUN (7 - 18 mg/dL) 6 L Creatinine (0.5 - 1.0 mg/dL) 0.7 Glomerular Filtr Rate (>60 ml/min) 110 Glucose (65 - 110 mg/dL) 121 H Calcium (8.4 - 10.2 mg/dL) 8.3 L Total Bilirubin (0.2 - 1.0 mg/dL) 0.2 AST (15 - 37 units/L) 16 ALT (12 - 78 units/L) 20 Total Alk Phosphatase (46 - 116 units/L) 116 Total Protein (6.3 - 8.2 gm/dL) 6.4 Albumin (3.4 - 4.8 gm/dL) 2.7 L Hematology WBC (6.6 - 12.1 K/mm3) 7.6 RBC (3.45 - 5.01 M/mm3) 3.79 Hgb (10.7 - 13.9 g/dL) 9.7 L Hct (32.1 - 42.1 %) 31.2 L MCV (84.1 - 94.8 fL) 82 L MCH (27 - 35 pg) 25.6 L MCHC (32.2 - 34.1 gm/dL) 31.1 L RDW (12.4 - 16.5 %) 16.8 H Plt Count (133 - 385 K/mm3) 283 MPV (9.1 - 12.7 fl) 10.0 Neut % (Auto) (56.5 - 79.4 %) 64.0 Lymph % (Auto) (14.3 - 34.3 %) 29.2 Morrison % (Auto) (5.1 - 10.4 %) 5.7 Eos % (Auto) (0.1 - 3.0 %) 0.1 Baso % (Auto) (0.1 - 1.0 %) 0.1 Neut # (Auto) (K/mm3) 4.8 Lymph # (Auto) (K/mm3) 2.2 Morrison # (Auto) (K/mm3) 0.4 Eos # (Auto) (K/mm3) 0.01 Baso # (Auto) (K/mm3) 0.0 Urines Ur Random Creatinine (mg/dL) 205.5 U Random Total Protein (mg/dL) 79.6 Protein/Creatinin Ratio (<200 mg/gcrea) 380.0 H likely can cancel the outstanding troponin levels at 0615 RPT #:[id number] END OF REPORT [facility] 2020-11-06 23:05:00 [facility] ([facility]) OB Delivery Note REPORT#:[id number] REPORT STATUS: Signed DATE:11/06/20 TIME: 2304 PATIENT: BURAK WHITE UNIT #: [id number] ROOM/BED: [address] : 89 AGE: 29 SEX: F ATTEND: Isabela Li MD ADM AUTHOR: Isabela Li MD * ALL edits or amendments must be made on the electronic/computer document * OB Delivery Pre-delivery GBS status: GBS status: negative Admission EGA: Weeks: 38 Days: 0 Baby A Information Baby A information Delivery date: 11/06/20 Delivery time: 2304 status: live born Wt of baby: not yet available Gender: male 1 minute: 8 5 minutes: 9 Presentation: vertex Anomalies: None ABG details Baby A Cord blood gases: not collected Nuchal cord Baby A Nuchal cord: Body cord Anomalies: None Vaginal Delivery Vaginal delivery: Labor: augmented Medications/Devices used: oxytocin Vaginal delivery: spontaneous Amniotic fluid: clear Anesthesia type: combined spinal/epidural Episiotomy: none Placenta: spontaneous, intact Post delivery meds used: oxytocin Count: correct, vag exam neg for sponges Vaginal packing: No Mother's condition: mother stable Infant's condition: infant stable in room Lacerations: Perineal laceration(s): None High vaginal laceration: no Extraction details OVD performed: no Shoulder dystocia present: no Additional comments: 29 y/o --> P2002 delivered a vigorous male CONCEPCION, no nuchal (body cord noted x 1), no meconium, f/b ant/post shoulders. Audible cry noted immediately upon delivery, and baby was noted to be moving both upper and both lower ext fully. Baby was placed on maternal abdomen, bulb suctioning was performed, and after one minute, I clamped baby's cord and then assisted dad with cutting of the cord. Cord blood was next collected for MD Richards, and then placenta was delivered spont/intact/#VC, and passed over to MD Richards. Cord was noted to be very thin. Fundus was next noted to be firm with 30 units of pitocin. No lacerations. EBL 300 cc. APGARs 8/9. Baby and mother both stable, to recovery. Blood Loss/Details Blood loss at delivery: <1000 ml at 2313 RPT #:[id number] END OF REPORT [facility] 2020-11-06 17:02:00 [facility] ([facility]) OB Admission / H P REPORT#:[id number] REPORT STATUS: Signed DATE:11/06/20 TIME: 1702 PATIENT: BURAK WHITE UNIT #: [id number] ROOM/BED: [address] : 89 AGE: 29 SEX: F ATTEND: Isabela Li MD ADM AUTHOR: Isabela Li MD * ALL edits or amendments must be made on the electronic/computer document * OB History Nursing Documentation Review Nursing data: The data set between the solid lines has been imported from nursing documentation. Any exceptions have been noted below under Provider comments. Current data Steroids prior to arrival: ROM date: ROM time: EDC date: 11/20/20 Prior history : 3 Para: 1 Term: : Abortions spontaneous: Abortions induced: Living children: Ectopic: Stillbirths: Live births: deaths: Number of previous C/S: Reported maternal labs/data Blood type: A Rh type: Positive Rubella: Hepatitis B: Unknown HIV exposure test: VDRL: Group B beta strep: Negative Rho(D) immune globulin this preg: Monitor mode - UA: Feeding preference: Provider comments on imported nursing data: [] Chief complaint: elevated blood pressure HPI: 29 y/o at 38 weeks, presented to clinic this afternoon with elevated Bps and RICH. She was sent to the MAC, and her BPs were normal, but she had a decel, and was therefore admitted. history: : 3 Term: 1 : 0 Abortus: 1 Living children: 1 Complications (prev preg): none Previous : none Number of prev : 0 Current : Admission EGA (weeks) 38 Admission EGA (days) 0 Allergies Coded Allergies: No Known Allergies (10/03/20) Review of Systems Constitutional: Denies: chills, fatigue, fever, generalized weakness, lethargy, malaise, recent wt loss, other. Skin: Denies: abrasion, bruising, contusion, diaphoresis, ecchymosis, itching, laceration, rash, swelling, other. Allergy/Immun: Denies: allergic reaction, anaphylaxis, hives, itching, rhinorrhea, sneezing, other. Eyes: Denies: redness, discharge, visual loss/blurred, itching, diplopia, eye pain, photophobia, swelling, other. ENT: Denies: ear drainage, ear ringing, earache, hearing loss, mouth pain, nasal congestion, nose bleeding, sinus problem, sore throat, throat pain, throat swelling, tongue pain, tongue swelling, toothache, voice change, other. Respiratory: Denies: CALLAHAN (dyspnea on exertion), hemoptysis, non productive cough, parox nocturnal dyspnea, pleurisy, pleuritic pain, pneumonia, productive cough (sputum ), SOB, wheezing, other. Cardiovascular: Denies: chest pain, CALLAHAN (dyspnea on exertion), edema, orthopnea, palpitations, parox nocturnal dyspnea, other. GI: Denies: abdominal pain, anorexia, constipation, diarrhea, dysphagia, GERD, hematemesis, hematochezia, hiatal hernia, melena, nausea, rectal pain, vomiting, other. : Reports: , previous pregnancies. Denies: dysuria, flank pain, frequency , hematuria, nocturia, pelvic pain, urgency, urinary retention, vaginal bleeding , vaginal discharge, other. Musculoskeletal: Denies: arthritis, extremity pain, extremity swelling, joint pain, joint swelling, lumbar pain, myalgias, neck pain, thoracic pain, other. Heme: Denies: adenopathy, bleeding, bruising, petechiae, other. Endocrine: Denies: cold intolerance, heat intolerance, polydipsia, polyphagia, polyuria, weight gain, weight loss, other. Neuro: Denies: bladder dysfunction, bowel dysfunction, change in LOC, confusion, dizziness, focal weakness, gait problem, headache, lightheaded, numbness, seizure, slurred speech, spinning sensation, syncope, unable to speak, vision change, weakness, other. Psych: Denies: agitation, anxiety, auditory hallucination, change in mental status, confusion, delusional, depression, homicidal ideation, hostile, insomnia, stress , suicidal ideation, visual hallucination, other. Objective General VS: Last Documented: Result Date Time B/P Mean 109.0 11/06 1652 B/P 141/89 11/06 1652 Pulse 74 11/06 1652 Temp 98.7 11/06 1619 Vital Signs Date Temp Pulse Resp B/P B/P Mean Pulse Ox FiO2 11/06 98.7 71-88 129-154/76-90 95.0-118.0 PATIENT WEIGHT: Weight (lb): Weight (oz): Weight (kg): Physical Exam HEENT: normocephalic w/o injury Cardiac: regular rate and rhythm Lungs: clear to auscultation Neuro: Exam: alert, oriented x3, normal speech Abdomen: gravid, soft, no abnormal tenderness, no guarding, no rebound tenderness Musculoskeletal: normal inspection Genitourinary: no bladder distention, no flank pain, no bradley Uterine activity: Monitor: toco Pelvic exam: Pelvis clinically adequate: yes, inlet appears appropriate, pubic bone config appropr, no midpelvic contraction Vulvar lesions: none, no evidence herpetic les, no evidence of other STD Vagina: normal, non-septated, w/o apparent lesions Uterus size in weeks: 38 Exam: soft, non-tender, approp size for gest age Cervical/ exam: Dilatation (cm): 4 Effacement (%): 80 Est wt (gms): 3200 Suspected macrosomia: No Suspected > 5000 grams: No station: - 2 presentation: cephalic Membranes: Membranes: Intact Lower extremities: Edema: none Diagnosis, Assessment Plan Diagnosis, Assessment Plan Free Text A P: 29 y/o at 38 0/7 weeks, with elevated BPs and decel noted in the MAC 1) FHTs currently cat I 2) GBS neg 3) Will start pitocin, AROM on next exam. 4) Monitor BPs. 5) Cephalic, 3200 grams. 6) Epidural upon request. at 1719 RPT #:[id number] END OF REPORT [facility] 2020-10-19 14:55:00 [facility] ([facility]) EMERGENCY PROVIDER REPORT REPORT#:[id number] REPORT STATUS: Signed DATE:10/19/20 TIME: 1455 PATIENT: BURAK WHITE UNIT #: [id number] ROOM/BED: AGE: 29 SEX: F PCP PHYS: Isabela Li MD SERVICE AUTHOR: Ron Newell III, MD * ALL edits or amendments must be made on the electronic/computer document * RANJIT History Nursing Documentation Review Nursing data: [facility] RANJIT 29 year old black female @ 35.3 weeks CC Nausea, vomiting, headache HPI She came to triage with the recent onset of a moderate bifrontal headache and nausea and vomiting. The last thing she ate was fruit and is not sure if it upset her stomach. She vomited 2X today, none yesterday. Her blood pressures were noted to be mildly elevated on recent office visit. No photopsia, no scotomata. Her headache has been present for about 3 days for which oral tylenol temporarily helps. care with Dr Isabela Li since about 35.3 weeks. Prior care at [facility] clinic. Claims normal OB USG during her . care complicated by a history of hyperemesis gravidarum earlier in her . PMH Allergies Allergy Severity Reaction Updated Coded No Known Allergies 10/03/20 OB at 38 wks, hyperemesis gravidarum Miscarriage, d and c PMH Hyperemesis gravidarum PSH D and C MEDS None FMH Positive for hypertension SH No smoke, no etoh, no drugs ROS Bifrontal headache, no visual changes, no fever, no cough, no shortness of breath, no chest pain, mild suprapubic pain, no vaginal bleeding, not leaking amniotic fluid, endorses positive movements. Medications: Home Medications: Medication Dose/Rte/Freq Days Qty Entered Last Max Daily Dose Reviewed PNV WITH FE 1 TAB PO DAILY 10/03/20 FUMARATE/FA 1109 () Strength: 1 EACH TAB Current Hospital Medications: Central Nervous System Agents Sig/Conrad Start time Last Medication Dose Route Stop Time Status Admin Acetaminophen 650 MG ONCE PRN 10/19 1500 DCD 10/19 (ACETAMINOPHEN 325 PO 12/18 1459 1504 MG TAB) Electrolytic, Caloric, And Michelle Sig/Conrad Start time Last Medication Dose Route Stop Time Status Admin Lactated Ringer's 1,000 ML ASDIR 10/19 1445 DCD (LACTATED RINGERS) IV 12/18 1444 Gastrointestinal Drugs Sig/Conrad Start time Last Medication Dose Route Stop Time Status Admin Al Hydrox/Mg Hydrox/ 30 ML ONCE ONE 10/19 1730 DC 10/19 Simethicone PO 10/19 1731 1735 (MYLANTA 30 ML SUSP) Ondansetron HCl 4 MG ONCE PRN 10/19 1445 DCD 10/19 (ZOFRAN 2 MG/ML 4 MG IV 12/18 1444 1451 SYR) Allergies Coded Allergies: No Known Allergies (10/03/20) Objective General VS: PATIENT WEIGHT: Weight (lb): 235 Weight (oz): Weight (kg): 106.594 No acute distress, alert, normal affect Afebrile, 130/86, 135/83, pulse 72 HEENT EOM grossly intact PUL Chest clear to auscultation CVR RRR AB Gravid and nontender, RUQ is nontender SVE By nursing staff cervix 1cm/50%/-3 station EXT No pathological pretibial edema, normal reflexes, no calf tenderness TOCO Mild uterine contraction once every 3 to 8 minutes FHT Reassuring, category one, accelerations are present She was given IV hydration and oral tylenol while awaiting her testing results. Symptoms improved. RENAL USG NONOBSTRUCTING LEFT RENAL STONE 9mm BOTH URETERAL JETS SEEN Laboratory Tests: 10/19 10/19 10/19 1510 1455 1440 Chemistry Sodium (135 - 145 mEq/L) 138 Potassium (3.5 - 5.0 mEq/L) 4.4 Chloride (100 - 115 mEq/L) 104 Carbon Dioxide (22 - 31 mEq/L) 23 Anion Gap (10 - 20) 15.70 BUN (7 - 18 mg/dL) 6 L Creatinine (0.5 - 1.0 mg/dL) 0.6 Glomerular Filtr Rate (>60 ml/min) 131 Glucose (65 - 110 mg/dL) 69 Uric Acid (2.6 - 6.0 mg/dL) 5.3 Calcium (8.4 - 10.2 mg/dL) 8.7 Total Bilirubin (0.2 - 1.0 mg/dL) 0.3 AST (15 - 37 units/L) 30 ALT (12 - 78 units/L) 19 Total Alk Phosphatase (46 - 116 units/L) 112 Total Protein (6.3 - 8.2 gm/dL) 6.9 Albumin (3.4 - 4.8 gm/dL) 2.9 L Amylase (30 - 110 units/L) 64 Lipase (73 - 393 units/L) 60 L Hematology WBC (6.6 - 12.1 K/mm3) 7.9 RBC (3.45 - 5.01 M/mm3) 3.99 Hgb (10.7 - 13.9 g/dL) 10.4 L Hct (32.1 - 42.1 %) 33.1 MCV (84.1 - 94.8 fL) 83 L MCH (27 - 35 pg) 26.1 L MCHC (32.2 - 34.1 gm/dL) 31.4 L RDW (12.4 - 16.5 %) 16.0 Plt Count (133 - 385 K/mm3) 302 MPV (9.1 - 12.7 fl) 9.7 Neut % (Auto) (56.5 - 79.4 %) 65.0 Lymph % (Auto) (14.3 - 34.3 %) 27.2 Morrison % (Auto) (5.1 - 10.4 %) 6.9 Eos % (Auto) (0.1 - 3.0 %) 0.0 L Baso % (Auto) (0.1 - 1.0 %) 0.1 Neut # (Auto) (K/mm3) 5.1 Lymph # (Auto) (K/mm3) 2.1 Morrison # (Auto) (K/mm3) 0.5 Eos # (Auto) (K/mm3) 0 Baso # (Auto) (K/mm3) 0.0 Urines Urine Color (YELLOW) YELLOW Urine Appearance (CLEAR) CLEAR Urine pH (5 - 9) 6.5 Ur Specific [place] (1.001 - 1.035) 1.025 Urine Protein (NEGATIVE) 1+ Urine Glucose (UA) (NEGATIVE) NEGATIVE Urine Ketones (NEGATIVE) 2+ Urine Blood (NEGATIVE) 2+ H Urine Nitrite (NEGATIVE) NEGATIVE Urine Bilirubin (NEGATIVE) NEGATIVE Urine Urobilinogen (<=1.0 EU/dL) 0.2 Ur Leukocyte Esterase (NEGATIVE) NEG Urine RBC (NONE SEEN #/hpf) 20-30 H Urine WBC (NONE SEEN #/hpf) 0-2 Ur Epithelial Cells (NONE SEEN #/hpf) FEW Urine Bacteria (NONE SEEN #/hpf) FEW H Ur Random Creatinine (mg/dL) 223.0 U Random Total Protein (mg/dL) 67.0 Protein/Creatinin Ratio (<200 mg/gcrea) 300.0 H Results Findings/Data: Laboratory Tests: 10/19 10/19 10/19 1510 1455 1440 Chemistry Sodium (135 - 145 mEq/L) 138 Potassium (3.5 - 5.0 mEq/L) 4.4 Chloride (100 - 115 mEq/L) 104 Carbon Dioxide (22 - 31 mEq/L) 23 Anion Gap (10 - 20) 15.70 BUN (7 - 18 mg/dL) 6 L Creatinine (0.5 - 1.0 mg/dL) 0.6 Glomerular Filtr Rate (>60 ml/min) 131 Glucose (65 - 110 mg/dL) 69 Uric Acid (2.6 - 6.0 mg/dL) 5.3 Calcium (8.4 - 10.2 mg/dL) 8.7 Total Bilirubin (0.2 - 1.0 mg/dL) 0.3 AST (15 - 37 units/L) 30 ALT (12 - 78 units/L) 19 Total Alk Phosphatase (46 - 116 units/L) 112 Total Protein (6.3 - 8.2 gm/dL) 6.9 Albumin (3.4 - 4.8 gm/dL) 2.9 L Amylase (30 - 110 units/L) 64 Lipase (73 - 393 units/L) 60 L Hematology WBC (6.6 - 12.1 K/mm3) 7.9 RBC (3.45 - 5.01 M/mm3) 3.99 Hgb (10.7 - 13.9 g/dL) 10.4 L Hct (32.1 - 42.1 %) 33.1 MCV (84.1 - 94.8 fL) 83 L MCH (27 - 35 pg) 26.1 L MCHC (32.2 - 34.1 gm/dL) 31.4 L RDW (12.4 - 16.5 %) 16.0 Plt Count (133 - 385 K/mm3) 302 MPV (9.1 - 12.7 fl) 9.7 Neut % (Auto) (56.5 - 79.4 %) 65.0 Lymph % (Auto) (14.3 - 34.3 %) 27.2 Morrison % (Auto) (5.1 - 10.4 %) 6.9 Eos % (Auto) (0.1 - 3.0 %) 0.0 L Baso % (Auto) (0.1 - 1.0 %) 0.1 Neut # (Auto) (K/mm3) 5.1 Lymph # (Auto) (K/mm3) 2.1 Morrison # (Auto) (K/mm3) 0.5 Eos # (Auto) (K/mm3) 0 Baso # (Auto) (K/mm3) 0.0 Urines Urine Color (YELLOW) YELLOW Urine Appearance (CLEAR) CLEAR Urine pH (5 - 9) 6.5 Ur Specific [place] (1.001 - 1.035) 1.025 Urine Protein (NEGATIVE) 1+ Urine Glucose (UA) (NEGATIVE) NEGATIVE Urine Ketones (NEGATIVE) 2+ Urine Blood (NEGATIVE) 2+ H Urine Nitrite (NEGATIVE) NEGATIVE Urine Bilirubin (NEGATIVE) NEGATIVE Urine Urobilinogen (<=1.0 EU/dL) 0.2 Ur Leukocyte Esterase (NEGATIVE) NEG Urine RBC (NONE SEEN #/hpf) 20-30 H Urine WBC (NONE SEEN #/hpf) 0-2 Ur Epithelial Cells (NONE SEEN #/hpf) FEW Urine Bacteria (NONE SEEN #/hpf) FEW H Ur Random Creatinine (mg/dL) 223.0 U Random Total Protein (mg/dL) 67.0 Protein/Creatinin Ratio (<200 mg/gcrea) 300.0 H Recent Impressions: ULTRASOUND - [facility] 10/19 1650 Report Impression - Status: SIGNED Entered: 10/19/2020 1802 IMPRESSION: 1. Nonobstructing left nephrolithiasis. 2. No hydronephrosis bilaterally. No right nephrolithiasis. SL: BM-H Impression By: [email or web address] - Sampson Canas MD Diagnosis, Assessment Plan Diagnosis, Assessment Plan Free Text A P: A: IUP at 35.3 weeks Late Nausea and vomiting in she was given IV hydration and IV zofran symptoms improved. Headache improved with oral tylenol. Nonobstructing left renal stone Dehydration P: I gave her results of her testing. I advised her to stay well hydrated. I also spoke with Dr Li. She is cleared for discharge. To f/u with him in 2 to 3 days. Labor precautions. jr at 1912 RPT #:[id number] END OF REPORT [facility]
[2024-09-16] MEDS ORDERED: NA CHLORIDE 0.9% 500 ML ONE (10:43)
[2024-09-16 10:46] LABS: Absolute Eosinophils 0.1 K/uL (0-0.5); Absolute Lymphocytes (CBC) 2.1 K/uL (0.7-4.9); Absolute Monocytes 0.3 K/uL (0.1-1.3); Absolute Neutrophil 2.9 K/uL (1.8-8.0); Basophils % 0.4 % (0-1.3); Eosinophils % 1.1 % (0-4.4); Hematocrit 37.7 % (36.0-45.0); Hemoglobin 12.4 g/dL (12.0-15.0); Lymphocytes % 38.5 % (15.3-44.8); MCH 29.2 pg (27.0-35.0); MCHC 32.9 g/dL (32.0-36.0); MCV 88.9 fL (80-100); MPV 6.6 fL (7.6-11.3); Monocytes % 6.4 % (3.3-12.3); Neutrophils % 53.6 % (41.7-73.7); Platelets 344 thou/uL (152-406); RBC Red Blood Cell Count 4.25 M/uL (3.86-4.86)
[2024-09-16] MEDS ORDERED: KETOROLAC 30 MG/ML INJ ONE (10:54)
[2024-09-16 11:00] LABS: Anion Gap 7.5 mEq/L (5.0-15.0); Potassium 3.5 mEq/L (3.5-5.1)
[2024-09-16 11:02] LABS: Specific Gravity 1.024 (1.005-1.030); Urine Bacteria None Seen /HPF (<20); Urine Bilirubin NEGATIVE (Negative); Urine Blood Negative (Negative); Urine Clarity Extremely Turbid (Clear); Urine Color Light-Yellow (Yellow); Urine Culture Reflex Order NOT NEEDED; Urine Glucose NEGATIVE (Negative); Urine Ketones NEGATIVE (Negative); Urine Microscopic Reflex YN ORDER UMIC; Urine Mucus Slight /HPF (None Seen); Urine Nitrite NEGATIVE (Negative); Urine Protein TRACE (Negative); Urine Urobilinogen Normal (Normal); Urine WBC <5 /HPF (<5)
[2024-09-16 11:24] LABS: SARS-CoV-2 Antigen CONTROL BLUE LINE VIS/BG OK; SARS-CoV-2 Antigen Rapid Res Negative (Negative)
[2024-09-16] MEDS ORDERED: CEFTRIAXONE 1000 MG/VIAL ONE (11:51)
--- NOTE | 2024-09-16 12:47 | EDPHYS ---
Physician Documentation [facility] Name: Lexi Velazquez Age: 33 yrs Sex: Female : 1990 Arrival Date: 09/16/2024 Time: 10:01 Bed 5 Private MD: ED Physician Silvestre Franklin HPI: 09/16 10:56 This 33 yrs old Black Female presents to ER via Ambulatory with complaints of Weakness, bo1 Abdominal Pain. 10:56 Onset: The symptoms/episode began/occurred gradually, 3 day(s) ago. Associated signs bo1 and symptoms: Pertinent positives: fever, nausea. Severity of symptoms: At their worst the symptoms were moderate. Current symptoms: right sided abd pain. Pt's son is positive for flu (unknown type) on . 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 - Infectious Disease History:: Denies. - Social history:: Smoking status: Reported history of juuling and/or vaping. ROS: 10:59 Neuro: Positive for dizziness, bo1 12:41 Constitutional: Positive for body aches, fever, bo1 12:41 Cardiovascular: Negative for chest pain, 12:41 Respiratory: Positive for shortness of breath, Negative for cough, 12:41 Abdomen/GI: Positive for abdominal pain, 12:41 Back: Negative for pain at rest, pain with movement, 12:41 : Negative for urinary symptoms, 12:41 MS/extremity: Negative for pain, swelling, 12:41 Skin: Negative for lesions, rash, Exam: 12:43 Constitutional: This is a well developed, well nourished patient who is awake, alert, bo1 and in no acute distress. 12:43 Constitutional: The patient appears in no acute distress, alert, awake, non-toxic, 12:43 Head/face: Exam is negative for acute changes, tenderness, 12:43 ENT: Ear canal(s): are normal, TM's: are normal, Posterior pharynx: is normal, no erythema, 12:43 Neck: External neck: is normal, no acute changes, ROM/movement: is normal, no acute changes, 12:43 Musculoskeletal/extremity: Extremities: all appear grossly normal, with no appreciated pain with palpation, 12:43 Skin: no rash present. 12:43 Neuro: Orientation: is normal, Mentation: is normal, 12:44 Cardiovascular: Rate: normal, Rhythm: regular, Pulses: no pulse deficits are bo1 appreciated, 12:44 Respiratory: the patient does not display signs of respiratory distress, Respirations: normal, no acute changes, Breath sounds: are clear throughout, 12:44 Abdomen/GI: Inspection: abdomen appears normal, Palpation: abdomen is soft and non-tender, rebound tenderness, is not appreciated, voluntary guarding, is not appreciated, involuntary guarding, is not appreciated, Vital Signs: 10:15 BP 130 / 92; Pulse 88; Resp 16 S; Temp 98.6(O); Pulse Ox 97% on R/A; Weight 113.4 kg aa5 (R); Height 5 ft. 9 in. (R); 11:58 BP 125 / 78; Pulse 82; Resp 16 S; Pulse Ox 97% on R/A; aa5 10:15 Body Mass Index 36.92 (113.40 kg, 175.26 cm) aa5 MDM: 10:10 Medical Screening Exam initiated bo1 12:42 Data reviewed: vital signs, lab test result(s), CBC, Flu: urinalysis, other viral bo1 screens. ED course: Pt is symptomatically improved. UTI dx vs viral syndrome. 09/16 10:30 Order name: CBC with Diff bo1 09/16 10:30 Order name: BMP; Complete Time: 11:13 bo1 09/16 10:30 Order name: Urinalysis w/ reflexes; Complete Time: 11:13 bo1 09/16 10:30 Order name: Flu; Complete Time: 11:36 bo1 09/16 10:30 Order name: SARS-COV-2 Antigen Rapid; Complete Time: 11:36 bo1 09/16 10:30 Order name: RSV; Complete Time: 11:36 bo1 09/16 10:30 Order name: Saline Lock; Complete Time: 11:14 bo1 Administered Medications: 10:48 Drug: NS 0.9% IV 500 ml 500 ml IV at 1 bolus once; to be given as a bolus over 30 aa5 minutes Volume: 500 ml; Route: IV; Rate: 1 bolus; Site: left antecubital; 11:28 Follow up: IV Status: Completed infusion; IV Intake: 500ml aa5 11:00 Drug: Ketorolac IVP 30 mg IVP once; VO received at 1100 Route: IVP; Site: left aa5 antecubital; 11:20 Follow up: Response: No adverse reaction aa5 11:58 Drug: Rocephin IV 1 grams IV at bolus once; Given slow IV push per pharmacy aa5 instructions Route: IV; Rate: bolus; Site: left antecubital; 12:02 Follow up: Response: No adverse reaction; IV Status: Completed infusion aa5 Disposition Summary: 09/16/24 12:46 Discharge Ordered Notes: Location: Home bo1 Problem: new bo1 Symptoms: have improved bo1 Condition: Stable bo1 Diagnosis - UTI/ Urinary tract infection, site not specified bo1 - Viral infection, unspecified bo1 Followup: bo1 - With: Private Physician - When: As needed - Reason: Recheck today's complaints, Continuance of care Discharge Instructions: - Discharge Summary Sheet bo1 - Urinary Tract Infection, Adult, [id number] bo1 - Viral Respiratory Infection, [id number] bo1 Forms: - Work release form hb - Medication Reconciliation Form bo1 - Antibiotic Education bo1 - Prescription Opioid Use bo1 - Patient Portal Instructions bo1 - Leadership Thank You Letter bo1 Prescriptions: - ketorolac 10 mg Oral tablet - take 1 tablet ORAL route every 4 to 6 hours for 3 days as needed for pain; do bo1 not exceed 4 doses per 24 hrs; 16 tablet; Refills: 0, Product Selection Permitted - Macrobid 100 mg Oral Capsule - take 1 capsule ORAL route every 12 hours for 10 days; 20 capsule; Refills: 0, bo1 Product Selection Permitted Signatures: [facility] Joann Pierce RN RN aa5 Silvestre Franklin MD MD bo1 Corrections: (The following items were deleted from the chart) 10:30 10:30 CBC+H.LAB.BRZ ordered. EDMS EDMS 10:30 10:30 BASIC METABOLIC PANEL+C.LAB.BRZ ordered. EDMS EDMS 10:30 10:30 Urinalysis+U.LAB.BRZ ordered. EDMS EDMS 10:30 10:30 Influenza Screen (A \T\ B)+BA.LAB.BRZ ordered. EDMS EDMS 10:30 10:30 SARS-COV-2 Antigen Rapid+I.LAB.BRZ ordered. EDMS EDMS 10:30 10:30 Respiratory Syncytial Virus Ag+BA.LAB.BRZ ordered. EDMS EDMS 10:58 10:56 Severity of symptoms: At their worst the symptoms were moderate bo1 bo1 10:59 10:56 Current symptoms: Left sided abd pain, bo1 bo1
--- NOTE | 2024-09-16 12:47 | ER ---
Nurse's Notes [facility] Name: Lexi Velazquez Age: 33 yrs Sex: Female : 1990 Arrival Date: 09/16/2024 Time: 10:01 Bed 5 Private MD: Diagnosis: UTI/ Urinary tract infection, site not specified;Viral infection, unspecified Presentation: 09/16 10:15 Chief complaint: Patient states: RLQ pain, feeling lightheaded, nausea, and body aches aa5 x 3 days ago. Denies vomiting, denies cough. Coronavirus screen: muscle pain. Ebola Screen: Patient denies travel to an Ebola-affected area in the 21 days before illness onset. Initial Sepsis Screen: Does the patient meet any 2 criteria? No. Patient's initial sepsis screen is negative. Does the patient have a suspected source of infection? No. Patient's initial sepsis screen is negative. Risk Assessment: Do you want to hurt yourself or someone else? Patient reports no desire to harm self or others. Onset of symptoms was August 2024. 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 - Infectious Disease History:: Denies. - Social history:: Smoking status: Reported history of juuling and/or vaping. Screenin:17 [facility] ED Fall Risk Assessment (Adult) History of falling in the last 3 months, aa5 including since admission No falls in past 3 months (0 pts) Confusion or Disorientation No (0 pts) Intoxicated or Sedated No (0 pts) Impaired Gait No (0 pts) Mobility Assist Device Used No (0 pt) Altered Elimination No (0 pt) Score/Fall Risk Level 0 - 2 = Low Risk Oriented to surroundings, Maintained a safe environment, Educated pt \T\ family on fall prevention, incl call for assistance when getting out of bed. Abuse screen: Denies threats or abuse. Nutritional screening: No deficits noted. Tuberculosis screening: No symptoms or risk factors identified. Assessment: 10:08 General: Appears uncomfortable, Behavior is calm, cooperative. Pain: Complains of pain aa5 in right lower quadrant Pain does not radiate. Quality of pain is described as sharp, Pain began 2-3 days ago. Is intermittent. Neuro: Level of Consciousness is awake, alert, obeys commands, Oriented to person, place, time, situation. Cardiovascular: Reports lightheadedness, Heart tones S1 S2 present Rhythm is regular. Respiratory: Airway is patent Respiratory effort is even, unlabored, Respiratory pattern is regular, symmetrical, Denies cough, shortness of breath. GI: Abdomen is round Bowel sounds present X 4 quads. Abdomen is tender to palpation in right lower quadrant Reports nausea, Patient currently denies diarrhea, vomiting. : No signs and/or symptoms were reported regarding the genitourinary system. EENT: No signs and/or symptoms were reported regarding the EENT system. Derm: Skin is dry, Skin is normal, Skin temperature is warm. Musculoskeletal: Range of motion: intact in all extremities. 10:45 Reassessment: Pt now ambulatory to restroom . aa5 10:48 Neuro: Level of Consciousness is awake, alert, obeys commands, Oriented to person, aa5 place, time, situation. Respiratory: Airway is patent Respiratory effort is even, unlabored, Respiratory pattern is regular, symmetrical. Derm: Skin is dry, Skin is normal, Skin temperature is warm. 10:48 Reassessment: Pt returned from restroom and reported feeling SOB. . aa5 11:20 Reassessment: Patient denies pain at this time. Patient states feeling better. Neuro: aa5 Level of Consciousness is awake, alert, obeys commands, Oriented to person, place, time, situation. Respiratory: Airway is patent Respiratory effort is even, unlabored, Respiratory pattern is regular, symmetrical. Derm: Skin is dry, Skin is normal, Skin temperature is warm. 11:58 Neuro: Level of Consciousness is awake, alert, obeys commands, Oriented to person, aa5 place, time, situation. Respiratory: Airway is patent Respiratory effort is even, unlabored, Respiratory pattern is regular, symmetrical. Derm: Skin is dry, Skin is normal, Skin temperature is warm. Vital Signs: 10:15 BP 130 / 92; Pulse 88; Resp 16 S; Temp 98.6(O); Pulse Ox 97% on R/A; Weight 113.4 kg aa5 (R); Height 5 ft. 9 in. (R); 11:58 BP 125 / 78; Pulse 82; Resp 16 S; Pulse Ox 97% on R/A; aa5 10:15 Body Mass Index 36.92 (113.40 kg, 175.26 cm) aa5 ED Course: 10:05 Patient arrived in ED. mg5 10:08 Arm band placed on Patient placed in an exam room, on a stretcher. aa5 10:08 Patient has correct armband on for positive identification. Placed in gown. Bed in low aa5 position. Call light in reach. Side rails up X 1. Adult w/ patient. Pulse ox on. NIBP on. 10:10 Silvestre Franklin MD is Attending Physician. bo1 10:13 Joann Gleason, ESTRADA is Primary Nurse. aa5 10:16 Triage completed. aa5 10:19 No provider procedures requiring assistance completed. aa5 10:40 Initial lab(s) drawn, by me, sent to lab. Inserted saline lock: 20 gauge in left aa5 antecubital area, using aseptic technique. Blood collected. Flushed with 10 mL NS. 10:44 COVID swab sent to lab. Flu and/or RSV swab sent to lab. aa5 12:55 IV discontinued, intact, bleeding controlled, No redness/swelling at site. Pressure hb dressing applied. Administered Medications: 10:48 Drug: NS 0.9% IV 500 ml 500 ml IV at 1 bolus once; to be given as a bolus over 30 aa5 minutes Volume: 500 ml; Route: IV; Rate: 1 bolus; Site: left antecubital; 11:28 Follow up: IV Status: Completed infusion; IV Intake: 500ml aa5 11:00 Drug: Ketorolac IVP 30 mg IVP once; VO received at 1100 Route: IVP; Site: left aa5 antecubital; 11:20 Follow up: Response: No adverse reaction aa5 11:58 Drug: Rocephin IV 1 grams IV at bolus once; Given slow IV push per pharmacy aa5 instructions Route: IV; Rate: bolus; Site: left antecubital; 12:02 Follow up: Response: No adverse reaction; IV Status: Completed infusion aa5 Medication: 10:17 VIS not applicable for this client. aa5 Intake: 11:28 IV: 500ml; Total: 500ml. aa5 Outcome: 12:46 Discharge ordered by . bo1 12:55 Discharged to home ambulatory, 12:55 Condition: stable 12:55 Discharge instructions given to patient, Instructed on discharge instructions, follow up and referral plans. medication usage, Demonstrated understanding of instructions, follow-up care, medications, Prescriptions given X 2, 12:55 Patient left the ED. Signatures: Joann Gleason RN RN aa5 Corina Frazier RN RN [facility] mg5 Silvestre Franklin MD MD bo1 Corrections: (The following items were deleted from the chart) 11:14 10:47 Reassessment: Pt now ambulatory to restroom . aa5 aa5 11:27 10:08 Pain: Complains of pain in right lower quadrant Quality of pain is described as aa5 sharp, Pain began 2-3 days ago. aa5
[2024-09-16 13:28] VITALS: BP 130/92; TEMP 98.6; O2SAT 97
== END 2024-09-16 12:55 | disposition home or self-care (01) ==
LOC: ER 10:01
DX: N39.0 Urinary tract infection, site not specified (principal); B34.9 Viral infection, unspecified; Z11.52 Encounter for screening for COVID-19; I10 Essential (primary) hypertension
CPT/HCPCS: 85025; 81001; 80048; 36415; 87807; 87804 ×2; 87811; J7040; J0696